=== PATIENT | male | born 1990 | race American Indian/Alaskan Native ===

== ENCOUNTER 2017-02-03 11:43 | Emergency (ER) | payer OTHER ==
[2017-02-03 11:50] VITALS: BP 128/90
--- NOTE | 2017-02-03 11:50 | Emergency Department Report ---
Chief Complaint: Laceration/Recheck/Suture Stated Complaint: STITCHES/OPEN WOUND Time Seen by Provider: 02/03/17 11:48 - HPI History of Present Illness: PT states he had stitches placed 1 week. PT states he stitches came out yesterday after he was scratching the site. PT states he did not open the wound intentionally to hurt himself - ROS Review of Systems: + wound - self harm - Exam Physical Exam: linear wound to L wrist, shallow wound dehiscence noted MSE screening note: Focused history and physical exam performed. Due to findings the following was ordered: ED Disposition for MSE Condition: Stable
--- NOTE | 2017-02-03 13:14 | Emergency Department Report ---
ED Recheck HPI - General Chief Complaint: Laceration/Recheck/Suture Stated Complaint: STITCHES/OPEN WOUND Time Seen by Provider: 02/03/17 11:48 Source: patient Mode of arrival: Ambulatory Limitations: No Limitations - History of Present Illness Initial Comments: This is a 26-year-old male that presents with removal of sutures that were placed last week and in [facility]. Patient stated a total of 9 sutures has been placed to his left anterior wrist after he tried to attempt suicide. Patient stated the stitches came out last night after he was scratching the site. Patient denies any suicidal indication or homicidal indication. Patient states has had drainage that is described as pus. Patient denies any fever, chills, joint stiffness, joint swelling, joint redness, numbness, tingling, chest pain or shortness of breath. Patient stated he is following up with a psychiatrist for depression. Patient denies any past medical history. Denies any drug allergies. Patient denies being prescribed any antibiotics after laceration repair or use of antibiotics currently. Patient stated he is UTD with tetanus shot. MD Complaint: wound re-check -: Gradual, days(s) (1) Returns Today for: other (suture came out) Symptoms Since Prior Visit: worsening discharge Associated Symptoms: none. denies: fever, chills, chest pain, shortness of breath, rash, malaise, nasue[place], abdominal pain - Related Data Previous Rx's Medication Instructions Recorded Last Taken Type Acetaminophen/Codeine [Tylenol #3] 1 tab PO Q6H PRN #20 tab 05/21/16 Unknown Rx Indomethacin 50 mg PO TID #15 capsule 05/21/16 Unknown Rx Cephalexin [Keflex] 500 mg PO Q8HR 7 Days 02/03/17 Unknown Rx Allergies Allergy/AdvReac Type Severity Reaction Status Date / Time No Known Allergies Allergy Unverified 05/21/16 13:05 ED Review of Systems ROS: Stated complaint: STITCHES/OPEN WOUND Other details as noted in HPI Constitutional: denies: chills, fever Eyes: denies: eye pain, eye discharge, vision change ENT: denies: ear pain, throat pain Respiratory: denies: cough, shortness of breath, wheezing Cardiovascular: denies: chest pain, palpitations Endocrine: no symptoms reported Gastrointestinal: denies: abdominal pain, nausea, diarrhea Genitourinary: denies: urgency, dysuria Musculoskeletal: denies: back pain, joint swelling, arthralgia Skin: denies: rash, lesions Neurological: denies: headache, weakness, paresthesias Psychiatric: denies: anxiety, depression Hematological/Lymphatic: denies: easy bleeding, easy bruising ED Past Medical Hx - Past Medical History Hx Psychiatric Treatment: Yes (depression) Additional medical history: BULGING / HERNIATED DISC - Surgical History Additional Surgical History: HEMORRHOIDECTOMY - Social History Smoking Status: Current Every Day Smoker Substance Use Type: Alcohol - Medications Home Medications: Home Medications Medication Instructions Recorded Confirmed Last Taken Type Acetaminophen/Codeine [Tylenol #3] 1 tab PO Q6H PRN #20 tab 05/21/16 Unknown Rx Indomethacin 50 mg PO TID #15 capsule 05/21/16 Unknown Rx Cephalexin [Keflex] 500 mg PO Q8HR 7 Days 02/03/17 Unknown Rx ED Physical Exam - General Limitations: No Limitations General appearance: alert, in no apparent distress - Head Head exam: Present: atraumatic, normocephalic, normal inspection - Eye Eye exam: Present: normal appearance, PERRL, EOMI. Absent: scleral icterus, conjunctival injection, nystagmus, periorbital tenderness Pupils: Present: normal accommodation - ENT ENT exam: Present: normal exam, normal orophraynx, mucous membranes moist, TM's normal bilaterally, normal external ear exam - Neck Neck exam: Present: normal inspection, full ROM. Absent: tenderness, meningismus, lymphadenopathy, thyromegaly - Respiratory Respiratory exam: Present: normal lung sounds bilaterally. Absent: respiratory distress, wheezes, rales, rhonchi, stridor, chest wall tenderness, accessory muscle use, decreased breath sounds, prolonged expiratory - Cardiovascular Cardiovascular Exam: Present: regular rate, normal rhythm, normal heart sounds. Absent: bradycardia, tachycardia, irregular rhythm, systolic murmur, diastolic murmur, rubs, gallop - GI/Abdominal GI/Abdominal exam: Present: soft, normal bowel sounds. Absent: distended, tenderness, guarding, rebound, rigid, diminished bowel sounds - Rectal Rectal exam: Present: deferred - Extremities Exam Extremities exam: Present: normal inspection, full ROM, normal capillary refill. Absent: tenderness, pedal edema, joint swelling, calf tenderness - Expanded Upper Extremity Exam Left General: Present: normal inspection Shoulder Exam: Present: normal inspection, full ROM. Absent: tenderness, swelling, abrasion, laceration, ecchymosis, deformity, crepidus, dislocation, erythema, tenderness over AC joint Upper Arm exam: Present: normal inspection, full ROM. Absent: tenderness, swelling, abrasion, laceration, ecchymosis, deformity, crepidus, dislocation, erythema Elbow exam: Present: normal inspection, full ROM. Absent: tenderness, swelling , abrasion, laceration, ecchymosis, deformity, crepidus, dislocation, erythema, effusion, pain w/ pronation/supination, tenderness over radial head Forearm Wrist exam: Present: normal inspection, full ROM, laceration (5 cm linear repaired laceration in the anterior wrist with shallow wound dehiscence with slight purulent drainage ). Absent: tenderness, swelling, abrasion, ecchymosis, deformity, crepidus, dislocation, erythema, tenderness over anatomical snuff box, pain with axial thumb loading Hand Wrist exam: Present: normal inspection, full ROM. Absent: tenderness, swelling, abrasion, laceration, ecchymosis, deformity, crepidus, dislocation, erythema, amputation, nail avulsion, subungual hematoma Neuro motor exam: Present: wrist extension intact, thumb opposition intact, thumb IP flexion intact, thumb adduction intact, fingers 2-5 abduction intact Neurosensory exam: Present: 2-point discrimination, radial nerve intact, ulnar nerve intact, median nerve intact Vascular: Present: vascular compromise, normal capillary refill, radial pulse, brachial pulse, ulnar pulse - Back Exam Back exam: Present: normal inspection, full ROM. Absent: tenderness, CVA tenderness (R), CVA tenderness (L), muscle spasm, paraspinal tenderness, vertebral tenderness, rash noted - Neurological Exam Neurological exam: Present: alert, oriented X3, CN II-XII intact, normal gait, reflexes normal - Psychiatric Psychiatric exam: Present: normal affect, normal mood - Skin Skin exam: Present: warm, dry, intact, normal color. Absent: rash ED Course Vital Signs 02/03/17 11:47 Temperature 98.6 F Pulse Rate 75 Respiratory 18 Rate Blood Pressure 128/90 O2 Sat by Pulse 100 Oximetry ED Recheck MDM - Medical Decision Making Ed course: This is a 26-year-old male that presents with wound dehiscence 1- patient was examined by myself. I used 40 cc for NS to irrigated and washed the area. I then applied sterile 4x4 with tape. No Steri-Strips or wound has not been sutured due to the timing of the wound as well as positive purulent drainage noted. 2- patient received Keflex at the time of discharge. 3- patient was instructed to keep the wound dry and clean for 24 hours followed by washing soap and water and reapply sterile dressing with tape. Patient also instructed to follow-up with the primary care doctor in 3-5 days or if symptoms such as increased pus, drainage, swelling, or opening further of the wound to return to emergency room as soon as possible. 4- at time time of discharge, the patient does not seem toxic or ill in appearance. No acute signs of distress noted. Patient agrees to discharge treatment plan of care. No further questions noted by the patient. Critical care attestation.: If time is entered above; I have spent that time in minutes in the direct care of this critically ill patient, excluding procedure time. ED Disposition Clinical Impression: Encounter for wound re-check Disposition: DC-01 TO HOME OR SELFCARE Is pt being admited?: No Does the pt Need Aspirin: No Condition: Stable Instructions: Cephalexin (By mouth), Wound Infection (ED), Acute Wound Care (ED ) Additional Instructions: keep the wound dry and clean for 24 hours followed by washing soap and water and reapply sterile dressing with tape. follow-up with the primary care doctor in 3-5 days or if symptoms such as increased pus, drainage, swelling, or opening further of the wound to return to emergency room as soon as possible. Take full course of antibiotics as prescribed. Prescriptions: Cephalexin [Keflex] 500 mg PO Q8HR 7 Days Referrals: LAMIN STERN JR, MD [Staff Physician] - 3-5 Days PRIMARY CAREMD [Primary Care Provider] - 3-5 Days [facility] [Outside] - 3-5 Days [facility] [place] [place]] - 3-5 Days Forms: Work/School Release Form(ED)
== END 2017-02-03 13:30 | disposition home or self-care (01) ==
LOC: ED 11:43
DX: T81.30XA Disruption of wound, unspecified, initial encounter (principal); F32.9 Major depressive disorder, single episode, unspecified; F17.210 Nicotine dependence, cigarettes, uncomplicated
CPT/HCPCS: 99282

== ENCOUNTER 2017-03-09 14:13 | Inpatient (IN) | payer OTHER ==
[2017-03-09] MEDS ORDERED: NACL 0.9% 1000 ML 1,000 ML IV ONE ×4 (14:39→18:15)
[2017-03-09] MEDS ORDERED: TORADOL IV ONE (14:58)
[2017-03-09] MEDS ORDERED: ZOFRAN IV ONE (14:58)
--- NOTE | 2017-03-09 15:02 | Emergency Department Report ---
ED Abdominal Pain HPI - General Chief Complaint: Abdominal Pain Stated Complaint: ABDOMINAL PAIN Time Seen by Provider: 03/09/17 14:52 Source: patient, EMS Mode of arrival: Ambulatory Limitations: No Limitations, Altered Mental Status, Other - History of Present Illness Initial Comments: 18-year-old male here with complaint of abdominal pain nausea vomiting. Patient has a history of prostatitis in the past and states that he feels that this is similar. He is having some dysuria and suprapubic abdominal pain. He has felt chills and feels dehydrated. He has had a single episode of nausea and vomiting. His psychiatric complaints are stable. MD Complaint: abdominal pain -: Gradual Location: suprapubic Radiation: none Migration to: no migration Severity: mild Severity scale (0 -10): 4 Quality: aching Consistency: constant Improves With: nothing Worsens With: nothing Associated Symptoms: nausea, vomiting, chills, dysuria - Related Data Previous Rx's Medication Instructions Recorded Last Taken Type Acetaminophen/Codeine [Tylenol #3] 1 tab PO Q6H PRN #20 tab 05/21/16 Unknown Rx Indomethacin 50 mg PO TID #15 capsule 05/21/16 Unknown Rx Cephalexin [Keflex] 500 mg PO Q8HR 7 Days 02/03/17 Unknown Rx Allergies Allergy/AdvReac Type Severity Reaction Status Date / Time No Known Allergies Allergy Unverified 05/21/16 13:05 ED Review of Systems ROS: Stated complaint: ABDOMINAL PAIN Other details as noted in HPI Comment: All other systems reviewed and negative Constitutional: chills. denies: fever Eyes: denies: eye pain, eye discharge, vision change ENT: denies: ear pain, throat pain Respiratory: denies: cough, shortness of breath, wheezing Cardiovascular: denies: chest pain, palpitations Endocrine: no symptoms reported Gastrointestinal: abdominal pain, nausea, diarrhea. denies: constipation, hematemesis Genitourinary: urgency, dysuria Musculoskeletal: denies: back pain, joint swelling, arthralgia Skin: denies: rash, lesions Neurological: denies: headache, weakness, paresthesias Psychiatric: denies: anxiety, depression Hematological/Lymphatic: denies: easy bleeding, easy bruising ED Past Medical Hx - Past Medical History Hx Hypertension: Yes Hx Psychiatric Treatment: Yes (depression) Additional medical history: BULGING / HERNIATED DISC. hemorrhoids - Surgical History Additional Surgical History: HEMORRHOIDECTOMY - Family History Family history: no significant - Social History Smoking Status: Current Every Day Smoker Substance Use Type: None - Medications Home Medications: Home Medications Medication Instructions Recorded Confirmed Last Taken Type Acetaminophen/Codeine [Tylenol #3] 1 tab PO Q6H PRN #20 tab 05/21/16 Unknown Rx Indomethacin 50 mg PO TID #15 capsule 05/21/16 Unknown Rx Cephalexin [Keflex] 500 mg PO Q8HR 7 Days 02/03/17 Unknown Rx ED Physical Exam - General Limitations: No Limitations, Altered Mental Status, Other General appearance: alert, in no apparent distress, obese - Head Head exam: Present: atraumatic, normocephalic - Eye Eye exam: Present: normal appearance. Absent: scleral icterus, conjunctival injection - ENT ENT exam: Present: mucous membranes dry - Neck Neck exam: Present: normal inspection - Respiratory Respiratory exam: Present: normal lung sounds bilaterally. Absent: respiratory distress, wheezes, rales - Cardiovascular Cardiovascular Exam: Present: regular rate, normal rhythm. Absent: systolic murmur, diastolic murmur, rubs, gallop - GI/Abdominal GI/Abdominal exam: Present: soft, tenderness (suprapubic), normal bowel sounds. Absent: distended, guarding, rebound - Rectal Rectal exam: Present: deferred - Extremities Exam Extremities exam: Present: normal inspection - Back Exam Back exam: Present: normal inspection - Neurological Exam Neurological exam: Present: alert, oriented X3 - Psychiatric Psychiatric exam: Present: normal affect, normal mood - Skin Skin exam: Present: warm, dry, intact, normal color. Absent: rash ED Course Vital Signs 03/09/17 14:48 Temperature 98.3 F Pulse Rate 84 Respiratory 16 Rate Blood Pressure 105/84 [Left] O2 Sat by Pulse 99 Oximetry ED Medical Decision Making - Lab Data Result diagrams: 03/09/17 16:03 03/09/17 16:03 Laboratory Results - last 24 hr 03/09/17 03/09/17 03/09/17 16:03 16:03 16:03 WBC 4.2 L RBC 4.83 Hgb 13.8 Hct 42.0 MCV 87 MCH 29 MCHC 33 RDW 13.0 L Plt Count 213 Lymph % (Auto) 31.6 [place] % (Auto) 8.2 H Eos % (Auto) 1.9 Baso % (Auto) 0.3 Lymph # 1.3 [place] # 0.3 Eos # 0.1 Baso # 0.0 Seg Neutrophils % 58.0 Seg Neutrophils # 2.5 PT 13.1 INR 0.95 APTT 26.9 Sodium 124 L Potassium 4.9 Chloride 80.8 L Carbon Dioxide 23 Anion Gap 25 BUN 19 Creatinine 1.6 H Estimated GFR > 60 BUN/Creatinine Ratio 11.87 Glucose 982 H* Calcium 10.2 Total Bilirubin 0.60 AST 29 ALT 46 Alkaline Phosphatase 157 H Total Protein 8.5 H Albumin 4.9 Albumin/Globulin Ratio 1.4 Lipase 50 Urine Color Urine Turbidity Urine pH Ur Specific [place] Urine Protein Urine Glucose (UA) Urine Ketones Urine Blood Urine Nitrite Urine Bilirubin Urine Urobilinogen Ur Leukocyte Esterase Urine WBC (Auto) Urine RBC (Auto) Urine Mucus Blood Type Antibody Screen 03/09/17 03/09/17 16:03 Unknown WBC RBC Hgb Hct MCV MCH MCHC RDW Plt Count Lymph % (Auto) [place] % (Auto) Eos % (Auto) Baso % (Auto) Lymph # [place] # Eos # Baso # Seg Neutrophils % Seg Neutrophils # PT INR APTT Sodium Potassium Chloride Carbon Dioxide Anion Gap BUN Creatinine Estimated GFR BUN/Creatinine Ratio Glucose Calcium Total Bilirubin AST ALT Alkaline Phosphatase Total Protein Albumin Albumin/Globulin Ratio Lipase Urine Color Colorless Urine Turbidity Clear Urine pH 6.0 Ur Specific [place] 1.022 Urine Protein <15 mg/dl Urine Glucose (UA) >=500 Urine Ketones Neg Urine Blood Neg Urine Nitrite Neg Urine Bilirubin Neg Urine Urobilinogen < 2.0 Ur Leukocyte Esterase Neg Urine WBC (Auto) < 1.0 Urine RBC (Auto) < 1.0 Urine Mucus Few Blood Type O POSITIVE Antibody Screen TNR - Medical Decision Making 18-year-old male with a history of prostatitis here with similar symptoms. Plan to check UA base gland and will treat as necessary. Plan to treat with IV fluids and antiemetics and Toradol for pain. Patient with a blood sugar of 982. He is not a known diabetic. On re- discussion with him he does admit to having blurry vision and polydipsia. Plan to admit to the hospitalist service. Given his anion gap and blood sugar he will need to start on an insulin drip and be admitted to critical care. Portions of this chart were dictated with dictation software. There may be dictation errors contained within this note. Critical Care Time: Yes Critical care attestation.: If time is entered above; I have spent that time in minutes in the direct care of this critically ill patient, excluding procedure time. Critical Care Time: 35 mins ED Disposition Clinical Impression: DKA, type 2 Disposition: DC-09 OP ADMIT IP TO THIS HOSP Is pt being admited?: Yes Condition: Critical Instructions: Diabetes Mellitus Type 2 in Adults (ED) Referrals: PRIMARY CARE, [Primary Care Provider] - 3-5 Days
[2017-03-09 16:32] LABS: INR 0.95 (0.87-1.13)
[2017-03-09 16:33] LABS: Partial Thromboplastin Time 26.9 Sec. (24.2-36.6)
[2017-03-09 16:42] LABS: Basophils % (Auto) 0.3 % (0.0-1.8); Eosinophils % (Auto) 1.9 % (0.0-4.3); Hemoglobin 13.8 gm/dl (11.8-15.2); Mean Corpuscular HGB Conc 33 % (32-34); Mean Corpuscular Hemoglobin 29 pg (28-32); Mean Corpuscular Volume 87 fl (84-94); Platelet Count 213 K/mm3 (140-440); Red Blood Count 4.83 M/mm3 (3.65-5.03); White Blood Count 4.2 K/mm3 (4.5-11.0)
[2017-03-09 16:48] LABS: Alanine Aminotransferase 46 units/L (7-56); Albumin 4.9 g/dL (3.9-5); Albumin/Globulin Ratio 1.4 %; Alkaline Phosphatase 157 units/L (35-129); Anion Gap 25 mmol/L; BUN/Creatinine Ratio 11.87; Blood Urea Nitrogen 19 mg/dL (9-20); Calcium 10.2 mg/dL (8.4-10.2); Carbon Dioxide 23 mmol/L (22-30); Chloride 80.8 mmol/L (98-107); Lipase 50 units/L (13-60); Potassium 4.9 mmol/L (3.6-5.0); Sodium 124 mmol/L (137-145); Total Protein 8.5 g/dL (6.3-8.2)
[2017-03-09 16:49] LABS: Bilirubin,Urine NEG (Negative); Blood,Urine NEG (Negative); Ketones,Urine NEG (Negative); Leukocyte Esterase,Urine NEG (Negative); Mucus,Urine FEW /HPF; Nitrite,Urine NEG (Negative); Protein,Urine <15 mg/dL mg/dL (Negative); RBC,Urine < 1.0 /HPF (0.0-6.0); Urobilinogen,Urine < 2.0 mg/dL (<2.0); WBC,Urine < 1.0 /HPF (0.0-6.0)
[2017-03-09 16:59] LABS: Glucose 982 mg/dL (75-100)
[2017-03-09] MEDS ORDERED: D50W (25GM) IV PRN ×2 (17:02→18:10)
--- NOTE | 2017-03-09 17:31 | Admit Criteria Form ---
Admission Criteria Documentation: GENERAL ADMISSION CRITERIA (Place 'X' for any and all applicable criteria): Admission is indicated for ANY ONE of the following: [ ]I. Hemodynamic instability as indicated by ANY ONE of the following(1)(2) (3)(4)(5): [ ]a) Vital sign abnormality not readily corrected by appropriate treatment within 12 to 24 hours indicated by ANY ONE of the following: [ ]i) Hypotension [ ]ii) Symptomatic Tachycardia unresponsive to treatment (eg , analgesia, fluids, sedation as indicated) [ ]iii) Orthostatic vital sign changes unresponsive to treatment (eg, fluids) [ ]b) Vital sign abnormality that is severe indicated by ANY ONE of the following: [ ]i) Inadequate perfusion indicated by ANY ONE of the following: [ ]1) Lactic acidosis (greater than 2 mmol/L) [ ]2) New abnormal capillary refill (greater than 3 seconds) [ ]3) Other metabolic acidosis (arterial pH less than 7.35) not otherwise explained [ ]4) Reduced urine output [ ]5) Altered mental status [ ]6) Myocardial Ischemia [ ]v) Mean arterial pressure[A] less than 60 mm Hg [ ]vi) Mean arterial pressure[A] less than 70 mm Hg after 30 minutes of appropriate treatment (eg, fluid resuscitation) [ ]vii) IV inotropic or vasopressor medication required to maintain adequate blood pressure or perfusion [ ]viii) Sustained heart rate greater than 120 beats per minute in adult or child 6 years or older[B]] [ ]II. Hypertension requiring inpatient treatment as indicated by ANY ONE of the following(6)(7)(8): [ ]a) SBP greater than 220 mm Hg or DBP greater than 120 mm Hg despite treatment [ ]b) SBP greater than 140 mm Hg or DBP greater than 100 mm Hg with evidence of acute end organ damage as indicated by ANY ONE of the following: [ ]i) Encephalopathy [ ]ii) Acute renal failure as indicated by new onset of ANY ONE of the following(9)(10)(11)(12)(13): [ ]1) A 3-fold rise in serum creatinine from baseline [ ]2) Serum creatinine greater than 4 mg/dL ( 354 micromoles/L) with acute rise greater than 0.5 mg/dL (44.2 micromoles/L) [ ]3) Reduction of more than 75% in estimated glomerular filtration rate from baseline [ ]4) Estimated glomerular filtration rate less than 35 mL/min/1.73m2 (0.59 mL/sec/1.73m2) in child up to 18 years of age [ ]5) Cessation of urine output indicated by ALL of the following: [ ]A. Adequate volume status [ ]B. Inadequate urine output as indicated by ANY ONE of the following: [ ]a. Urine output less than 0.3 mL/kg/hr for 24 hours [ ]b. Anuria (urine output less than 0.1 mL/kg/hr) for 12 hours [ ]iii) Aortic dissection [ ]iv) Myocardial ischemia [ ]v) Left ventricular heart failure [ ]vi) Retinal hemorrhage [ ]vii) Other significant finding [ ]c) Hypertension in child requiring inpatient treatment as indicated by ALL of the following(14)(15)(16): [ ]i) Outpatient treatment not effective, not available, or not appropriate [ ]ii) SBP or DBP greater than 95th percentile for age [ ]iii) Evidence of acute end organ damage as indicated by ANY ONE of the following: [ ]1) Altered mental status [ ]2) Acute renal failure as indicated by new onset of ANY ONE of the following(9)(10)(11)(12)(13): [ ]A. A 3-fold rise in serum creatinine from baseline [ ]B. Serum creatinine greater than 4 mg/dL (354 micromoles/L) with acute rise greater than 0.5 mg/dL (44.2 micromoles/L) [ ]C. Reduction of more than 75% in estimated glomerular filtration rate from baseline [ ]D. Estimated glomerular filtration rate less than 35 mL/min/1.73m2 (0.59 mL/sec/1.73m2)in child up to 18 years of age [ ]E. Cessation of urine output indicated by ALL of the following: [ ]a. Adequate volume status [ ]b. Inadequate urine output as indicated by ANY ONE of the following: [ ]1) Urine output less than 0.3 mL/kg/hr for 24 hours [ ]2) Anuria (urine output less than 0.1 mL/kg/hr) for 12 hours [ ]3) Severe headache [ ]4) Visual disturbance [ ]5) Retinal hemorrhage [ ]6) Other significant finding [ ]III. Acute cardiac or peripheral ischemia as indicated by ANY ONE of the following: [ ]a) Acute coronary syndrome(17)(18) [ ]b) Acute peripheral ischemia (eg, pulseless, cool, mottled, or cyanotic extremity)(19) [ ]IV. Cardiac arrhythmias or findings of immediate concern indicated by ANY ONE of the following(20)(21): [ ]a) Heart rhythms that are inherently dangerous or unstable indicated by ANY ONE of the following(22)(23)(24): [ ]i) Resuscitated ventricular fibrillation or cardiac arrest [ ]ii) Ventricular escape rhythm [ ]iii) Sustained ventricular tachycardia (30 seconds or more of ventricular rhythm at greater than 100 beats per minute) [ ]iv) Nonsustained ventricular tachycardia and ANY ONE of the following: [ ]1) Suspected cardiac ischemia as cause or consequence of ventricular tachycardia [ ]2) In setting of acute myocarditis [ ]b) Unstable cardiac conduction defects indicated by ANY ONE of the following(24)(25)(26): [ ]i) Type II second-degree atrioventricular block [ ]ii) Third-degree atrioventricular block [ ]iii) New-onset left bundle branch block with suspected myocardial ischemia [ ]c) Any heart rhythm and ANY ONE of the following(22)(23)(27)(28)( 29): [ ] i) Continuous long-term ECG monitoring needed (eg, initiation of drug requiring monitoring for more than 24 hours) [ ] ii) Patient has automatic implanted cardioverter defibrillator that is repeatedly firing, malfunctioning, or in need of immediate adjustment of settings beyond the scope of ambulatory or observation care. [ ]d) Heart rhythms of concern due to ANY ONE of the following: [ ]i) Hypotension [ ]ii) Respiratory distress [ ]iii) Association with other significant symptoms (eg, bradycardia with syncope or ongoing dizziness, supraventricular tachycardia with chest pain) (27)(28) (30) [ ] V. Severe heart failure as indicated by ANY ONE of the following ( 31)(32): [ ]a) Respiratory distress [ ]b) Hypotension [ ]c) Anasarca (refractory to outpatient therapy) [ ]d) Cardiac arrhythmias of immediate concern [ ]e) Myocardial ischemia [ ]. Respiratory abnormalities, including ANY ONE of the following(33)(34) (35)(36): [ ]a) Respiratory rate greater than 30 breaths per minute unresponsive to treatment [A] [ ]b) New saturation of arterial oxygen less than 90% [ ]c) New partial pressure of carbon dioxide greater than 44 mm Hg ( 5.9 kPa) [ ]d) Supplemental oxygen or respiratory treatments needed that are new or not performable at other levels of care [ ]e) New-onset cyanosis [ ]f) Inability to protect airway [ ]g) Chronic lung disease with severe deterioration (not responsive to emergency and observation care treatment as appropriate) as indicated by ANY ONE of the following(34)(36 ): [ ]i) SaO2 5% below baseline in patient with chronic hypoxemia [ ]ii) New requirement for supplemental oxygen to keep SaO2 at baseline or acceptable level [ ]iii) Required supplemental oxygen performable only in acute inpatient setting [ ]iv) Severe airflow or ventilation abnormalities [ ]v) Previously mobile patient unable to walk between rooms [ ]vi Inability to eat or sleep due to dyspnea [ ]vii) Rapid rate of exacerbation onset [ ]viii) Altered mental status ]VII. Severe airflow or ventilation abnormalities (not responsive to emergency and observation care treatment as appropriate) as indicated by ANY ONE of the following(33)(34)(35)(37): [ ]a) PCO2 greater than 42 mm Hg (5.6 kPa) and pH less than 7.35 (new ) [ ]b) Documented PCO2 increased more than 5 mm Hg (0.7 kPa) from disease baseline [ ]c) Airflow measurements [B] less than 60% of previous best or predicted (eg, peak expiratory flow rate less than 300 L/minute) despite intensive emergent treatment [C] [ ]d) Required respiratory treatments that are performable only in acute inpatient setting [ ]VIII. Impending or actual respiratory arrest ( Also use Respiratory Failure GRG for severe respiratory disease and long-term mechanical ventilation patients) [ ]IX. Neurologic abnormalities, including ANY ONE of the following: [ ]a) New findings that suggest ANY ONE of the following: [ ]i) [employer] infection(38) [ ]ii) Cerebral bleeding, ischemia, or vasospasm(39)(40) [ ]iii) Increased intracranial pressure, hydrocephalus, or cerebral edema(41)(42)(43) [ ]iv) Spinal cord injury(44) [ ]b) Uncontrolled seizures(45) [ ]c) New-onset coma (eg, [place] coma scale score less than 9) or unexplained abnormal mental status (eg, [place] coma scale score less than 14) [D](41)(46)(47) [ ]X. New-onset severe neurologic findings requiring inpatient care; examples include(42)(48)(49): [ ]a) Papilledema [ ]b) Cerebral edema [ ]c) Mass effect on CT scan [ ]XI. Suspected acute intra-abdominal process with peritoneal signs, abdominal mass, or similar findings (50)(51)(52) [ X]XII. Severe physiologic disorder remaining after emergency or observation level care (as appropriate) as indicated by ANY ONE of the following (53): [ ]a) Significant dehydration [X ]b) Diabetic ketoacidosis [ ]c) Hyperglycemic hyperosmolar state (eg, osmolality greater than 320 mOsm/kg (mmol/kg) [ ]d) Hypoglycemia [ ]e) Other (new) acid-base disorder with pH less than 7.35 or greater than 7.5(54) [ ]f) Thyroid storm (55) [ ]g) Myxedema coma (55) [ ]XIII. Abdominal abnormalities with ANY ONE of the following(56)(57): [ ]a) Absent bowel sounds with complete ileus [ ]b) Signs of intestinal obstruction or peritonitis [E] [ ]c) Nausea and vomiting that cannot be controlled with outpatient or observation care [ ]XIV. Acute renal failure as indicated by new onset of ANY ONE of the following(9)(10)(11)(12)(13): [ ]a) A 3-fold rise in serum creatinine from baseline [ ]b) Serum creatinine greater than 4 mg/dL (354 micromoles/L) with acute rise greater than 0.5 mg/dL (44.2 micromoles/L) [ ]c) Reduction of more than 75% in estimated glomerular filtration rate from baseline [ ]d) Estimated glomerular filtration rate less than 35 mL/min/ 1.73m2 (0.59 mL/sec/1.73m2) in child up to 18 years of age [ ]e) Cessation of urine output indicated by ALL of the following: [ ]i) Adequate volume status [ ]ii) Inadequate urine output as indicated by ANY ONE of the following: [ ]1) Urine output less than 0.3 mL/kg/hr for 24 hours [ ]2) Anuria (urine output less than 0.1 mL/kg/hr) for 12 hours [ ]XV. Significant uremic complications as indicated by ANY ONE of the following(58)(59)(60): [ ]a) Outpatient therapy is ineffective or not feasible for ANY ONE of the following: [ ]i) Severe heart failure [ ]ii) Severehypertension [ ]iii) Pleural effusion [ ]iv) Pericarditis or pericardial effusion [ ]b) Cardiac arrhythmias of immediate concern [ ]c) Intractable nausea or vomiting [ ]d) Recurrent seizures [ ]e) Encephalopathy [ ]f) Bleeding abnormalities (eg, platelet dysfunction) with active (eg, gastrointestinal) bleeding [ ]g) Dialysis indicated before long-term access or ambulatory arrangements can be made [ ]h) Significant metabolic or electrolyte abnormalities (eg, severe acidosis or hyperkalemia) [ ]XVI. High fever or other high-risk infection situation as indicated by ANY ONE of the following(61)(62)(63)(64): [ ]a) Outpatient and observation care antimicrobial treatment unavailable, not effective, or not appropriate [ ]b) Documented bacteremia [ ]c) Temperature greater than 40.5 degrees C (104.9 degrees F) ( oral) [ ]d) Temperature greater than 39.5 degrees C (103.1 degrees F) ( oral) or less than 36 degrees C (96.8 degrees F) (rectal) that does not respond to e treatment and observation care [ ] XVII. Temperature less than 95 degrees F (35 degrees C)(rectal)(65) [ ] XVIII. Severe nutritional abnormalities as indicated by ALL of the following (66)(67): [ ]a) Inability to tolerate or establish sufficient oral or other enteral nutrition in outpatient setting [ ]b) Parenteral nutrition regimen need that must be implemented on inpatient basis [ X] XIX. Severe electrolyte abnormalities indicated by ALL of the following(68 )(69)(70): [X ]a) Electrolytes and associated findings are not as expected for patient baseline or acceptable treatment effects. [ X]b) Severe abnormalities indicated by ANY ONE of the following: [X ]i) Sodium less than 130 mEq/L (mmol/L) (new) [ ]ii)Sodium less than 135 mEq/L (mmol/L) with ANY ONE of the following: [ ]1) Uncorrectable (to near normal or chronic baseline) after trial of outpatient and emergency treatment [ ]2) Altered mental status [ ]3) Seizures [ ]4) Severe medical etiology requiring inpatient management (eg, heart failure, hypovolemia) [ ]iii) Sodium greater than 155 mEq/L (mmol/L) [ ]iv) Sodium greater than 150 mEq/L (mmol/L) with ANY ONE of the following: [ ]1) Uncorrectable (to near normal or chronic baseline) with outpatient and emergency treatment [ ]2) Altered mental status [ ]3) Seizures [ ]4) Severe medical etiology (eg, hypovolemia, diabetes insipidus) [ ]v) Potassium less than 2.5 mEq/L (mmol/L) despite outpatient and emergency treatment [ ]vi) Potassium less than 3 mEq/L (mmol/L) with ANY ONE of the following: [ ]1) Weakness [ ]2) Cardiac abnormality (eg, arrhythmia, conduction disturbance) [ ]3) Cardiac ischemia [ ]4) Ileus [ ]5) Ongoing medical cause requiring inpatient management (eg, acute renal wasting or SIADH) [ ]6) Other severe symptoms [ ]vii) Potassium greater than 6.5 mEq/L (mmol/L) [ ]viii) Potassium greater than 5 mEq/L (mmol/L) with ANY ONE of the following: [ ]1) Uncorrectable (to near normal or chronic baseline) with outpatient and emergency treatment [ ]2) Severe ECG findings [F] [ ]3) Acute worsening of renal failure (creatinine greater than 2.5 mg/dL (221 micromoles/L) or significant elevation for age and size) [ ]4) Severe weakness [ ]5) Severe medical etiology (eg, hemolysis, infection, drug overdose) [ ]ix) Calcium less than 7 mg/dL (1.75 mmol/L) despite outpatient and emergency treatment (72) [ ]x) Calcium less than 8 mg/dL (2 mmol/L) with significant symptoms or findings; examples include(72): [ ]1) Altered mental status [ ]2) Muscle spasms [ ]3) Seizures [ ]4) Breathing difficulty [ ]5) Cardiac abnormality (eg, arrhythmia or conduction disturbance) [ ]xi) Calcium greater than 14 mg/dL (3.5 mmol/L)(72) [ ]xii) Calcium greater than 12 mg/dL (3 mmol/L) with ANY ONE of the following(72): [ ]1) Uncorrectable (to near normal or chronic baseline) with outpatient and emergency treatment [ ]2) Significant dehydration or hypovolemia as indicated by ALL of the following(70)(73)(74): [ ]A. Not resolved with initial treatments [ ]B. Clinically significant dehydration as indicated by ANY ONE of the following: [ ]a. Vomiting refractory to outpatient treatment (ie, precluding oral rehydration) [ ]b. Inability to drink [ ]c. Hypernatremia or other electrolyte abnormality unable to be corrected with outpatient and emergency treatment [ ]d. Failure to remain hydrated with outpatient therapy [ ]e. Reduced urine output [ ]f. Hypotension [ ]g. Serious cause for dehydration requiring acute hospitalization (eg, bowel obstruction, increased intracranial pressure, infectious cause) [ ]h. Child with ANY ONE of the following(75): [ ]1) Severe abdominal tenderness [ ]2) Adequate care not available at home [ ]3) Severe dehydration ( greater than 9% loss of body weight) [ ]4) Significant symptoms or findings; examples include: [ ]A. Altered mental status [ ]B. Cardiac abnormality (eg, arrhythmia, conduction disturbance) [ ]C. Malignant etiology requiring inpatient treatment [ ]xiii) Phosphorus less than 1 mg/dL (0.32 mmol/L) [ ]xiv) Phosphorus less than 1.5 mg/dL (0.48 mmol/L) with ANY ONE of the following: [ ]1) Patient unresponsive to outpatient and emergency treatment [ ]2) Significant symptoms or findings; examples include: [ ]A. Weakness [ ]B. Altered mental status [ ]C. Breathing difficulty [ ]D. Seizures [ ]E. Rhabdomyolysis [ ]xv) Phosphorus greater than 10 mg/dL (3.2 mmol/L) [ ]xvi) Phosphorus greater than 4.5 mg/dL (1.45 mmol/L) (new) with ANY ONE of the following: [ ]1) Severe medical etiology (eg, crush injury, acute renal failure) [ ]2) Associated hypocalcemia with significant findings; examples include: [ ]A. Neurologic symptoms [ ]B. Altered mental status [ ]C. Muscle spasms [ ]D. Seizures [ ]E. Breathing difficulty [ ]F. Cardiac abnormality (eg, arrhythmia, conduction disturbance) [ ]xvii) Magnesium less than 1 mg/dL (0.41 mmol/L) [ ]xviii) Magnesium less than 1.5 mg/dL (0.62 mmol/L) with ANY ONE of the following: [ ]1) Patient unresponsive to outpatient and emergency treatment [ ]2) Associated hypocalcemia with significant findings; examples include: [ ]A. Altered mental status [ ]B. Muscle spasms [ ]C. Seizures [ ]D. Breathing difficulty [ ]E. Cardiac abnormality (eg, arrhythmia , conduction disturbance) [ ]3) Associated hypokalemia (potassium less than 3 mEq/L (mmol/L)) with risk of arrhythmia [ ]xix) Magnesium greater than 4 mEq/L (2 mmol/L) [ ]xx) Magnesium greater than 2.5 mEq/L (1.25 mmol/L) with significant symptoms or findings; examples include: [ ]1) Weakness [ ]2) Altered mental status [ ]3) Cardiac abnormality (eg, arrhythmia, conduction disturbance) [ ]4) Breathing difficulty [ ]5) Severe medical etiology (eg, renal failure, hypovolemia) [ ]xxi) Uric acid greater than 20 mg/dL (1190 micromoles/L)(76) [ ]xxii) Uric acid greater than 8 mg/dL (476 micromoles/L) with significant symptoms or findings of tumor lysis syndrome; examples include(76): [ ]1) Creatinine greater than 1.5 times upper limit of normal [ ]2) Cardiac abnormality (eg, arrhythmia, conduction disturbance) [ ]3) Seizure [ ]XX. Acute blood loss causing significant abnormality as indicated by ANY ONE of the following(77)(78): [ ]a) Hemoglobin less than 10 g/dL (100 g/L) (not baseline) [ ]b) Hematocrit less than 30% (0.30) (not baseline) [ ]c) Repeat hematocrit decreased more than 2% (0.02) [ ]d) Uncontrolled bleeding [ ]XXI. Severe anemia indicated by ANY ONE of the following(78)(79): [ ]a) Altered mental status [ ]b) Chest pain [ ]c) Exertional dyspnea [ ]d) Syncope [ ]e) Other findings suggesting inadequate perfusion [ ]f) Treatment with transfusion or volume replacement is ineffective at resolving ANY ONE of the following [G]: [ ]i) Tachycardia for age [ ]ii) Orthostatic vital sign changes as indicated by ANY ONE of the following(80): [ ]1) Fall in SBP of 20 mm Hg or more 1 to 3 minutes after patient sits or stands from recumbent position [ ]2) Fall in DBP of 10 mm Hg or more 1 to 3 minutes after patient sits or stands from recumbent position [ ]XXII. High-risk low platelet count as indicated by ANY ONE of the following( 81)(82): [ ]a) Severe or life-threatening bleeding (eg, intracranial, major gastrointestinal, or extensive mucosal bleeding), with any reduced platelet count [ ]b) Platelet count less than 20,000/mm3 (20 x109/L) with any active bleeding [ ]c) Platelet count less than 10,000/mm3 (10 x109/L) with minor purpura or petechiae [ ]d) Platelet count less than 5000/mm3 (5 x109/L) [ ]e) Low platelet count with hemolytic anemia [ ]XXIII. Disseminated intravascular coagulation(77)(83) [ ]XXIV. Severe adverse drug or systemic toxin reaction requiring inpatient treatment; examples include(84)(85): [ ]a) Serotonin syndrome(86) [ ]b) Neuroleptic malignant syndrome(86) [ ]c) Cholinergic syndrome with severe symptoms (eg, bronchorrhea, weakness, mental status changes, seizures) [ ]d) Sympathetic syndrome with severe symptoms (eg, seizures, mental status changes, cardiac dysrhythmias) [ ]e) Anticholinergic syndrome [ ]XXV. Severe pain requiring acute inpatient management as indicated by ALL of the following (87)(88)(89): [ ]a) Continuous or frequent (eg, every 2 to 4 hours) parenteral analgesics required [H] [ ]b) Rapid improvement expected from treatment or acute intervention (eg, surgery, anesthesia procedure) [ ]XXVI.Severe behavioral health issues judged unmanageable at a lower level of care (eg, residential) in a patient who is ANY ONE of the following(91) [ ]a) Acutely suicidal [ ]b) A danger to self (eg, self-mutilating or suicidal behavior) [ ]c) A danger to others (eg, assaultive or homicidal behavior) [ ]d) Incapacitated because of grave disability (eg, inability to provide for self at lower level of care) (92) [ ]XXVII. Inpatient monitoring needed; examples include(1)(3)(87)(93)(94)(95)(96 ): [ ]a) Vital signs, neurologic signs, or vascular checks more frequently than every 4 hours [ ]b) Cardiac or respiratory monitoring beyond the scope (eg, over 24 hours) of observation care [ ]c) Pulmonary artery catheter monitoring [ ]d) Suspected compartment syndrome(97) (98) [ ]e) Cerebral bleeding, hydrocephalus, or vasospasm monitoring [ ]f) Increased intracranial pressure or cerebral edema monitoring [ ]g) monitoring [ ]XXVIII. Treatment requiring inpatient care; examples include: [ ]a) IV fluid to replace significant ongoing losses (greater than 3 L/m2 per day)(53) [ ]b) High concentration oxygen (greater than 40%)(33)(99)(100) [ ]c) Frequent respiratory therapy (more frequently than every 4 hours) to maintain airflow rates greater than 60% of baseline(33)(99)(100) [ ]d) Epidural analgesia(87) [ ]e) IV anticoagulation, vasoactive, or antiarrhythmic medication(19 )(23) [ ]f) Acute thrombolytics (generally require 24 hours of observation )(101)(102) [ ]XXIX. Emergency procedures needed; examples include: [ ]a) Emergency inpatient surgery [ ]b) Temporary pacemaker placement(103) [ ]c) Chest tube placement with active evacuation (eg, suction, drainage)(104) [ ]d) Emergent cardioversion(105) [ ]e) Emergent cardiac or vascular procedures (eg, cardiac catheterization, angioplasty) (17)(18) [ ]f) Emergent dialysis access placement and institution(10)(106) [ ]g) Emergent pericardiocentesis(107) [ ]h) Emergent plasmapheresis or leukapheresis(83) [ ]i) Emergent tracheostomy The original [employer] content created by [employer] has been revised. The portions of the content which have been revised are identified through the use of italic text or in bold, and [email or web address] has neither reviewed nor approved the modified material. All other unmodified content is copyright [employer]. Please see references footnoted in the original [employer] edition 2016 Admission Criteria Met: Yes
--- NOTE | 2017-03-09 18:09 | History and Physical Report ---
History of Present Illness Chief complaint: I feel nauseous, i threw up and i just feel sick History of present illness: 26 YO Male with Depression, Nicotine Dependence, Hemorrhoids, presents to ED for evaluation. Pt states that he has experienced multiple episodes on nausea and vomiting over the pas 2 days with worsening symptoms over the past day. Pt acknowledges polydipsia, polyuria, polyphagia. Pt denies fever, chills, CP, Palpitations, NVD, Syncope, or recent ill contacts. Pt seen and evaluated in ED and found to have serum glucose of 685, and in DKA. Pt initiated on DKA protocol with insulin drip therapy. Past History Past Medical History: other (depression, hemorrhoids, nicotine dependence) Social history: single, smoking. denies: alcohol abuse, prescription drug abuse , IV drug use Family history: diabetes, hypertension Medications and Allergies Allergies Allergy/AdvReac Type Severity Reaction Status Date / Time No Known Allergies Allergy Unverified 05/21/16 13:05 Home Medications Medication Instructions Recorded Confirmed Last Taken Type Acetaminophen/Codeine [Tylenol #3] 1 tab PO Q6H PRN #20 tab 05/21/16 Unknown Rx Indomethacin 50 mg PO TID #15 capsule 05/21/16 Unknown Rx Cephalexin [Keflex] 500 mg PO Q8HR 7 Days 02/03/17 Unknown Rx Active Meds: Active Medications Dextrose (D50w (25gm)) 0 ml IV ONCE PRN PRN Reason: Hypoglycemia Sodium Chloride (Nacl 0.9% 1000 Ml) 1,000 mls @ 250 mls/hr IV ONCE ONE Stop: 03/09/17 18:38 Last Admin: 03/09/17 16:42 Dose: 250 mls/hr Insulin Human Regular 100 (units/ Sodium Chloride) 100 mls @ 1 mls/hr IV TITR ELGIN; 1 UNITS/HR PRN Reason: Protocol Review of Systems Constitutional: no weight loss, no weight gain Ears, nose, mouth and throat: no ear pain, no nose pain Cardiovascular: no chest pain, no syncope Respiratory: no cough, no cough with sputum Gastrointestinal: nausea, vomiting Genitourinary Male: no dysuria Rectal: no pain Musculoskeletal: neck stiffness Integumentary: no rash Neurological: no head injury Psychiatric: no anxiety Endocrine: polyphagia, polydipsia, polyuria, nocturia, no cold intolerance Hematologic/Lymphatic: no easy bruising Allergic/Immunologic: urticaria Exam - Constitutional Vitals: Temp Pulse Resp BP Pulse Ox 98.3 F 84 16 105/84 99 03/09/17 14:48 03/09/17 14:48 03/09/17 14:48 03/09/17 14:48 03/09/17 14:48 General appearance: Present: mild distress, obese - EENT Eyes: Present: PERRL ENT: hearing intact, clear oral mucosa - Neck Neck: Present: supple, normal ROM - Respiratory Respiratory effort: normal Respiratory: bilateral: CTA - Cardiovascular Heart Sounds: Present: S1 & S2. Absent: rub, click - Extremities Extremities: pulses symmetrical, No edema Peripheral Pulses: within normal limits - Abdominal General gastrointestinal: Present: soft, non-tender, non-distended, normal bowel sounds Male genitourinary: Present: normal - Integumentary Integumentary: Present: clear, dry, clammy, decreased turgor - Musculoskeletal Musculoskeletal: generalized weakness - Psychiatric Psychiatric: appropriate mood/affect, intact judgment & insight - Neurologic Neurologic: CNII-XII intact, moves all extremities Results - Labs CBC & Chem 7: 03/09/17 16:03 03/10/17 03:43 Labs: Abnormal lab results 03/09/17 03/09/17 Range/Units 16:03 16:03 WBC 4.2 L (4.5-11.0) K/mm3 RDW 13.0 L (13.2-15.2) % [place] % (Auto) 8.2 H (0.0-7.3) % Sodium 124 L (137-145) mmol/L Chloride 80.8 L (98-107) mmol/L Creatinine 1.6 H (0.8-1.5) mg/dL Glucose 982 H* (75-100) mg/dL Alkaline Phosphatase 157 H (35-129) units/L Total Protein 8.5 H (6.3-8.2) g/dL Assessment and Plan - Patient Problems (1) DKA (diabetic ketoacidoses) Current Visit: Yes Status: Acute Qualifiers: Diabetes mellitus type: D Diabetes mellitus complication detail: D Plan to address problem: DKA prptocol: Insulin drip, serial bmp, monitor anion gap, monitor uop q shift, serial bmp, The high probability of a clinically significant, sudden or life threatening deterioration of the [endocrine, renal, pulmonary] system(s) required my full and direct attention, intervention and personal management. The aggregate critical care time was [65] minutes. This time is in addition to time spent performing reported procedures but includes the following: [x] Data Review and interpretation [x] Patient assessment and monitoring of vital signs [x] Documentation [x] Medication orders and management (2) Metabolic acidosis Current Visit: Yes Status: Acute Plan to address problem: Treat DKA, IVF replacement, repeat bmp (3) ARF (acute renal failure) Current Visit: Yes Status: Acute Qualifiers: Acute renal failure type: A Plan to address problem: IVF replacement, monitor uop q shift, repeat creatnine (4) Hyponatremia syndrome Current Visit: Yes Status: Acute Plan to address problem: IVF replacement, repeat sodium level (5) Depression Current Visit: Yes Status: Acute Qualifiers: Depression Type: D Major depression recurrence: M Active/Remission status : A Major depression episode severity: M Psychotic features: P Trimester: T Plan to address problem: [address] (6) DVT prophylaxis Current Visit: Yes Status: Acute
[2017-03-09] MEDS ORDERED: PROVENTIL IH PRN (18:10)
[2017-03-09] MEDS: NovoLIN R 100 UNITS in NACL 0.9% 99 ML IV SCH ×3 (18:13→23:19)
[2017-03-09 18:44] LABS: Anion Gap 22 mmol/L; Blood Urea Nitrogen 18 mg/dL (9-20); Calcium 9.7 mg/dL (8.4-10.2); Carbon Dioxide 24 mmol/L (22-30); Chloride 86.3 mmol/L (98-107); Potassium 4.3 mmol/L (3.6-5.0); Sodium 128 mmol/L (137-145)
[2017-03-09 18:56] LABS: Glucose 793 mg/dL (75-100)
[2017-03-09] MEDS ORDERED: NovoLIN R 100 UNITS in NACL 0.9% 99 ML IV SCH (19:00)
[2017-03-09 19:09] LABS: Magnesium 2.2 mg/dL (1.7-2.3); Phosphorous 3.7 mg/dL (2.5-4.5)
[2017-03-09 19:10] LABS: Anion Gap 23 mmol/L; BUN/Creatinine Ratio 11.25; Blood Urea Nitrogen 18 mg/dL (9-20); Calcium 9.6 mg/dL (8.4-10.2); Carbon Dioxide 24 mmol/L (22-30); Chloride 88.9 mmol/L (98-107); Potassium 4.5 mmol/L (3.6-5.0); Sodium 131 mmol/L (137-145)
[2017-03-09 19:12] LABS: Magnesium 2.3 mg/dL (1.7-2.3); Phosphorous 4.4 mg/dL (2.5-4.5)
[2017-03-09 19:13] LABS: Glucose 685 mg/dL (75-100)
[2017-03-09 21:14] LABS: Anion Gap 21 mmol/L; BUN/Creatinine Ratio 10.62; Blood Urea Nitrogen 17 mg/dL (9-20); Calcium 9.6 mg/dL (8.4-10.2); Carbon Dioxide 25 mmol/L (22-30); Chloride 92.1 mmol/L (98-107); Glucose 486 mg/dL (75-100); Potassium 3.5 mmol/L (3.6-5.0); Sodium 135 mmol/L (137-145)
[2017-03-10] MEDS: NovoLIN R 100 UNITS in NACL 0.9% 99 ML IV SCH ×8 (00:19→07:01)
[2017-03-10 00:58] LABS: Anion Gap 20 mmol/L; BUN/Creatinine Ratio 10.71; Blood Urea Nitrogen 15 mg/dL (9-20); Calcium 9.7 mg/dL (8.4-10.2); Carbon Dioxide 25 mmol/L (22-30); Chloride 98.4 mmol/L (98-107); Glucose 235 mg/dL (75-100); Potassium 3.2 mmol/L (3.6-5.0); Sodium 140 mmol/L (137-145)
[2017-03-10] MEDS: D5W/0.45% NACL/KCL 20 MEQ 20 MEQ/1,000 ML BAG IV SCH ×2 (02:33→10:14)
[2017-03-10 02:46] LABS: Anion Gap 18 mmol/L; BUN/Creatinine Ratio 10.71; Blood Urea Nitrogen 15 mg/dL (9-20); Calcium 9.4 mg/dL (8.4-10.2); Carbon Dioxide 26 mmol/L (22-30); Chloride 100.3 mmol/L (98-107); Glucose 186 mg/dL (75-100); Potassium 3.3 mmol/L (3.6-5.0); Sodium 141 mmol/L (137-145)
[2017-03-10] MEDS ORDERED: ZOFRAN IV PRN (03:23)
[2017-03-10] MEDS: TYLENOL PO PRN ×3 (04:18→21:48)
[2017-03-10 05:07] LABS: Anion Gap 21 mmol/L; BUN/Creatinine Ratio 10.76; Blood Urea Nitrogen 14 mg/dL (9-20); Calcium 9.4 mg/dL (8.4-10.2); Carbon Dioxide 24 mmol/L (22-30); Chloride 98.5 mmol/L (98-107); Glucose 183 mg/dL (75-100); Potassium 3.6 mmol/L (3.6-5.0); Sodium 140 mmol/L (137-145)
--- NOTE | 2017-03-10 07:35 | Progress Note ---
Assessment and Plan Assessment and plan: --Diabetic ketoacidosis, on insulin drip Sugars reasonable level, and then Closed, acidosis resolved Will start clear liquid diet, and advanced to ADA diet for lunch DC insulin drip, bridge with long-acting 7030 insulin, Accu-Cheks every before meals at bedtime and sliding scale coverage Check Hemoglobin A1c --New Onset diabetes mellitus; diabetic education, nutrition consult and education Possible home health nurse upon discharge for monitoring --History of depression; denies any suicidal thoughts or ideation or depressive mood Continue current medications --History of PTSD, patient sees psychiatrist Continue current medications, consider psych evaluation if needed --Obesity; BMI of 39 ,counseling done patient strongly advised dietary modification and exercise as tolerated and weight reduction When medically stable --DVT prophylaxis; with Lovenox Closely monitor the patient and adjust management as needed . History Interval history: Patient seen and evaluated in ICU this morning medical records reviewed Admitted with diabetic ketoacidosis on insulin drip Blood sugars are reasonable level, anion gap closed, not in acidosis Patient feels better denies any nausea vomiting or abdominal pain Wants food Hospitalist Physical - Constitutional Vitals: Temp Pulse Resp BP Pulse Ox 97.9 F 65 15 133/81 97 03/10/17 04:00 03/10/17 06:21 03/10/17 06:21 03/10/17 06:21 03/10/17 06:21 General appearance: Present: no acute distress, obese - EENT Eyes: Present: PERRL, EOM intact - Neck Neck: Present: supple, normal ROM - Respiratory Respiratory effort: normal Respiratory: negative: rales, rhonchi, wheezing - Cardiovascular Rhythm: regular Heart Sounds: Present: S1 & S2 - Extremities Extremities: no ischemia, pulses intact - Abdominal General gastrointestinal: soft, non-tender, non-distended, normal bowel sounds - Integumentary Integumentary: Present: clear, warm - Psychiatric Psychiatric: appropriate mood/affect, cooperative - Neurologic Neurologic: CNII-XII intact, moves all extremities Results - Labs CBC & Chem 7: 03/09/17 16:03 03/10/17 10:32 Labs: Laboratory Last Values WBC 4.2 K/mm3 (4.5-11.0) L 03/09/17 16:03 RBC 4.83 M/mm3 (3.65-5.03) 03/09/17 16:03 Hgb 13.8 gm/dl (11.8-15.2) 03/09/17 16:03 Hct 42.0 % (35.5-45.6) 03/09/17 16:03 MCV 87 fl (84-94) 03/09/17 16:03 MCH 29 pg (28-32) 03/09/17 16:03 MCHC 33 % (32-34) 03/09/17 16:03 RDW 13.0 % (13.2-15.2) L 03/09/17 16:03 Plt Count 213 K/mm3 (140-440) 03/09/17 16:03 Lymph % (Auto) 31.6 % (13.4-35.0) 03/09/17 16:03 [place] % (Auto) 8.2 % (0.0-7.3) H 03/09/17 16:03 Eos % (Auto) 1.9 % (0.0-4.3) 03/09/17 16:03 Baso % (Auto) 0.3 % (0.0-1.8) 03/09/17 16:03 Lymph # 1.3 K/mm3 (1.2-5.4) 03/09/17 16:03 [place] # 0.3 K/mm3 (0.0-0.8) 03/09/17 16:03 Eos # 0.1 K/mm3 (0.0-0.4) 03/09/17 16:03 Baso # 0.0 K/mm3 (0.0-0.1) 03/09/17 16:03 Seg Neutrophils % 58.0 % (40.0-70.0) 03/09/17 16:03 Seg Neutrophils # 2.5 K/mm3 (1.8-7.7) 03/09/17 16:03 PT 13.1 Sec. (12.2-14.9) 03/09/17 16:03 INR 0.95 (0.87-1.13) 03/09/17 16:03 APTT 26.9 Sec. (24.2-36.6) 03/09/17 16:03 Sodium 140 mmol/L (137-145) 03/10/17 03:43 Potassium 3.6 mmol/L (3.6-5.0) 03/10/17 03:43 Chloride 98.5 mmol/L (98-107) 03/10/17 03:43 Carbon Dioxide 24 mmol/L (22-30) 03/10/17 03:43 Anion Gap 21 mmol/L 03/10/17 03:43 BUN 14 mg/dL (9-20) 03/10/17 03:43 Creatinine 1.3 mg/dL (0.8-1.5) 03/10/17 03:43 Estimated GFR > 60 ml/min 03/10/17 03:43 BUN/Creatinine Ratio 10.76 % 03/10/17 03:43 Glucose 183 mg/dL (75-100) H 03/10/17 03:43 POC Glucose 211 (70-105) H 03/10/17 05:01 Calcium 9.4 mg/dL (8.4-10.2) 03/10/17 03:43 Phosphorus 3.70 mg/dL (2.5-4.5) 03/09/17 18:45 Magnesium 2.20 mg/dL (1.7-2.3) 03/09/17 18:45 Total Bilirubin 0.60 mg/dL (0.1-1.2) 03/09/17 16:03 AST 29 units/L (5-40) 03/09/17 16:03 ALT 46 units/L (7-56) 03/09/17 16:03 Alkaline Phosphatase 157 units/L (35-129) H 03/09/17 16:03 Total Protein 8.5 g/dL (6.3-8.2) H 03/09/17 16:03 Albumin 4.9 g/dL (3.9-5) 03/09/17 16:03 Albumin/Globulin Ratio 1.4 % 03/09/17 16:03 Lipase 50 units/L (13-60) 03/09/17 16:03 Urine Color Colorless (Yellow) 03/09/17 Unknown Urine Turbidity Clear (Clear) 03/09/17 Unknown Urine pH 6.0 (5.0-7.0) 03/09/17 Unknown Ur Specific [place] 1.022 (1.003-1.030) 03/09/17 Unknown Urine Protein <15 mg/dl mg/dL (Negative) 03/09/17 Unknown Urine Glucose (UA) >=500 mg/dL (Negative) 03/09/17 Unknown Urine Ketones Neg mg/dL (Negative) 03/09/17 Unknown Urine Blood Neg (Negative) 03/09/17 Unknown Urine Nitrite Neg (Negative) 03/09/17 Unknown Urine Bilirubin Neg (Negative) 03/09/17 Unknown Urine Urobilinogen < 2.0 mg/dL (<2.0) 03/09/17 Unknown Ur Leukocyte Esterase Neg (Negative) 03/09/17 Unknown Urine WBC (Auto) < 1.0 /HPF (0.0-6.0) 03/09/17 Unknown Urine RBC (Auto) < 1.0 /HPF (0.0-6.0) 03/09/17 Unknown Urine Mucus Few /HPF 03/09/17 Unknown Blood Type O POSITIVE 03/09/17 16:03 Antibody Screen TNR 03/09/17 16:03 JOHN Antibody Screen Negative 03/09/17 16:03
[2017-03-10 11:15] LABS: Anion Gap 18 mmol/L; BUN/Creatinine Ratio 9.28; Blood Urea Nitrogen 13 mg/dL (9-20); Calcium 8.7 mg/dL (8.4-10.2); Carbon Dioxide 25 mmol/L (22-30); Chloride 101.1 mmol/L (98-107); Glucose 235 mg/dL (75-100); Potassium 3.5 mmol/L (3.6-5.0); Sodium 141 mmol/L (137-145)
[2017-03-10] MEDS: NOVOLOG SUB-Q SCH ×3 (12:20→21:49)
[2017-03-10] MEDS: NACL 0.9% 1000 ML 1,000 ML IV SCH ×2 (14:10→21:48)
--- NOTE | 2017-03-10 15:42 | Consultation ---
History of Present Illness Consult date: 03/10/17 Requesting physician: TROY ALANIZ Reason for consult: other (DKA) History of present illness: PULMONARY/CCM CONSULT NOTE (Full dictation # [id number]) Please see dictated notes for full details Past History Past Medical History: other (depression, hemorrhoids, nicotine dependence) Social history: single, smoking. denies: alcohol abuse, prescription drug abuse , IV drug use Family history: diabetes, hypertension Medications and Allergies Allergies Allergy/AdvReac Type Severity Reaction Status Date / Time No Known Allergies Allergy Unverified 05/21/16 13:05 Home Medications Medication Instructions Recorded Confirmed Last Taken Type Acetaminophen/Codeine [Tylenol #3] 1 tab PO Q6H PRN #20 tab 05/21/16 Unknown Rx Indomethacin 50 mg PO TID #15 capsule 05/21/16 Unknown Rx Cephalexin [Keflex] 500 mg PO Q8HR 7 Days 02/03/17 Unknown Rx FLUoxetine 30 mg PO BID 03/10/17 03/10/17 Unknown History Ibuprofen 800 mg PO Q8H PRN 03/10/17 03/10/17 Unknown History Norvasc 5 mg PO DAILY 03/10/17 03/10/17 Unknown History RisperDAL 1 mg PO QHS 03/10/17 03/10/17 Unknown History Active Meds: Active Medications Acetaminophen (Tylenol) 650 mg PO Q6H PRN PRN Reason: Pain, Mild (1-3) Last Admin: 03/10/17 12:24 Dose: 650 mg Albuterol (Proventil) 2.5 mg IH Q3HRT PRN PRN Reason: Shortness Of Breath Dextrose (D50w (25gm)) 0 ml IV PRN PRN PRN Reason: Hypoglycemia Sodium Chloride (Nacl 0.9% 1000 Ml) 1,000 mls @ 125 mls/hr IV DIRECT ELGIN Last Admin: 03/10/17 14:10 Dose: 125 mls/hr Insulin Aspart (Novolog) 0 units SUB-Q ACHS ELGIN PRN Reason: Protocol Last Admin: 03/10/17 12:20 Dose: 3 units Insulin Human Isoph/Insulin Regular (Novolin 70/30) 8 unit SUB-Q BIDDIAB ELGIN Ondansetron HCl (Zofran) 4 mg IV Q4H PRN PRN Reason: Nausea And Vomiting Last Admin: 03/10/17 12:25 Dose: 4 mg Physical Examination Vital signs: Vital Signs Resp Pulse Ox 16 100 03/09/17 14:39 03/09/17 14:39 Results - Laboratory Findings CBC and BMP: 03/11/17 04:54 03/10/17 10:32 PT/INR, D-dimer PT 13.1 Sec. (12.2-14.9) 03/09/17 16:03 INR 0.95 (0.87-1.13) 03/09/17 16:03 Abnormal lab findings: Abnormal Labs 03/09/17 03/09/17 03/09/17 18:16 18:45 19:15 Sodium 131 L 135 L Potassium 3.5 L D Chloride 88.9 L 92.1 L Creatinine 1.6 H 1.6 H Glucose 685 H* 486 H POC Glucose > 500 H Hemoglobin A1c 03/09/17 03/09/17 03/09/17 20:31 22:11 23:04 Sodium Potassium Chloride Creatinine Glucose POC Glucose > 500 H 355 H 256 H Hemoglobin A1c 03/10/17 03/10/17 03/10/17 00:09 00:10 00:57 Sodium Potassium 3.2 L Chloride Creatinine Glucose 235 H POC Glucose 196 H 191 H Hemoglobin A1c 03/10/17 03/10/17 03/10/17 01:57 02:09 03:05 Sodium Potassium 3.3 L Chloride Creatinine Glucose 186 H POC Glucose 159 H 158 H Hemoglobin A1c 03/10/17 03/10/17 03/10/17 03:43 04:09 05:01 Sodium Potassium Chloride Creatinine Glucose 183 H POC Glucose 188 H 211 H Hemoglobin A1c 03/10/17 03/10/17 10:32 12:13 Sodium Potassium 3.5 L Chloride Creatinine Glucose 235 H POC Glucose Hemoglobin A1c 9.2 H
[2017-03-11] MEDS ORDERED: NORCO 5/325 PO ONE (01:11)
[2017-03-11] MEDS: NACL 0.9% 1000 ML 1,000 ML IV SCH (04:52)
[2017-03-11 05:24] LABS: Basophils % (Auto) 0.4 % (0.0-1.8); Eosinophils % (Auto) 4.3 % (0.0-4.3); Hematocrit 35.8 % (35.5-45.6); Hemoglobin 12.4 gm/dl (11.8-15.2); Mean Corpuscular HGB Conc 35 % (32-34); Mean Corpuscular Hemoglobin 29 pg (28-32); Mean Corpuscular Volume 83 fl (84-94); Platelet Count 175 K/mm3 (140-440); Red Blood Count 4.31 M/mm3 (3.65-5.03); Red Cell Distribution Width 12.9 % (13.2-15.2); White Blood Count 3.6 K/mm3 (4.5-11.0)
[2017-03-11] MEDS: NOVOLOG SUB-Q SCH ×5 (06:02→22:15)
--- NOTE | 2017-03-11 09:44 | Progress Note ---
Assessment and Plan Assessment and plan: --Diabetic ketoacidosis, Resolved blood sugars reasonable level, --New Onset diabetes mellitus; uncontrolled diabetic education, nutrition consult and education Possible home health nurse upon discharge for monitoring --History of depression; denies any suicidal thoughts or ideation or depressive mood Continue current medications --History of PTSD, depression, resident of [facility] 1013 status, psych evaluation, Continue current medications. --Obesity; BMI of 39 ,counseling done patient strongly advised dietary modification and exercise as tolerated and weight reduction When medically stable --DVT prophylaxis; with Lovenox Closely monitor the patient and adjust management as needed . History Interval history: Patient seen and evaluated him medical records reviewed That she resuscitated uncontrolled, patient has no new complaints Safety seat the bedside Alert awake oriented 3 not in acute distress Hospitalist Physical - Constitutional Vitals: Temp Pulse Resp BP Pulse Ox 97.7 F 66 18 128/82 99 03/11/17 07:44 03/11/17 07:44 03/11/17 07:44 03/11/17 07:44 03/10/17 21:19 General appearance: Present: no acute distress, obese (morbidly obese) - EENT Eyes: Present: PERRL, EOM intact - Neck Neck: Present: supple, normal ROM - Respiratory Respiratory effort: normal Respiratory: negative: rales, rhonchi, wheezing - Cardiovascular Rhythm: regular Heart Sounds: Present: S1 & S2 - Extremities Extremities: no ischemia, No edema - Abdominal General gastrointestinal: soft, non-tender, non-distended, normal bowel sounds - Integumentary Integumentary: Present: clear, warm - Psychiatric Psychiatric: appropriate mood/affect, cooperative - Neurologic Neurologic: moves all extremities Results - Labs CBC & Chem 7: 03/11/17 04:54 03/10/17 10:32 Labs: Laboratory Last Values WBC 3.6 K/mm3 (4.5-11.0) L 03/11/17 04:54 RBC 4.31 M/mm3 (3.65-5.03) 03/11/17 04:54 Hgb 12.4 gm/dl (11.8-15.2) 03/11/17 04:54 Hct 35.8 % (35.5-45.6) D 03/11/17 04:54 MCV 83 fl (84-94) L 03/11/17 04:54 MCH 29 pg (28-32) 03/11/17 04:54 MCHC 35 % (32-34) H 03/11/17 04:54 RDW 12.9 % (13.2-15.2) L 03/11/17 04:54 Plt Count 175 K/mm3 (140-440) 03/11/17 04:54 Lymph % (Auto) 43.5 % (13.4-35.0) H 03/11/17 04:54 [place] % (Auto) 9.8 % (0.0-7.3) H 03/11/17 04:54 Eos % (Auto) 4.3 % (0.0-4.3) 03/11/17 04:54 Baso % (Auto) 0.4 % (0.0-1.8) 03/11/17 04:54 Lymph # 1.6 K/mm3 (1.2-5.4) 03/11/17 04:54 [place] # 0.3 K/mm3 (0.0-0.8) 03/11/17 04:54 Eos # 0.2 K/mm3 (0.0-0.4) 03/11/17 04:54 Baso # 0.0 K/mm3 (0.0-0.1) 03/11/17 04:54 Seg Neutrophils % 42.0 % (40.0-70.0) 03/11/17 04:54 Seg Neutrophils # 1.5 K/mm3 (1.8-7.7) L 03/11/17 04:54 PT 13.1 Sec. (12.2-14.9) 03/09/17 16:03 INR 0.95 (0.87-1.13) 03/09/17 16:03 APTT 26.9 Sec. (24.2-36.6) 03/09/17 16:03 Sodium 141 mmol/L (137-145) 03/10/17 10:32 Potassium 3.5 mmol/L (3.6-5.0) L 03/10/17 10:32 Chloride 101.1 mmol/L (98-107) 03/10/17 10:32 Carbon Dioxide 25 mmol/L (22-30) 03/10/17 10:32 Anion Gap 18 mmol/L 03/10/17 10:32 BUN 13 mg/dL (9-20) 03/10/17 10:32 Creatinine 1.4 mg/dL (0.8-1.5) 03/10/17 10:32 Estimated GFR > 60 ml/min 03/10/17 10:32 BUN/Creatinine Ratio 9.28 % 03/10/17 10:32 Glucose 235 mg/dL (75-100) H 03/10/17 10:32 POC Glucose 341 (70-105) H 03/11/17 05:49 Hemoglobin A1c 9.2 % (4-6) H 03/10/17 12:13 Calcium 8.7 mg/dL (8.4-10.2) 03/10/17 10:32 Phosphorus 3.70 mg/dL (2.5-4.5) 03/09/17 18:45 Magnesium 1.90 mg/dL (1.7-2.3) 03/11/17 04:54 Total Bilirubin 0.60 mg/dL (0.1-1.2) 03/09/17 16:03 AST 29 units/L (5-40) 03/09/17 16:03 ALT 46 units/L (7-56) 03/09/17 16:03 Alkaline Phosphatase 157 units/L (35-129) H 03/09/17 16:03 Total Protein 8.5 g/dL (6.3-8.2) H 03/09/17 16:03 Albumin 4.9 g/dL (3.9-5) 03/09/17 16:03 Albumin/Globulin Ratio 1.4 % 03/09/17 16:03 Lipase 50 units/L (13-60) 03/09/17 16:03 Urine Color Colorless (Yellow) 03/09/17 Unknown Urine Turbidity Clear (Clear) 03/09/17 Unknown Urine pH 6.0 (5.0-7.0) 03/09/17 Unknown Ur Specific [place] 1.022 (1.003-1.030) 03/09/17 Unknown Urine Protein <15 mg/dl mg/dL (Negative) 03/09/17 Unknown Urine Glucose (UA) >=500 mg/dL (Negative) 03/09/17 Unknown Urine Ketones Neg mg/dL (Negative) 03/09/17 Unknown Urine Blood Neg (Negative) 03/09/17 Unknown Urine Nitrite Neg (Negative) 03/09/17 Unknown Urine Bilirubin Neg (Negative) 03/09/17 Unknown Urine Urobilinogen < 2.0 mg/dL (<2.0) 03/09/17 Unknown Ur Leukocyte Esterase Neg (Negative) 03/09/17 Unknown Urine WBC (Auto) < 1.0 /HPF (0.0-6.0) 03/09/17 Unknown Urine RBC (Auto) < 1.0 /HPF (0.0-6.0) 03/09/17 Unknown Urine Mucus Few /HPF 03/09/17 Unknown Blood Type O POSITIVE 03/09/17 16:03 Antibody Screen TNR 03/09/17 16:03 JOHN Antibody Screen Negative 03/09/17 16:03
[2017-03-11] MEDS: TYLENOL PO PRN (10:45)
--- NOTE | 2017-03-11 14:04 | Progress Note ---
Assessment and Plan Patient alert, awake and oriented.Resting on room air. No complaint of chest pain or shortness of breath. - Patient Problems (1) DKA (diabetic ketoacidoses) Current Visit: Yes Status: Acute Qualifiers: Diabetes mellitus type: D Diabetes mellitus complication detail: D Plan to address problem: Improved. Management as per primary care. (2) Tobacco use disorder Current Visit: Yes Status: Acute Plan to address problem: Counselled to stop smoking. Subjective Date of service: 03/11/17 Interval history: Patient alert, awake and oriented.Resting on room air. No complaint of chest pain or shortness of breath. Objective Vital Signs - 12hr 03/11/17 07:44 Temperature 97.7 F Pulse Rate 66 Respiratory 18 Rate Blood Pressure 128/82 Constitutional: no acute distress, alert Eyes: non-icteric ENT: oropharynx moist Neck: supple, no lymphadenopathy Ascultation: Bilateral: clear Cardiovascular: regular rate and rhythm Gastrointestinal: normoactive bowel sounds, soft, non-tender Integumentary: normal Extremities: no cyanosis, no edema Neurologic: normal mental status, non-focal exam, pupils equal and round, CN II- XII normal Psychiatric: mood appropriate CBC and BMP: 03/11/17 04:54 03/10/17 10:32 ABG, PT/INR, D-dimer: PT/INR, D-dimer PT 13.1 Sec. (12.2-14.9) 03/09/17 16:03 INR 0.95 (0.87-1.13) 03/09/17 16:03 Abnormal lab findings: Abnormal Labs 03/09/17 03/09/17 03/09/17 18:16 18:45 19:15 WBC MCV MCHC RDW Lymph % (Auto) [place] % (Auto) Seg Neutrophils # Sodium 131 L 135 L Potassium 3.5 L D Chloride 88.9 L 92.1 L Creatinine 1.6 H 1.6 H Glucose 685 H* 486 H POC Glucose > 500 H Hemoglobin A1c 03/09/17 03/09/17 03/09/17 20:31 22:11 23:04 WBC MCV MCHC RDW Lymph % (Auto) [place] % (Auto) Seg Neutrophils # Sodium Potassium Chloride Creatinine Glucose POC Glucose > 500 H 355 H 256 H Hemoglobin A1c 03/10/17 03/10/17 03/10/17 00:09 00:10 00:57 WBC MCV MCHC RDW Lymph % (Auto) [place] % (Auto) Seg Neutrophils # Sodium Potassium 3.2 L Chloride Creatinine Glucose 235 H POC Glucose 196 H 191 H Hemoglobin A1c 03/10/17 03/10/17 03/10/17 01:57 02:09 03:05 WBC MCV MCHC RDW Lymph % (Auto) [place] % (Auto) Seg Neutrophils # Sodium Potassium 3.3 L Chloride Creatinine Glucose 186 H POC Glucose 159 H 158 H Hemoglobin A1c 03/10/17 03/10/17 03/10/17 03:43 04:09 05:01 WBC MCV MCHC RDW Lymph % (Auto) [place] % (Auto) Seg Neutrophils # Sodium Potassium Chloride Creatinine Glucose 183 H POC Glucose 188 H 211 H Hemoglobin A1c 03/10/17 03/10/17 03/10/17 05:41 06:49 07:52 WBC MCV MCHC RDW Lymph % (Auto) [place] % (Auto) Seg Neutrophils # Sodium Potassium Chloride Creatinine Glucose POC Glucose 220 H 225 H 203 H Hemoglobin A1c 03/10/17 03/10/17 03/10/17 09:16 10:07 10:32 WBC MCV MCHC RDW Lymph % (Auto) [place] % (Auto) Seg Neutrophils # Sodium Potassium 3.5 L Chloride Creatinine Glucose 235 H POC Glucose 248 H 205 H Hemoglobin A1c 03/10/17 03/10/17 03/10/17 11:15 12:13 16:12 WBC MCV MCHC RDW Lymph % (Auto) [place] % (Auto) Seg Neutrophils # Sodium Potassium Chloride Creatinine Glucose POC Glucose 214 H 293 H Hemoglobin A1c 9.2 H 03/10/17 03/11/17 03/11/17 21:14 04:54 05:49 WBC 3.6 L MCV 83 L MCHC 35 H RDW 12.9 L Lymph % (Auto) 43.5 H [place] % (Auto) 9.8 H Seg Neutrophils # 1.5 L Sodium Potassium Chloride Creatinine Glucose POC Glucose 302 H 341 H Hemoglobin A1c 03/11/17 11:42 WBC MCV MCHC RDW Lymph % (Auto) [place] % (Auto) Seg Neutrophils # Sodium Potassium Chloride Creatinine Glucose POC Glucose 290 H Hemoglobin A1c
[2017-03-11] MEDS ORDERED: AMBIEN PO PRN (14:49)
--- NOTE | 2017-03-11 15:13 | XRay Report ---
Chest 2 views. History: Tobacco use disorder. Findings: The heart is at the upper limits of normal in size. The lungs are clear. The pulmonary vessels are normal. No pleural fluid is seen. Impression: Borderline heart size with no acute findings.
[2017-03-11] MEDS: PEPCID PO SCH (16:04)
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
[2017-03-11] MEDS ORDERED: LOVENOX SUB-Q SCH (22:00)
[2017-03-11] MEDS ORDERED: MINIPRESS PO SCH (22:00)
--- NOTE | 2017-03-12 01:09 | Consultation ---
CONSULTING PHYSICIAN: Dr. Yuniel Cowan. REASON FOR CONSULTATION: Diabetic ketoacidosis, need for IV insulin therapy. CHIEF COMPLAINT AND HISTORY OF PRESENT ILLNESS: The patient is a 26-year-old -Turkmen male with past medical history significant ____ diagnosis of nicotine dependence, depression, presented to the Emergency Room for evaluation due to nausea and vomiting going on for about a week. He did acknowledge polydipsia, polyuria, polyphagia. Denied fevers or chills. He did say he had a cough with yellowish phlegm and then he was evaluated in the ER, diagnosed with diabetic ketoacidosis, started on IV insulin drip and ICU admission was requested. This was granted as it was appropriate. When I stopped by to see him, he was resting in bed, began to feel a little bit better, still having some nausea but it has been well controlled by his antiemetics. He gives a history of obstructive sleep apnea diagnosed about 3 years ago, but he states he has not been treating it of late. He denied any prior history or knowledge of diabetes. He does admit to a history of diabetes in his mom. That really is as much of the history of presentation except mentioned that he has a less than 10-pack year tobacco smoking history but continued to smoke. PAST MEDICAL HISTORY: Depression, hemorrhoids, tobacco use disorder. PAST SURGICAL HISTORY: Denies. MEDICATIONS: He was on at the time I had stopped by to see him and reconciled in the medical reconciliation record include the following: He had been on Tylenol 650 mg p.o. q.6 h. p.r.n., albuterol 2.5 mg and nebulized q.3 h. p.r.n. shortness of breath or wheezing. He was on IV insulin drip, NovoLog 4 units per hour at that time. Also, Zofran 4 mg IV q. 4 hours p.r.n. nausea and vomiting. ALLERGIES: No known drug allergies. DIET: Morbidly obese. Denies acute weight loss. Again, increase in a few weeks to months. SOCIAL HISTORY: Lives in the community. Has a less than 10-pack year tobacco smoking history. Denies alcohol, illicit drug use or abuse. REVIEW OF SYSTEMS: No loss of consciousness. No new-onset seizures. No new-onset focal weakness. No gross hematochezia or melena. No gross hematuria or dysuria. No hematemesis. He had polydipsia, polyuria. He had a cough productive of yellowish phlegm. He admits to snoring and nonrestorative sleep. A complete review of systems was obtained. Pertinent positives and negatives as in the body of history above, otherwise noncontributory. PHYSICAL EXAMINATION: VITAL SIGNS: On presentation, he was afebrile. Temperature 98.3 degrees Fahrenheit with a pulse of 84, respiratory rate of 16, blood pressure 105/84, oxygen sats were 99%, inspired oxygen concentration was not recorded. HEENT: Pupils equal, round, about 4 mm, reactive to light. Extraocular muscle movements appear intact. He had some flaking and rash to the skin of the face, it looked more like a seborrheic dermatitis. NECK: There were no palpable lymph nodes in the supraclavicular or submandibular lymph node chains. Oropharynx is Mallampati 3 oropharynx. No significant posterior pharyngeal erythema. LUNGS: Auscultation of both lung rodas are unremarkable. Lungs are clear bilaterally. HEART: Sounds 1 and 2 are heard. They were regular in rate and rhythm at time of my evaluation. ABDOMEN: Soft, full. Bowel sounds are positive, nontender. EXTREMITIES: Without overt digital clubbing, cyanosis, or pedal edema. NEUROLOGIC: The exam is grossly nonfocal. LABORATORY DATA: From my review as follows: Admission white cell count 4200 with a hemoglobin of 13.8, hematocrit 42.0, platelet count of 213. INR was 0.95. Serum sodium was 131, potassium 4.5, chloride 89, bicarbonate 24, BUN 18, creatinine 1.6 and glucose was 685. Magnesium and phosphorus within normal limits. Total protein was slightly elevated at 8.5. Urinalysis was negative for nitrites and leukocyte esterase. He was spilling glucose. No microbiology studies. No radiographic studies. ASSESSMENT AND PLAN: We have a young gentleman in with new-onset diabetes, but also with a background history of obstructive sleep apnea and tobacco abuse. I have taken time to eap counselor him that especially with a new diagnosis he has to treat all his comorbidities and he has to stop smoking tobacco. He is going to give that a try. He is doing well otherwise. He will continue on the IV insulin per protocol and hopefully we should quickly get him off the IV insulin. Introduce long-acting insulin and at that point, he should be able to transition to the regular floor. I will start him on GI and DVT prophylaxis. We will prescribe the BiPAP at bedtime empirically for his sleep apnea and he will follow up on the outpatient sleep clinic. He is asking for a sleep aid. I will prescribe some Ambien to be used along with his BiPAP at night. Flu and pneumonia vaccinations will be per protocol. Thank you very much for the consult, Dr. Cowan. We will follow along and make further recommendations as the picture progresses/becomes clearer. JOB# [id number] LIO/SHANI
[2017-03-12 06:12] LABS: ISTAT Base Excess 1; ISTAT HCO3 25.4; ISTAT PCO2 41.5 (35-45); ISTAT PH 7.395 (7.35-7.45); ISTAT PO2 131 (80-105); ISTAT SO2 99; ISTAT TCO2 27
[2017-03-12] MEDS: NOVOLOG SUB-Q SCH ×2 (08:34→12:20)
[2017-03-12] MEDS: PEPCID PO SCH (09:51)
[2017-03-12] MEDS ORDERED: PROzac PO SCH ×2 (10:00)
--- NOTE | 2017-03-12 11:16 | Progress Note ---
Subjective - Reason for Consult Consult date: 03/12/17 Reason for consult: Psychiatry Follow-up - Chief Complaint Chief complaint: "Thank you" 26 year old male seen on the medical floor for psychiatric evaluation. He was hospitalized for depression and PTSD on 01/28/17 at [facility] after he attempted suicide. Today patient is calm and cooperative during the assessment. He stated that he feel so much better "mentally and physically." He stated he look forward to returning to [facility]. He denies SI/HI's, AVH's, and depression symptoms. He denies any side effects of his medications. He stated that he feels comfortable giving himself insulin injections once discharged ( newly dx diabetic). Mental Status Exam - Vital signs Last Vital Signs Temp 98 F 03/12/17 08:00 Pulse 56 L 03/12/17 08:00 Resp 18 03/12/17 08:00 BP 128/62 03/12/17 08:00 Pulse Ox 97 03/12/17 08:00 - Exam Narrative exam: MSE: Appearance: calm, cooperative Behavior: regular eye contact Speech: regular rate and tone Mood: "much better" Affect: congruent to mood Thought Process: linear Thought Content: denies HI/SI's and AVH's Motor Activity: sitting up in the bed Cognition: A/Ox 3 Insight: fair Judgment: fair Assessment and Plan Impression: Historical Dx: MDD and PTSD. Today patient is calm and cooperative during the assessment. Patient is no threat to self. Recommendation/Plan: Patient will be returning to [facility] once medically clear. Continue current medication regimen along with the Prazosin. Discussed suicidality/medication induced gabriela with patient reference Giulia. Also discussed risk/benefits (metabolic side effects) of Risperdal. He took this medication in the past. Will follow patient until discharged.
--- NOTE | 2017-03-12 12:25 | Progress Note ---
Subjective Date of service: 03/12/17 Interval history: Seen and examined at bedside; 24 hour events reviewed; nursing and respiratory care staff consulted; no adverse overnight events reported to me; Objective Vital Signs - 12hr 03/12/17 08:00 Temperature 98 F Pulse Rate 56 L Respiratory 18 Rate Blood Pressure 128/62 O2 Sat by Pulse 97 Oximetry Constitutional: no acute distress, alert Eyes: non-icteric ENT: oropharynx moist Neck: supple, no lymphadenopathy Ascultation: Bilateral: clear Cardiovascular: regular rate and rhythm Gastrointestinal: normoactive bowel sounds, soft, non-tender Integumentary: normal Extremities: no cyanosis, no edema Neurologic: normal mental status, non-focal exam, pupils equal and round, CN II- XII normal Psychiatric: mood appropriate CBC and BMP: 03/11/17 04:54 03/10/17 10:32 ABG, PT/INR, D-dimer: ABG POC ABG pH 7.395 (7.35-7.45) 03/12/17 05:52 POC ABG pCO2 41.5 (35-45) 03/12/17 05:52 POC ABG pO2 131 (80-105) H 03/12/17 05:52 POC ABG HCO3 25.4 03/12/17 05:52 POC ABG Total CO2 27 03/12/17 05:52 POC ABG O2 Sat 99 03/12/17 05:52 PT/INR, D-dimer PT 13.1 Sec. (12.2-14.9) 03/09/17 16:03 INR 0.95 (0.87-1.13) 03/09/17 16:03 Abnormal lab findings: Abnormal Labs 03/09/17 03/09/17 03/09/17 18:16 18:45 19:15 WBC MCV MCHC RDW Lymph % (Auto) [place] % (Auto) Seg Neutrophils # POC ABG pO2 Sodium 131 L 135 L Potassium 3.5 L D Chloride 88.9 L 92.1 L Creatinine 1.6 H 1.6 H Glucose 685 H* 486 H POC Glucose > 500 H Hemoglobin A1c 03/09/17 03/09/17 03/09/17 20:31 22:11 23:04 WBC MCV MCHC RDW Lymph % (Auto) [place] % (Auto) Seg Neutrophils # POC ABG pO2 Sodium Potassium Chloride Creatinine Glucose POC Glucose > 500 H 355 H 256 H Hemoglobin A1c 03/10/17 03/10/17 03/10/17 00:09 00:10 00:57 WBC MCV MCHC RDW Lymph % (Auto) [place] % (Auto) Seg Neutrophils # POC ABG pO2 Sodium Potassium 3.2 L Chloride Creatinine Glucose 235 H POC Glucose 196 H 191 H Hemoglobin A1c 03/10/17 03/10/17 03/10/17 01:57 02:09 03:05 WBC MCV MCHC RDW Lymph % (Auto) [place] % (Auto) Seg Neutrophils # POC ABG pO2 Sodium Potassium 3.3 L Chloride Creatinine Glucose 186 H POC Glucose 159 H 158 H Hemoglobin A1c 03/10/17 03/10/17 03/10/17 03:43 04:09 05:01 WBC MCV MCHC RDW Lymph % (Auto) [place] % (Auto) Seg Neutrophils # POC ABG pO2 Sodium Potassium Chloride Creatinine Glucose 183 H POC Glucose 188 H 211 H Hemoglobin A1c 03/10/17 03/10/17 03/10/17 05:41 06:49 07:52 WBC MCV MCHC RDW Lymph % (Auto) [place] % (Auto) Seg Neutrophils # POC ABG pO2 Sodium Potassium Chloride Creatinine Glucose POC Glucose 220 H 225 H 203 H Hemoglobin A1c 03/10/17 03/10/17 03/10/17 09:16 10:07 10:32 WBC MCV MCHC RDW Lymph % (Auto) [place] % (Auto) Seg Neutrophils # POC ABG pO2 Sodium Potassium 3.5 L Chloride Creatinine Glucose 235 H POC Glucose 248 H 205 H Hemoglobin A1c 03/10/17 03/10/17 03/10/17 11:15 12:13 16:12 WBC MCV MCHC RDW Lymph % (Auto) [place] % (Auto) Seg Neutrophils # POC ABG pO2 Sodium Potassium Chloride Creatinine Glucose POC Glucose 214 H 293 H Hemoglobin A1c 9.2 H 03/10/17 03/11/17 03/11/17 21:14 04:54 05:49 WBC 3.6 L MCV 83 L MCHC 35 H RDW 12.9 L Lymph % (Auto) 43.5 H [place] % (Auto) 9.8 H Seg Neutrophils # 1.5 L POC ABG pO2 Sodium Potassium Chloride Creatinine Glucose POC Glucose 302 H 341 H Hemoglobin A1c 03/11/17 03/11/17 03/11/17 11:42 16:51 21:56 WBC MCV MCHC RDW Lymph % (Auto) [place] % (Auto) Seg Neutrophils # POC ABG pO2 Sodium Potassium Chloride Creatinine Glucose POC Glucose 290 H 371 H 247 H Hemoglobin A1c 03/12/17 03/12/17 03/12/17 05:52 06:11 12:04 WBC MCV MCHC RDW Lymph % (Auto) [place] % (Auto) Seg Neutrophils # POC ABG pO2 131 H Sodium Potassium Chloride Creatinine Glucose POC Glucose 255 H 328 H Hemoglobin A1c
--- NOTE | 2017-03-12 13:27 | Discharge Summary ---
Providers - Providers Date of Admission: 03/09/17 18:10 Date of discharge: 03/12/17 Attending physician: EMA WALLIS 03/09/17 20:16 Consult to Physician [CONS] Routine Consulting Provider: SAURAV SERRANO Reason For Exam: icu admission Place consult to:: call service Notified:: yes 03/11/17 09:47 psychiatry consult [Consult to Mental Health] [CONS] Routine Reason For Exam: depression/[facility] pt Place consult to:: ergonomics technician Notified:: Yes Phone number called:: [phone] If yes, spoke with:: Mona Time called:: 10:25 Primary care physician: DYNAMITE [employer]ER Hospitalization Condition: Critical Disposition: DC/TX-70 ANOTHER TYPE [facility]THCARE Time spent for discharge: 31 min Core Measure Documentation - Palliative Care Palliative Care/ Comfort Measures: Not Applicable - Core Measures Any of the following diagnoses?: none Exam - Constitutional Vitals: Temp Pulse Resp BP Pulse Ox 98 F 56 L 18 128/62 97 03/12/17 08:00 03/12/17 08:00 03/12/17 08:00 03/12/17 08:00 03/12/17 08:00 General appearance: Present: no acute distress, well-nourished, obese (morbidly obese) - EENT Eyes: Present: PERRL, EOM intact - Neck Neck: Present: supple, normal ROM - Respiratory Respiratory effort: normal Respiratory: negative: rales, rhonchi, wheezing - Cardiovascular Rhythm: regular Heart Sounds: Present: S1 & S2 - Extremities Extremities: no ischemia, No edema - Abdominal General gastrointestinal: Present: soft, non-tender, non-distended, normal bowel sounds - Integumentary Integumentary: Present: clear, warm - Musculoskeletal Musculoskeletal: strength equal bilaterally - Psychiatric Psychiatric: appropriate mood/affect, cooperative - Neurologic Neurologic: CNII-XII intact, moves all extremities Plan Activity: no restrictions Diet: diabetic Special Instructions: smoking cessation Follow up with: PRIMARY CARE, [Primary Care Provider] - 3-5 Days Prescriptions: FLUoxetine [PROzac] 40 mg PO QDAY #14 capsule Insulin NPH Hum/Reg Insulin Hm [HumuLIN 70-30 Vial] 24 unit SQ BID 30 Days Insulin Regular, Human [HumuLIN R] 3 unit SQ ACHS 30 Days Prazosin [Minipress] 1 mg PO HS #14 capsule
[2017-03-12 15:45] VITALS: BP 124/60
== END 2017-03-12 16:05 | disposition other institution (70) | DRG 638 ==
LOC: ED 14:13 → CC1 18:10 → 3A 03-10 18:02
PROVIDERS: ADMIT Internal Medicine; ATTEND Internal Medicine
PROC: 5A09357 Assistance with Respiratory Ventilation, Less than 24 Consecutive Hours, Continuous Positive Airway Pressure (ICD-10-PCS; 2017-03-11)
PROC: 4A033R1 Measurement of Arterial Saturation, Peripheral, Percutaneous Approach (ICD-10-PCS; principal; 2017-03-12)
DX: E13.10 Other specified diabetes mellitus with ketoacidosis without coma (principal); N17.9 Acute kidney failure, unspecified; E87.1 Hypo-osmolality and hyponatremia; Z68.41 Body mass index [BMI] 40.0-44.9, adult; F43.10 Post-traumatic stress disorder, unspecified; F32.9 Major depressive disorder, single episode, unspecified; E66.9 Obesity, unspecified; F10.10 Alcohol abuse, uncomplicated; Z71.3 Dietary counseling and surveillance; Z83.3 Family history of diabetes mellitus; Z82.49 Family history of ischemic heart disease and other diseases of the circulatory system; Z79.4 Long term (current) use of insulin; Z79.899 Other long term (current) drug therapy; Z59.0 Homelessness
CPT/HCPCS: 36415; 36600; 71020; 80048; 80053; 81001; 82803; 82962; 83036; 83690; 83735; 84100; 85025; 85610; 85730; 86850; 86900; 86901; 93005; 93010; 94660; 96366; 96374; 96375; 99406; J1650; J1815; J1885; J2405; J7030

== ENCOUNTER 2017-03-14 19:31 | Emergency (ER) | payer OTHER ==
[2017-03-14] MEDS ORDERED: NACL 0.9% 1000 ML 1,000 ML IV ONE (20:24)
[2017-03-14 20:25] LABS: Basophils % (Auto) 0.3 % (0.0-1.8); Eosinophils % (Auto) 2.1 % (0.0-4.3); Hematocrit 41.6 % (35.5-45.6); Mean Corpuscular HGB Conc 34 % (32-34); Mean Corpuscular Hemoglobin 28 pg (28-32); Mean Corpuscular Volume 84 fl (84-94); Platelet Count 194 K/mm3 (140-440); Red Blood Count 4.96 M/mm3 (3.65-5.03); White Blood Count 5.1 K/mm3 (4.5-11.0)
[2017-03-14 20:40] LABS: Anion Gap 21 mmol/L; Blood Urea Nitrogen 14 mg/dL (9-20); Calcium 10.2 mg/dL (8.4-10.2); Carbon Dioxide 24 mmol/L (22-30); Chloride 95.1 mmol/L (98-107); Glucose 314 mg/dL (75-100); Potassium 3.9 mmol/L (3.6-5.0); Sodium 136 mmol/L (137-145)
[2017-03-14] MEDS ORDERED: ZOFRAN IV ONE (20:55)
--- NOTE | 2017-03-14 20:57 | Emergency Department Report ---
HPI - General Chief Complaint: Hyperglycemia Time Seen by Provider: 03/14/17 20:23 - HPI HPI: 26-year-old -Beninese male stated he was diagnosed with diabetes last month. Patient is on insulin, but said he has not been compliant with his medications. Today his fingerstick glucose was above 300s so he came to the ED for evaluation. He also complained of mild nausea vomiting 1. ED Past Medical Hx - Past Medical History Hx Hypertension: Yes Hx Congestive Heart Failure: No Hx Diabetes: No Hx Psychiatric Treatment: Yes (depression) Hx Asthma: No Hx COPD: No Hx HIV: No Additional medical history: BULGING / HERNIATED DISC. hemorrhoids - Surgical History Additional Surgical History: HEMORRHOIDECTOMY - Social History Smoking Status: Never Smoker Substance Use Type: None - Medications Home Medications: Home Medications Medication Instructions Recorded Confirmed Last Taken Type Indomethacin 50 mg PO TID #15 capsule 05/21/16 03/11/17 03/08/17 Rx Norvasc 5 mg PO DAILY 03/10/17 03/11/17 03/08/17 History RisperDAL 1 mg PO QHS 03/10/17 03/11/17 03/08/17 History FLUoxetine [PROzac] 40 mg PO QDAY #14 capsule 03/12/17 Unknown Rx Insulin NPH Hum/Reg Insulin Hm 24 unit SQ BID 30 Days 03/12/17 Unknown Rx [HumuLIN 70-30 Vial] Insulin Regular, Human [HumuLIN R] 3 unit SQ ACHS 30 Days 03/12/17 Unknown Rx Prazosin [Minipress] 1 mg PO HS #14 capsule 03/12/17 Unknown Rx Ondansetron [Zofran TAB] 4 mg PO Q8HR PRN #14 tablet 03/14/17 Unknown Rx Sulfamethoxazole/Trimethoprim 1 each PO BID #20 tablet 03/14/17 Unknown Rx [Bactrim DS TAB] ED Review of Systems ROS: Stated complaint: HYPOGLYCEMIA Other details as noted in HPI Comment: All other systems reviewed and negative Gastrointestinal: nausea, vomiting Physical Exam - Physical Exam Vital Signs: Vital Signs 03/14/17 19:49 Temperature 98.0 F Pulse Rate 90 Respiratory 18 Rate Blood Pressure 122/74 O2 Sat by Pulse 97 Oximetry Physical Exam: Gen. alert and oriented 3 in no distress Head atraumatic normocephalic Eyes PERR LA EOMI Chest regular rate and rhythm normal S1-S2 lungs clear bilaterally Abdomen soft nondistended Back no point tenderness paravertebral tenderness Neuro no focal deficit. Psych normal mood. ED Course Vital Signs 03/14/17 19:49 Temperature 98.0 F Pulse Rate 90 Respiratory 18 Rate Blood Pressure 122/74 O2 Sat by Pulse 97 Oximetry ED Medical Decision Making - Lab Data Result diagrams: 03/14/17 20:01 03/14/17 20:01 Critical care attestation.: If time is entered above; I have spent that time in minutes in the direct care of this critically ill patient, excluding procedure time. ED Disposition Clinical Impression: Hyperglycemia, Gastroenteritis, UTI (urinary tract infection) Disposition: TO HOME OR SELFCARE Is pt being admited?: No Does the pt Need Aspirin: No Condition: Stable Prescriptions: Ondansetron [Zofran TAB] 4 mg PO Q8HR PRN #14 tablet PRN Reason: Nausea Sulfamethoxazole/Trimethoprim [Bactrim DS TAB] 1 each PO BID #20 tablet Referrals: PRIMARY CARE, [Primary Care Provider] - 3-5 Days
[2017-03-14 21:39] LABS: Bacteria,Urine 1+ /HPF (Negative); Bilirubin,Urine NEG (Negative); Blood,Urine NEG (Negative); Ketones,Urine NEG (Negative); Leukocyte Esterase,Urine TR (Negative); Mucus,Urine FEW /HPF; Nitrite,Urine NEG (Negative); Protein,Urine <15 mg/dL mg/dL (Negative); Urobilinogen,Urine < 2.0 mg/dL (<2.0)
[2017-03-14 22:22] VITALS: BP 116/74
== END 2017-03-14 22:22 | disposition home or self-care (01) ==
LOC: ED 19:31
DX: R73.9 Hyperglycemia, unspecified (principal); K52.9 Noninfective gastroenteritis and colitis, unspecified; N39.0 Urinary tract infection, site not specified; I10 Essential (primary) hypertension; F32.9 Major depressive disorder, single episode, unspecified; Z79.4 Long term (current) use of insulin
CPT/HCPCS: 36415; 80048; 81001; 82805; 85025; 96361; 96374; 99284; J2405; J7030

== ENCOUNTER 2017-03-20 09:16 | Emergency (ER) | payer OTHER ==
[2017-03-20 10:15] LABS: Bilirubin,Urine NEG (Negative); Blood,Urine NEG (Negative); Ketones,Urine NEG (Negative); Leukocyte Esterase,Urine NEG (Negative); Mucus,Urine FEW /HPF; Nitrite,Urine NEG (Negative); Protein,Urine <15 mg/dL mg/dL (Negative); Urobilinogen,Urine < 2.0 mg/dL (<2.0)
[2017-03-20 10:19] LABS: Basophils % (Auto) 0.8 % (0.0-1.8); Eosinophils % (Auto) 3.4 % (0.0-4.3); Hematocrit 38.9 % (35.5-45.6); Hemoglobin 12.9 gm/dl (11.8-15.2); Mean Corpuscular HGB Conc 33 % (32-34); Mean Corpuscular Hemoglobin 28 pg (28-32); Mean Corpuscular Volume 86 fl (84-94); Platelet Count 180 K/mm3 (140-440); Red Blood Count 4.54 M/mm3 (3.65-5.03); Red Cell Distribution Width 13.2 % (13.2-15.2); White Blood Count 3.3 K/mm3 (4.5-11.0)
[2017-03-20 10:26] LABS: WBC,Urine < 1.0 /HPF (0.0-6.0)
[2017-03-20 10:40] LABS: Alanine Aminotransferase 34 units/L (7-56); Albumin/Globulin Ratio 1.3 %; Alkaline Phosphatase 91 units/L (35-129); Anion Gap 19 mmol/L; BUN/Creatinine Ratio 8.57; Blood Urea Nitrogen 12 mg/dL (9-20); Carbon Dioxide 23 mmol/L (22-30); Chloride 96.1 mmol/L (98-107); Glucose 362 mg/dL (75-100); Lipase 71 units/L (13-60); Potassium 4.2 mmol/L (3.6-5.0); Sodium 134 mmol/L (137-145)
[2017-03-20] MEDS ORDERED: NACL 0.9% 1000 ML 1,000 ML IV ONE ×2 (10:43→11:52)
[2017-03-20] MEDS ORDERED: ZOFRAN IV ONE (10:43)
--- NOTE | 2017-03-20 10:51 | Emergency Department Report ---
HPI - General Chief Complaint: Hyperglycemia Time Seen by Provider: 03/20/17 10:17 - HPI HPI: 26 yo AA M presents to the ED from [facility] with nausea, vomiting, dizziness and hyperglycemia. The patient was here one week ago and dx with new onset DM after having a BS of close to 1000. He was discharged to [facility] on Humalin which he says he has been taking compliantly. However he says his BS has been going in between 400-500 over the past few days and he has been having the above symptoms. He also has a pmhx of HTN and he is currently at [facility] for psych issues. He denies any CP, SOB, fever, dysuria. No recent travel. He does not have a PCP. He has not taken anything for his symptoms prior to presentation other than his usual meds. ED Past Medical Hx - Past Medical History Hx Hypertension: Yes Hx Congestive Heart Failure: No Hx Diabetes: Yes Hx Psychiatric Treatment: Yes (depression) Hx Asthma: No Hx COPD: No Hx HIV: No Additional medical history: BULGING / HERNIATED DISC. hemorrhoids. OBESITY - Surgical History Additional Surgical History: HEMORRHOIDECTOMY - Social History Smoking Status: Former Smoker Substance Use Type: None - Medications Home Medications: Home Medications Medication Instructions Recorded Confirmed Last Taken Type Indomethacin 50 mg PO TID #15 capsule 05/21/16 03/11/17 03/08/17 Rx Norvasc 5 mg PO DAILY 03/10/17 03/11/17 03/08/17 History RisperDAL 1 mg PO QHS 03/10/17 03/11/17 03/08/17 History FLUoxetine [PROzac] 40 mg PO QDAY #14 capsule 03/12/17 Unknown Rx Insulin NPH Hum/Reg Insulin Hm 24 unit SQ BID 30 Days 03/12/17 Unknown Rx [HumuLIN 70-30 Vial] Insulin Regular, Human [HumuLIN R] 3 unit SQ ACHS 30 Days 03/12/17 Unknown Rx Prazosin [Minipress] 1 mg PO HS #14 capsule 03/12/17 Unknown Rx Ondansetron [Zofran TAB] 4 mg PO Q8HR PRN #14 tablet 03/14/17 Unknown Rx Sulfamethoxazole/Trimethoprim 1 each PO BID #20 tablet 03/14/17 Unknown Rx [Bactrim DS TAB] Metoclopramide [Reglan] 10 mg PO TID PRN #10 tab 03/20/17 Unknown Rx Syr-Nd,Ins,0.5/Container,Empty 1 each PRN PRN #1 box 03/20/17 Unknown Rx [Ulticare Syr 0.5 ml 29GX1/2"] ED Review of Systems ROS: Stated complaint: HYPERGLYCEMIA Other details as noted in HPI Comment: All other systems reviewed and negative Constitutional: denies: chills, fever Eyes: denies: eye pain, eye discharge, vision change ENT: denies: ear pain, throat pain Respiratory: denies: cough, shortness of breath, wheezing Cardiovascular: denies: chest pain, palpitations Endocrine: increased thirst, increased urine Gastrointestinal: nausea, vomiting Genitourinary: denies: dysuria, discharge Musculoskeletal: denies: back pain, joint swelling, arthralgia Skin: denies: rash, lesions Neurological: denies: headache, weakness, paresthesias Physical Exam - Physical Exam Vital Signs: Vital Signs 03/20/17 09:30 Temperature 98.1 F Pulse Rate 71 Respiratory 19 Rate Blood Pressure 119/70 O2 Sat by Pulse 99 Oximetry Physical Exam: GENERAL: The patient is well-developed well-nourished. HENT: Normocephalic. Atraumatic. Patient has moist mucous membranes. EYES: Extraocular motions are intact. Pupils equal, round and reactive to light. NECK: Supple. Trachea is midline. CHEST/LUNGS: Clear to auscultation. There is no respiratory distress noted. HEART/CARDIOVASCULAR: Regular. There is no tachycardia. There is no gallop rub or murmur. ABDOMEN: Abdomen is soft, nontender. Patient has normal bowel sounds. There is no abdominal distention. Obese habitus. SKIN: There is no rash. There is no edema. There is no diaphoresis. NEURO: The patient is awake, alert, and oriented. The patient is cooperative. The patient has no focal neurologic deficits. The patient has normal speech. MUSCULOSKELETAL: There is no tenderness or deformity. There is no limitation range of motion. There is no evidence of acute injury. ED Course Vital Signs 03/20/17 09:30 Temperature 98.1 F Pulse Rate 71 Respiratory 19 Rate Blood Pressure 119/70 O2 Sat by Pulse 99 Oximetry ED Medical Decision Making - Lab Data Result diagrams: 03/20/17 10:06 03/20/17 10:06 - Medical Decision Making 26-year-old male presents to the emergency department with complaint of some nausea, vomiting, dizziness and hyperglycemia. Have a Blood Sugar of about 370 and His Serum Blood. There Does Not Appear to Be DKA As There Is No Elevation in Anion Gap and He Has Stable Vitals. He was given IV fluid resuscitation and IV insulin. Upon reevaluation the patient's blood sugar is about 205. He is feeling improved. There is no longer any nausea there's been no vomiting while in the emergency department. He was seen in laboratory in his room and did not appear unstable. He was written for syringes, needles and still has the insulin to use at [facility]. We discussed dietary changes. He'll be returned to the emergency Department with any worsening of his symptoms or any acute distress. - Differential Diagnosis DKA, HHNK, Hyperglycemia, orthostatic hypotension, vasovagal Critical Care Time: No Critical care attestation.: If time is entered above; I have spent that time in minutes in the direct care of this critically ill patient, excluding procedure time. ED Disposition Clinical Impression: Hyperglycemia, Dizziness Nausea & vomiting Qualifiers: Vomiting type: unspecified Vomiting Intractability: non-intractable Qualified Code(s): R11.2 - Nausea with vomiting, unspecified Disposition: DC/TX-65 PSY HOSP/PSY UNIT Is pt being admited?: No Condition: Stable Instructions: Acute Nausea and Vomiting (ED), Diabetic Hyperglycemia (ED) Additional Instructions: Please continue with your diabetic regiment. Try to stay away from foods with starches, carbohydrates and obviously sugar to help with your diabetes. Keep blood sugar log. 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 Return to the emergency Department with any worsening of your symptoms or any acute distress. Prescriptions: Metoclopramide [Reglan] 10 mg PO TID PRN #10 tab PRN Reason: Nausea Syr-Nd,Ins,0.5/Container,Empty [Ulticare Syr 0.5 ml 29GX1/2"] 1 each PRN PRN #1 box PRN Reason: Hyperglycemia Referrals: PRIMARY CARE, [Primary Care Provider] - 3-5 Days STEPHIE LAZARO MD [Staff Physician] - 3-5 Days [facility] [Outside] - 3-5 Days Time of Disposition: 13:22
[2017-03-20 13:30] VITALS: BP 122/72
== END 2017-03-20 13:30 ==
LOC: ED 09:16
DX: E11.65 Type 2 diabetes mellitus with hyperglycemia (principal); R42 Dizziness and giddiness; R11.2 Nausea with vomiting, unspecified; I10 Essential (primary) hypertension; E11.9 Type 2 diabetes mellitus without complications; E66.9 Obesity, unspecified; Z87.891 Personal history of nicotine dependence; Z79.4 Long term (current) use of insulin
CPT/HCPCS: 36415; 80053; 81001; 82962; 83690; 85025; 96361; 96374; 96375; 96376; 99283; J2405; J7030; J1815

== ENCOUNTER 2017-03-21 09:10 | Emergency (ER) | payer OTHER ==
[2017-03-21 10:06] LABS: Basophils % (Auto) 0.5 % (0.0-1.8); Eosinophils % (Auto) 3.5 % (0.0-4.3); Mean Corpuscular HGB Conc 34 % (32-34); Mean Corpuscular Hemoglobin 29 pg (28-32); Mean Corpuscular Volume 84 fl (84-94); Platelet Count 182 K/mm3 (140-440); Red Blood Count 4.52 M/mm3 (3.65-5.03); Red Cell Distribution Width 13.4 % (13.2-15.2); White Blood Count 3.1 K/mm3 (4.5-11.0)
[2017-03-21 10:44] LABS: Anion Gap 18 mmol/L; BUN/Creatinine Ratio 8.66; Blood Urea Nitrogen 13 mg/dL (9-20); Calcium 9.1 mg/dL (8.4-10.2); Carbon Dioxide 24 mmol/L (22-30); Chloride 97.4 mmol/L (98-107); Glucose 271 mg/dL (75-100); Potassium 4.4 mmol/L (3.6-5.0); Sodium 135 mmol/L (137-145)
[2017-03-21] MEDS ORDERED: NACL 0.9% 1000 ML 1,000 ML IV ONE ×2 (11:25)
--- NOTE | 2017-03-21 12:38 | Emergency Department Report ---
ED General Adult HPI - General Chief complaint: Hyperglycemia Stated complaint: ELEVATED BLOOD SUGAR Time Seen by Provider: 03/21/17 11:25 Source: patient, old records reviewed Mode of arrival: Ambulatory Limitations: No Limitations - History of Present Illness Initial comments: 26-year-old male with a past medical history of diabetes type 2 currently on insulin, hypertension, depression, and eczema presents to the hospital complaining of persistently elevated blood pressure. Previous medical record review. Patient was seen and admitted here 03/09 until 03/12/2017 for new-onset diabetes with sugar at 982 upon presentation. No signs of DKA. Patient was discharged on Humilin 70-30 24 units subcutaneous twice a day and regular insulin (Humilin R) 3 units subcutaneous ACHS. Patient is currently at [facility]. His glucose level has been poorly controlled despite compliance with recently prescribed insulin. Patient presented here on the for glucose in the 300s and yesterday the reporting glucose in the 400-500s prior to arrival. Patient feeling dizzy, increased thirst, blurred vision, and increased urination. No reports of abdominal pain or vomiting at this time. Pain level equals 0. Severity scale (0 -10): 7 - Related Data Home Medications Medication Instructions Recorded Confirmed Last Taken Norvasc 5 mg PO DAILY 03/10/17 03/11/17 03/08/17 RisperDAL 1 mg PO QHS 03/10/17 03/11/17 03/08/17 Previous Rx's Medication Instructions Recorded Last Taken Type Indomethacin 50 mg PO TID #15 capsule 05/21/16 03/08/17 Rx FLUoxetine [PROzac] 40 mg PO QDAY #14 capsule 03/12/17 Unknown Rx Insulin NPH Hum/Reg Insulin Hm 24 unit SQ BID 30 Days 03/12/17 Unknown Rx [HumuLIN 70-30 Vial] Prazosin [Minipress] 1 mg PO HS #14 capsule 03/12/17 Unknown Rx Ondansetron [Zofran TAB] 4 mg PO Q8HR PRN #14 tablet 03/14/17 Unknown Rx Sulfamethoxazole/Trimethoprim 1 each PO BID #20 tablet 03/14/17 Unknown Rx [Bactrim DS TAB] Metoclopramide [Reglan] 10 mg PO TID PRN #10 tab 03/20/17 Unknown Rx Syr-Nd,Ins,0.5/Container,Empty 1 each MC PRN PRN #1 box 03/20/17 Unknown Rx [Ulticare Syr 0.5 ml 29GX1/2"] Insulin Regular, Human [HumuLIN R] See Protocol SQ ACHS #30 day 03/21/17 Unknown Rx Allergies Allergy/AdvReac Type Severity Reaction Status Date / Time No Known Allergies Allergy Verified 03/20/17 09:30 ED Review of Systems ROS: Stated complaint: ELEVATED BLOOD SUGAR Other details as noted in HPI Comment: All other systems reviewed and negative Other: Constitutional: No fevers chills Eyes: No eye pain visual changes ENT: No ear pain or throat pain Neck: Denies pain Respiratory: Denies cough wheezing shortness of breath Cardiovascular: Denies chest pain, palpitations, syncope GI: Denies abdominal pain, nausea, vomiting, diarrhea : Denies dysuria Musculoskeletal: Denies back pain Skin: Chronic eczematous rash to face Neurologic: Denies headache, numbness Psychiatric: Denies suicidal ideation, hallucinations ED Past Medical Hx - Past Medical History Hx Hypertension: Yes Hx Congestive Heart Failure: No Hx Diabetes: Yes Hx Psychiatric Treatment: Yes (depression) Hx Asthma: No Hx COPD: No Hx HIV: No Additional medical history: BULGING / HERNIATED DISC. hemorrhoids. OBESITY. Eczema - Surgical History Additional Surgical History: HEMORRHOIDECTOMY - Social History Smoking Status: Former Smoker Substance Use Type: None - Medications Home Medications: Home Medications Medication Instructions Recorded Confirmed Last Taken Type Indomethacin 50 mg PO TID #15 capsule 05/21/16 03/11/17 03/08/17 Rx Norvasc 5 mg PO DAILY 03/10/17 03/11/17 03/08/17 History RisperDAL 1 mg PO QHS 03/10/17 03/11/17 03/08/17 History FLUoxetine [PROzac] 40 mg PO QDAY #14 capsule 03/12/17 Unknown Rx Insulin NPH Hum/Reg Insulin Hm 24 unit SQ BID 30 Days 03/12/17 Unknown Rx [HumuLIN 70-30 Vial] Prazosin [Minipress] 1 mg PO HS #14 capsule 03/12/17 Unknown Rx Ondansetron [Zofran TAB] 4 mg PO Q8HR PRN #14 tablet 03/14/17 Unknown Rx Sulfamethoxazole/Trimethoprim 1 each PO BID #20 tablet 03/14/17 Unknown Rx [Bactrim DS TAB] Metoclopramide [Reglan] 10 mg PO TID PRN #10 tab 03/20/17 Unknown Rx Syr-Nd,Ins,0.5/Container,Empty 1 each MC PRN PRN #1 box 03/20/17 Unknown Rx [Ulticare Syr 0.5 ml 29GX1/2"] Insulin Regular, Human [HumuLIN R] See Protocol SQ ACHS #30 day 03/21/17 Unknown Rx ED Physical Exam - General Limitations: No Limitations - Other Other exam information: General: No limitations, patient is alert in no acute distress Head exam: Atraumatic, normocephalic Eyes exam: Normal appearance, pupils equal reactive to light, extraocular movements intact ENT: Moist mucous membrane, normal oropharynx Neck exam: Normal inspection, full range of motion, no meningismus nontender Respiratory exam: Clear to auscultation bilateral, no wheezes, rales, crackles Cardiovascular: Normal rate and rhythm, normal heart sounds Abdomen: Soft, nondistended, and nontender, with normal bowel sounds, no rebound, or guarding Extremity: Full range of motion normal inspection no deformity Back: Normal Inspection, full range of motion, no tenderness Neurologic: Alert, oriented x3, cranial nerves intact, no motor or sensory deficit Psychiatric: normal affect, normal mood Skin: Eczematous rash to face ED Course Vital Signs 03/21/17 03/21/17 09:22 09:29 Temperature 98.6 F 98.6 F Pulse Rate 80 80 Respiratory 16 16 Rate Blood Pressure 118/71 Blood Pressure 118/71 [Right] O2 Sat by Pulse 97 97 Oximetry - Reevaluation(s) Reevaluation #1: 03/21/17 12:39 Insulin, normal saline ordered 03/21/17 Patient was not orthostatic normal was asymptomatic with standing. Despite multiple RN attempts they were unable to establish IV access. Therefore subcutaneous insulin and by mouth hydration provide in the ED since glucose was in the 200s and central line was not necessary at this time and patient will likely be discharged ED Medical Decision Making - Lab Data Result diagrams: 03/21/17 09:41 03/21/17 09:41 Lab Results 03/21/17 03/21/17 03/21/17 Range/Units 09:17 09:41 09:41 WBC 3.1 L (4.5-11.0) K/mm3 RBC 4.52 (3.65-5.03) M/mm3 Hgb 13.0 (11.8-15.2) gm/dl Hct 38.0 (35.5-45.6) % MCV 84 (84-94) fl MCH 29 (28-32) pg MCHC 34 (32-34) % RDW 13.4 (13.2-15.2) % Plt Count 182 (140-440) K/mm3 Lymph % (Auto) 44.8 H (13.4-35.0) % [place] % (Auto) 11.7 H (0.0-7.3) % Eos % (Auto) 3.5 (0.0-4.3) % Baso % (Auto) 0.5 (0.0-1.8) % Lymph # 1.4 (1.2-5.4) K/mm3 [place] # 0.4 (0.0-0.8) K/mm3 Eos # 0.1 (0.0-0.4) K/mm3 Baso # 0.0 (0.0-0.1) K/mm3 Seg Neutrophils % 39.5 L (40.0-70.0) % Seg Neutrophils # 1.2 L (1.8-7.7) K/mm3 VBG pH (7.320-7.420) Sodium 135 L (137-145) mmol/L Potassium 4.4 (3.6-5.0) mmol/L Chloride 97.4 L (98-107) mmol/L Carbon Dioxide 24 (22-30) mmol/L Anion Gap 18 mmol/L BUN 13 (9-20) mg/dL Creatinine 1.5 (0.8-1.5) mg/dL Estimated GFR > 60 ml/min BUN/Creatinine Ratio 8.66 % Glucose 271 H (75-100) mg/dL POC Glucose 265 H (70-105) Calcium 9.1 (8.4-10.2) mg/dL 03/21/17 03/21/17 03/21/17 Range/Units 09:41 12:19 14:42 WBC (4.5-11.0) K/mm3 RBC (3.65-5.03) M/mm3 Hgb (11.8-15.2) gm/dl Hct (35.5-45.6) % MCV (84-94) fl MCH (28-32) pg MCHC (32-34) % RDW (13.2-15.2) % Plt Count (140-440) K/mm3 Lymph % (Auto) (13.4-35.0) % [place] % (Auto) (0.0-7.3) % Eos % (Auto) (0.0-4.3) % Baso % (Auto) (0.0-1.8) % Lymph # (1.2-5.4) K/mm3 [place] # (0.0-0.8) K/mm3 Eos # (0.0-0.4) K/mm3 Baso # (0.0-0.1) K/mm3 Seg Neutrophils % (40.0-70.0) % Seg Neutrophils # (1.8-7.7) K/mm3 VBG pH 7.348 (7.320-7.420) Sodium (137-145) mmol/L Potassium (3.6-5.0) mmol/L Chloride (98-107) mmol/L Carbon Dioxide (22-30) mmol/L Anion Gap mmol/L BUN (9-20) mg/dL Creatinine (0.8-1.5) mg/dL Estimated GFR ml/min BUN/Creatinine Ratio % Glucose (75-100) mg/dL POC Glucose 216 H 265 H (70-105) Calcium (8.4-10.2) mg/dL 03/21/17 Range/Units 16:27 WBC (4.5-11.0) K/mm3 RBC (3.65-5.03) M/mm3 Hgb (11.8-15.2) gm/dl Hct (35.5-45.6) % MCV (84-94) fl MCH (28-32) pg MCHC (32-34) % RDW (13.2-15.2) % Plt Count (140-440) K/mm3 Lymph % (Auto) (13.4-35.0) % [place] % (Auto) (0.0-7.3) % Eos % (Auto) (0.0-4.3) % Baso % (Auto) (0.0-1.8) % Lymph # (1.2-5.4) K/mm3 [place] # (0.0-0.8) K/mm3 Eos # (0.0-0.4) K/mm3 Baso # (0.0-0.1) K/mm3 Seg Neutrophils % (40.0-70.0) % Seg Neutrophils # (1.8-7.7) K/mm3 VBG pH (7.320-7.420) Sodium (137-145) mmol/L Potassium (3.6-5.0) mmol/L Chloride (98-107) mmol/L Carbon Dioxide (22-30) mmol/L Anion Gap mmol/L BUN (9-20) mg/dL Creatinine (0.8-1.5) mg/dL Estimated GFR ml/min BUN/Creatinine Ratio % Glucose (75-100) mg/dL POC Glucose 234 H (70-105) Calcium (8.4-10.2) mg/dL - Medical Decision Making No signs of DKA. Patient is poorly controlled glucose despite current insulin dose. He is yet to follow up with PMD since he has been at [facility] since initial ED presentation. I will recommend that his Humulin 70-30 be continued as prescribed and that patient be put on sliding scale regular insulin dose - Differential Diagnosis DKA, hypoglycemia, medication noncompliance, diet noncompliance Critical Care Time: No Critical care attestation.: If time is entered above; I have spent that time in minutes in the direct care of this critically ill patient, excluding procedure time. ED Disposition Clinical Impression: Uncontrolled diabetes mellitus Disposition: OP ADMIT IP TO THIS HOSP Is pt being admited?: Yes Condition: Stable Instructions: Diabetes Mellitus Type 2 in Adults (ED) Additional Instructions: Continue your Humulin 70-30 as prescribed at 24 units subcutaneous twice a day. I have changed your Humulin regular insulin to be given as per medium-dose sliding scale. If your sugar remains uncontrolled you may need to increase to high-dose sliding scale regimen. Follow-up with a primary care doctor regarding further management of your diabetes. Return if symptoms worsen. Prescriptions: Insulin Regular, Human [HumuLIN R] See Protocol SQ ACHS #30 day Referrals: PRIMARY CARE, [Primary Care Provider] - 3-5 Days KEYUR DOMINGUEZ MD [Staff Physician] - 3-5 Days (Primary care doctor ) Time of Disposition: 16:41
[2017-03-21 17:52] VITALS: BP 111/47
== END 2017-03-21 18:00 ==
LOC: ED 09:10
DX: E11.65 Type 2 diabetes mellitus with hyperglycemia (principal); I10 Essential (primary) hypertension; F32.9 Major depressive disorder, single episode, unspecified; Z79.4 Long term (current) use of insulin; Z87.891 Personal history of nicotine dependence; Z90.89 Acquired absence of other organs
CPT/HCPCS: 36415; 80048; 82805; 82962; 85025; 96374; J1815

== ENCOUNTER 2017-04-27 16:28 | Emergency (ER) | payer OTHER ==
[2017-04-27 17:36] LABS: Bilirubin,Urine NEG (Negative); Blood,Urine NEG (Negative); Ketones,Urine NEG (Negative); Leukocyte Esterase,Urine NEG (Negative); Nitrite,Urine NEG (Negative); Protein,Urine <15 mg/dL mg/dL (Negative); Urobilinogen,Urine < 2.0 mg/dL (<2.0)
[2017-04-27] MEDS ORDERED: TORADOL IM ONE (20:37)
--- NOTE | 2017-04-27 20:47 | Emergency Department Report ---
ED Back Pain/Injury HPI - General Chief Complaint: Pain General Stated Complaint: FLANK PAIN Time Seen by Provider: 04/27/17 20:37 Source: patient Limitations: No Limitations - History of Present Illness Initial Comments: This is a 26-year-old male nontoxic, well nourished in appearance, no acute signs of distress presents to the ED complaining of right-sided back pain that is radiating to the right lower extremity x2 days. Patient stated has a history of chronic back pain and is diagnosed with sciatica. PAtient stated pain is worse the past 2 days. They stated he is here today because wasn't make sure that he does not have a kidney infection because patient was diagnosed with kidney infection as a history but denies similar symptoms. Patient denies any dysuria, polyuria, hematuria, urgency. Patient denies fever, chills, nausea , vomiting, chest pain, shortness of breath, abdominal pain, numbness or tingling. Patient describes pain as aching with level of 7 out of 10. Patient stated pain is relieved upon supine position and is aggravated during movement. Patient denies any trauma to the region. Denies any allergies. Past medical history includes diabetes and hypertension. MD Complaint: back pain -: Gradual, days(s) (2) Similar Symptoms Previously: Yes Radiation: right leg Severity: mild Severity scale (0 -10): 8 Quality: aching Consistency: intermittent Improves With: supine Worsens With: movement, walking Associated Symptoms: denies other symptoms. denies: confusion, weakness, chest pain, numbness, difficulty walking, cough, difficulty urinating, diaphoresis, incontinence, fever/chills, constipation, headaches, abdominal pain, loss of appetite, malaise, nausea/vomiting, rash, seizure, shortness of breath, syncope - Related Data Home Medications Medication Instructions Recorded Confirmed Last Taken Norvasc 5 mg PO DAILY 03/10/17 03/11/17 03/08/17 RisperDAL 1 mg PO QHS 03/10/17 03/11/17 03/08/17 Previous Rx's Medication Instructions Recorded Last Taken Type Indomethacin 50 mg PO TID #15 capsule 05/21/16 03/08/17 Rx FLUoxetine [PROzac] 40 mg PO QDAY #14 capsule 03/12/17 Unknown Rx Insulin NPH Hum/Reg Insulin Hm 24 unit SQ BID 30 Days 03/12/17 Unknown Rx [HumuLIN 70-30 Vial] Prazosin [Minipress] 1 mg PO HS #14 capsule 03/12/17 Unknown Rx Ondansetron [Zofran TAB] 4 mg PO Q8HR PRN #14 tablet 03/14/17 Unknown Rx Sulfamethoxazole/Trimethoprim 1 each PO BID #20 tablet 03/14/17 Unknown Rx [Bactrim DS TAB] Metoclopramide [Reglan] 10 mg PO TID PRN #10 tab 03/20/17 Unknown Rx Syr-Nd,Ins,0.5/Container,Empty 1 each MC PRN PRN #1 box 03/20/17 Unknown Rx [Ulticare Syr 0.5 ml 29GX1/2"] Insulin Regular, Human [HumuLIN R] See Protocol SQ ACHS #30 day 03/21/17 Unknown Rx Cyclobenzaprine [Flexeril] 10 mg PO TID PRN #15 tablet 04/27/17 Unknown Rx Ibuprofen [Motrin 600 MG tab] 600 mg PO Q8H PRN #30 tablet 04/27/17 Unknown Rx Allergies Allergy/AdvReac Type Severity Reaction Status Date / Time No Known Allergies Allergy Verified 03/20/17 09:30 ED Review of Systems ROS: Stated complaint: FLANK PAIN Other details as noted in HPI Constitutional: denies: chills, fever Eyes: denies: eye pain, eye discharge, vision change ENT: denies: ear pain, throat pain Respiratory: denies: cough, shortness of breath, wheezing Cardiovascular: denies: chest pain, palpitations Endocrine: no symptoms reported Gastrointestinal: denies: abdominal pain, nausea, diarrhea Genitourinary: denies: urgency, dysuria Musculoskeletal: denies: back pain, joint swelling, arthralgia Skin: denies: rash, lesions Neurological: denies: headache, weakness, paresthesias Psychiatric: denies: anxiety, depression Hematological/Lymphatic: denies: easy bleeding, easy bruising ED Past Medical Hx - Past Medical History Hx Hypertension: Yes Hx Congestive Heart Failure: No Hx Diabetes: Yes Hx Psychiatric Treatment: Yes (depression) Hx Asthma: No Hx COPD: No Hx HIV: No Additional medical history: BULGING / HERNIATED DISC. hemorrhoids. OBESITY. Eczema - Surgical History Additional Surgical History: HEMORRHOIDECTOMY - Social History Smoking Status: Never Smoker Substance Use Type: None - Medications Home Medications: Home Medications Medication Instructions Recorded Confirmed Last Taken Type Indomethacin 50 mg PO TID #15 capsule 05/21/16 03/11/17 03/08/17 Rx Norvasc 5 mg PO DAILY 03/10/17 03/11/17 03/08/17 History RisperDAL 1 mg PO QHS 03/10/17 03/11/17 03/08/17 History FLUoxetine [PROzac] 40 mg PO QDAY #14 capsule 03/12/17 Unknown Rx Insulin NPH Hum/Reg Insulin Hm 24 unit SQ BID 30 Days 03/12/17 Unknown Rx [HumuLIN 70-30 Vial] Prazosin [Minipress] 1 mg PO HS #14 capsule 03/12/17 Unknown Rx Ondansetron [Zofran TAB] 4 mg PO Q8HR PRN #14 tablet 03/14/17 Unknown Rx Sulfamethoxazole/Trimethoprim 1 each PO BID #20 tablet 03/14/17 Unknown Rx [Bactrim DS TAB] Metoclopramide [Reglan] 10 mg PO TID PRN #10 tab 03/20/17 Unknown Rx Syr-Nd,Ins,0.5/Container,Empty 1 each MC PRN PRN #1 box 03/20/17 Unknown Rx [Ulticare Syr 0.5 ml 29GX1/2"] Insulin Regular, Human [HumuLIN R] See Protocol SQ ACHS #30 day 03/21/17 Unknown Rx Cyclobenzaprine [Flexeril] 10 mg PO TID PRN #15 tablet 04/27/17 Unknown Rx Ibuprofen [Motrin 600 MG tab] 600 mg PO Q8H PRN #30 tablet 04/27/17 Unknown Rx ED Physical Exam - General Limitations: No Limitations General appearance: alert, in no apparent distress - Head Head exam: Present: atraumatic, normocephalic, normal inspection - Eye Eye exam: Present: normal appearance, PERRL, EOMI. Absent: scleral icterus, conjunctival injection, nystagmus, periorbital swelling, periorbital tenderness Pupils: Present: normal accommodation - ENT ENT exam: Present: normal exam, normal orophraynx, mucous membranes moist, TM's normal bilaterally, normal external ear exam - Neck Neck exam: Present: normal inspection, full ROM. Absent: tenderness, meningismus, lymphadenopathy, thyromegaly - Respiratory Respiratory exam: Present: normal lung sounds bilaterally. Absent: respiratory distress, wheezes, rales, rhonchi, stridor, chest wall tenderness, accessory muscle use, decreased breath sounds, prolonged expiratory - Cardiovascular Cardiovascular Exam: Present: regular rate, normal rhythm, normal heart sounds. Absent: bradycardia, tachycardia, irregular rhythm, systolic murmur, diastolic murmur, rubs, gallop - GI/Abdominal GI/Abdominal exam: Present: soft, normal bowel sounds. Absent: distended, tenderness, guarding, rebound, rigid, diminished bowel sounds - Rectal Rectal exam: Present: deferred - Extremities Exam Extremities exam: Present: normal inspection, full ROM, normal capillary refill. Absent: tenderness, pedal edema, joint swelling, calf tenderness - Back Exam Back exam: Present: normal inspection, full ROM. Absent: tenderness, CVA tenderness (R), CVA tenderness (L), muscle spasm, paraspinal tenderness, vertebral tenderness, rash noted - Neurological Exam Neurological exam: Present: alert, oriented X3, CN II-XII intact, normal gait, reflexes normal - Psychiatric Psychiatric exam: Present: normal affect, normal mood - Skin Skin exam: Present: warm, dry, intact, normal color. Absent: rash ED Course Vital Signs 04/27/17 16:31 Temperature 98.8 F Pulse Rate 83 Respiratory 18 Rate Blood Pressure 113/56 O2 Sat by Pulse 96 Oximetry - Reevaluation(s) Reevaluation #1: 04/27/17 20:48 Patient is speaking in full sentences with no signs of distress. ED Medical Decision Making - Medical Decision Making 26-year-old male that presents with chronic low back pain with sciatica. CBC, BMP, and UA has been obtained. There is negative findings of UTI or kidney stone in the urine. No hematuria or white blood cell count in UA. Patient denies any trauma to the region. There is negative CVA tenderness. No symptoms of UTI. Patient stated after medical treatment of Toradol back pain has subsided. Patient is stable and no signs of distress noted. Patient was instructed to follow-up with a primary care doctor in 3-5 days or if symptoms worsen and continue return to emergency room as soon as possible possible. At time time of discharge, the patient does not seem toxic or ill in appearance. No acute signs of distress noted. Patient agrees to discharge treatment plan of care. No further questions noted by the patient. Critical care attestation.: If time is entered above; I have spent that time in minutes in the direct care of this critically ill patient, excluding procedure time. ED Disposition Clinical Impression: Chronic back pain Qualifiers: Back pain location: low back pain Back pain laterality: right Sciatica presence : with sciatica Sciatica laterality: sciatica of right side Qualified Code(s): M54.41 - Lumbago with sciatica, right side; G89.29 - Other chronic pain Disposition: TO HOME OR SELFCARE Is pt being admited?: No Does the pt Need Aspirin: No Condition: Stable Instructions: Lumbar Radiculopathy (ED), Chronic Back Pain (ED), Ibuprofen (By mouth), Cyclobenzaprine (By mouth) Additional Instructions: Take ibuprofen and Flexeril as prescribed. Do not operate heavy machinery while taking Flexeril due to sedation Follow-up with a primary care doctor in 3-5 days or if symptoms worsen and continue return to emergency room as soon as possible possible. Prescriptions: Cyclobenzaprine [Flexeril] 10 mg PO TID PRN #15 tablet PRN Reason: Muscle Spasm Ibuprofen [Motrin 600 MG tab] 600 mg PO Q8H PRN #30 tablet PRN Reason: Pain Referrals: PRIMARY CAREMD [Primary Care Provider] - 3-5 Days KINGA NEGRETE MD [Staff Physician] - 3-5 Days [facility] [Outside] - 3-5 Days [facility] [Outside] - 3-5 Days Forms: Work/School Release Form(ED)
[2017-04-27 21:32] LABS: Basophils % (Auto) 0.3 % (0.0-1.8); Eosinophils % (Auto) 2.5 % (0.0-4.3); Hematocrit 37.2 % (35.5-45.6); Hemoglobin 12.5 gm/dl (11.8-15.2); Mean Corpuscular HGB Conc 34 % (32-34); Mean Corpuscular Hemoglobin 29 pg (28-32); Mean Corpuscular Volume 85 fl (84-94); Platelet Count 176 K/mm3 (140-440); Red Blood Count 4.38 M/mm3 (3.65-5.03); Red Cell Distribution Width 14.2 % (13.2-15.2); White Blood Count 3.6 K/mm3 (4.5-11.0)
[2017-04-27 21:47] LABS: Anion Gap 17 mmol/L; BUN/Creatinine Ratio 11.53; Blood Urea Nitrogen 15 mg/dL (9-20); Calcium 9.2 mg/dL (8.4-10.2); Carbon Dioxide 28 mmol/L (22-30); Chloride 100.1 mmol/L (98-107); Glucose 144 mg/dL (75-100); Potassium 4.3 mmol/L (3.6-5.0); Sodium 141 mmol/L (137-145)
[2017-04-27 23:42] VITALS: BP 128/83
== END 2017-04-27 22:35 | disposition home or self-care (01) ==
LOC: ED 16:28
DX: M54.41 Lumbago with sciatica, right side (principal); G89.29 Other chronic pain; E11.9 Type 2 diabetes mellitus without complications; F32.9 Major depressive disorder, single episode, unspecified; I10 Essential (primary) hypertension; Z79.4 Long term (current) use of insulin
CPT/HCPCS: 36415; 80048; 81001; 85025; 96372; 99283; J1885

== ENCOUNTER 2017-05-07 06:22 | Emergency (ER) | payer SELFPAY ==
[2017-05-07 08:20] LABS: Basophils % (Auto) 0.2 % (0.0-1.8); Eosinophils % (Auto) 0.1 % (0.0-4.3); Hematocrit 39.6 % (35.5-45.6); Hemoglobin 13.4 gm/dl (11.8-15.2); Mean Corpuscular HGB Conc 34 % (32-34); Mean Corpuscular Hemoglobin 29 pg (28-32); Mean Corpuscular Volume 84 fl (84-94); Platelet Count 210 K/mm3 (140-440); Red Cell Distribution Width 13.9 % (13.2-15.2)
[2017-05-07 08:25] LABS: Alanine Aminotransferase 21 units/L (7-56); Albumin 4.3 g/dL (3.9-5); Albumin/Globulin Ratio 1.3 %; Alkaline Phosphatase 67 units/L (35-129); Anion Gap 17 mmol/L; BUN/Creatinine Ratio 8; Blood Urea Nitrogen 12 mg/dL (9-20); Calcium 9.1 mg/dL (8.4-10.2); Carbon Dioxide 26 mmol/L (22-30); Chloride 97.3 mmol/L (98-107); Glucose 155 mg/dL (75-100); Lipase 21 units/L (13-60); Potassium 3.9 mmol/L (3.6-5.0); Sodium 136 mmol/L (137-145); Total Protein 7.7 g/dL (6.3-8.2)
[2017-05-07 08:30] LABS: Bacteria,Urine 1+ /HPF (Negative); Bilirubin,Urine NEG (Negative); Blood,Urine NEG (Negative); Ketones,Urine NEG (Negative); Leukocyte Esterase,Urine MOD (Negative); Mucus,Urine FEW /HPF; Nitrite,Urine NEG (Negative); Protein,Urine <15 mg/dL mg/dL (Negative)
[2017-05-07] MEDS ORDERED: ROCEPHIN/NS 1 GM/50 ML 1 GM/50 ML BAG IV ONE (10:21)
[2017-05-07] MEDS ORDERED: NACL 0.9% 1000 ML 1,000 ML IV ONE (10:21)
[2017-05-07] MEDS ORDERED: TORADOL IV ONE (10:21)
[2017-05-07] MEDS ORDERED: TYLENOL PO ONE (10:21)
[2017-05-07] MEDS ORDERED: ZOFRAN IV ONE (10:21)
--- NOTE | 2017-05-07 10:26 | Emergency Department Report ---
ED Abdominal Pain HPI - General Chief Complaint: Abdominal Pain Stated Complaint: LOWER ABD PAIN, MEDICAL CLERANCE Time Seen by Provider: 05/07/17 10:17 Source: patient Mode of arrival: Wheelchair Limitations: No Limitations - History of Present Illness Initial Comments: Patient is a 26 years old male history of diabetes on insulin presented today with left flank pain fever nausea vomiting and difficulty urinating for the last 2 days. No canal discharge. Patient denied diarrhea no other complaint at this moment. MD Complaint: abdominal pain, flank pain -: days(s) (two) Location: L flank Radiation: suprapubic Migration to: no migration Severity scale (0 -10): 6 Quality: sharp Consistency: constant Improves With: nothing Associated Symptoms: nausea, vomiting, chills. denies: diarrhea - Related Data Home Medications Medication Instructions Recorded Confirmed Last Taken Norvasc 5 mg PO DAILY 03/10/17 03/11/17 03/08/17 RisperDAL 1 mg PO QHS 03/10/17 03/11/17 03/08/17 Previous Rx's Medication Instructions Recorded Last Taken Type Indomethacin 50 mg PO TID #15 capsule 05/21/16 03/08/17 Rx FLUoxetine [PROzac] 40 mg PO QDAY #14 capsule 03/12/17 Unknown Rx Insulin NPH Hum/Reg Insulin Hm 24 unit SQ BID 30 Days 03/12/17 Unknown Rx [HumuLIN 70-30 Vial] Prazosin [Minipress] 1 mg PO HS #14 capsule 03/12/17 Unknown Rx Ondansetron [Zofran TAB] 4 mg PO Q8HR PRN #14 tablet 03/14/17 Unknown Rx Sulfamethoxazole/Trimethoprim 1 each PO BID #20 tablet 03/14/17 Unknown Rx [Bactrim DS TAB] Metoclopramide [Reglan] 10 mg PO TID PRN #10 tab 03/20/17 Unknown Rx Syr-Nd,Ins,0.5/Container,Empty 1 each MC PRN PRN #1 box 03/20/17 Unknown Rx [Ulticare Syr 0.5 ml 29GX1/2"] Insulin Regular, Human [HumuLIN R] See Protocol SQ ACHS #30 day 03/21/17 Unknown Rx Cyclobenzaprine [Flexeril] 10 mg PO TID PRN #15 tablet 04/27/17 Unknown Rx Ibuprofen [Motrin 600 MG tab] 600 mg PO Q8H PRN #30 tablet 04/27/17 Unknown Rx Allergies Allergy/AdvReac Type Severity Reaction Status Date / Time No Known Allergies Allergy Verified 03/20/17 09:30 ED Review of Systems ROS: Stated complaint: LOWER ABD PAIN, MEDICAL CLERANCE Other details as noted in HPI Comment: All other systems reviewed and negative Constitutional: chills, fever Respiratory: denies: cough, shortness of breath Cardiovascular: palpitations. denies: chest pain Gastrointestinal: abdominal pain, nausea, vomiting. denies: diarrhea, constipation Genitourinary: urgency, dysuria, frequency, hematuria. denies: discharge, testicular pain, testicular mass Neurological: denies: headache, weakness, numbness, paresthesias ED Past Medical Hx - Past Medical History Previous Medical History?: Yes Hx Hypertension: Yes Hx Congestive Heart Failure: No Hx Diabetes: Yes Hx Psychiatric Treatment: Yes (depression) Hx Asthma: No Hx COPD: No Hx HIV: No Additional medical history: BULGING / HERNIATED DISC. hemorrhoids. OBESITY. Eczema - Surgical History Past Surgical History?: Yes Additional Surgical History: HEMORRHOIDECTOMY - Social History Smoking Status: Never Smoker Substance Use Type: None - Medications Home Medications: Home Medications Medication Instructions Recorded Confirmed Last Taken Type Indomethacin 50 mg PO TID #15 capsule 05/21/16 03/11/17 03/08/17 Rx Norvasc 5 mg PO DAILY 03/10/17 03/11/17 03/08/17 History RisperDAL 1 mg PO QHS 03/10/17 03/11/17 03/08/17 History FLUoxetine [PROzac] 40 mg PO QDAY #14 capsule 03/12/17 Unknown Rx Insulin NPH Hum/Reg Insulin Hm 24 unit SQ BID 30 Days 03/12/17 Unknown Rx [HumuLIN 70-30 Vial] Prazosin [Minipress] 1 mg PO HS #14 capsule 03/12/17 Unknown Rx Ondansetron [Zofran TAB] 4 mg PO Q8HR PRN #14 tablet 03/14/17 Unknown Rx Sulfamethoxazole/Trimethoprim 1 each PO BID #20 tablet 03/14/17 Unknown Rx [Bactrim DS TAB] Metoclopramide [Reglan] 10 mg PO TID PRN #10 tab 03/20/17 Unknown Rx Syr-Nd,Ins,0.5/Container,Empty 1 each MC PRN PRN #1 box 03/20/17 Unknown Rx [Ulticare Syr 0.5 ml 29GX1/2"] Insulin Regular, Human [HumuLIN R] See Protocol SQ ACHS #30 day 03/21/17 Unknown Rx Cyclobenzaprine [Flexeril] 10 mg PO TID PRN #15 tablet 04/27/17 Unknown Rx Ibuprofen [Motrin 600 MG tab] 600 mg PO Q8H PRN #30 tablet 04/27/17 Unknown Rx ED Physical Exam - General Limitations: No Limitations General appearance: alert - Head Head exam: Present: normocephalic - Eye Eye exam: Present: normal appearance - ENT ENT exam: Present: normal exam - Neck Neck exam: Present: normal inspection, full ROM. Absent: tenderness, meningismus, lymphadenopathy - Respiratory Respiratory exam: Present: normal lung sounds bilaterally. Absent: respiratory distress, wheezes, rales, rhonchi, stridor, chest wall tenderness, accessory muscle use, decreased breath sounds, prolonged expiratory - Cardiovascular Cardiovascular Exam: Present: tachycardia - GI/Abdominal GI/Abdominal exam: Present: soft, normal bowel sounds. Absent: distended, tenderness, guarding, rebound, rigid, mass, bruit, pulsatile mass, hernia - Extremities Exam Extremities exam: Present: normal inspection, normal capillary refill. Absent: full ROM, tenderness - Back Exam Back exam: Present: normal inspection, CVA tenderness (L). Absent: tenderness, CVA tenderness (R), muscle spasm, paraspinal tenderness, vertebral tenderness - Neurological Exam Neurological exam: Present: alert, oriented X3, CN II-XII intact, normal gait - Skin Skin exam: Present: warm, dry, normal color. Absent: intact, cyanosis, diaphoretic ED Course Vital Signs 05/07/17 05/07/17 06:26 11:05 Temperature 100.1 F H Pulse Rate 110 H Respiratory 18 18 Rate Blood Pressure 126/81 O2 Sat by Pulse 100 Oximetry - Reevaluation(s) Reevaluation #1: 05/07/17 12:06 Patient stated that he is feeling much better and no nausea no vomiting. ED Medical Decision Making - Lab Data Result diagrams: 05/07/17 07:54 05/07/17 07:54 - Radiology Data Radiology results: report reviewed CT abdomen and pelvis unremarkable for acute abnormalities specifically no pyelonephritis normal appendix - Medical Decision Making Patient is feeling better and tolerating by mouth we'll discharge patient home with ciprofloxacin for 10 days and forearm as his primary care physician. Critical care attestation.: If time is entered above; I have spent that time in minutes in the direct care of this critically ill patient, excluding procedure time. ED Disposition Clinical Impression: Flank pain, UTI (urinary tract infection) Disposition: TO HOME OR SELFCARE Is pt being admited?: No Condition: Stable Instructions: Urinary Tract Infection in Men (ED) Referrals: PRIMARY CARE, [Primary Care Provider] - 3-5 Days
[2017-05-07] MEDS ORDERED: NACL ONE (11:01)
--- NOTE | 2017-05-07 11:43 | Cat Scan Report ---
CT scan of abdomen and pelvis with IV contrast: History: Abdominal pain. Findings: Normal lung bases. No pleural pericardial effusion. Decrease in attenuation in liver probably fatty liver. Normal spleen pancreas and gallbladder. Normal adrenals kidneys and bladder. No free intraperitoneal fluid or air. No evidence of adenopathy. Gaseous colon with minimal volume stool in colon. No bowel distention. No evidence of appendicitis or diverticulitis. Impression: Fatty liver. No acute abdominal findings.
[2017-05-07] MEDS ORDERED: REGLAN IV ONE (12:11)
[2017-05-07 12:58] VITALS: BP 116/51
== END 2017-05-07 13:04 | disposition home or self-care (01) ==
LOC: ED 06:22
DX: N39.0 Urinary tract infection, site not specified (principal); I10 Essential (primary) hypertension; E11.9 Type 2 diabetes mellitus without complications; Z79.82 Long term (current) use of aspirin
CPT/HCPCS: 36415; 74177; 80053; 81001; 83690; 85025; 96361; 96365; 96375; 99285; J0696; J1885; J2405; J2765; J7030; Q9967

== ENCOUNTER 2017-10-21 22:00 | Emergency (ER) | payer SELFPAY ==
[2017-10-21 22:50] VITALS: BP 140/94
[2017-10-21 23:48] LABS: Bilirubin,Urine NEG (Negative); Blood,Urine NEG (Negative); Color,Urine Yellow (Yellow); Mucus,Urine FEW /HPF; Protein,Urine <15 mg/dL mg/dL (Negative); Urobilinogen,Urine < 2.0 mg/dL (<2.0)
[2017-10-21 23:59] LABS: Basophils % (Auto) 0.4 % (0.0-1.8); Eosinophils # (Auto) 0.1 K/mm3 (0.0-0.4); Eosinophils % (Auto) 3.5 % (0.0-4.3); Hematocrit 43.4 % (35.5-45.6); Hemoglobin 14.7 gm/dl (11.8-15.2); Lymphocytes # (Auto) 1.6 K/mm3 (1.2-5.4); Lymphocytes % (Auto) 39.6 % (13.4-35.0); Mean Corpuscular HGB Conc 34 % (32-34); Mean Corpuscular Hemoglobin 28 pg (28-32); Mean Corpuscular Volume 84 fl (84-94); Monocytes # (Auto) 0.4 K/mm3 (0.0-0.8); Monocytes % (Auto) 10.1 % (0.0-7.3); Platelet Count 233 K/mm3 (140-440); Red Cell Distribution Width 14.4 % (13.2-15.2)
[2017-10-22 00:25] LABS: Alanine Aminotransferase 30 units/L (7-56); Albumin 4.5 g/dL (3.9-5); BUN/Creatinine Ratio 8; Blood Urea Nitrogen 9 mg/dL (9-20); Calcium 9.3 mg/dL (8.4-10.2); Hemolysis Index 15; Lipase 38 units/L (13-60)
== END 2017-10-22 02:00 | disposition left against medical advice (07) ==
LOC: ED 22:00
DX: R10.9 Unspecified abdominal pain (principal); R11.2 Nausea with vomiting, unspecified; Z53.21 Procedure and treatment not carried out due to patient leaving prior to being seen by health care provider
CPT/HCPCS: 36415; 80053; 81001; 83690; 85025

== ENCOUNTER 2019-04-09 02:59 | Emergency (ER) | payer SELFPAY ==
[2019-04-09 03:05] VITALS: BP 137/84
[2019-04-09] MEDS ORDERED: IBUPROFEN PO ONE (04:35)
[2019-04-09] MEDS ORDERED: TRIPLE ANTIBIOTIC TP ONE (04:35)
[2019-04-09] MEDS ORDERED: BACTRIM DS PO ONE (04:42)
[2019-04-09] MEDS ORDERED: BACTRIM DS ONE (04:46)
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
== END 2019-04-09 06:32 | disposition home or self-care (01) ==
LOC: ED 02:59
DX: S61.512D Laceration without foreign body of left wrist, subsequent encounter (principal); I10 Essential (primary) hypertension; E11.9 Type 2 diabetes mellitus without complications; F32.9 Major depressive disorder, single episode, unspecified; E66.9 Obesity, unspecified; F17.200 Nicotine dependence, unspecified, uncomplicated; Z79.899 Other long term (current) drug therapy; Z79.4 Long term (current) use of insulin; Z68.36 Body mass index [BMI] 36.0-36.9, adult; Z98.890 Other specified postprocedural states; X78.8XXD Intentional self-harm by other sharp object, subsequent encounter
CPT/HCPCS: 99283; A6250

== ENCOUNTER 2019-04-21 16:17 | Emergency (ER) | payer SELFPAY ==
[2019-04-21 17:18] LABS: Bilirubin,Urine NEG (Negative); Blood,Urine NEG (Negative); Color,Urine Yellow (Yellow); Protein,Urine <15 mg/dL mg/dL (Negative); Urobilinogen,Urine < 2.0 mg/dL (<2.0)
[2019-04-21] MEDS ORDERED: SODIUM CHLORIDE 0.9% 1000 ML 1,000 ML IV ONE (17:28)
[2019-04-21] MEDS ORDERED: INSULIN REGULAR, HUMAN 100 UNITS/1 ML IV ONE (17:28)
[2019-04-21] MEDS ORDERED: ONDANSETRON 4 MG/2 ML INJ IV ONE (17:28)
[2019-04-21 17:29] LABS: Amphetamine Screen,Urine PRESUMPTIVE NEGATIVE; Benzodiazepines Screen,Urine PRESUMPTIVE NEGATIVE; Cannabinoid Screen,Urine PRESUMPTIVE NEGATIVE; Cocaine Screen,Urine PRESUMPTIVE NEGATIVE; Methadone Screen,Urine PRESUMPTIVE NEGATIVE; Opiate Screen,Urine PRESUMPTIVE NEGATIVE
[2019-04-21 17:29] LABS: Basophils % (Auto) 0.2 % (0.0-1.8); Eosinophils # (Auto) 0.1 K/mm3 (0.0-0.4); Eosinophils % (Auto) 2.4 % (0.0-4.3); Hematocrit 38.6 % (35.5-45.6); Hemoglobin 13.3 gm/dl (11.8-15.2); Lymphocytes # (Auto) 1.4 K/mm3 (1.2-5.4); Lymphocytes % (Auto) 33.3 % (13.4-35.0); Mean Corpuscular HGB Conc 34 % (32-34); Mean Corpuscular Volume 84 fl (84-94); Monocytes # (Auto) 0.4 K/mm3 (0.0-0.8); Monocytes % (Auto) 9.6 % (0.0-7.3); Platelet Count 233 K/mm3 (140-440); Red Blood Count 4.58 M/mm3 (3.65-5.03)
[2019-04-21 17:53] LABS: BUN/Creatinine Ratio 11; Blood Urea Nitrogen 13 mg/dL (9-20); Calcium 9.5 mg/dL (8.4-10.2); Hemolysis Index 12
[2019-04-21 17:57] LABS: Alanine Aminotransferase 23 units/L (7-56); Albumin 4.3 g/dL (3.9-5)
[2019-04-21 18:03] LABS: Bilirubin,Direct < 0.2 mg/dL (0-0.2)
--- NOTE | 2019-04-21 18:45 | Emergency Department Report ---
<TEJAL WAGNER - Last Filed: 04/21/19 19:28> ED Psych HPI - General Chief Complaint: Psych Stated Complaint: MH EVAL Time Seen by Provider: 04/21/19 16:36 Source: patient, police Mode of arrival: Ambulatory Limitations: No Limitations - History of Present Illness Initial Comments: 28-year-old male with a past medical history of insulin dependent diabetes, hypertension, increased bipolar disorder diagnosis presents to Hospital with depression continues suicidal ideation. Patient was just discharged from [facility] 4 days ago for the same. He states that they gave him a diagnosis of bipolar and borderline personality started him on Atarax, trazodone, in addition to his Cymbalta. Patient states he followed up with [facility] today expressed continued suicidal ideation and therefore was sent to the ER with low enforcement escort. Patient states this is a tough time a year for him because is the anniversary of both his mother's , father's , and he is experienced the of several family members. He is originally from [facility] and doesn't have any family locally but states they typically affect him in a negative way and that is why he left the state. He recently tried to cut his wrists prior to transfer [place] admission. He does not express any suicidal plan today. He also denies hallucinations. Today he has had nausea with several episodes of vomiting today with mild abdominal pain. He has not had his insulin today. No complaints of fever, dysuria, diarhea, or hematemesis. - Related Data Home Medications Medication Instructions Recorded Confirmed Last Taken Norvasc 5 mg PO DAILY 03/10/17 04/23/19 03/08/17 RisperDAL 1 mg PO QHS 03/10/17 04/23/19 03/08/17 Previous Rx's Medication Instructions Recorded Last Taken Type Indomethacin 50 mg PO TID #15 capsule 05/21/16 03/08/17 Rx FLUoxetine [PROzac] 40 mg PO QDAY #14 capsule 03/12/17 Unknown Rx Insulin NPH Hum/Reg Insulin Hm 24 unit SQ BID 30 Days ml 03/12/17 Unknown Rx [HumuLIN 70-30 Vial] Prazosin [Minipress] 1 mg PO HS #14 capsule 03/12/17 Unknown Rx Ondansetron [Zofran TAB] 4 mg PO Q8HR PRN #14 tablet 03/14/17 Unknown Rx Sulfamethoxazole/Trimethoprim 1 each PO BID #20 tablet 03/14/17 Unknown Rx [Bactrim DS TAB] Metoclopramide [Reglan] 10 mg PO TID PRN #10 tab 03/20/17 Unknown Rx Syr-Nd,Ins,0.5/Container,Empty 1 each MC PRN PRN #1 box 03/20/17 Unknown Rx [Ulticare Syr 0.5 ml 29GX1/2"] Insulin Regular, Human [HumuLIN R] See Protocol SQ ACHS #30 day 03/21/17 Unknown Rx Cyclobenzaprine [Flexeril] 10 mg PO TID PRN #15 tablet 04/27/17 Unknown Rx Ibuprofen [Motrin 600 MG tab] 600 mg PO Q8H PRN #30 tablet 04/27/17 Unknown Rx Ciprofloxacin HCl [Ciprofloxacin 500 mg PO Q12H #20 tab 05/07/17 Unknown Rx TAB] Ondansetron [Zofran Odt] 4 mg PO Q8HR PRN #14 tab.rapdis 05/07/17 Unknown Rx traMADol [Ultram 50 MG tab] 50 mg PO Q4HR PRN #14 tablet 05/07/17 Unknown Rx Sulfamethoxazole/Trimethoprim 1 each PO Q12H #20 tablet 04/09/19 Unknown Rx [Bactrim DS TAB] Allergies Allergy/AdvReac Type Severity Reaction Status Date / Time No Known Allergies Allergy Verified 03/20/17 09:30 ED Review of Systems Comment: All other systems reviewed and negative ED Past Medical Hx - Past Medical History Hx Hypertension: Yes Hx Congestive Heart Failure: No Hx Diabetes: Yes Hx Psychiatric Treatment: Yes (depression, SI attempt) Hx Asthma: No Hx COPD: No Hx HIV: No Additional medical history: BULGING / HERNIATED DISC. hemorrhoids. OBESITY. Eczema - Surgical History Additional Surgical History: HEMORRHOIDECTOMY - Social History Smoking Status: Current Every Day Smoker Substance Use Type: Alcohol - Medications Home Medications: Home Medications Medication Instructions Recorded Confirmed Last Taken Type Indomethacin 50 mg PO TID #15 capsule 05/21/16 04/23/19 03/08/17 Rx Norvasc 5 mg PO DAILY 03/10/17 04/23/19 03/08/17 History RisperDAL 1 mg PO QHS 03/10/17 04/23/19 03/08/17 History FLUoxetine [PROzac] 40 mg PO QDAY #14 capsule 03/12/17 04/23/19 Unknown Rx Insulin NPH Hum/Reg Insulin Hm 24 unit SQ BID 30 Days ml 03/12/17 04/23/19 Unknown Rx [HumuLIN 70-30 Vial] Prazosin [Minipress] 1 mg PO HS #14 capsule 03/12/17 04/23/19 Unknown Rx Ondansetron [Zofran TAB] 4 mg PO Q8HR PRN #14 tablet 03/14/17 04/23/19 Unknown Rx Sulfamethoxazole/Trimethoprim 1 each PO BID #20 tablet 03/14/17 04/23/19 Unknown Rx [Bactrim DS TAB] Metoclopramide [Reglan] 10 mg PO TID PRN #10 tab 03/20/17 04/23/19 Unknown Rx Syr-Nd,Ins,0.5/Container,Empty 1 each MC PRN PRN #1 box 03/20/17 04/23/19 Unknown Rx [Ulticare Syr 0.5 ml 29GX1/2"] Insulin Regular, Human [HumuLIN R] See Protocol SQ ACHS #30 day 03/21/17 04/23/19 Unknown Rx Cyclobenzaprine [Flexeril] 10 mg PO TID PRN #15 tablet 04/27/17 04/23/19 Unknown Rx Ibuprofen [Motrin 600 MG tab] 600 mg PO Q8H PRN #30 tablet 04/27/17 04/23/19 Unknown Rx Ciprofloxacin HCl [Ciprofloxacin 500 mg PO Q12H #20 tab 05/07/17 04/23/19 Unknown Rx TAB] Ondansetron [Zofran Odt] 4 mg PO Q8HR PRN #14 tab.rapdis 05/07/17 04/23/19 Unknown Rx traMADol [Ultram 50 MG tab] 50 mg PO Q4HR PRN #14 tablet 05/07/17 04/23/19 Unknown Rx Sulfamethoxazole/Trimethoprim 1 each PO Q12H #20 tablet 04/09/19 04/23/19 Unknown Rx [Bactrim DS TAB] ED Physical Exam - General Limitations: No Limitations - Other Other exam information: Gen.: No acute distress Head: Atraumatic Eyes: Normal appearance ENT: Moist mucous membranes Neck: Normal appearance, no posterior midline tenderness, no meningismus Chest: Clear to auscultation bilaterally Cardiovascular: Regular rate and rhythm Abdomen: Normal appearance, soft, mild generalized abdominal tenderness, no rebound or guarding, normal bowel sounds Back: Normal appearance, nontender Extremity: Full range of motion, normal appearance Neuro: Alert, clear speech, no focal motor or sensory deficit Psychiatric: Depressed affect Skin: No rash ED Course - Reevaluation(s) Reevaluation #1: 04/21/19 19:29 received insulin, normal saline, and Zofran. Medically cleared for psychiatric admission. No signs of DKA. Awaiting mental health evaluation for placement. Sliding scale regular insulin dose ordered ED Medical Decision Making - Lab Data Result diagrams: 04/21/19 17:14 04/21/19 17:14 Lab Results 04/21/19 04/21/19 04/21/19 Range/Units 17:14 17:14 17:14 WBC 4.2 L (4.5-11.0) K/mm3 RBC 4.58 (3.65-5.03) M/mm3 Hgb 13.3 (11.8-15.2) gm/dl Hct 38.6 (35.5-45.6) % MCV 84 (84-94) fl MCH 29 (28-32) pg MCHC 34 (32-34) % RDW 13.0 L (13.2-15.2) % Plt Count 233 (140-440) K/mm3 Lymph % (Auto) 33.3 (13.4-35.0) % [place] % (Auto) 9.6 H (0.0-7.3) % Eos % (Auto) 2.4 (0.0-4.3) % Baso % (Auto) 0.2 (0.0-1.8) % Lymph # 1.4 (1.2-5.4) K/mm3 [place] # 0.4 (0.0-0.8) K/mm3 Eos # 0.1 (0.0-0.4) K/mm3 Baso # 0.0 (0.0-0.1) K/mm3 Seg Neutrophils % 54.5 (40.0-70.0) % Seg Neutrophils # 2.3 (1.8-7.7) K/mm3 VBG pH (7.320-7.420) Sodium 136 L (137-145) mmol/L Potassium 3.8 (3.6-5.0) mmol/L Chloride 98.0 (98-107) mmol/L Carbon Dioxide 22 (22-30) mmol/L Anion Gap 20 mmol/L BUN 13 (9-20) mg/dL Creatinine 1.2 (0.8-1.5) mg/dL Estimated GFR > 60 ml/min BUN/Creatinine Ratio 11 % Glucose 334 H (75-100) mg/dL POC Glucose (70-105) Calcium 9.5 (8.4-10.2) mg/dL Total Bilirubin (0.1-1.2) mg/dL Direct Bilirubin (0-0.2) mg/dL Indirect Bilirubin mg/dL AST (5-40) units/L ALT (7-56) units/L Alkaline Phosphatase (35-129) units/L Total Protein (6.3-8.2) g/dL Albumin (3.9-5) g/dL Albumin/Globulin Ratio % Lipase (13-60) units/L Urine Color (Yellow) Urine Turbidity (Clear) Urine pH (5.0-7.0) Ur Specific [place] (1.003-1.030) Urine Protein (Negative) mg/dL Urine Glucose (UA) (Negative) mg/dL Urine Ketones (Negative) mg/dL Urine Blood (Negative) Urine Nitrite (Negative) Urine Bilirubin (Negative) Urine Urobilinogen (<2.0) mg/dL Ur Leukocyte Esterase (Negative) Urine WBC (Auto) (0.0-6.0) /HPF Urine RBC (Auto) (0.0-6.0) /HPF U Epithel Cells (Auto) (0-13.0) /HPF Salicylates < 0.3 L (2.8-20.0) mg/dL Urine Opiates Screen Urine Methadone Screen Acetaminophen (10.0-30.0) ug/mL Ur Barbiturates Screen Ur Phencyclidine Scrn Ur Amphetamines Screen U Benzodiazepines Scrn Urine Cocaine Screen U Marijuana (THC) Screen Drugs of Abuse Note Plasma/Serum Alcohol (0-0.07) % 04/21/19 04/21/19 04/21/19 Range/Units 17:14 17:14 17:14 WBC (4.5-11.0) K/mm3 RBC (3.65-5.03) M/mm3 Hgb (11.8-15.2) gm/dl Hct (35.5-45.6) % MCV (84-94) fl MCH (28-32) pg MCHC (32-34) % RDW (13.2-15.2) % Plt Count (140-440) K/mm3 Lymph % (Auto) (13.4-35.0) % [place] % (Auto) (0.0-7.3) % Eos % (Auto) (0.0-4.3) % Baso % (Auto) (0.0-1.8) % Lymph # (1.2-5.4) K/mm3 [place] # (0.0-0.8) K/mm3 Eos # (0.0-0.4) K/mm3 Baso # (0.0-0.1) K/mm3 Seg Neutrophils % (40.0-70.0) % Seg Neutrophils # (1.8-7.7) K/mm3 VBG pH (7.320-7.420) Sodium (137-145) mmol/L Potassium (3.6-5.0) mmol/L Chloride (98-107) mmol/L Carbon Dioxide (22-30) mmol/L Anion Gap mmol/L BUN (9-20) mg/dL Creatinine (0.8-1.5) mg/dL Estimated GFR ml/min BUN/Creatinine Ratio % Glucose (75-100) mg/dL POC Glucose (70-105) Calcium (8.4-10.2) mg/dL Total Bilirubin 0.20 (0.1-1.2) mg/dL Direct Bilirubin < 0.2 (0-0.2) mg/dL Indirect Bilirubin 0.0 mg/dL AST 20 (5-40) units/L ALT 23 (7-56) units/L Alkaline Phosphatase 86 (35-129) units/L Total Protein 7.6 (6.3-8.2) g/dL Albumin 4.3 (3.9-5) g/dL Albumin/Globulin Ratio 1.3 % Lipase 39 (13-60) units/L Urine Color (Yellow) Urine Turbidity (Clear) Urine pH (5.0-7.0) Ur Specific [place] (1.003-1.030) Urine Protein (Negative) mg/dL Urine Glucose (UA) (Negative) mg/dL Urine Ketones (Negative) mg/dL Urine Blood (Negative) Urine Nitrite (Negative) Urine Bilirubin (Negative) Urine Urobilinogen (<2.0) mg/dL Ur Leukocyte Esterase (Negative) Urine WBC (Auto) (0.0-6.0) /HPF Urine RBC (Auto) (0.0-6.0) /HPF U Epithel Cells (Auto) (0-13.0) /HPF Salicylates (2.8-20.0) mg/dL Urine Opiates Screen Urine Methadone Screen Acetaminophen < 5.0 L (10.0-30.0) ug/mL Ur Barbiturates Screen Ur Phencyclidine Scrn Ur Amphetamines Screen U Benzodiazepines Scrn Urine Cocaine Screen U Marijuana (THC) Screen Drugs of Abuse Note Plasma/Serum Alcohol < 0.01 (0-0.07) % 04/21/19 04/21/19 04/21/19 Range/Units 17:34 17:49 Unknown WBC (4.5-11.0) K/mm3 RBC (3.65-5.03) M/mm3 Hgb (11.8-15.2) gm/dl Hct (35.5-45.6) % MCV (84-94) fl MCH (28-32) pg MCHC (32-34) % RDW (13.2-15.2) % Plt Count (140-440) K/mm3 Lymph % (Auto) (13.4-35.0) % [place] % (Auto) (0.0-7.3) % Eos % (Auto) (0.0-4.3) % Baso % (Auto) (0.0-1.8) % Lymph # (1.2-5.4) K/mm3 [place] # (0.0-0.8) K/mm3 Eos # (0.0-0.4) K/mm3 Baso # (0.0-0.1) K/mm3 Seg Neutrophils % (40.0-70.0) % Seg Neutrophils # (1.8-7.7) K/mm3 VBG pH 7.370 (7.320-7.420) Sodium (137-145) mmol/L Potassium (3.6-5.0) mmol/L Chloride (98-107) mmol/L Carbon Dioxide (22-30) mmol/L Anion Gap mmol/L BUN (9-20) mg/dL Creatinine (0.8-1.5) mg/dL Estimated GFR ml/min BUN/Creatinine Ratio % Glucose (75-100) mg/dL POC Glucose 343 H (70-105) Calcium (8.4-10.2) mg/dL Total Bilirubin (0.1-1.2) mg/dL Direct Bilirubin (0-0.2) mg/dL Indirect Bilirubin mg/dL AST (5-40) units/L ALT (7-56) units/L Alkaline Phosphatase (35-129) units/L Total Protein (6.3-8.2) g/dL Albumin (3.9-5) g/dL Albumin/Globulin Ratio % Lipase (13-60) units/L Urine Color Yellow (Yellow) Urine Turbidity Clear (Clear) Urine pH 6.0 (5.0-7.0) Ur Specific [place] 1.017 (1.003-1.030) Urine Protein <15 mg/dl (Negative) mg/dL Urine Glucose (UA) >=500 (Negative) mg/dL Urine Ketones Neg (Negative) mg/dL Urine Blood Neg (Negative) Urine Nitrite Neg (Negative) Urine Bilirubin Neg (Negative) Urine Urobilinogen < 2.0 (<2.0) mg/dL Ur Leukocyte Esterase Neg (Negative) Urine WBC (Auto) 4.0 (0.0-6.0) /HPF Urine RBC (Auto) 1.0 (0.0-6.0) /HPF U Epithel Cells (Auto) < 1.0 (0-13.0) /HPF Salicylates (2.8-20.0) mg/dL Urine Opiates Screen Urine Methadone Screen Acetaminophen (10.0-30.0) ug/mL Ur Barbiturates Screen Ur Phencyclidine Scrn Ur Amphetamines Screen U Benzodiazepines Scrn Urine Cocaine Screen U Marijuana (THC) Screen Drugs of Abuse Note Plasma/Serum Alcohol (0-0.07) % 04/21/19 Range/Units Unknown WBC (4.5-11.0) K/mm3 RBC (3.65-5.03) M/mm3 Hgb (11.8-15.2) gm/dl Hct (35.5-45.6) % MCV (84-94) fl MCH (28-32) pg MCHC (32-34) % RDW (13.2-15.2) % Plt Count (140-440) K/mm3 Lymph % (Auto) (13.4-35.0) % [place] % (Auto) (0.0-7.3) % Eos % (Auto) (0.0-4.3) % Baso % (Auto) (0.0-1.8) % Lymph # (1.2-5.4) K/mm3 [place] # (0.0-0.8) K/mm3 Eos # (0.0-0.4) K/mm3 Baso # (0.0-0.1) K/mm3 Seg Neutrophils % (40.0-70.0) % Seg Neutrophils # (1.8-7.7) K/mm3 VBG pH (7.320-7.420) Sodium (137-145) mmol/L Potassium (3.6-5.0) mmol/L Chloride (98-107) mmol/L Carbon Dioxide (22-30) mmol/L Anion Gap mmol/L BUN (9-20) mg/dL Creatinine (0.8-1.5) mg/dL Estimated GFR ml/min BUN/Creatinine Ratio % Glucose (75-100) mg/dL POC Glucose (70-105) Calcium (8.4-10.2) mg/dL Total Bilirubin (0.1-1.2) mg/dL Direct Bilirubin (0-0.2) mg/dL Indirect Bilirubin mg/dL AST (5-40) units/L ALT (7-56) units/L Alkaline Phosphatase (35-129) units/L Total Protein (6.3-8.2) g/dL Albumin (3.9-5) g/dL Albumin/Globulin Ratio % Lipase (13-60) units/L Urine Color (Yellow) Urine Turbidity (Clear) Urine pH (5.0-7.0) Ur Specific [place] (1.003-1.030) Urine Protein (Negative) mg/dL Urine Glucose (UA) (Negative) mg/dL Urine Ketones (Negative) mg/dL Urine Blood (Negative) Urine Nitrite (Negative) Urine Bilirubin (Negative) Urine Urobilinogen (<2.0) mg/dL Ur Leukocyte Esterase (Negative) Urine WBC (Auto) (0.0-6.0) /HPF Urine RBC (Auto) (0.0-6.0) /HPF U Epithel Cells (Auto) (0-13.0) /HPF Salicylates (2.8-20.0) mg/dL Urine Opiates Screen Presumptive negative Urine Methadone Screen Presumptive negative Acetaminophen (10.0-30.0) ug/mL Ur Barbiturates Screen Presumptive negative Ur Phencyclidine Scrn Presumptive negative Ur Amphetamines Screen Presumptive negative U Benzodiazepines Scrn Presumptive negative Urine Cocaine Screen Presumptive negative U Marijuana (THC) Screen Presumptive negative Drugs of Abuse Note Disclamer Plasma/Serum Alcohol (0-0.07) % - Medical Decision Making Patient expresses nausea and vomiting has mild generalized abdominal pain. Labs are unremarkable without signs of DKA, ketosis, leukocytosis, UTI, or significant dehydration. Patient treated in the ED with insulin, normal saline, and Zofran. 1013 and transfer form signed. Patient awaiting psychiatric evaluation. - Differential Diagnosis depression, suicidal ideation Critical Care Time: No ED Disposition Clinical Impression: Suicidal ideation Disposition: DC/TX-65 PSY HOSP/PSY UNIT Is pt being admited?: No Condition: Stable Time of Disposition: 19:29 <ROBERTO IBARRA - Last Filed: 04/27/19 09:42> ED Review of Systems ROS: Stated complaint: MH EVAL Other details as noted in HPI ED Course Vital Signs 04/21/19 04/21/19 04/22/19 16:27 21:00 01:30 Temperature 99.0 F 98.4 F 98 F Pulse Rate 95 H 92 H 82 Respiratory 18 18 18 Rate Blood Pressure 123/76 Blood Pressure 94/39 128/62 [Left] O2 Sat by Pulse 97 96 100 Oximetry 04/22/19 04/22/19 04/22/19 07:00 13:00 19:30 Temperature 97.9 F 98.1 F 98.1 F Pulse Rate 80 74 79 Respiratory 16 18 18 Rate Blood Pressure Blood Pressure 132/80 136/79 126/76 [Left] O2 Sat by Pulse 98 100 99 Oximetry 04/23/19 04/23/19 04/23/19 01:30 07:00 07:30 Temperature 98.2 F 97.9 F 98.1 F Pulse Rate 78 80 64 Respiratory 16 22 18 Rate Blood Pressure Blood Pressure 130/86 127/73 103/62 [Left] O2 Sat by Pulse 98 97 Oximetry 04/24/19 04/24/19 04/24/19 03:10 07:43 14:40 Temperature 98.1 F 98.3 F 98.5 F Pulse Rate 80 81 91 H Respiratory 18 20 19 Rate Blood Pressure Blood Pressure 130/77 119/73 139/89 [Left] O2 Sat by Pulse 99 97 98 Oximetry 04/24/19 04/25/19 04/25/19 19:57 06:35 07:00 Temperature 98.8 F 98.4 F 98.1 F Pulse Rate 88 84 79 Respiratory 20 18 16 Rate Blood Pressure Blood Pressure 120/74 104/65 122/79 [Left] O2 Sat by Pulse 97 99 99 Oximetry 04/25/19 04/25/19 04/25/19 13:00 21:09 22:00 Temperature 98.4 F 98.2 F 97.7 F Pulse Rate 88 77 68 Respiratory 18 18 18 Rate Blood Pressure Blood Pressure 116/67 126/79 115/77 [Left] O2 Sat by Pulse 100 99 99 Oximetry 04/26/19 04/26/19 04/27/19 10:00 20:00 02:00 Temperature 98.1 F 98.3 F 98 F Pulse Rate 88 94 H 72 Respiratory 16 16 18 Rate Blood Pressure Blood Pressure 129/84 121/75 131/83 [Left] O2 Sat by Pulse 98 96 100 Oximetry 04/27/19 07:00 Temperature 98.2 F Pulse Rate 95 H Respiratory 18 Rate Blood Pressure Blood Pressure 142/92 [Left] O2 Sat by Pulse 98 Oximetry - Reevaluation(s) Reevaluation #2: 04/27/19 09:41 Patient has been accepted to a psychiatric facility at this time. ED Medical Decision Making - Lab Data Result diagrams: 04/21/19 17:14 04/21/19 17:14 Critical care attestation.: If time is entered above; I have spent that time in minutes in the direct care of this critically ill patient, excluding procedure time. ED Disposition Is pt being admited?: No Does the pt Need Aspirin: No
[2019-04-22] MEDS: INSULIN REGULAR, HUMAN 100 UNITS/1 ML SUB-Q SCH ×3 (09:00→17:00)
[2019-04-22] MEDS ORDERED: ALUM-MAG HYDROXIDE-SIMETHICONE 200-200-20MG/5ML ORAL LIQD 30 ML PO PRN (10:08)
[2019-04-22] MEDS ORDERED: ACETAMINOPHEN 325 MG TAB PO PRN (10:08)
[2019-04-22] MEDS ORDERED: MAGNESIUM HYDROXIDE (MOM) ORAL LIQD UDC PO PRN (10:08)
--- NOTE | 2019-04-22 12:08 | Consultation ---
History of Present Illness - Reason for Consult Consult date: 04/22/19 Reason for consult: Mental Health Evaluation Requesting physician: TEJAL WAGNER - Chief Complaint Chief complaint: "I have no reason to live" - History of Present Psychiatric Illness 28 y.o. AA male who presented ER for [facility] for SI's. Today the patient was calm during the assessment. He stated that this time of year is hard for him. He stated that several of his family members during the this part of the year. He stated that he struggle with not having them around. He stated that he recently cut his wrist and overdosed on pills in the past. He rate his depression 9/10, with 10 being the worse, He stated that he reside with friends at this time, because he's new to the area (from [place]). He endorsed Si's, but would not confirm or deny a suicide plan. He denies HI's and AVH's. He denies a poor appetite, but acknowledged erratic sleep. He denies recreational drug use and alcohol consumption (etoh). Medications and Allergies Allergies Allergy/AdvReac Type Severity Reaction Status Date / Time No Known Allergies Allergy Verified 03/20/17 09:30 Home Medications Medication Instructions Recorded Confirmed Last Taken Type Indomethacin 50 mg PO TID #15 capsule 05/21/16 03/11/17 03/08/17 Rx Norvasc 5 mg PO DAILY 03/10/17 03/11/17 03/08/17 History RisperDAL 1 mg PO QHS 03/10/17 03/11/17 03/08/17 History FLUoxetine [PROzac] 40 mg PO QDAY #14 capsule 03/12/17 Unknown Rx Insulin NPH Hum/Reg Insulin Hm 24 unit SQ BID 30 Days ml 03/12/17 Unknown Rx [HumuLIN 70-30 Vial] Prazosin [Minipress] 1 mg PO HS #14 capsule 03/12/17 Unknown Rx Ondansetron [Zofran TAB] 4 mg PO Q8HR PRN #14 tablet 03/14/17 Unknown Rx Sulfamethoxazole/Trimethoprim 1 each PO BID #20 tablet 03/14/17 Unknown Rx [Bactrim DS TAB] Metoclopramide [Reglan] 10 mg PO TID PRN #10 tab 03/20/17 Unknown Rx Syr-Nd,Ins,0.5/Container,Empty 1 each MC PRN PRN #1 box 03/20/17 Unknown Rx [Ulticare Syr 0.5 ml 29GX1/2"] Insulin Regular, Human [HumuLIN R] See Protocol SQ ACHS #30 day 03/21/17 Unknown Rx Cyclobenzaprine [Flexeril] 10 mg PO TID PRN #15 tablet 04/27/17 Unknown Rx Ibuprofen [Motrin 600 MG tab] 600 mg PO Q8H PRN #30 tablet 04/27/17 Unknown Rx Ciprofloxacin HCl [Ciprofloxacin 500 mg PO Q12H #20 tab 05/07/17 Unknown Rx TAB] Ondansetron [Zofran Odt] 4 mg PO Q8HR PRN #14 tab.rapdis 05/07/17 Unknown Rx traMADol [Ultram 50 MG tab] 50 mg PO Q4HR PRN #14 tablet 05/07/17 Unknown Rx Sulfamethoxazole/Trimethoprim 1 each PO Q12H #20 tablet 04/09/19 Unknown Rx [Bactrim DS TAB] Active Meds: Active Medications Acetaminophen (Tylenol) 650 mg PO Q4HR PRN PRN Reason: Pain MILD(1-3)/Fever >100.5/HADDAD Last Admin: 04/22/19 10:43 Dose: 650 mg Documented by: Al Hydrox/Mg Hydrox/Simethicone (Alum-Mag Hydrox-Simeth [phone]/5ml) 30 ml PO Q4HR PRN PRN Reason: Indigestion Insulin Human Regular (Humulin R) 0 units SUB-Q QAC [facility]; Protocol Last Admin: 04/22/19 09:00 Dose: 4 units Documented by: Magnesium Hydroxide (Milk Of Magnesia) 30 ml PO Q12HR PRN PRN Reason: Constipation Past psychiatric history - Past Medical History Past Medical History: diabetes Past Surgical History: No surgical history - past Psychiatric treatment and history psychiatric treatment history: Hx of mood dx per the patient. Denies a fam psy hx. - Social History Social history: other (Reside with friends) Mental Status Exam - Vital signs Last Vital Signs Temp 97.9 F 04/22/19 07:00 Pulse 80 04/22/19 07:00 Resp 16 04/22/19 07:00 BP 132/80 04/22/19 07:00 Pulse Ox 98 04/22/19 07:00 - Exam Narrative exam: MSE: Appearance: calm Behavior: regular eye contact Speech: regular rate and low tone Mood: "down" Affect: flat Thought Process: circumstantial Thought Content: denies HI's and AVH's Motor Activity: lying in bed Cognition: A/O x 3 Insight: fair Judgment: poor Results Result Diagrams: 04/21/19 17:14 04/21/19 17:14 Abnormal lab results 04/21/19 04/21/19 04/21/19 Range/Units 17:14 17:14 17:14 WBC 4.2 L (4.5-11.0) K/mm3 RDW 13.0 L (13.2-15.2) % [place] % (Auto) 9.6 H (0.0-7.3) % Sodium 136 L (137-145) mmol/L Glucose 334 H (75-100) mg/dL POC Glucose (70-105) Salicylates < 0.3 L (2.8-20.0) mg/dL Acetaminophen (10.0-30.0) ug/mL 04/21/19 04/21/19 04/21/19 Range/Units 17:14 17:34 21:31 WBC (4.5-11.0) K/mm3 RDW (13.2-15.2) % [place] % (Auto) (0.0-7.3) % Sodium (137-145) mmol/L Glucose (75-100) mg/dL POC Glucose 343 H 239 H (70-105) Salicylates (2.8-20.0) mg/dL Acetaminophen < 5.0 L (10.0-30.0) ug/mL 04/22/19 04/22/19 Range/Units 08:35 12:07 WBC (4.5-11.0) K/mm3 RDW (13.2-15.2) % [place] % (Auto) (0.0-7.3) % Sodium (137-145) mmol/L Glucose (75-100) mg/dL POC Glucose 250 H 243 H (70-105) Salicylates (2.8-20.0) mg/dL Acetaminophen (10.0-30.0) ug/mL All other labs normal. Assessment and Plan Assessment and plan: Impression: MDD, Severe Type. Today the patient was calm during the assessment. UDS is negative. DDx: Bipolar DO, Seasonal Affective DO, (SAD) Recommendations/Plan: Continue 1013 and start Cymbalta 60 mg PO daily for depression and Melatonin 5 mg PO HS PRN for sleep. Discussed possible suicidality/medication induced gabriela with the patient reference Cymbalta, he verbalized understanding. Dipso: The patient was refrred to inpatient psy services. Staffed with Dr Prabhu Hanson.
[2019-04-22] MEDS: DULoxetine 30 MG CAP PO SCH (14:00)
[2019-04-23] MEDS: MELATONIN 5 MG TAB PO PRN (01:53)
[2019-04-23] MEDS: INSULIN REGULAR, HUMAN 100 UNITS/1 ML SUB-Q SCH ×3 (08:13→17:30)
[2019-04-23] MEDS: DULoxetine 30 MG CAP PO SCH ×3 (11:00→12:10)
[2019-04-23] MEDS ORDERED: WATER FOR INJ Sterile (PF) 10 ML ONE (14:02)
[2019-04-23] MEDS ORDERED: ZIPRASIDONE MESYLATE 20 MG VIAL IM ONE ×2 (14:02→14:13)
--- NOTE | 2019-04-23 15:18 | Progress Note ---
Subjective - Reason for Consult Consult date: 04/23/19 Reason for consult: Psychiatric Follow-up Evaluation - Chief Complaint Chief complaint: "Not good. I'm depressed" Patient is a 28 y.o. AA male who presented ER for [facility] for SI's. Today the patient is calm and cooperative during the assessment. Currently, patient continues to have suicidal ideations without a plan. Patient rates depression 10/10, with 10 being the worse. Per RN patient expressed that he is actively suicidal. He stated that this time of the year is hard for him. He stated that several of his family members during the this part of the year. He stated that he struggle with not having them around. He reports fluctuations with appetite and sleep. Also, patient endorses AH's telling him to hurt himself. Today, patient received geodon PRN IM for psychosis. He denies VH's and delusions. Mental Status Exam - Vital signs Last Vital Signs Temp 97.9 F 04/23/19 07:00 Pulse 80 04/23/19 07:00 Resp 22 04/23/19 07:00 BP 127/73 04/23/19 07:00 Pulse Ox 97 04/23/19 07:00 - Exam Narrative exam: Mental Status Exam Appearance: calm Behavior: regular eye contact Speech: regular rate and low tone Mood: "not good"; depressed Affect: flat Thought Process: circumstantial Thought Content: denies HI's, VH's, and delusions ; + SI's and AH's Motor Activity: lying in bed Cognition: A/O x 3 Insight: fair Judgment: poor Assessment and Plan Impression: MDD, Severe Type. Today the patient is calm and cooperative during the assessment. He endorses SI's and AH's. He denies HI's, VH's, and delusions. UDS is negative. DDx: Bipolar DO, Seasonal Affective DO, (SAD) Recommendations/Plan: 1. Continue 1013. 2. Continue Cymbalta 60 mg PO daily for depression and Melatonin 5 mg PO HS PRN for sleep. Discussed possible suicidality/medication induced gabriela with the patient reference Cymbalta, he verbalized understanding. 3. Add Abilify 5mg po QHS mood/psychosis . Discussed metabolic side effects. Patient verbalizes understanding. Disposition: The patient was referred to inpatient psychiatric services. Will staff with Dr. Prabhu Hanson.
[2019-04-23] MEDS ORDERED: ARIPiprazole 10 MG TAB PO SCH (22:00)
[2019-04-24] MEDS: INSULIN REGULAR, HUMAN 100 UNITS/1 ML SUB-Q SCH ×3 (07:45→18:10)
--- NOTE | 2019-04-24 11:39 | Progress Note ---
Subjective - Reason for Consult Consult date: 04/24/19 Reason for consult: Psychiatric Follow-up Evaluation - Chief Complaint Chief complaint: "Still depressed." Patient is a 28 y.o. AA male who presented ER for [facility] for SI's. Today the patient is calm but irritable during the assessment. Currently, patient states " I'm not as suicidal as I was yesterday but I'm still severely depressed." Patient rates depression 10/10, with 10 being the worse. Per patient the doctor at the [facility] stated she was going to change my Cymbalta, therefore I refused the Cymbalta this morning." Per assigned RN patient refused both Cymbalta and Insulin this morning. Patient presents depressed and irritable. Per patient his triggers are related to multiple losses. Patient continues to endorse intermittent SI's without a plan. Reports fluctuations with appetite and sleep. Currently, patient denies HI's, A/VH's, and delusions. Mental Status Exam - Vital signs Last Vital Signs Temp 98.3 F 04/24/19 07:43 Pulse 81 04/24/19 07:43 Resp 20 04/24/19 07:43 BP 119/73 04/24/19 07:43 Pulse Ox 97 04/24/19 07:43 - Exam Narrative exam: Mental Status Exam Appearance: calm Behavior: regular eye contact Speech: regular rate and low tone Mood: "still depressed"; irritable Affect: flat Thought Process: circumstantial Thought Content: denies HI's, A/VH's, and delusions ; + SI's Motor Activity: ambulatory Cognition: A/O x 3 Insight: poor Judgment: poor Assessment and Plan Impression: MDD, Severe Type. Today the patient is calm but irritable during the assessment. He endorses SI's. He denies HI's, A/VH's, and delusions. UDS is negative. DDx: Bipolar DO, Seasonal Affective DO, (SAD) Recommendations/Plan: 1. Continue 1013. 2. Discontinue Cymbalta 60 mg PO daily for depression and Melatonin 5 mg PO HS PRN for sleep. Discussed possible suicidality/medication induced gabriela with the patient reference Cymbalta, he verbalized understanding. 3. Increase Abilify 10mg po QHS mood/psychosis . Discussed metabolic side effects. Patient verbalizes understanding. 4. Start Effexor XR 37.5mg po QAM depression/anxiety. Discussed possible suicidality/medication induced gabriela with the patient reference Effexor, he verbalized understanding. Disposition: The patient was accepted to [facility] by Dr. Arguello. Pending transport. Will staff with Dr. Prabhu Hanson.
[2019-04-24] MEDS: DULoxetine 30 MG CAP PO SCH ×2 (12:05→12:09)
[2019-04-24] MEDS: metFORMIN 850 MG TAB PO SCH ×2 (18:13→18:43)
[2019-04-24] MEDS ORDERED: ONDANSETRON 4 MG ODT TAB ONE (20:00)
[2019-04-24] MEDS ORDERED: ONDANSETRON 4 MG ODT TAB PO ONE (20:30)
[2019-04-24] MEDS: INSULIN GLARGINE 100 UNITS/ML SUB-Q SCH (22:19)
[2019-04-24] MEDS: ARIPiprazole 10 MG TAB PO SCH (22:27)
[2019-04-24] MEDS: VENLAFAXINE 37.5 MG TAB PO SCH (22:27)
[2019-04-25] MEDS: INSULIN REGULAR, HUMAN 100 UNITS/1 ML SUB-Q SCH ×3 (08:00→18:08)
[2019-04-25] MEDS: metFORMIN 850 MG TAB PO SCH ×2 (09:27→18:15)
[2019-04-25] MEDS: VENLAFAXINE 37.5 MG TAB PO SCH ×2 (11:00→21:50)
--- NOTE | 2019-04-25 15:00 | Progress Note ---
Subjective - Reason for Consult Consult date: 04/25/19 Reason for consult: Psychiatry Follow-up - Chief Complaint Chief complaint: "I have no feelings" 28 y.o. AA male who presented ER for [facility] for SI's. Today the patient is calm during the assessment. Per the staff the patient attempted to cause more harm to himself be aggravating his wound to his wrist yesterday. He stated that he felt like he had no reason to live. He stated that he cannot explain his actions. He is adamant that don't feel safe being alone. He denies HI's and VH's. He would not confirm or deny SI's. He stated that the voices are "calm" now. He denies any side effects from his medication. Mental Status Exam - Vital signs Last Vital Signs Temp 98.1 F 04/25/19 07:00 Pulse 79 04/25/19 07:00 Resp 16 04/25/19 07:00 BP 122/79 04/25/19 07:00 Pulse Ox 99 04/25/19 07:00 - Exam Narrative exam: MSE: Appearance: calm Behavior: regular eye contact Speech: regular rate and low tone Mood: "oaky" Affect: flat Thought Process: circumstantial Thought Content: denies HI's and AVH's Motor Activity: lying in bed Cognition: A/O x 3 Insight: fair Judgment: poor Assessment and Plan Impression: MDD, Severe Type. Today the patient was calm during the assessment. UDS is negative. DDx: Bipolar DO, Seasonal Affective DO, (SAD) Recommendations/Plan: Continue 1013 and Effexor 37.5 mg PO BID for depression, Abilify 10 mg PO daily for mood, Melatonin 5 mg Po HS PRN for sleep. Discussed possible metabolic side effects of Abilify with the patient, he verbalized understanding. Line of sight for safety. Dipso: The patient was referred to inpatient psy services. Will staff with Dr Prabhu Hanson.
[2019-04-25] MEDS ORDERED: hydrOXYzine PAMOATE 25 MG CAP PO ONE (18:34)
[2019-04-25] MEDS: ARIPiprazole 10 MG TAB PO SCH (21:50)
[2019-04-25] MEDS: INSULIN GLARGINE 100 UNITS/ML SUB-Q SCH (22:03)
[2019-04-26] MEDS: metFORMIN 850 MG TAB PO SCH ×2 (08:49→17:32)
[2019-04-26] MEDS: INSULIN REGULAR, HUMAN 100 UNITS/1 ML SUB-Q SCH ×3 (08:49→17:32)
[2019-04-26] MEDS: VENLAFAXINE 37.5 MG TAB PO SCH ×2 (09:41→22:40)
--- NOTE | 2019-04-26 09:52 | Progress Note ---
Subjective - Reason for Consult Consult date: 04/26/19 Reason for consult: Psychiatry Follow-up - Chief Complaint Chief complaint: "I am not doing well" 28 y.o. AA male who presented ER for [facility] for SI's. Today the patient was calm, but somewhat guarded during the assessment. He stated that he does not know why he feel unsafe. He rate his depression 10/10, with 10 being the worse. He denies HI's and VH's. He would not confirm or deny AH's. Mental Status Exam - Vital signs Last Vital Signs Temp 97.7 F 04/25/19 22:00 Pulse 68 04/25/19 22:00 Resp 18 04/25/19 22:00 BP 115/77 04/25/19 22:00 Pulse Ox 99 04/25/19 22:00 - Exam Narrative exam: MSE: Appearance: calm Behavior: poor eye contact Speech: regular rate and low tone Mood: "depressed" guarded Affect: flat Thought Process: circumstantial Thought Content: denies HI's and AVH's Motor Activity: lying in bed Cognition: A/O x 3 Insight: fair Judgment: poor Assessment and Plan Impression: MDD, Severe Type with psychosis. Today the patient was calm, somewhat guarded during the assessment. UDS is negative. DDx: Bipolar DO, Seasonal Affective DO, (SAD), SCAD Recommendations/Plan: Continue 1013 and Effexor 37.5 mg PO BID for depression, Abilify 10 mg PO daily for mood, Melatonin 5 mg Po HS PRN for sleep. Discussed possible metabolic side effects of Abilify with the patient, he verbalized understanding. Line of sight for safety. Dipso: The patient was accepted at [facility] pending transport time Will staff with Dr Prabhu Hanson.
[2019-04-26] MEDS: ARIPiprazole 10 MG TAB PO SCH (22:40)
[2019-04-26] MEDS: MELATONIN 5 MG TAB PO PRN (22:40)
[2019-04-26] MEDS: INSULIN GLARGINE 100 UNITS/ML SUB-Q SCH (23:31)
[2019-04-27 07:53] VITALS: BP 142/92
[2019-04-27] MEDS: INSULIN REGULAR, HUMAN 100 UNITS/1 ML SUB-Q SCH (08:06)
[2019-04-27] MEDS: metFORMIN 850 MG TAB PO SCH (08:07)
== END 2019-04-27 10:13 ==
LOC: ED 16:17 → EEVIPCON 16:17 → ED 04-27 10:13
DX: F32.9 Major depressive disorder, single episode, unspecified (principal); I10 Essential (primary) hypertension; E11.9 Type 2 diabetes mellitus without complications; F17.200 Nicotine dependence, unspecified, uncomplicated; Z98.890 Other specified postprocedural states; Z79.4 Long term (current) use of insulin; Z79.899 Other long term (current) drug therapy
CPT/HCPCS: 36415; 80048; 80076; 80307; 81001; 82805; 82962; 83690; 85025; 96361; 96372; 96374; 99285; J2405; J3486; J7030; 80320; G0480; J1815; Q0162; Q0177

== ENCOUNTER 2019-05-06 15:56 | Emergency (ER) | payer SELFPAY ==
--- NOTE | 2019-05-06 16:04 | Event Note ---
ED Screening Note ED Screening Note: states he is suicidal plan is to cut his wrist no HI auditory hallucinations: telling him that he is "not loved and harm himself" no visual hallucinations states that the health department told him "he has syphilis and needs treatment" does not have results with him will send to MAIN for evaluation This initial assessment/diagnostic orders/clinical plan/treatment(s) is/are subject to change based on patients health status, clinical progression and re- assessment by fellow clinical providers in the ED. Further treatment and workup at subsequent clinical providers discretion. Patient/guardian urged not to elope from the ED as their condition may be serious if not clinically assessed and managed. Initial orders include: psych protocol
[2019-05-06 16:33] LABS: Bilirubin,Urine NEG (Negative); Blood,Urine NEG (Negative); Color,Urine Yellow (Yellow); Protein,Urine <15 mg/dL mg/dL (Negative); Urobilinogen,Urine < 2.0 mg/dL (<2.0)
[2019-05-06 16:53] LABS: Eosinophils # (Auto) 0.1 K/mm3 (0.0-0.4); Eosinophils % (Auto) 2.8 % (0.0-4.3); Hematocrit 40.3 % (35.5-45.6); Hemoglobin 13.8 gm/dl (11.8-15.2); Lymphocytes # (Auto) 1.8 K/mm3 (1.2-5.4); Lymphocytes % (Auto) 37.8 % (13.4-35.0); Mean Corpuscular HGB Conc 34 % (32-34); Mean Corpuscular Volume 83 fl (84-94); Monocytes # (Auto) 0.5 K/mm3 (0.0-0.8); Monocytes % (Auto) 10.2 % (0.0-7.3); Platelet Count 282 K/mm3 (140-440); Red Blood Count 4.83 M/mm3 (3.65-5.03); Red Cell Distribution Width 12.7 % (13.2-15.2)
[2019-05-06 17:00] LABS: Amphetamine Screen,Urine PRESUMPTIVE NEGATIVE; Benzodiazepines Screen,Urine PRESUMPTIVE NEGATIVE; Cannabinoid Screen,Urine PRESUMPTIVE NEGATIVE; Cocaine Screen,Urine PRESUMPTIVE NEGATIVE; Methadone Screen,Urine PRESUMPTIVE NEGATIVE; Opiate Screen,Urine PRESUMPTIVE NEGATIVE
[2019-05-06] MEDS ORDERED: PENICILLIN G BENZATHINE 1.2 MILLION UNIT/2 ML INJ IM ONE (17:11)
[2019-05-06 17:16] LABS: Alanine Aminotransferase 17 units/L (7-56); Albumin 4.6 g/dL (3.9-5); BUN/Creatinine Ratio 11; Blood Urea Nitrogen 13 mg/dL (9-20); Calcium 9.3 mg/dL (8.4-10.2); Hemolysis Index 6
--- NOTE | 2019-05-06 17:19 | Emergency Department Report ---
<ALEXEI ESPINO - Last Filed: 05/06/19 17:14> ED Psych HPI - General Chief Complaint: Psych Stated Complaint: SUICIDAL IDEATION Time Seen by Provider: 05/06/19 16:03 Source: patient Mode of arrival: Ambulatory - History of Present Illness Initial Comments: A 28-year-old obese -[place] male with a past medical bipolar disorder, psychosis, PTSD and depression presents to the emergency department complaining of major depression with suicidal ideation. He is coming up on the anniversary of his parents and also recently had 2 family members past in the last few months. He also was just informed that he has syphilis by the health department has received one shot of the possible 2.4 and was advised by them that he needs to receive 2 more injections of the of the Bicillin and has had a one-week gina today. A portable fever, chills, sweats no chest pain, palpitations no nausea or vomiting no abdominal pain no hemoptysis hematemesis or hematochezia no rash no numbness no tingling headache. -: Gradual Associated Psychiatric Symptoms: none History of same: No Quality: constant Improves With: none Worsens With: none Associated Symptoms: denies other symptoms Treatments Prior to Arrival: none - Related Data Home Medications Medication Instructions Recorded Confirmed Last Taken Norvasc 5 mg PO DAILY 03/10/17 05/06/19 05/03/19 RisperDAL 1 mg PO QHS 03/10/17 05/06/19 05/03/19 Duloxetine HCl 60 mg PO QDAY 05/06/19 05/06/19 05/03/19 Esomeprazole Magnesium [NexIUM] 40 mg PO QDAY 05/06/19 05/06/19 05/03/19 Gabapentin [Neurontin] 100 mg PO Q8HR 05/06/19 05/06/19 05/03/19 Lisinopril [Zestril TAB] 40 mg PO QDAY 05/06/19 05/06/19 05/03/19 amLODIPine [Norvasc] 5 mg PO DAILY 05/06/19 05/06/19 05/03/19 hydrOXYzine HCL [Atarax] 25 mg PO BID 05/06/19 05/06/19 05/03/19 metFORMIN [Glucophage] 500 mg PO BID 05/06/19 05/06/19 05/03/19 Previous Rx's Medication Instructions Recorded Last Taken Type Indomethacin 50 mg PO TID #15 capsule 05/21/16 04/12/19 Rx FLUoxetine [PROzac] 40 mg PO QDAY #14 capsule 03/12/17 05/03/19 Rx Insulin NPH Hum/Reg Insulin Hm 24 unit SQ BID 30 Days ml 03/12/17 05/03/19 Rx [HumuLIN 70-30 Vial] Prazosin [Minipress] 1 mg PO HS #14 capsule 03/12/17 05/03/19 Rx Metoclopramide [Reglan] 10 mg PO TID PRN #10 tab 03/20/17 05/03/19 Rx Syr-Nd,Ins,0.5/Container,Empty 1 each MC PRN PRN #1 box 03/20/17 05/03/19 Rx [Ulticare Syr 0.5 ml 29GX1/2"] Insulin Regular, Human [HumuLIN R] See Protocol SQ ACHS #30 day 03/21/17 05/03/19 Rx Cyclobenzaprine [Flexeril] 10 mg PO TID PRN #15 tablet 04/27/17 05/03/19 Rx Ibuprofen [Motrin 600 MG tab] 600 mg PO Q8H PRN #30 tablet 04/27/17 05/03/19 Rx Ondansetron [Zofran Odt] 4 mg PO Q8HR PRN #14 tab.rapdis 05/07/17 05/03/19 Rx traMADol [Ultram 50 MG tab] 50 mg PO Q4HR PRN #14 tablet 05/07/17 05/03/19 Rx Sulfamethoxazole/Trimethoprim 1 each PO Q12H #20 tablet 04/09/19 05/03/19 Rx [Bactrim DS TAB] Sulfamethoxazole/Trimethoprim 1 each PO Q12H #20 tablet 05/07/19 Unknown Rx [Bactrim DS TAB] Allergies Allergy/AdvReac Type Severity Reaction Status Date / Time No Known Allergies Allergy Verified 03/20/17 09:30 ED Review of Systems Comment: All other systems reviewed and negative ED Past Medical Hx - Past Medical History Previous Medical History?: Yes Hx Hypertension: Yes Hx Congestive Heart Failure: No Hx Diabetes: Yes Hx Psychiatric Treatment: Yes (depression, SI attempt) Hx Asthma: No Hx COPD: No Hx HIV: No Additional medical history: BULGING / HERNIATED DISC. hemorrhoids. OBESITY. Eczema - Surgical History Past Surgical History?: Yes Additional Surgical History: HEMORRHOIDECTOMY - Social History Smoking Status: Current Every Day Smoker Substance Use Type: None - Medications Home Medications: Home Medications Medication Instructions Recorded Confirmed Last Taken Type Indomethacin 50 mg PO TID #15 capsule 05/21/16 05/06/19 04/12/19 Rx Norvasc 5 mg PO DAILY 03/10/17 05/06/19 05/03/19 History RisperDAL 1 mg PO QHS 03/10/17 05/06/19 05/03/19 History FLUoxetine [PROzac] 40 mg PO QDAY #14 capsule 03/12/17 05/06/19 05/03/19 Rx Insulin NPH Hum/Reg Insulin Hm 24 unit SQ BID 30 Days ml 03/12/17 05/06/19 05/03/19 Rx [HumuLIN 70-30 Vial] Prazosin [Minipress] 1 mg PO HS #14 capsule 03/12/17 05/06/19 05/03/19 Rx Metoclopramide [Reglan] 10 mg PO TID PRN #10 tab 03/20/17 05/06/19 05/03/19 Rx Syr-Nd,Ins,0.5/Container,Empty 1 each MC PRN PRN #1 box 03/20/17 05/06/19 05/03/19 Rx [Ulticare Syr 0.5 ml 29GX1/2"] Insulin Regular, Human [HumuLIN R] See Protocol SQ ACHS #30 day 03/21/17 05/06/19 05/03/19 Rx Cyclobenzaprine [Flexeril] 10 mg PO TID PRN #15 tablet 04/27/17 05/06/19 05/03/19 Rx Ibuprofen [Motrin 600 MG tab] 600 mg PO Q8H PRN #30 tablet 04/27/17 05/06/19 05/03/19 Rx Ondansetron [Zofran Odt] 4 mg PO Q8HR PRN #14 tab.rapdis 05/07/17 05/06/19 05/03/19 Rx traMADol [Ultram 50 MG tab] 50 mg PO Q4HR PRN #14 tablet 05/07/17 05/06/19 05/03/19 Rx Sulfamethoxazole/Trimethoprim 1 each PO Q12H #20 tablet 04/09/19 05/06/19 05/03/19 Rx [Bactrim DS TAB] Duloxetine HCl 60 mg PO QDAY 05/06/19 05/06/19 05/03/19 History Esomeprazole Magnesium [NexIUM] 40 mg PO QDAY 05/06/19 05/06/19 05/03/19 History Gabapentin [Neurontin] 100 mg PO Q8HR 05/06/19 05/06/19 05/03/19 History Lisinopril [Zestril TAB] 40 mg PO QDAY 05/06/19 05/06/19 05/03/19 History amLODIPine [Norvasc] 5 mg PO DAILY 05/06/19 05/06/19 05/03/19 History hydrOXYzine HCL [Atarax] 25 mg PO BID 05/06/19 05/06/19 05/03/19 History metFORMIN [Glucophage] 500 mg PO BID 05/06/19 05/06/19 05/03/19 History Sulfamethoxazole/Trimethoprim 1 each PO Q12H #20 tablet 05/07/19 Unknown Rx [Bactrim DS TAB] ED Physical Exam - General Limitations: No Limitations General appearance: alert, in no apparent distress - Head Head exam: Present: atraumatic, normocephalic - Eye Eye exam: Present: normal appearance, PERRL, EOMI Pupils: Present: normal accommodation - ENT ENT exam: Present: normal exam, normal orophraynx, mucous membranes moist - Neck Neck exam: Present: normal inspection, full ROM - Respiratory Respiratory exam: Present: normal lung sounds bilaterally. Absent: respiratory distress, wheezes, rhonchi - Cardiovascular Cardiovascular Exam: Present: regular rate, normal rhythm. Absent: systolic murmur, diastolic murmur, rubs, gallop - GI/Abdominal GI/Abdominal exam: Present: soft, normal bowel sounds. Absent: distended, tenderness, guarding, diminished bowel sounds, hyperactive bowel sounds - Rectal Rectal exam: Present: deferred - Extremities Exam Extremities exam: Present: normal inspection, normal capillary refill - Back Exam Back exam: Present: normal inspection, CVA tenderness (R), CVA tenderness (L) - Neurological Exam Neurological exam: Present: alert, oriented X3 - Psychiatric Psychiatric exam: Present: depressed, suicidal ideation - Skin Skin exam: Present: warm, dry, intact, normal color. Absent: rash ED Medical Decision Making - Lab Data Result diagrams: 05/06/19 16:38 - Medical Decision Making 28-year-old male with suicidal ideation and major depression with a plan for suicide with utilization of a knife plan is to have patient evaluated by psych and admitted for intervention. In regards to his syphilis been advised syphilis C1 of 3 objects department given injection to the next injection on May 13. 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 Disposition: DC-01 TO HOME OR SELFCARE Condition: Stable Instructions: Urinary Tract Infection in Men (ED), Depression (ED), Suicide Prevention for Adults (ED) Prescriptions: Sulfamethoxazole/Trimethoprim [Bactrim DS TAB] 1 each PO Q12H #20 tablet Print Language: BELGIAN <ADRIANA ZAMORA - Last Filed: 05/07/19 00:12> ED Review of Systems ROS: Stated complaint: SUICIDAL IDEATION Other details as noted in HPI ED Course Vital Signs 05/06/19 05/06/19 16:03 20:48 Temperature 98.2 F 98.4 F Pulse Rate 107 H 84 Respiratory 18 18 Rate Blood Pressure 134/89 Blood Pressure 119/61 [Left] O2 Sat by Pulse 97 94 Oximetry ED Medical Decision Making - Lab Data Result diagrams: 05/06/19 16:38 05/06/19 16:38 - Medical Decision Making I assumed of patient from my colleague Mr. Espino Zara FARMER at shift change at 1830 hours. Patient had presented to the ED with suicidal ideation with a plan to use a knife to kill himself. Patient has a history of chronic major depression, PTSD, bipolar disorder and has had previous suicidal attempts S being one month ago. Patient also just found out that he had latent syphilis after vigorous test at the health Department, and has received 2 treatments with penicillin G. Patient received another dose of penicillin 2.4 million units intramuscular injection during this visit already in the ED. On reevaluation, patient resting comfortably in the room talking to his rn access and requesting to be discharged since he is not suicidal or homicidal anymore. Lab test results were reviewed and are stable and nonactionable except acute urinary tract infection in urinalysis. Patient also given Bactrim DS by mouth 1 in the ED. I shall await and mental health evaluation of the patient prior to final dispos ition. Mental health evaluation completed by Ms Beal. Patient's rn access was at the bedside and offered to take the patient in and help with transition. Patient states that with the rn access's help and relocation counselor he is not suicidal nor homicidal anymore. His rn access to help with obtaining his mental health medications. Patient recently discharged from [facility] 5 days ago. 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 Patient's 1013 rescinded at [phone] following mental health evaluation recommendation. Patient advised to follow up outpatient with his psychiatrist and [facility] for further evaluation - Differential Diagnosis Chronic depression, SI and Chronic Syphilis; PTSD Critical care attestation.: If time is entered above; I have spent that time in minutes in the direct care of this critically ill patient, excluding procedure time. ED Disposition Is pt being admited?: No Does the pt Need Aspirin: No Time of Disposition: 00:10
[2019-05-06] MEDS ORDERED: SULFAMETHOXAZOLE/TRIMETHOPRIM 800/160MG DS TAB PO ONE (20:37)
[2019-05-06 21:17] VITALS: BP 119/61
[2019-05-06] MEDS ORDERED: INSULIN REGULAR, HUMAN 100 UNITS/1 ML SUB-Q SCH (22:00)
== END 2019-05-07 00:38 | disposition home or self-care (01) ==
LOC: ED 15:56
DX: F32.9 Major depressive disorder, single episode, unspecified (principal); I10 Essential (primary) hypertension; F17.200 Nicotine dependence, unspecified, uncomplicated; E11.9 Type 2 diabetes mellitus without complications; Z98.890 Other specified postprocedural states
CPT/HCPCS: 36415; 80053; 80307; 81001; 82962; 85025; 87086; 96372; 99284; J0561; 80320; G0480; J1815

== ENCOUNTER 2019-05-11 10:39 | Emergency (ER) | payer OTHER ==
[2019-05-11] MEDS ORDERED: HALDOL IM PRN (11:36)
[2019-05-11] MEDS ORDERED: ATIVAN IM PRN (11:36)
--- NOTE | 2019-05-11 11:37 | Emergency Department Report ---
<LUCIANO URBAN - Last Filed: 05/11/19 14:40> ED General Adult HPI - General Chief complaint: Overdose Stated complaint: OVERDOSE Time Seen by Provider: 05/11/19 11:09 Source: patient, EMS (ems notes not available at time of chart dictation), RN notes reviewed, old records reviewed Mode of arrival: Stretcher Limitations: No Limitations - History of Present Illness Initial comments: This is a 28-year-old gentleman. This patient is not known to this provider previously. The patient has a history of psychiatric disease morbid obesity and diabetes. The patient presents to the ER with a complaint of suicidal gesture. Apparently, he took a handful of trazodone, 150 mg, and Risperdal, 2 mg, at approximately 12:00 PM. He denies additional coingestants. This is a self- injurious attempt. He reports that he is having audio hallucinations, depression and wants to kill himself. He does not have access to guns or firea dao. He does not have physical pain at this time. -: This morning Severity scale (0 -10): 0 Consistency: constant Improves with: none Worsens with: none - Related Data Home Medications Medication Instructions Recorded Confirmed Last Taken RisperDAL 1 mg PO QHS 03/10/17 05/12/19 05/03/19 Duloxetine HCl 60 mg PO QDAY 05/06/19 05/12/19 05/03/19 Esomeprazole Magnesium [NexIUM] 40 mg PO QDAY 05/06/19 05/12/19 05/03/19 Gabapentin [Neurontin] 100 mg PO Q8HR 05/06/19 05/12/19 05/03/19 Lisinopril [Zestril TAB] 40 mg PO QDAY 05/06/19 05/12/19 05/03/19 hydrOXYzine HCL [Atarax] 25 mg PO BID 05/06/19 05/12/19 05/03/19 Insulin NPH Hum/Reg Insulin Hm 26 unit SQ BID 05/12/19 05/12/19 Unknown [HumuLIN 70-30 Vial] traZODone [Desyrel] 150 mg PO QHS 05/12/19 05/12/19 Unknown Previous Rx's Medication Instructions Recorded Last Taken Type Indomethacin 50 mg PO TID #15 capsule 05/21/16 04/12/19 Rx FLUoxetine [PROzac] 40 mg PO QDAY #14 capsule 03/12/17 05/03/19 Rx Metoclopramide [Reglan] 10 mg PO TID PRN #10 tab 03/20/17 05/03/19 Rx Syr-Nd,Ins,0.5/Container,Empty 1 each MC PRN PRN #1 box 03/20/17 05/03/19 Rx [Ulticare Syr 0.5 ml 29GX1/2"] Insulin Regular, Human [HumuLIN R] See Protocol SQ ACHS #30 day 03/21/17 05/03/19 Rx Allergies Allergy/AdvReac Type Severity Reaction Status Date / Time No Known Allergies Allergy Verified 03/20/17 09:30 ED Review of Systems Constitutional: denies: fever Eyes: denies: eye discharge ENT: denies: epistaxis Respiratory: denies: cough Cardiovascular: denies: chest pain Gastrointestinal: denies: abdominal pain Genitourinary: denies: dysuria Musculoskeletal: denies: back pain Skin: denies: lesions Neurological: weakness Psychiatric: depression, auditory hallucinations, suicidal thoughts ED Past Medical Hx - Past Medical History Previous Medical History?: Yes Hx Hypertension: Yes Hx Congestive Heart Failure: No Hx Diabetes: Yes Hx Psychiatric Treatment: Yes (depression, SI attempt) Hx Asthma: No Hx COPD: No Hx HIV: No Additional medical history: BULGING / HERNIATED DISC. hemorrhoids. OBESITY. Eczema - Surgical History Past Surgical History?: Yes Additional Surgical History: HEMORRHOIDECTOMY - Social History Smoking Status: Current Every Day Smoker Substance Use Type: None - Medications Home Medications: Home Medications Medication Instructions Recorded Confirmed Last Taken Type Indomethacin 50 mg PO TID #15 capsule 05/21/16 05/12/19 04/12/19 Rx RisperDAL 1 mg PO QHS 03/10/17 05/12/19 05/03/19 History FLUoxetine [PROzac] 40 mg PO QDAY #14 capsule 03/12/17 05/12/19 05/03/19 Rx Metoclopramide [Reglan] 10 mg PO TID PRN #10 tab 03/20/17 05/12/19 05/03/19 Rx Syr-Nd,Ins,0.5/Container,Empty 1 each MC PRN PRN #1 box 08/05/12/1908/21 Rx [Ulticare Syr 0.5 ml 29GX1/2"] Insulin Regular, Human [HumuLIN R] See Protocol SQ ACHS #30 day 03/21/17 05/12/19 05/03/19 Rx Duloxetine HCl 60 mg PO QDAY 05/06/19 05/12/19 05/03/19 History Esomeprazole Magnesium [NexIUM] 40 mg PO QDAY 05/06/19 05/12/19 05/03/19 History Gabapentin [Neurontin] 100 mg PO Q8HR 05/06/19 05/12/19 05/03/19 History Lisinopril [Zestril TAB] 40 mg PO QDAY 05/06/19 05/12/19 05/03/19 History hydrOXYzine HCL [Atarax] 25 mg PO BID 05/06/19 05/12/19 05/03/19 History Insulin NPH Hum/Reg Insulin Hm 26 unit SQ BID 05/12/19 05/12/19 Unknown History [HumuLIN 70-30 Vial] traZODone [Desyrel] 150 mg PO QHS 05/12/19 05/12/19 Unknown History ED Physical Exam - General Limitations: No Limitations General appearance: alert, in no apparent distress - Head Head exam: Present: atraumatic, normocephalic - Eye Eye exam: Present: normal appearance, PERRL, EOMI. Absent: nystagmus - ENT ENT exam: Present: normal exam, normal orophraynx, mucous membranes moist, normal external ear exam - Neck Neck exam: Present: normal inspection, full ROM. Absent: tenderness, meningismus - Respiratory Respiratory exam: Present: normal lung sounds bilaterally. Absent: respiratory distress - Cardiovascular Cardiovascular Exam: Present: regular rate, normal rhythm, normal heart sounds. Absent: bradycardia, tachycardia, irregular rhythm, systolic murmur, diastolic murmur, rubs, gallop - GI/Abdominal GI/Abdominal exam: Present: soft. Absent: distended, tenderness, guarding, rebound, rigid, pulsatile mass - Rectal Rectal exam: Present: deferred - Extremities Exam Extremities exam: Present: normal inspection, full ROM, other (2+ pulses noted in the bilateral upper, lower extremities. Compartments soft. No long bony tenderness. The pelvis is stable.). Absent: pedal edema, joint swelling, calf tenderness - Back Exam Back exam: Present: normal inspection, full ROM. Absent: tenderness, CVA tenderness (R), CVA tenderness (L), paraspinal tenderness, vertebral tenderness - Neurological Exam Neurological exam: Present: alert, other (Extraocular movements intact. Tongue midline. No facial droop. Facial sensation intact to light touch in the V1, V2, V3 distribution bilaterally. 5 and 5 strength in 4 extremities.. Sensation is intact to light touch in 4 extremities.) - Psychiatric Psychiatric exam: Present: depressed, suicidal ideation - Skin Skin exam: Present: warm, dry, intact, normal color. Absent: rash ED Course - Reevaluation(s) Reevaluation #1: 05/11/19 12:09 Differential diagnosis, including not limited to: Polysubstance overdose, medical clearance Assessment and plan: 28-year-old gentleman who presents within 1 hour of intentional overdose, protecting his airway, therefore is a charcoal candidate. He denies physical pain at this time. He is placed on a quality assurance monitor final, charcoal ordered, screening laboratory studies ordered, patient placed on a 1013, we will discuss with poison control center once initial diagnostics have resulted. Anticipate recommendation for observation and supportive care. Reevaluation #2: 05/11/19 13:47 Laboratory studies show hyperglycemia and pseudohyponatremia. Tylenol aspirin levels unremarkable. Case discussed with [facility], they recommend up to 6 hours of observation. Supportive care is also recommended. Fluids are ordered, insulin as ordered. Reevaluation #3: 05/11/19 14:08 as per yarn weight and strength tester call to [facility] at 1340, spoke with ashwini. reports pt's condition as well as current vital sign requested and current labs. advised to monitor pt for 4-6 hours with repeat ekg. Reevaluation #4: 05/11/19 14:[address] Mickey Singh to follow up on repeat ekg, repeat accu check and complete period of observation, 510 pm today 05/11/19 14:40 ED Medical Decision Making - Lab Data Result diagrams: 05/11/19 11:52 05/11/19 11:52 Vital Signs 05/11/19 05/11/19 11:10 11:30 Temperature 98.7 F Pulse Rate 85 74 Respiratory 20 16 Rate Blood Pressure 118/66 125/64 Blood Pressure 118/66 [Right] O2 Sat by Pulse 96 96 Oximetry Vital Signs 05/11/19 05/11/19 11:10 11:30 Temperature 98.7 F Pulse Rate 85 74 Respiratory 20 16 Rate Blood Pressure 118/66 125/64 Blood Pressure 118/66 [Right] O2 Sat by Pulse 96 96 Oximetry Lab Results 05/11/19 05/11/19 05/11/19 Range/Units 11:52 11:52 11:52 WBC (4.5-11.0) K/mm3 RBC (3.65-5.03) M/mm3 Hgb (11.8-15.2) gm/dl Hct (35.5-45.6) % MCV (84-94) fl MCH (28-32) pg MCHC (32-34) % RDW (13.2-15.2) % Plt Count (140-440) K/mm3 Lymph % (Auto) (13.4-35.0) % Storey % (Auto) (0.0-7.3) % Eos % (Auto) (0.0-4.3) % Baso % (Auto) (0.0-1.8) % Lymph # (1.2-5.4) K/mm3 Storey # (0.0-0.8) K/mm3 Eos # (0.0-0.4) K/mm3 Baso # (0.0-0.1) K/mm3 Seg Neutrophils % (40.0-70.0) % Seg Neutrophils # (1.8-7.7) K/mm3 VBG pH (7.320-7.420) Sodium 129 L D (137-145) mmol/L Potassium 5.0 D (3.6-5.0) mmol/L Chloride 92.8 L (98-107) mmol/L Carbon Dioxide 21 L (22-30) mmol/L Anion Gap 20 mmol/L BUN 17 (9-20) mg/dL Creatinine 1.3 (0.8-1.5) mg/dL Estimated GFR > 60 ml/min BUN/Creatinine Ratio 13 % Glucose 718 H* (75-100) mg/dL Calcium 9.0 (8.4-10.2) mg/dL Magnesium (1.7-2.3) mg/dL Total Creatine Kinase (55-170) units/L Salicylates < 0.3 L (2.8-20.0) mg/dL Acetaminophen < 5.0 L (10.0-30.0) ug/mL Plasma/Serum Alcohol (0-0.07) % 05/11/19 05/11/19 05/11/19 Range/Units 11:52 11:52 11:52 WBC 3.5 L (4.5-11.0) K/mm3 RBC 4.91 (3.65-5.03) M/mm3 Hgb 13.8 (11.8-15.2) gm/dl Hct 41.8 (35.5-45.6) % MCV 85 (84-94) fl MCH 28 (28-32) pg MCHC 33 (32-34) % RDW 13.4 (13.2-15.2) % Plt Count 240 (140-440) K/mm3 Lymph % (Auto) 21.8 (13.4-35.0) % Storey % (Auto) 6.1 (0.0-7.3) % Eos % (Auto) 2.9 (0.0-4.3) % Baso % (Auto) 1.3 (0.0-1.8) % Lymph # 0.8 L (1.2-5.4) K/mm3 Storey # 0.2 (0.0-0.8) K/mm3 Eos # 0.1 (0.0-0.4) K/mm3 Baso # 0.0 (0.0-0.1) K/mm3 Seg Neutrophils % 67.9 (40.0-70.0) % Seg Neutrophils # 2.4 (1.8-7.7) K/mm3 VBG pH (7.320-7.420) Sodium (137-145) mmol/L Potassium (3.6-5.0) mmol/L Chloride (98-107) mmol/L Carbon Dioxide (22-30) mmol/L Anion Gap mmol/L BUN (9-20) mg/dL Creatinine (0.8-1.5) mg/dL Estimated GFR ml/min BUN/Creatinine Ratio % Glucose (75-100) mg/dL Calcium (8.4-10.2) mg/dL Magnesium 2.10 (1.7-2.3) mg/dL Total Creatine Kinase 154 (55-170) units/L Salicylates (2.8-20.0) mg/dL Acetaminophen (10.0-30.0) ug/mL Plasma/Serum Alcohol < 0.01 (0-0.07) % 05/11/19 Range/Units 11:52 WBC (4.5-11.0) K/mm3 RBC (3.65-5.03) M/mm3 Hgb (11.8-15.2) gm/dl Hct (35.5-45.6) % MCV (84-94) fl MCH (28-32) pg MCHC (32-34) % RDW (13.2-15.2) % Plt Count (140-440) K/mm3 Lymph % (Auto) (13.4-35.0) % Storey % (Auto) (0.0-7.3) % Eos % (Auto) (0.0-4.3) % Baso % (Auto) (0.0-1.8) % Lymph # (1.2-5.4) K/mm3 Storey # (0.0-0.8) K/mm3 Eos # (0.0-0.4) K/mm3 Baso # (0.0-0.1) K/mm3 Seg Neutrophils % (40.0-70.0) % Seg Neutrophils # (1.8-7.7) K/mm3 VBG pH 7.322 (7.320-7.420) Sodium (137-145) mmol/L Potassium (3.6-5.0) mmol/L Chloride (98-107) mmol/L Carbon Dioxide (22-30) mmol/L Anion Gap mmol/L BUN (9-20) mg/dL Creatinine (0.8-1.5) mg/dL Estimated GFR ml/min BUN/Creatinine Ratio % Glucose (75-100) mg/dL Calcium (8.4-10.2) mg/dL Magnesium (1.7-2.3) mg/dL Total Creatine Kinase (55-170) units/L Salicylates (2.8-20.0) mg/dL Acetaminophen (10.0-30.0) ug/mL Plasma/Serum Alcohol (0-0.07) % - EKG Data -: EKG Interpreted by Ri EKG shows normal: sinus rhythm Rate: normal - EKG Data 05/11/19 12:10 The EKG today shows a sinus rhythm, 71 bpm, left axis deviation, anterior fasc icular block, QTC 452 ms, the EKG is abnormal, there is no endorsement of chest pain, the EKG is not consistent with ST elevation myocardial infarction. The EKG today appears to be grossly unchanged from prior EKG from March 2017. ED Disposition Clinical Impression: Bipolar 1 disorder, Seasonal affective disorder Disposition: DC-01 TO HOME OR SELFCARE Condition: Stable Additional Instructions: FOLLOW UP WITH [facility] HOME MEDS PER PSYCHIATRY AND HOME MEDS FOR DIABETES PER YOUR ROUTINE DIABETIC DIET FOLLOW UP WITH PCP FOR MEDICAL NEEDS ACTIVITY TOLERATED PLEASE NOTE MR HOGAN HAS COMPLETED THE SERIES OF TREATMENT FOR SYPHILIS. Referrals: [facility] [Outside] - 3-5 Days <SHANELLE SINGH - Last Filed: 05/11/19 19:46> ED Medical Decision Making - Lab Data Result diagrams: 05/11/19 11:52 05/11/19 11:52 Medically cleared <SOCRATES IBARRA - Last Filed: 05/21/19 21:04> ED Review of Systems ROS: Stated complaint: OVERDOSE Other details as noted in HPI ED Course Vital Signs 05/11/19 05/11/19 05/11/19 11:10 11:30 12:00 Temperature 98.7 F Pulse Rate 85 74 69 Respiratory 20 16 17 Rate Blood Pressure 118/66 125/64 124/56 Blood Pressure [Left] Blood Pressure 118/66 [Right] O2 Sat by Pulse 96 96 98 Oximetry 05/11/19 05/11/19 05/11/19 12:30 13:00 13:30 Temperature Pulse Rate 75 65 68 Respiratory 18 18 18 Rate Blood Pressure 116/58 115/59 115/68 Blood Pressure [Left] Blood Pressure [Right] O2 Sat by Pulse 97 97 98 Oximetry 05/11/19 05/11/19 05/11/19 14:00 14:30 15:00 Temperature Pulse Rate 62 72 75 Respiratory 18 16 16 Rate Blood Pressure 115/68 95/48 92/48 Blood Pressure [Left] Blood Pressure [Right] O2 Sat by Pulse 96 95 95 Oximetry 05/11/19 05/11/19 05/11/19 15:30 16:00 16:30 Temperature Pulse Rate 77 72 69 Respiratory 16 18 17 Rate Blood Pressure 91/53 95/43 111/58 Blood Pressure [Left] Blood Pressure [Right] O2 Sat by Pulse 95 98 97 Oximetry 05/11/19 05/11/19 05/11/19 17:00 17:30 18:00 Temperature Pulse Rate 68 71 67 Respiratory 17 15 14 Rate Blood Pressure 113/59 111/56 116/59 Blood Pressure [Left] Blood Pressure [Right] O2 Sat by Pulse 97 98 95 Oximetry 05/11/19 05/11/19 05/11/19 18:30 19:00 19:30 Temperature Pulse Rate Respiratory 16 19 18 Rate Blood Pressure 119/60 134/72 134/72 Blood Pressure [Left] Blood Pressure [Right] O2 Sat by Pulse 98 99 99 Oximetry 05/11/19 05/11/19 05/11/19 20:00 20:30 23:30 Temperature Pulse Rate 63 Respiratory 15 17 16 Rate Blood Pressure 116/60 116/60 Blood Pressure [Left] Blood Pressure [Right] O2 Sat by Pulse 98 98 97 Oximetry 05/12/19 05/12/19 05/12/19 02:00 09:15 12:40 Temperature 98.5 F 97.9 F 97.8 F Pulse Rate 71 66 90 Respiratory 18 16 20 Rate Blood Pressure Blood Pressure [Left] Blood Pressure 121/76 128/80 113/66 [Right] O2 Sat by Pulse 96 96 97 Oximetry 05/12/19 05/12/19 05/12/19 14:55 18:00 21:27 Temperature 98.2 F Pulse Rate 73 Respiratory 17 18 16 Rate Blood Pressure Blood Pressure [Left] Blood Pressure 120/65 [Right] O2 Sat by Pulse 96 Oximetry 05/13/19 05/13/19 05/13/19 00:00 07:30 19:45 Temperature 97.9 F 97.8 F 98.0 F Pulse Rate 64 81 83 Respiratory 18 18 20 Rate Blood Pressure Blood Pressure [Left] Blood Pressure 98/59 125/80 110/58 [Right] O2 Sat by Pulse 97 99 99 Oximetry 05/14/19 05/14/19 05/14/19 01:00 07:00 17:55 Temperature 97.9 F 98.4 F 98.1 F Pulse Rate 66 71 79 Respiratory 18 18 18 Rate Blood Pressure Blood Pressure [Left] Blood Pressure 116/83 122/76 131/88 [Right] O2 Sat by Pulse 99 98 Oximetry 05/14/19 05/14/19 05/15/19 19:40 20:35 01:00 Temperature 98.0 F 98.0 F 97.9 F Pulse Rate 82 82 65 Respiratory 18 18 18 Rate Blood Pressure Blood Pressure [Left] Blood Pressure 107/54 99/60 110/71 [Right] O2 Sat by Pulse 98 98 94 Oximetry 05/15/19 05/15/19 05/16/19 09:09 20:00 04:07 Temperature 97.9 F 98.4 F 97.8 F Pulse Rate 81 84 71 Respiratory 19 18 18 Rate Blood Pressure Blood Pressure 125/73 108/60 [Left] Blood Pressure 131/87 125/73 [Right] O2 Sat by Pulse 99 95 97 Oximetry 05/16/19 05/16/19 05/16/19 08:35 16:20 19:40 Temperature 98 F 98 F 98.2 F Pulse Rate 82 97 H 83 Respiratory 16 18 Rate Blood Pressure Blood Pressure 135/92 141/92 143/89 [Left] Blood Pressure [Right] O2 Sat by Pulse 100 100 100 Oximetry 05/16/19 05/16/19 05/17/19 20:00 23:29 00:29 Temperature Pulse Rate Respiratory 20 20 18 Rate Blood Pressure Blood Pressure [Left] Blood Pressure [Right] O2 Sat by Pulse 100 Oximetry 05/17/19 05/17/19 03:06 09:32 Temperature 97.5 F L 98.7 F Pulse Rate 87 85 Respiratory 18 Rate Blood Pressure Blood Pressure 138/72 138/84 [Left] Blood Pressure [Right] O2 Sat by Pulse 100 97 Oximetry ED Medical Decision Making - Lab Data Result diagrams: 05/16/19 11:13 05/16/19 11:13 - Medical Decision Making I was informed by charge Nurse that Mr. Hogan had hyperglycemia with alert blood glucose value. On presentation initial blood glucose 718. Then changed to 466. Repeat this morning is 598. I have ordered fluids and IV insulin. Mr. Hogan appears well, nontoxic. I have also ordered his home medication. According to my colleague's documentation, this gentleman is being treated in our emergency department for intentional overdose. He has been placed on involuntary hold under 1013 protocol. I also ordered high-dose insulin sliding scale. Critical care attestation.: If time is entered above; I have spent that time in minutes in the direct care of this critically ill patient, excluding procedure time. ED Disposition Is pt being admited?: No Does the pt Need Aspirin: No
[2019-05-11] MEDS ORDERED: ACTIDOSE-AQUA PO ONE (11:41)
[2019-05-11] MEDS ORDERED: NACL 0.9% 500 ML 500 ML IV ONE (12:11)
[2019-05-11 12:19] LABS: Basophils % (Auto) 1.3 % (0.0-1.8); Eosinophils # (Auto) 0.1 K/mm3 (0.0-0.4); Eosinophils % (Auto) 2.9 % (0.0-4.3); Hematocrit 41.8 % (35.5-45.6); Hemoglobin 13.8 gm/dl (11.8-15.2); Lymphocytes # (Auto) 0.8 K/mm3 (1.2-5.4); Lymphocytes % (Auto) 21.8 % (13.4-35.0); Mean Corpuscular HGB Conc 33 % (32-34); Mean Corpuscular Volume 85 fl (84-94); Monocytes # (Auto) 0.2 K/mm3 (0.0-0.8); Monocytes % (Auto) 6.1 % (0.0-7.3); Platelet Count 240 K/mm3 (140-440); Red Blood Count 4.91 M/mm3 (3.65-5.03); Red Cell Distribution Width 13.4 % (13.2-15.2)
[2019-05-11 12:35] LABS: BUN/Creatinine Ratio 13; Blood Urea Nitrogen 17 mg/dL (9-20); Hemolysis Index 20
[2019-05-11] MEDS ORDERED: HumuLIN R IV ONE (13:14)
[2019-05-11] MEDS ORDERED: NACL 0.9% 1000 ML 1,000 ML IV ONE ×2 (13:14→14:53)
[2019-05-12 02:00] LABS: Bilirubin,Urine NEG (Negative); Blood,Urine NEG (Negative); Color,Urine Colorless (Yellow); Protein,Urine <15 mg/dL mg/dL (Negative); Urobilinogen,Urine < 2.0 mg/dL (<2.0); WBC,Urine < 1.0 /HPF (0.0-6.0)
[2019-05-12 02:09] LABS: Amphetamine Screen,Urine PRESUMPTIVE NEGATIVE; Benzodiazepines Screen,Urine PRESUMPTIVE NEGATIVE; Cannabinoid Screen,Urine PRESUMPTIVE NEGATIVE; Cocaine Screen,Urine PRESUMPTIVE NEGATIVE; Methadone Screen,Urine PRESUMPTIVE NEGATIVE; Opiate Screen,Urine PRESUMPTIVE NEGATIVE
[2019-05-12 09:50] LABS: BUN/Creatinine Ratio 10; Blood Urea Nitrogen 13 mg/dL (9-20); Hemolysis Index 10
[2019-05-12] MEDS ORDERED: NACL 0.9% 1000 ML 1,000 ML IV ONE ×2 (10:03)
[2019-05-12] MEDS ORDERED: HumuLIN R IV ONE (10:03)
[2019-05-12] MEDS ORDERED: D50W (25GM) Syringe IV PRN (10:07)
--- NOTE | 2019-05-12 13:42 | Consultation ---
History of Present Illness - Reason for Consult Consult date: 05/12/19 Reason for consult: Mental Health Evaluation Requesting physician: LUCIANO URBAN - Chief Complaint Chief complaint: "I feel horrible" - History of Present Psychiatric Illness 28 y.o. AA male who presented to the ER SI's. This patient is known to me. Today the patient was calm, but guarded during the assessment. He stated that he took several Risperdal and Trazodone pills yesterday to kill himself. He stated that he is still dealing with the of his family members. He stated that most of his family members during this time of year. He was asked several more questions about his mental health since being discharged from his recent inpatient psy setting, he was vague with his answers. He denies HI's and AVH's. He would not confirm or deny SI's when asked. He is known for self injury behavior. Medications and Allergies Allergies Allergy/AdvReac Type Severity Reaction Status Date / Time No Known Allergies Allergy Verified 03/20/17 09:30 Home Medications Medication Instructions Recorded Confirmed Last Taken Type Indomethacin 50 mg PO TID #15 capsule 05/21/16 05/12/19 04/12/19 Rx RisperDAL 1 mg PO QHS 03/10/17 05/12/19 05/03/19 History FLUoxetine [PROzac] 40 mg PO QDAY #14 capsule 03/12/17 05/12/19 05/03/19 Rx Metoclopramide [Reglan] 10 mg PO TID PRN #10 tab 03/20/17 05/12/19 05/03/19 Rx Syr-Nd,Ins,0.5/Container,Empty 1 each MC PRN PRN #1 box 03/20/17 05/12/19 05/03/19 Rx [Ulticare Syr 0.5 ml 29GX1/2"] Insulin Regular, Human [HumuLIN R] See Protocol SQ ACHS #30 day 03/21/17 05/12/19 05/03/19 Rx Duloxetine HCl 60 mg PO QDAY 05/06/19 05/12/19 05/03/19 History Esomeprazole Magnesium [NexIUM] 40 mg PO QDAY 05/06/19 05/12/19 05/03/19 History Gabapentin [Neurontin] 100 mg PO Q8HR 05/06/19 05/12/19 05/03/19 History Lisinopril [Zestril TAB] 40 mg PO QDAY 05/06/19 05/12/19 05/03/19 History hydrOXYzine HCL [Atarax] 25 mg PO BID 05/06/19 05/12/19 05/03/19 History Insulin NPH Hum/Reg Insulin Hm 26 unit SQ BID 05/12/19 05/12/19 Unknown History [HumuLIN 70-30 Vial] traZODone [Desyrel] 150 mg PO QHS 05/12/19 05/12/19 Unknown History Active Meds: Active Medications Dextrose (D50w (25gm) Syringe) 50 ml IV PRN PRN PRN Reason: Hypoglycemia Haloperidol Lactate (Haldol) 5 mg IM Q6HR PRN PRN Reason: Agitation Insulin Human Isoph/Insulin Regular (Humulin 70/30) 26 unit SUB-Q BIDDIAB ELGIN Insulin Human Lispro (Humalog) 0 unit SUB-Q ACHS ELGIN; Protocol Stop: 05/16/19 23:59 Insulin Human Lispro (Humalog) 0 unit SUB-Q AC ELGIN; Protocol Stop: 05/16/19 23:59 Insulin Human Lispro (Humalog) 0 unit SUB-Q QHS ELGIN; Protocol Stop: 05/16/19 23:59 Lorazepam (Ativan) 2 mg IM Q4HR PRN PRN Reason: Agitation Lorazepam (Ativan) 2 mg IM Q4HR PRN PRN Reason: Agitation Past psychiatric history - Past Medical History Past Medical History: No medical history Past Surgical History: No surgical history - past Psychiatric treatment and history psychiatric treatment history: Several inpatient psy services. Denies a fam psy hx. - Social History Social history: lives with family Mental Status Exam - Vital signs Last Vital Signs Temp 97.8 F 05/12/19 12:40 Pulse 90 05/12/19 12:40 Resp 20 05/12/19 12:40 BP 113/66 05/12/19 12:40 Pulse Ox 97 05/12/19 12:40 - Exam Narrative exam: MSE: Appearance: calm Behavior: poor eye contact Speech: regular rate and low tone Mood: guarded Affect: flat Thought Process: circumstantial Thought Content: denies HI's and AVH's Motor Activity: lying in bed Cognition: A/O x 3 Insight: fair Judgment: poor Results Result Diagrams: 05/11/19 11:52 05/12/19 09:21 Abnormal lab results 05/11/19 05/12/19 05/12/19 Range/Units 16:03 09:14 09:21 Sodium 132 L (137-145) mmol/L Chloride 91.9 L (98-107) mmol/L Glucose 598 H* (75-100) mg/dL POC Glucose 466 H > 500 H (70-105) 05/12/19 Range/Units 12:54 Sodium (137-145) mmol/L Chloride (98-107) mmol/L Glucose (75-100) mg/dL POC Glucose 407 H (70-105) All other labs normal. Assessment and Plan Assessment and plan: Impression: MDD, Severe Type. Hx of self injury behavior. Today the patient was calm, somewhat guarded during the assessment. UDS is negative. The patient's BG is elevated. NA 132. QTc 447. DDx: Bipolar DO, Seasonal Affective DO, (SAD), SCAD Recommendations/Plan: Continue 1013 and start Zoloft 50 mg PO daily for depression once NA is resulted. Discussed possible suicidality/medication insduced gabriela with the patient reference Zoloft, he verbalized understanding. Line of sight for safety ordered. dispo: The patient will be referred to inpatient psy services once medically clear. Will staff with Dr Prabhu Hanson.
[2019-05-12] MEDS: HumaLOG SUB-Q SCH ×5 (14:35→22:46)
[2019-05-12 14:51] LABS: Calcium 8.8 mg/dL (8.4-10.2)
[2019-05-12] MEDS ORDERED: HumaLOG SUB-Q SCH (22:00)
[2019-05-13] MEDS ORDERED: NACL 0.9% 1000 ML 1,000 ML IV ONE ×2 (08:22)
[2019-05-13] MEDS: HumaLOG SUB-Q SCH ×5 (08:43→22:16)
--- NOTE | 2019-05-13 08:57 | Progress Note ---
Subjective - Reason for Consult Consult date: 05/13/19 Reason for consult: Psychiatry Follow-up - Chief Complaint Chief complaint: "I;m not well" 28 y.o. AA male who presented to the ER SI's. This patient is known to me. Today the patient was calm, but still guarded during the assessment. He is adamant that his life isn't "worth it." He would not elaborate more about his life when asked. Overall, the patient's presentation have not changed since yesterday. He denies HI's and AVH's. He would not confirm or deny SI's. Mental Status Exam - Vital signs Last Vital Signs Temp 97.8 F 05/13/19 07:30 Pulse 81 05/13/19 07:30 Resp 18 05/13/19 07:30 BP 125/80 05/13/19 07:30 Pulse Ox 99 05/13/19 07:30 - Exam Narrative exam: MSE: Appearance: calm Behavior: poor eye contact Speech: regular rate and low tone Mood: still guarded Affect: flat Thought Process: circumstantial Thought Content: denies HI's and AVH's Motor Activity: lying in bed Cognition: A/O x 3 Insight: fair Judgment: poor Assessment and Plan Impression: MDD, Severe Type. Hx of self injury behavior. Intentional Overdose. Today the patient was calm, but still guarded during the assessment. UDS is negative. QTc 447. DDx: Bipolar DO, Seasonal Affective DO, (SAD), SCAD Recommendations/Plan: Continue 1013 and Zoloft 50 mg PO daily for depression. Discussed possible suicidality/medication induced gabriela with the patient reference Zoloft, he verbalized understanding. Line of sight for safety ordered. dispo: The patient will be referred to inpatient psy services once medically clear. Will staff with Dr Prabhu Hanson.
[2019-05-13] MEDS: ZOLOFT PO SCH (10:24)
[2019-05-13] MEDS ORDERED: CORDARONE IV ONE (11:03)
[2019-05-13 22:33] LABS: Alanine Aminotransferase 11 units/L (7-56); Albumin 3.7 g/dL (3.9-5)
[2019-05-13 22:41] LABS: Bilirubin,Direct < 0.2 mg/dL (0-0.2)
[2019-05-14] MEDS: HumaLOG SUB-Q SCH ×4 (08:40→22:00)
[2019-05-14] MEDS: ZOLOFT PO SCH (11:07)
--- NOTE | 2019-05-14 13:31 | Consultation ---
History of Present Illness - Reason for Consult Consult date: 05/14/19 Reason for consult: Mental Health Evaluation Requesting physician: LUCIANO URBAN - Chief Complaint Chief complaint: "I;m not well" Medications and Allergies Allergies Allergy/AdvReac Type Severity Reaction Status Date / Time No Known Allergies Allergy Verified 03/20/17 09:30 Home Medications Medication Instructions Recorded Confirmed Last Taken Type Indomethacin 50 mg PO TID #15 capsule 05/21/16 05/12/19 04/12/19 Rx RisperDAL 1 mg PO QHS 03/10/17 05/12/19 05/03/19 History FLUoxetine [PROzac] 40 mg PO QDAY #14 capsule 03/12/17 05/12/19 05/03/19 Rx Metoclopramide [Reglan] 10 mg PO TID PRN #10 tab 03/20/17 05/12/19 05/03/19 Rx Syr-Nd,Ins,0.5/Container,Empty 1 each MC PRN PRN #1 box 03/20/17 05/12/19 05/03/19 Rx [Ulticare Syr 0.5 ml 29GX1/2"] Insulin Regular, Human [HumuLIN R] See Protocol SQ ACHS #30 day 03/21/17 05/12/19 05/03/19 Rx Duloxetine HCl 60 mg PO QDAY 05/06/19 05/12/19 05/03/19 History Esomeprazole Magnesium [NexIUM] 40 mg PO QDAY 05/06/19 05/12/19 05/03/19 History Gabapentin [Neurontin] 100 mg PO Q8HR 05/06/19 05/12/19 05/03/19 History Lisinopril [Zestril TAB] 40 mg PO QDAY 05/06/19 05/12/19 05/03/19 History hydrOXYzine HCL [Atarax] 25 mg PO BID 05/06/19 05/12/19 05/03/19 History Insulin NPH Hum/Reg Insulin Hm 26 unit SQ BID 05/12/19 05/12/19 Unknown History [HumuLIN 70-30 Vial] traZODone [Desyrel] 150 mg PO QHS 05/12/19 05/12/19 Unknown History Active Meds: Active Medications Dextrose (D50w (25gm) Syringe) 50 ml IV PRN PRN PRN Reason: Hypoglycemia Haloperidol Lactate (Haldol) 5 mg IM Q6HR PRN PRN Reason: Agitation Insulin Human Isoph/Insulin Regular (Humulin 70/30) 35 unit SUB-Q BIDDIAB ELGIN Insulin Human Lispro (Humalog) 0 unit SUB-Q ACHS [facility]; Protocol Stop: 05/16/19 23:59 Last Admin: 05/14/19 12:49 Dose: 6 unit Documented by: Lorazepam (Ativan) 2 mg IM Q4HR PRN PRN Reason: Agitation Sertraline HCl (Zoloft) 50 mg PO DAILY [facility] Last Admin: 05/14/19 11:07 Dose: 50 mg Documented by: Mental Status Exam - Vital signs Last Vital Signs Temp 98.4 F 05/14/19 07:00 Pulse 71 05/14/19 07:00 Resp 18 05/14/19 07:00 BP 122/76 05/14/19 07:00 Pulse Ox 98 05/14/19 07:00 Results Result Diagrams: 05/11/19 11:52 05/15/19 01:05 Abnormal lab results 05/13/19 05/13/19 05/13/19 Range/Units 17:00 21:38 22:04 POC Glucose 244 H 337 H (70-105) Albumin 3.7 L (3.9-5) g/dL 05/14/19 05/14/19 Range/Units 03:34 07:38 POC Glucose 195 H 265 H (70-105) Albumin (3.9-5) g/dL All other labs normal. Assessment and Plan Assessment and plan: Impression: MDD, Severe Type. Hx of self injury behavior. Intentional Overdose. Today the patient was calm, but still guarded during the assessment. DDx: Bipolar DO, Seasonal Affective DO, (SAD), SCAD Recommendations/Plan: Continue 1013 and Zoloft 50 mg PO daily for depression. Reviewed side effects with patient. Continue Line of sight for safety ordered. dispo: The patient will be referred to inpatient psy services once medically clear. Will staff with Dr Prabhu Hanson.
[2019-05-14] MEDS: ATIVAN IM PRN (14:30)
[2019-05-14] MEDS ORDERED: BENADRYL PO ONE ×2 (22:06→22:07)
[2019-05-15] MEDS: HumaLOG SUB-Q SCH ×4 (08:29→22:34)
[2019-05-15] MEDS ORDERED: BICILLIN L-A IM ONE (10:03)
--- NOTE | 2019-05-15 10:06 | Event Note ---
Date: 05/15/19 Patient states he had been diagnosed with syphilis of unknown duration several weeks ago. Patient was received to Bicillin shots prior to coming to our emergency department. Patient was requesting his third weekly shot. Patient given Bicillin 2.4 million units IM. 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
[2019-05-15] MEDS: ZOLOFT PO SCH (10:46)
--- NOTE | 2019-05-15 11:58 | Consultation ---
History of Present Illness - Reason for Consult Consult date: 05/15/19 Reason for consult: Mental Health Evaluation Requesting physician: LUCIANO URBAN - Chief Complaint Chief complaint: "I;m not well" - History of Present Psychiatric Illness I;m not well" 28 y.o. AA male who presented to the ER SI's. Today the patient was calm, but still guarded during the assessment. He is adamant that his life isn't "worth it." Patient is crying today and reports that he is having difficulty today and feeling overwhelmed. Patient reports that he he is having problems coping with diagnosis of bipolar and he has only been diagnosed for 1 month. Previous history entailed only PTSD and depression. He reports he had difficulty managing that as well but was at least hopeful. He had not ever tried suicide until now. He reports loss of insurance made him feel as if choices were really out of reach. He also was recently diagnosed with syphillis and has had 2 out of the 3 necessary injections and reports that puts him at a disadvantage and places shame on him. He reports several recent deaths in his family they have been difficult as well. He denies HI's and AVH's. He would not confirm or deny SI's. Medications and Allergies Allergies Allergy/AdvReac Type Severity Reaction Status Date / Time No Known Allergies Allergy Verified 03/20/17 09:30 Home Medications Medication Instructions Recorded Confirmed Last Taken Type Indomethacin 50 mg PO TID #15 capsule 05/21/16 05/12/19 04/12/19 Rx RisperDAL 1 mg PO QHS 03/10/17 05/12/19 05/03/19 History FLUoxetine [PROzac] 40 mg PO QDAY #14 capsule 03/12/17 05/12/19 05/03/19 Rx Metoclopramide [Reglan] 10 mg PO TID PRN #10 tab 03/20/17 05/12/19 05/03/19 Rx Syr-Nd,Ins,0.5/Container,Empty 1 each MC PRN PRN #1 box 03/20/17 05/12/19 05/03/19 Rx [Ulticare Syr 0.5 ml 29GX1/2"] Insulin Regular, Human [HumuLIN R] See Protocol SQ ACHS #30 day 03/21/17 05/12/19 05/03/19 Rx Duloxetine HCl 60 mg PO QDAY 05/06/19 05/12/19 05/03/19 History Esomeprazole Magnesium [NexIUM] 40 mg PO QDAY 05/06/19 05/12/19 05/03/19 History Gabapentin [Neurontin] 100 mg PO Q8HR 05/06/19 05/12/19 05/03/19 History Lisinopril [Zestril TAB] 40 mg PO QDAY 05/06/19 05/12/19 05/03/19 History hydrOXYzine HCL [Atarax] 25 mg PO BID 05/06/19 05/12/19 05/03/19 History Insulin NPH Hum/Reg Insulin Hm 26 unit SQ BID 05/12/19 05/12/19 Unknown History [HumuLIN 70-30 Vial] traZODone [Desyrel] 150 mg PO QHS 05/12/19 05/12/19 Unknown History Active Meds: Active Medications Dextrose (D50w (25gm) Syringe) 50 ml IV PRN PRN PRN Reason: Hypoglycemia Haloperidol Lactate (Haldol) 5 mg IM Q6HR PRN PRN Reason: Agitation Insulin Human Isoph/Insulin Regular (Humulin 70/30) 35 unit SUB-Q BIDDIAB ELGIN Insulin Human Lispro (Humalog) 0 unit SUB-Q ACHS [facility]; Protocol Stop: 05/16/19 23:59 Last Admin: 05/14/19 12:49 Dose: 6 unit Documented by: Lorazepam (Ativan) 2 mg IM Q4HR PRN PRN Reason: Agitation Sertraline HCl (Zoloft) 50 mg PO DAILY [facility] Last Admin: 05/14/19 11:07 Dose: 50 mg Documented by: Mental Status Exam - Vital signs Last Vital Signs Temp 98.4 F 05/14/19 07:00 Pulse 71 05/14/19 07:00 Resp 18 05/14/19 07:00 BP 122/76 05/14/19 07:00 Pulse Ox 98 05/14/19 07:00 Results Result Diagrams: 05/11/19 11:52 05/12/19 14:00 Abnormal lab results 05/13/19 05/13/19 05/13/19 Range/Units 17:00 21:38 22:04 POC Glucose 244 H 337 H (70-105) Albumin 3.7 L (3.9-5) g/dL 05/14/19 05/14/19 Range/Units 03:34 07:38 POC Glucose 195 H 265 H (70-105) Albumin (3.9-5) g/dL All other labs normal. Initialized on 05/14/19 13:10 - END OF NOTE Medications and Allergies Allergies Allergy/AdvReac Type Severity Reaction Status Date / Time No Known Allergies Allergy Verified 03/20/17 09:30 Home Medications Medication Instructions Recorded Confirmed Last Taken Type RX: Indomethacin 50 mg PO TID #15 capsule 05/21/16 05/12/19 04/12/19 Rx RisperDAL 1 mg PO QHS 03/10/17 05/12/19 05/03/19 History RX: FLUoxetine [PROzac] 40 mg PO QDAY #14 capsule 03/12/17 05/12/19 05/03/19 Rx Metoclopramide [Reglan] 10 mg PO TID PRN #10 tab 03/20/17 05/12/19 05/03/19 Rx RX: Syr-Nd,Ins,0.5/Container,Empty 1 each MC PRN PRN #1 box 03/20/17 05/12/19 05/03/19 Rx [Ulticare Syr 0.5 ml 29GX1/2"] Insulin Regular, Human [HumuLIN R] See Protocol SQ ACHS #30 day 03/21/17 05/12/19 05/03/19 Rx Esomeprazole Magnesium [NexIUM] 40 mg PO QDAY 05/06/19 05/12/19 05/03/19 History Gabapentin [Neurontin] 100 mg PO Q8HR 05/06/19 05/12/19 05/03/19 History Lisinopril [Zestril TAB] 40 mg PO QDAY 05/06/19 05/12/19 05/03/19 History RX: Duloxetine HCl 60 mg PO QDAY 05/06/19 05/12/19 05/03/19 History hydrOXYzine HCL [Atarax] 25 mg PO BID 05/06/19 05/12/19 05/03/19 History Insulin NPH Hum/Reg Insulin Hm 26 unit SQ BID 05/12/19 05/12/19 Unknown History [HumuLIN 70-30 Vial] traZODone [Desyrel] 150 mg PO QHS 05/12/19 05/12/19 Unknown History Active Meds: Active Medications Dextrose (D50w (25gm) Syringe) 50 ml IV PRN PRN PRN Reason: Hypoglycemia Haloperidol Lactate (Haldol) 5 mg IM Q6HR PRN PRN Reason: Agitation Insulin Human Isoph/Insulin Regular (Humulin 70/30) 35 unit SUB-Q BIDDIAB [facility] Last Admin: 05/15/19 08:46 Dose: 35 unit Documented by: Insulin Human Lispro (Humalog) 0 unit SUB-Q ACHS [facility]; Protocol Stop: 05/16/19 23:59 Last Admin: 05/15/19 08:29 Dose: 4 unit Documented by: Lorazepam (Ativan) 2 mg IM Q4HR PRN PRN Reason: Agitation Last Admin: 05/14/19 14:30 Dose: 2 mg Documented by: Sertraline HCl (Zoloft) 50 mg PO DAILY [facility] Last Admin: 05/15/19 10:46 Dose: 50 mg Documented by: Mental Status Exam - Vital signs Last Vital Signs Temp 97.9 F 05/15/19 09:09 Pulse 81 05/15/19 09:09 Resp 19 05/15/19 09:09 BP 131/87 05/15/19 09:09 Pulse Ox 99 05/15/19 09:09 Results Result Diagrams: 05/11/19 11:52 05/15/19 01:05 Abnormal lab results 05/14/19 05/14/19 05/14/19 Range/Units 11:46 16:27 22:04 Sodium (137-145) mmol/L POC Glucose 274 H 230 H 171 H (70-105) 05/15/19 05/15/19 05/15/19 Range/Units 01:05 01:29 06:11 Sodium 135 L (137-145) mmol/L POC Glucose 109 H 203 H (70-105) 05/15/19 Range/Units 07:12 Sodium (137-145) mmol/L POC Glucose 237 H (70-105) All other labs normal. Assessment and Plan Assessment and plan: Impression: MDD, Severe Type. Hx of self injury behavior. Intentional Overdose. Today the patient was calm, more open today. We communicated more today and he seemed to be more vested in his treatment today. DDx: Bipolar DO, Seasonal Affective DO, (SAD), SCAD Recommendations/Plan: Continue 1013 and Zoloft 50 mg PO daily for depression. Discussed with medical getting patient last injection for syphillis treatment. Reviewed side effects with patient. Continue Line of sight for safety ordered. Encouraged patient to stay vested in safety and treatment goals. dispo: The patient will be referred to inpatient psy services once medically clear. Will staff with Dr Prabhu Hanson.
[2019-05-15] MEDS: ATIVAN IM PRN ×2 (17:04→21:02)
[2019-05-16] MEDS: HumaLOG SUB-Q SCH ×4 (08:36→23:09)
--- NOTE | 2019-05-16 09:08 | Progress Note ---
Subjective - Reason for Consult Consult date: 05/16/19 Reason for consult: Psychiatry Follow-up - Chief Complaint Chief complaint: "I'm feeling a little better" 28 y.o. AA male who presented to the ER SI's. This patient is known to me. Today the patient was calm and cooperative during the assessment. The patient was more engaging. He stated that he want to work on his coping skills when discharged. He stated that he need a "good therapist" to see in the outpatient psy setting. He denies SI/HI's and AVH's. He denies any side effects from his medication. Mental Status Exam - Vital signs Last Vital Signs Temp 97.8 F 05/16/19 04:07 Pulse 71 05/16/19 04:07 Resp 18 05/16/19 04:07 BP 108/60 05/16/19 04:07 Pulse Ox 97 05/16/19 04:07 - Exam Narrative exam: MSE: Appearance: calm, cooperative Behavior: regular eye contact Speech: regular rate and low tone Mood: "okay" Affect: congruent to mood Thought Process: circumstantial Thought Content: denies SI/HI's and AVH's Motor Activity: lying in bed Cognition: A/O x 3 Insight: variable to fair Judgment: variable Assessment and Plan Impression: MDD, Severe Type. Hx of self injury behavior. Intentional Overdose. Today the patient was calm and cooperative during the assessment. UDS is negative. QTc 447. DDx: Bipolar DO, Seasonal Affective DO, (SAD), SCAD Recommendations/Plan: Reevaluate the patinent's 1013 in 24 hours. Continue Zoloft 50 mg PO daily for depression. Discussed possible suicidality/medication induced gabriela with the patient reference Zoloft, he verbalized understanding. dispo: If the patient's 1013 is rescinded in 24 hours, he can follow up with [facility] for outpatient psy services. Will staff with Dr Prabhu Hanson.
[2019-05-16] MEDS: ATIVAN IM PRN (09:14)
[2019-05-16] MEDS: ZOLOFT PO SCH (09:31)
[2019-05-16] MEDS ORDERED: GEODON IM ONE ×2 (11:00→11:04)
[2019-05-16] MEDS ORDERED: ATIVAN IM ONE (11:01)
[2019-05-16] MEDS ORDERED: WATER FOR INJ Sterile (PF) 10 ML ONE (11:05)
[2019-05-16] MEDS ORDERED: NACL 0.9% 1000 ML 1,000 ML IV ONE (11:06)
[2019-05-16 11:27] LABS: Basophils % (Auto) 0.2 % (0.0-1.8); Eosinophils # (Auto) 0.1 K/mm3 (0.0-0.4); Eosinophils % (Auto) 1.1 % (0.0-4.3); Hematocrit 45.9 % (35.5-45.6); Hemoglobin 15.4 gm/dl (11.8-15.2); Lymphocytes # (Auto) 2.8 K/mm3 (1.2-5.4); Lymphocytes % (Auto) 38.4 % (13.4-35.0); Mean Corpuscular HGB Conc 34 % (32-34); Mean Corpuscular Volume 85 fl (84-94); Monocytes # (Auto) 0.6 K/mm3 (0.0-0.8); Monocytes % (Auto) 8.5 % (0.0-7.3); Platelet Count 305 K/mm3 (140-440); Red Blood Count 5.43 M/mm3 (3.65-5.03); Red Cell Distribution Width 13.5 % (13.2-15.2)
[2019-05-16 11:52] LABS: Creatine Kinase MB 1.1 ng/mL (0.0-4.0)
[2019-05-16 11:53] LABS: Alanine Aminotransferase 13 units/L (7-56); Albumin 4.5 g/dL (3.9-5); BUN/Creatinine Ratio 9; Blood Urea Nitrogen 11 mg/dL (9-20); Calcium 9.4 mg/dL (8.4-10.2); Hemolysis Index 13
[2019-05-16 11:59] LABS: Bilirubin,Direct < 0.2 mg/dL (0-0.2)
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
[2019-05-16] MEDS ORDERED: IBUPROFEN PO ONE ×2 (23:24→23:28)
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
--- NOTE | 2019-05-17 09:18 | Event Note ---
Date: 05/17/19 Pt has been seen by psychiatry and they have recinded [id number]- pt to be dc home with his home meds and will follow up outpatient. Safety plan established. 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 He has all meds including psych and medical meds. He has follow up established and verbalizes understanding of plan of care. Pt is alert and oriented. No HI/SI/hallucinations. He is cooperative and in no distress on exam. Ambulatory, taking PO and verbalizing understanding of his plan of care. Lab Results 05/11/19 05/11/19 05/11/19 Range/Units 01:35 01:35 11:52 WBC (4.5-11.0) K/mm3 RBC (3.65-5.03) M/mm3 Hgb (11.8-15.2) gm/dl Hct (35.5-45.6) % MCV (84-94) fl MCH (28-32) pg MCHC (32-34) % RDW (13.2-15.2) % Plt Count (140-440) K/mm3 Lymph % (Auto) (13.4-35.0) % [place] % (Auto) (0.0-7.3) % Eos % (Auto) (0.0-4.3) % Baso % (Auto) (0.0-1.8) % Lymph # (1.2-5.4) K/mm3 [place]eman # (0.0-0.8) K/mm3 Eos # (0.0-0.4) K/mm3 Baso # (0.0-0.1) K/mm3 Seg Neutrophils % (40.0-70.0) % Seg Neutrophils # (1.8-7.7) K/mm3 VBG pH (7.320-7.420) Sodium (137-145) mmol/L Potassium (3.6-5.0) mmol/L Chloride (98-107) mmol/L Carbon Dioxide (22-30) mmol/L Anion Gap mmol/L BUN (9-20) mg/dL Creatinine (0.8-1.5) mg/dL Estimated GFR ml/min BUN/Creatinine Ratio % Glucose (75-100) mg/dL POC Glucose (70-105) Ketones Quantitative (Negative) Calcium (8.4-10.2) mg/dL Phosphorus (2.5-4.5) mg/dL Magnesium (1.7-2.3) mg/dL Total Bilirubin (0.1-1.2) mg/dL Direct Bilirubin (0-0.2) mg/dL Indirect Bilirubin mg/dL AST (5-40) units/L ALT (7-56) units/L Alkaline Phosphatase (35-129) units/L Total Creatine Kinase (55-170) units/L CK-MB (CK-2) (0.0-4.0) ng/mL CK-MB (CK-2) Rel Index (0-4) Troponin T (0.00-0.029) ng/mL Total Protein (6.3-8.2) g/dL Albumin (3.9-5) g/dL Albumin/Globulin Ratio % Urine Color Colorless (Yellow) Urine Turbidity Clear (Clear) Urine pH 6.0 (5.0-7.0) Ur Specific [place] 1.020 (1.003-1.030) Urine Protein <15 mg/dl (Negative) mg/dL Urine Glucose (UA) >=500 (Negative) mg/dL Urine Ketones Neg (Negative) mg/dL Urine Blood Neg (Negative) Urine Nitrite Neg (Negative) Urine Bilirubin Neg (Negative) Urine Urobilinogen < 2.0 (<2.0) mg/dL Ur Leukocyte Esterase Neg (Negative) Urine WBC (Auto) < 1.0 (0.0-6.0) /HPF Urine RBC (Auto) 1.0 (0.0-6.0) /HPF Salicylates < 0.3 L (2.8-20.0) mg/dL Urine Opiates Screen Presumptive negative Urine Methadone Screen Presumptive negative Acetaminophen (10.0-30.0) ug/mL Ur Barbiturates Screen Presumptive negative Ur Phencyclidine Scrn Presumptive negative Ur Amphetamines Screen Presumptive negative U Benzodiazepines Scrn Presumptive negative [place] 0.1 (0.0-1.2) mmol/L Urine Cocaine Screen Presumptive negative U Marijuana (THC) Screen Presumptive negative Drugs of Abuse Note Disclamer Plasma/Serum Alcohol (0-0.07) % 05/11/19 05/11/19 05/11/19 Range/Units 11:52 11:52 11:52 WBC (4.5-11.0) K/mm3 RBC (3.65-5.03) M/mm3 Hgb (11.8-15.2) gm/dl Hct (35.5-45.6) % MCV (84-94) fl MCH (28-32) pg MCHC (32-34) % RDW (13.2-15.2) % Plt Count (140-440) K/mm3 Lymph % (Auto) (13.4-35.0) % [place] % (Auto) (0.0-7.3) % Eos % (Auto) (0.0-4.3) % Baso % (Auto) (0.0-1.8) % Lymph # (1.2-5.4) K/mm3 [place] # (0.0-0.8) K/mm3 Eos # (0.0-0.4) K/mm3 Baso # (0.0-0.1) K/mm3 Seg Neutrophils % (40.0-70.0) % Seg Neutrophils # (1.8-7.7) K/mm3 VBG pH (7.320-7.420) Sodium 129 L D (137-145) mmol/L Potassium 5.0 D (3.6-5.0) mmol/L Chloride 92.8 L (98-107) mmol/L Carbon Dioxide 21 L (22-30) mmol/L Anion Gap 20 mmol/L BUN 17 (9-20) mg/dL Creatinine 1.3 (0.8-1.5) mg/dL Estimated GFR > 60 ml/min BUN/Creatinine Ratio 13 % Glucose 718 H* (75-100) mg/dL POC Glucose (70-105) Ketones Quantitative (Negative) Calcium 9.0 (8.4-10.2) mg/dL Phosphorus (2.5-4.5) mg/dL Magnesium (1.7-2.3) mg/dL Total Bilirubin (0.1-1.2) mg/dL Direct Bilirubin (0-0.2) mg/dL Indirect Bilirubin mg/dL AST (5-40) units/L ALT (7-56) units/L Alkaline Phosphatase (35-129) units/L Total Creatine Kinase (55-170) units/L CK-MB (CK-2) (0.0-4.0) ng/mL CK-MB (CK-2) Rel Index (0-4) Troponin T (0.00-0.029) ng/mL Total Protein (6.3-8.2) g/dL Albumin (3.9-5) g/dL Albumin/Globulin Ratio % Urine Color (Yellow) Urine Turbidity (Clear) Urine pH (5.0-7.0) Ur Specific [place] (1.003-1.030) Urine Protein (Negative) mg/dL Urine Glucose (UA) (Negative) mg/dL Urine Ketones (Negative) mg/dL Urine Blood (Negative) Urine Nitrite (Negative) Urine Bilirubin (Negative) Urine Urobilinogen (<2.0) mg/dL Ur Leukocyte Esterase (Negative) Urine WBC (Auto) (0.0-6.0) /HPF Urine RBC (Auto) (0.0-6.0) /HPF Salicylates (2.8-20.0) mg/dL Urine Opiates Screen Urine Methadone Screen Acetaminophen < 5.0 L (10.0-30.0) ug/mL Ur Barbiturates Screen Ur Phencyclidine Scrn Ur Amphetamines Screen U Benzodiazepines Scrn [place] (0.0-1.2) mmol/L Urine Cocaine Screen U Marijuana (THC) Screen Drugs of Abuse Note Plasma/Serum Alcohol < 0.01 (0-0.07) % 05/11/19 05/11/19 05/11/19 Range/Units 11:52 11:52 11:52 WBC 3.5 L (4.5-11.0) K/mm3 RBC 4.91 (3.65-5.03) M/mm3 Hgb 13.8 (11.8-15.2) gm/dl Hct 41.8 (35.5-45.6) % MCV 85 (84-94) fl MCH 28 (28-32) pg MCHC 33 (32-34) % RDW 13.4 (13.2-15.2) % Plt Count 240 (140-440) K/mm3 Lymph % (Auto) 21.8 (13.4-35.0) % [place] % (Auto) 6.1 (0.0-7.3) % Eos % (Auto) 2.9 (0.0-4.3) % Baso % (Auto) 1.3 (0.0-1.8) % Lymph # 0.8 L (1.2-5.4) K/mm3 [place]eman # 0.2 (0.0-0.8) K/mm3 Eos # 0.1 (0.0-0.4) K/mm3 Baso # 0.0 (0.0-0.1) K/mm3 Seg Neutrophils % 67.9 (40.0-70.0) % Seg Neutrophils # 2.4 (1.8-7.7) K/mm3 VBG pH 7.322 (7.320-7.420) Sodium (137-145) mmol/L Potassium (3.6-5.0) mmol/L Chloride (98-107) mmol/L Carbon Dioxide (22-30) mmol/L Anion Gap mmol/L BUN (9-20) mg/dL Creatinine (0.8-1.5) mg/dL Estimated GFR ml/min BUN/Creatinine Ratio % Glucose (75-100) mg/dL POC Glucose (70-105) Ketones Quantitative (Negative) Calcium (8.4-10.2) mg/dL Phosphorus (2.5-4.5) mg/dL Magnesium 2.10 (1.7-2.3) mg/dL Total Bilirubin (0.1-1.2) mg/dL Direct Bilirubin (0-0.2) mg/dL Indirect Bilirubin mg/dL AST (5-40) units/L ALT (7-56) units/L Alkaline Phosphatase (35-129) units/L Total Creatine Kinase 154 (55-170) units/L CK-MB (CK-2) (0.0-4.0) ng/mL CK-MB (CK-2) Rel Index (0-4) Troponin T (0.00-0.029) ng/mL Total Protein (6.3-8.2) g/dL Albumin (3.9-5) g/dL Albumin/Globulin Ratio % Urine Color (Yellow) Urine Turbidity (Clear) Urine pH (5.0-7.0) Ur Specific [place] (1.003-1.030) Urine Protein (Negative) mg/dL Urine Glucose (UA) (Negative) mg/dL Urine Ketones (Negative) mg/dL Urine Blood (Negative) Urine Nitrite (Negative) Urine Bilirubin (Negative) Urine Urobilinogen (<2.0) mg/dL Ur Leukocyte Esterase (Negative) Urine WBC (Auto) (0.0-6.0) /HPF Urine RBC (Auto) (0.0-6.0) /HPF Salicylates (2.8-20.0) mg/dL Urine Opiates Screen Urine Methadone Screen Acetaminophen (10.0-30.0) ug/mL Ur Barbiturates Screen Ur Phencyclidine Scrn Ur Amphetamines Screen U Benzodiazepines Scrn [place] (0.0-1.2) mmol/L Urine Cocaine Screen U Marijuana (THC) Screen Drugs of Abuse Note Plasma/Serum Alcohol (0-0.07) % 05/11/19 05/12/19 05/12/19 Range/Units 16:03 09:14 09:21 WBC (4.5-11.0) K/mm3 RBC (3.65-5.03) M/mm3 Hgb (11.8-15.2) gm/dl Hct (35.5-45.6) % MCV (84-94) fl MCH (28-32) pg MCHC (32-34) % RDW (13.2-15.2) % Plt Count (140-440) K/mm3 Lymph % (Auto) (13.4-35.0) % [place] % (Auto) (0.0-7.3) % Eos % (Auto) (0.0-4.3) % Baso % (Auto) (0.0-1.8) % Lymph # (1.2-5.4) K/mm3 [place] # (0.0-0.8) K/mm3 Eos # (0.0-0.4) K/mm3 Baso # (0.0-0.1) K/mm3 Seg Neutrophils % (40.0-70.0) % Seg Neutrophils # (1.8-7.7) K/mm3 VBG pH (7.320-7.420) Sodium 132 L (137-145) mmol/L Potassium 4.3 (3.6-5.0) mmol/L Chloride 91.9 L (98-107) mmol/L Carbon Dioxide 24 (22-30) mmol/L Anion Gap 20 mmol/L BUN 13 (9-20) mg/dL Creatinine 1.3 (0.8-1.5) mg/dL Estimated GFR > 60 ml/min BUN/Creatinine Ratio 10 % Glucose 598 H* (75-100) mg/dL POC Glucose 466 H > 500 H (70-105) Ketones Quantitative (Negative) Calcium 9.0 (8.4-10.2) mg/dL Phosphorus (2.5-4.5) mg/dL Magnesium (1.7-2.3) mg/dL Total Bilirubin (0.1-1.2) mg/dL Direct Bilirubin (0-0.2) mg/dL Indirect Bilirubin mg/dL AST (5-40) units/L ALT (7-56) units/L Alkaline Phosphatase (35-129) units/L Total Creatine Kinase (55-170) units/L CK-MB (CK-2) (0.0-4.0) ng/mL CK-MB (CK-2) Rel Index (0-4) Troponin T (0.00-0.029) ng/mL Total Protein (6.3-8.2) g/dL Albumin (3.9-5) g/dL Albumin/Globulin Ratio % Urine Color (Yellow) Urine Turbidity (Clear) Urine pH (5.0-7.0) Ur Specific [place] (1.003-1.030) Urine Protein (Negative) mg/dL Urine Glucose (UA) (Negative) mg/dL Urine Ketones (Negative) mg/dL Urine Blood (Negative) Urine Nitrite (Negative) Urine Bilirubin (Negative) Urine Urobilinogen (<2.0) mg/dL Ur Leukocyte Esterase (Negative) Urine WBC (Auto) (0.0-6.0) /HPF Urine RBC (Auto) (0.0-6.0) /HPF Salicylates (2.8-20.0) mg/dL Urine Opiates Screen Urine Methadone Screen Acetaminophen (10.0-30.0) ug/mL Ur Barbiturates Screen Ur Phencyclidine Scrn Ur Amphetamines Screen U Benzodiazepines Scrn [place] (0.0-1.2) mmol/L Urine Cocaine Screen U Marijuana (THC) Screen Drugs of Abuse Note Plasma/Serum Alcohol (0-0.07) % 05/12/19 05/12/19 05/12/19 Range/Units 12:54 14:00 17:53 WBC (4.5-11.0) K/mm3 RBC (3.65-5.03) M/mm3 Hgb (11.8-15.2) gm/dl Hct (35.5-45.6) % MCV (84-94) fl MCH (28-32) pg MCHC (32-34) % RDW (13.2-15.2) % Plt Count (140-440) K/mm3 Lymph % (Auto) (13.4-35.0) % [place] % (Auto) (0.0-7.3) % Eos % (Auto) (0.0-4.3) % Baso % (Auto) (0.0-1.8) % Lymph # (1.2-5.4) K/mm3 [place] # (0.0-0.8) K/mm3 Eos # (0.0-0.4) K/mm3 Baso # (0.0-0.1) K/mm3 Seg Neutrophils % (40.0-70.0) % Seg Neutrophils # (1.8-7.7) K/mm3 VBG pH (7.320-7.420) Sodium 133 L (137-145) mmol/L Potassium 4.4 (3.6-5.0) mmol/L Chloride 94.3 L (98-107) mmol/L Carbon Dioxide 22 (22-30) mmol/L Anion Gap 21 mmol/L BUN 14 (9-20) mg/dL Creatinine 1.7 H (0.8-1.5) mg/dL Estimated GFR 58 ml/min BUN/Creatinine Ratio 8 % Glucose 491 H (75-100) mg/dL POC Glucose 407 H 367 H (70-105) Ketones Quantitative (Negative) Calcium 8.8 (8.4-10.2) mg/dL Phosphorus (2.5-4.5) mg/dL Magnesium (1.7-2.3) mg/dL Total Bilirubin (0.1-1.2) mg/dL Direct Bilirubin (0-0.2) mg/dL Indirect Bilirubin mg/dL AST (5-40) units/L ALT (7-56) units/L Alkaline Phosphatase (35-129) units/L Total Creatine Kinase (55-170) units/L CK-MB (CK-2) (0.0-4.0) ng/mL CK-MB (CK-2) Rel Index (0-4) Troponin T (0.00-0.029) ng/mL Total Protein (6.3-8.2) g/dL Albumin (3.9-5) g/dL Albumin/Globulin Ratio % Urine Color (Yellow) Urine Turbidity (Clear) Urine pH (5.0-7.0) Ur Specific [place] (1.003-1.030) Urine Protein (Negative) mg/dL Urine Glucose (UA) (Negative) mg/dL Urine Ketones (Negative) mg/dL Urine Blood (Negative) Urine Nitrite (Negative) Urine Bilirubin (Negative) Urine Urobilinogen (<2.0) mg/dL Ur Leukocyte Esterase (Negative) Urine WBC (Auto) (0.0-6.0) /HPF Urine RBC (Auto) (0.0-6.0) /HPF Salicylates (2.8-20.0) mg/dL Urine Opiates Screen Urine Methadone Screen Acetaminophen (10.0-30.0) ug/mL Ur Barbiturates Screen Ur Phencyclidine Scrn Ur Amphetamines Screen U Benzodiazepines Scrn [place] (0.0-1.2) mmol/L Urine Cocaine Screen U Marijuana (THC) Screen Drugs of Abuse Note Plasma/Serum Alcohol (0-0.07) % 05/12/19 05/13/19 05/13/19 Range/Units 22:41 07:59 12:02 WBC (4.5-11.0) K/mm3 RBC (3.65-5.03) M/mm3 Hgb (11.8-15.2) gm/dl Hct (35.5-45.6) % MCV (84-94) fl MCH (28-32) pg MCHC (32-34) % RDW (13.2-15.2) % Plt Count (140-440) K/mm3 Lymph % (Auto) (13.4-35.0) % [place] % (Auto) (0.0-7.3) % Eos % (Auto) (0.0-4.3) % Baso % (Auto) (0.0-1.8) % Lymph # (1.2-5.4) K/mm3 [place] # (0.0-0.8) K/mm3 Eos # (0.0-0.4) K/mm3 Baso # (0.0-0.1) K/mm3 Seg Neutrophils % (40.0-70.0) % Seg Neutrophils # (1.8-7.7) K/mm3 VBG pH (7.320-7.420) Sodium (137-145) mmol/L Potassium (3.6-5.0) mmol/L Chloride (98-107) mmol/L Carbon Dioxide (22-30) mmol/L Anion Gap mmol/L BUN (9-20) mg/dL Creatinine (0.8-1.5) mg/dL Estimated GFR ml/min BUN/Creatinine Ratio % Glucose (75-100) mg/dL POC Glucose 347 H 279 H 291 H (70-105) Ketones Quantitative (Negative) Calcium (8.4-10.2) mg/dL Phosphorus (2.5-4.5) mg/dL Magnesium (1.7-2.3) mg/dL Total Bilirubin (0.1-1.2) mg/dL Direct Bilirubin (0-0.2) mg/dL Indirect Bilirubin mg/dL AST (5-40) units/L ALT (7-56) units/L Alkaline Phosphatase (35-129) units/L Total Creatine Kinase (55-170) units/L CK-MB (CK-2) (0.0-4.0) ng/mL CK-MB (CK-2) Rel Index (0-4) Troponin T (0.00-0.029) ng/mL Total Protein (6.3-8.2) g/dL Albumin (3.9-5) g/dL Albumin/Globulin Ratio % Urine Color (Yellow) Urine Turbidity (Clear) Urine pH (5.0-7.0) Ur Specific [place] (1.003-1.030) Urine Protein (Negative) mg/dL Urine Glucose (UA) (Negative) mg/dL Urine Ketones (Negative) mg/dL Urine Blood (Negative) Urine Nitrite (Negative) Urine Bilirubin (Negative) Urine Urobilinogen (<2.0) mg/dL Ur Leukocyte Esterase (Negative) Urine WBC (Auto) (0.0-6.0) /HPF Urine RBC (Auto) (0.0-6.0) /HPF Salicylates (2.8-20.0) mg/dL Urine Opiates Screen Urine Methadone Screen Acetaminophen (10.0-30.0) ug/mL Ur Barbiturates Screen Ur Phencyclidine Scrn Ur Amphetamines Screen U Benzodiazepines Scrn [place] (0.0-1.2) mmol/L Urine Cocaine Screen U Marijuana (THC) Screen Drugs of Abuse Note Plasma/Serum Alcohol (0-0.07) % 05/13/19 05/13/19 05/13/19 Range/Units 17:00 21:38 22:04 WBC (4.5-11.0) K/mm3 RBC (3.65-5.03) M/mm3 Hgb (11.8-15.2) gm/dl Hct (35.5-45.6) % MCV (84-94) fl MCH (28-32) pg MCHC (32-34) % RDW (13.2-15.2) % Plt Count (140-440) K/mm3 Lymph % (Auto) (13.4-35.0) % [place] % (Auto) (0.0-7.3) % Eos % (Auto) (0.0-4.3) % Baso % (Auto) (0.0-1.8) % Lymph # (1.2-5.4) K/mm3 [place] # (0.0-0.8) K/mm3 Eos # (0.0-0.4) K/mm3 Baso # (0.0-0.1) K/mm3 Seg Neutrophils % (40.0-70.0) % Seg Neutrophils # (1.8-7.7) K/mm3 VBG pH (7.320-7.420) Sodium (137-145) mmol/L Potassium (3.6-5.0) mmol/L Chloride (98-107) mmol/L Carbon Dioxide (22-30) mmol/L Anion Gap mmol/L BUN (9-20) mg/dL Creatinine (0.8-1.5) mg/dL Estimated GFR ml/min BUN/Creatinine Ratio % Glucose (75-100) mg/dL POC Glucose 244 H 337 H (70-105) Ketones Quantitative (Negative) Calcium (8.4-10.2) mg/dL Phosphorus (2.5-4.5) mg/dL Magnesium (1.7-2.3) mg/dL Total Bilirubin < 0.20 (0.1-1.2) mg/dL Direct Bilirubin < 0.2 (0-0.2) mg/dL Indirect Bilirubin 0.0 mg/dL AST 11 (5-40) units/L ALT 11 (7-56) units/L Alkaline Phosphatase 87 (35-129) units/L Total Creatine Kinase (55-170) units/L CK-MB (CK-2) (0.0-4.0) ng/mL CK-MB (CK-2) Rel Index (0-4) Troponin T (0.00-0.029) ng/mL Total Protein 7.3 (6.3-8.2) g/dL Albumin 3.7 L (3.9-5) g/dL Albumin/Globulin Ratio 1.0 % Urine Color (Yellow) Urine Turbidity (Clear) Urine pH (5.0-7.0) Ur Specific [place] (1.003-1.030) Urine Protein (Negative) mg/dL Urine Glucose (UA) (Negative) mg/dL Urine Ketones (Negative) mg/dL Urine Blood (Negative) Urine Nitrite (Negative) Urine Bilirubin (Negative) Urine Urobilinogen (<2.0) mg/dL Ur Leukocyte Esterase (Negative) Urine WBC (Auto) (0.0-6.0) /HPF Urine RBC (Auto) (0.0-6.0) /HPF Salicylates (2.8-20.0) mg/dL Urine Opiates Screen Urine Methadone Screen Acetaminophen (10.0-30.0) ug/mL Ur Barbiturates Screen Ur Phencyclidine Scrn Ur Amphetamines Screen U Benzodiazepines Scrn [place] (0.0-1.2) mmol/L Urine Cocaine Screen U Marijuana (THC) Screen Drugs of Abuse Note Plasma/Serum Alcohol (0-0.07) % 05/14/19 05/14/19 05/14/19 Range/Units 03:34 07:38 11:46 WBC (4.5-11.0) K/mm3 RBC (3.65-5.03) M/mm3 Hgb (11.8-15.2) gm/dl Hct (35.5-45.6) % MCV (84-94) fl MCH (28-32) pg MCHC (32-34) % RDW (13.2-15.2) % Plt Count (140-440) K/mm3 Lymph % (Auto) (13.4-35.0) % [place] % (Auto) (0.0-7.3) % Eos % (Auto) (0.0-4.3) % Baso % (Auto) (0.0-1.8) % Lymph # (1.2-5.4) K/mm3 [place] # (0.0-0.8) K/mm3 Eos # (0.0-0.4) K/mm3 Baso # (0.0-0.1) K/mm3 Seg Neutrophils % (40.0-70.0) % Seg Neutrophils # (1.8-7.7) K/mm3 VBG pH (7.320-7.420) Sodium (137-145) mmol/L Potassium (3.6-5.0) mmol/L Chloride (98-107) mmol/L Carbon Dioxide (22-30) mmol/L Anion Gap mmol/L BUN (9-20) mg/dL Creatinine (0.8-1.5) mg/dL Estimated GFR ml/min BUN/Creatinine Ratio % Glucose (75-100) mg/dL POC Glucose 195 H 265 H 274 H (70-105) Ketones Quantitative (Negative) Calcium (8.4-10.2) mg/dL Phosphorus (2.5-4.5) mg/dL Magnesium (1.7-2.3) mg/dL Total Bilirubin (0.1-1.2) mg/dL Direct Bilirubin (0-0.2) mg/dL Indirect Bilirubin mg/dL AST (5-40) units/L ALT (7-56) units/L Alkaline Phosphatase (35-129) units/L Total Creatine Kinase (55-170) units/L CK-MB (CK-2) (0.0-4.0) ng/mL CK-MB (CK-2) Rel Index (0-4) Troponin T (0.00-0.029) ng/mL Total Protein (6.3-8.2) g/dL Albumin (3.9-5) g/dL Albumin/Globulin Ratio % Urine Color (Yellow) Urine Turbidity (Clear) Urine pH (5.0-7.0) Ur Specific [place] (1.003-1.030) Urine Protein (Negative) mg/dL Urine Glucose (UA) (Negative) mg/dL Urine Ketones (Negative) mg/dL Urine Blood (Negative) Urine Nitrite (Negative) Urine Bilirubin (Negative) Urine Urobilinogen (<2.0) mg/dL Ur Leukocyte Esterase (Negative) Urine WBC (Auto) (0.0-6.0) /HPF Urine RBC (Auto) (0.0-6.0) /HPF Salicylates (2.8-20.0) mg/dL Urine Opiates Screen Urine Methadone Screen Acetaminophen (10.0-30.0) ug/mL Ur Barbiturates Screen Ur Phencyclidine Scrn Ur Amphetamines Screen U Benzodiazepines Scrn [place] (0.0-1.2) mmol/L Urine Cocaine Screen U Marijuana (THC) Screen Drugs of Abuse Note Plasma/Serum Alcohol (0-0.07) % 05/14/19 05/14/19 05/15/19 Range/Units 16:27 22:04 01:05 WBC (4.5-11.0) K/mm3 RBC (3.65-5.03) M/mm3 Hgb (11.8-15.2) gm/dl Hct (35.5-45.6) % MCV (84-94) fl MCH (28-32) pg MCHC (32-34) % RDW (13.2-15.2) % Plt Count (140-440) K/mm3 Lymph % (Auto) (13.4-35.0) % [place] % (Auto) (0.0-7.3) % Eos % (Auto) (0.0-4.3) % Baso % (Auto) (0.0-1.8) % Lymph # (1.2-5.4) K/mm3 [place] # (0.0-0.8) K/mm3 Eos # (0.0-0.4) K/mm3 Baso # (0.0-0.1) K/mm3 Seg Neutrophils % (40.0-70.0) % Seg Neutrophils # (1.8-7.7) K/mm3 VBG pH (7.320-7.420) Sodium 135 L (137-145) mmol/L Potassium (3.6-5.0) mmol/L Chloride (98-107) mmol/L Carbon Dioxide (22-30) mmol/L Anion Gap mmol/L BUN (9-20) mg/dL Creatinine (0.8-1.5) mg/dL Estimated GFR ml/min BUN/Creatinine Ratio % Glucose (75-100) mg/dL POC Glucose 230 H 171 H (70-105) Ketones Quantitative (Negative) Calcium (8.4-10.2) mg/dL Phosphorus (2.5-4.5) mg/dL Magnesium (1.7-2.3) mg/dL Total Bilirubin (0.1-1.2) mg/dL Direct Bilirubin (0-0.2) mg/dL Indirect Bilirubin mg/dL AST (5-40) units/L ALT (7-56) units/L Alkaline Phosphatase (35-129) units/L Total Creatine Kinase (55-170) units/L CK-MB (CK-2) (0.0-4.0) ng/mL CK-MB (CK-2) Rel Index (0-4) Troponin T (0.00-0.029) ng/mL Total Protein (6.3-8.2) g/dL Albumin (3.9-5) g/dL Albumin/Globulin Ratio % Urine Color (Yellow) Urine Turbidity (Clear) Urine pH (5.0-7.0) Ur Specific [place] (1.003-1.030) Urine Protein (Negative) mg/dL Urine Glucose (UA) (Negative) mg/dL Urine Ketones (Negative) mg/dL Urine Blood (Negative) Urine Nitrite (Negative) Urine Bilirubin (Negative) Urine Urobilinogen (<2.0) mg/dL Ur Leukocyte Esterase (Negative) Urine WBC (Auto) (0.0-6.0) /HPF Urine RBC (Auto) (0.0-6.0) /HPF Salicylates (2.8-20.0) mg/dL Urine Opiates Screen Urine Methadone Screen Acetaminophen (10.0-30.0) ug/mL Ur Barbiturates Screen Ur Phencyclidine Scrn Ur Amphetamines Screen U Benzodiazepines Scrn [place] (0.0-1.2) mmol/L Urine Cocaine Screen U Marijuana (THC) Screen Drugs of Abuse Note Plasma/Serum Alcohol (0-0.07) % 05/15/19 05/15/19 05/15/19 Range/Units 01:29 06:11 07:12 WBC (4.5-11.0) K/mm3 RBC (3.65-5.03) M/mm3 Hgb (11.8-15.2) gm/dl Hct (35.5-45.6) % MCV (84-94) fl MCH (28-32) pg MCHC (32-34) % RDW (13.2-15.2) % Plt Count (140-440) K/mm3 Lymph % (Auto) (13.4-35.0) % [place] % (Auto) (0.0-7.3) % Eos % (Auto) (0.0-4.3) % Baso % (Auto) (0.0-1.8) % Lymph # (1.2-5.4) K/mm3 [place] # (0.0-0.8) K/mm3 Eos # (0.0-0.4) K/mm3 Baso # (0.0-0.1) K/mm3 Seg Neutrophils % (40.0-70.0) % Seg Neutrophils # (1.8-7.7) K/mm3 VBG pH (7.320-7.420) Sodium (137-145) mmol/L Potassium (3.6-5.0) mmol/L Chloride (98-107) mmol/L Carbon Dioxide (22-30) mmol/L Anion Gap mmol/L BUN (9-20) mg/dL Creatinine (0.8-1.5) mg/dL Estimated GFR ml/min BUN/Creatinine Ratio % Glucose (75-100) mg/dL POC Glucose 109 H 203 H 237 H (70-105) Ketones Quantitative (Negative) Calcium (8.4-10.2) mg/dL Phosphorus (2.5-4.5) mg/dL Magnesium (1.7-2.3) mg/dL Total Bilirubin (0.1-1.2) mg/dL Direct Bilirubin (0-0.2) mg/dL Indirect Bilirubin mg/dL AST (5-40) units/L ALT (7-56) units/L Alkaline Phosphatase (35-129) units/L Total Creatine Kinase (55-170) units/L CK-MB (CK-2) (0.0-4.0) ng/mL CK-MB (CK-2) Rel Index (0-4) Troponin T (0.00-0.029) ng/mL Total Protein (6.3-8.2) g/dL Albumin (3.9-5) g/dL Albumin/Globulin Ratio % Urine Color (Yellow) Urine Turbidity (Clear) Urine pH (5.0-7.0) Ur Specific [place] (1.003-1.030) Urine Protein (Negative) mg/dL Urine Glucose (UA) (Negative) mg/dL Urine Ketones (Negative) mg/dL Urine Blood (Negative) Urine Nitrite (Negative) Urine Bilirubin (Negative) Urine Urobilinogen (<2.0) mg/dL Ur Leukocyte Esterase (Negative) Urine WBC (Auto) (0.0-6.0) /HPF Urine RBC (Auto) (0.0-6.0) /HPF Salicylates (2.8-20.0) mg/dL Urine Opiates Screen Urine Methadone Screen Acetaminophen (10.0-30.0) ug/mL Ur Barbiturates Screen Ur Phencyclidine Scrn Ur Amphetamines Screen U Benzodiazepines Scrn [place] (0.0-1.2) mmol/L Urine Cocaine Screen U Marijuana (THC) Screen Drugs of Abuse Note Plasma/Serum Alcohol (0-0.07) % 05/15/19 05/15/19 05/15/19 Range/Units 12:04 16:59 22:40 WBC (4.5-11.0) K/mm3 RBC (3.65-5.03) M/mm3 Hgb (11.8-15.2) gm/dl Hct (35.5-45.6) % MCV (84-94) fl MCH (28-32) pg MCHC (32-34) % RDW (13.2-15.2) % Plt Count (140-440) K/mm3 Lymph % (Auto) (13.4-35.0) % [place] % (Auto) (0.0-7.3) % Eos % (Auto) (0.0-4.3) % Baso % (Auto) (0.0-1.8) % Lymph # (1.2-5.4) K/mm3 [place] # (0.0-0.8) K/mm3 Eos # (0.0-0.4) K/mm3 Baso # (0.0-0.1) K/mm3 Seg Neutrophils % (40.0-70.0) % Seg Neutrophils # (1.8-7.7) K/mm3 VBG pH (7.320-7.420) Sodium (137-145) mmol/L Potassium (3.6-5.0) mmol/L Chloride (98-107) mmol/L Carbon Dioxide (22-30) mmol/L Anion Gap mmol/L BUN (9-20) mg/dL Creatinine (0.8-1.5) mg/dL Estimated GFR ml/min BUN/Creatinine Ratio % Glucose (75-100) mg/dL POC Glucose 179 H 221 H 278 H (70-105) Ketones Quantitative (Negative) Calcium (8.4-10.2) mg/dL Phosphorus (2.5-4.5) mg/dL Magnesium (1.7-2.3) mg/dL Total Bilirubin (0.1-1.2) mg/dL Direct Bilirubin (0-0.2) mg/dL Indirect Bilirubin mg/dL AST (5-40) units/L ALT (7-56) units/L Alkaline Phosphatase (35-129) units/L Total Creatine Kinase (55-170) units/L CK-MB (CK-2) (0.0-4.0) ng/mL CK-MB (CK-2) Rel Index (0-4) Troponin T (0.00-0.029) ng/mL Total Protein (6.3-8.2) g/dL Albumin (3.9-5) g/dL Albumin/Globulin Ratio % Urine Color (Yellow) Urine Turbidity (Clear) Urine pH (5.0-7.0) Ur Specific [place] (1.003-1.030) Urine Protein (Negative) mg/dL Urine Glucose (UA) (Negative) mg/dL Urine Ketones (Negative) mg/dL Urine Blood (Negative) Urine Nitrite (Negative) Urine Bilirubin (Negative) Urine Urobilinogen (<2.0) mg/dL Ur Leukocyte Esterase (Negative) Urine WBC (Auto) (0.0-6.0) /HPF Urine RBC (Auto) (0.0-6.0) /HPF Salicylates (2.8-20.0) mg/dL Urine Opiates Screen Urine Methadone Screen Acetaminophen (10.0-30.0) ug/mL Ur Barbiturates Screen Ur Phencyclidine Scrn Ur Amphetamines Screen U Benzodiazepines Scrn [place] (0.0-1.2) mmol/L Urine Cocaine Screen U Marijuana (THC) Screen Drugs of Abuse Note Plasma/Serum Alcohol (0-0.07) % 05/16/19 05/16/19 05/16/19 Range/Units 03:48 07:39 11:13 WBC (4.5-11.0) K/mm3 RBC (3.65-5.03) M/mm3 Hgb (11.8-15.2) gm/dl Hct (35.5-45.6) % MCV (84-94) fl MCH (28-32) pg MCHC (32-34) % RDW (13.2-15.2) % Plt Count (140-440) K/mm3 Lymph % (Auto) (13.4-35.0) % [place] % (Auto) (0.0-7.3) % Eos % (Auto) (0.0-4.3) % Baso % (Auto) (0.0-1.8) % Lymph # (1.2-5.4) K/mm3 [place] # (0.0-0.8) K/mm3 Eos # (0.0-0.4) K/mm3 Baso # (0.0-0.1) K/mm3 Seg Neutrophils % (40.0-70.0) % Seg Neutrophils # (1.8-7.7) K/mm3 VBG pH (7.320-7.420) Sodium 137 (137-145) mmol/L Potassium 3.4 L D (3.6-5.0) mmol/L Chloride 93.7 L (98-107) mmol/L Carbon Dioxide 13 L D (22-30) mmol/L Anion Gap 34 mmol/L BUN 11 (9-20) mg/dL Creatinine 1.2 (0.8-1.5) mg/dL Estimated GFR > 60 ml/min BUN/Creatinine Ratio 9 % Glucose 272 H (75-100) mg/dL POC Glucose 131 H 209 H (70-105) Ketones Quantitative (Negative) Calcium 9.4 (8.4-10.2) mg/dL Phosphorus 3.70 (2.5-4.5) mg/dL Magnesium 2.20 (1.7-2.3) mg/dL Total Bilirubin 0.30 (0.1-1.2) mg/dL Direct Bilirubin < 0.2 (0-0.2) mg/dL Indirect Bilirubin 0.1 mg/dL AST 18 (5-40) units/L ALT 13 (7-56) units/L Alkaline Phosphatase 97 (35-129) units/L Total Creatine Kinase 365 H (55-170) units/L CK-MB (CK-2) 1.1 (0.0-4.0) ng/mL CK-MB (CK-2) Rel Index 0.3 (0-4) Troponin T < 0.010 (0.00-0.029) ng/mL Total Protein 8.8 H D (6.3-8.2) g/dL Albumin 4.5 (3.9-5) g/dL Albumin/Globulin Ratio 1.0 % Urine Color (Yellow) Urine Turbidity (Clear) Urine pH (5.0-7.0) Ur Specific [place] (1.003-1.030) Urine Protein (Negative) mg/dL Urine Glucose (UA) (Negative) mg/dL Urine Ketones (Negative) mg/dL Urine Blood (Negative) Urine Nitrite (Negative) Urine Bilirubin (Negative) Urine Urobilinogen (<2.0) mg/dL Ur Leukocyte Esterase (Negative) Urine WBC (Auto) (0.0-6.0) /HPF Urine RBC (Auto) (0.0-6.0) /HPF Salicylates (2.8-20.0) mg/dL Urine Opiates Screen Urine Methadone Screen Acetaminophen (10.0-30.0) ug/mL Ur Barbiturates Screen Ur Phencyclidine Scrn Ur Amphetamines Screen U Benzodiazepines Scrn [place] (0.0-1.2) mmol/L Urine Cocaine Screen U Marijuana (THC) Screen Drugs of Abuse Note Plasma/Serum Alcohol (0-0.07) % 05/16/19 05/16/19 05/16/19 Range/Units 11:13 11:13 11:13 WBC 7.4 (4.5-11.0) K/mm3 RBC 5.43 H (3.65-5.03) M/mm3 Hgb 15.4 H (11.8-15.2) gm/dl Hct 45.9 H (35.5-45.6) % MCV 85 (84-94) fl MCH 28 (28-32) pg MCHC 34 (32-34) % RDW 13.5 (13.2-15.2) % Plt Count 305 (140-440) K/mm3 Lymph % (Auto) 38.4 H (13.4-35.0) % [place] % (Auto) 8.5 H (0.0-7.3) % Eos % (Auto) 1.1 (0.0-4.3) % Baso % (Auto) 0.2 (0.0-1.8) % Lymph # 2.8 (1.2-5.4) K/mm3 [place] # 0.6 (0.0-0.8) K/mm3 Eos # 0.1 (0.0-0.4) K/mm3 Baso # 0.0 (0.0-0.1) K/mm3 Seg Neutrophils % 51.8 (40.0-70.0) % Seg Neutrophils # 3.8 (1.8-7.7) K/mm3 VBG pH 7.204 L (7.320-7.420) Sodium (137-145) mmol/L Potassium (3.6-5.0) mmol/L Chloride (98-107) mmol/L Carbon Dioxide (22-30) mmol/L Anion Gap mmol/L BUN (9-20) mg/dL Creatinine (0.8-1.5) mg/dL Estimated GFR ml/min BUN/Creatinine Ratio % Glucose (75-100) mg/dL POC Glucose (70-105) Ketones Quantitative Negative (Negative) Calcium (8.4-10.2) mg/dL Phosphorus (2.5-4.5) mg/dL Magnesium (1.7-2.3) mg/dL Total Bilirubin (0.1-1.2) mg/dL Direct Bilirubin (0-0.2) mg/dL Indirect Bilirubin mg/dL AST (5-40) units/L ALT (7-56) units/L Alkaline Phosphatase (35-129) units/L Total Creatine Kinase (55-170) units/L CK-MB (CK-2) (0.0-4.0) ng/mL CK-MB (CK-2) Rel Index (0-4) Troponin T (0.00-0.029) ng/mL Total Protein (6.3-8.2) g/dL Albumin (3.9-5) g/dL Albumin/Globulin Ratio % Urine Color (Yellow) Urine Turbidity (Clear) Urine pH (5.0-7.0) Ur Specific [place] (1.003-1.030) Urine Protein (Negative) mg/dL Urine Glucose (UA) (Negative) mg/dL Urine Ketones (Negative) mg/dL Urine Blood (Negative) Urine Nitrite (Negative) Urine Bilirubin (Negative) Urine Urobilinogen (<2.0) mg/dL Ur Leukocyte Esterase (Negative) Urine WBC (Auto) (0.0-6.0) /HPF Urine RBC (Auto) (0.0-6.0) /HPF Salicylates (2.8-20.0) mg/dL Urine Opiates Screen Urine Methadone Screen Acetaminophen (10.0-30.0) ug/mL Ur Barbiturates Screen Ur Phencyclidine Scrn Ur Amphetamines Screen U Benzodiazepines Scrn [place] (0.0-1.2) mmol/L Urine Cocaine Screen U Marijuana (THC) Screen Drugs of Abuse Note Plasma/Serum Alcohol (0-0.07) % 05/16/19 05/16/19 05/16/19 Range/Units 11:29 16:44 22:08 WBC (4.5-11.0) K/mm3 RBC (3.65-5.03) M/mm3 Hgb (11.8-15.2) gm/dl Hct (35.5-45.6) % MCV (84-94) fl MCH (28-32) pg MCHC (32-34) % RDW (13.2-15.2) % Plt Count (140-440) K/mm3 Lymph % (Auto) (13.4-35.0) % [place] % (Auto) (0.0-7.3) % Eos % (Auto) (0.0-4.3) % Baso % (Auto) (0.0-1.8) % Lymph # (1.2-5.4) K/mm3 [place] # (0.0-0.8) K/mm3 Eos # (0.0-0.4) K/mm3 Baso # (0.0-0.1) K/mm3 Seg Neutrophils % (40.0-70.0) % Seg Neutrophils # (1.8-7.7) K/mm3 VBG pH (7.320-7.420) Sodium (137-145) mmol/L Potassium (3.6-5.0) mmol/L Chloride (98-107) mmol/L Carbon Dioxide (22-30) mmol/L Anion Gap mmol/L BUN (9-20) mg/dL Creatinine (0.8-1.5) mg/dL Estimated GFR ml/min BUN/Creatinine Ratio % Glucose (75-100) mg/dL POC Glucose 244 H 233 H 206 H (70-105) Ketones Quantitative (Negative) Calcium (8.4-10.2) mg/dL Phosphorus (2.5-4.5) mg/dL Magnesium (1.7-2.3) mg/dL Total Bilirubin (0.1-1.2) mg/dL Direct Bilirubin (0-0.2) mg/dL Indirect Bilirubin mg/dL AST (5-40) units/L ALT (7-56) units/L Alkaline Phosphatase (35-129) units/L Total Creatine Kinase (55-170) units/L CK-MB (CK-2) (0.0-4.0) ng/mL CK-MB (CK-2) Rel Index (0-4) Troponin T (0.00-0.029) ng/mL Total Protein (6.3-8.2) g/dL Albumin (3.9-5) g/dL Albumin/Globulin Ratio % Urine Color (Yellow) Urine Turbidity (Clear) Urine pH (5.0-7.0) Ur Specific [place] (1.003-1.030) Urine Protein (Negative) mg/dL Urine Glucose (UA) (Negative) mg/dL Urine Ketones (Negative) mg/dL Urine Blood (Negative) Urine Nitrite (Negative) Urine Bilirubin (Negative) Urine Urobilinogen (<2.0) mg/dL Ur Leukocyte Esterase (Negative) Urine WBC (Auto) (0.0-6.0) /HPF Urine RBC (Auto) (0.0-6.0) /HPF Salicylates (2.8-20.0) mg/dL Urine Opiates Screen Urine Methadone Screen Acetaminophen (10.0-30.0) ug/mL Ur Barbiturates Screen Ur Phencyclidine Scrn Ur Amphetamines Screen U Benzodiazepines Scrn [place] (0.0-1.2) mmol/L Urine Cocaine Screen U Marijuana (THC) Screen Drugs of Abuse Note Plasma/Serum Alcohol (0-0.07) % 05/17/19 Range/Units 08:56 WBC (4.5-11.0) K/mm3 RBC (3.65-5.03) M/mm3 Hgb (11.8-15.2) gm/dl Hct (35.5-45.6) % MCV (84-94) fl MCH (28-32) pg MCHC (32-34) % RDW (13.2-15.2) % Plt Count (140-440) K/mm3 Lymph % (Auto) (13.4-35.0) % [place] % (Auto) (0.0-7.3) % Eos % (Auto) (0.0-4.3) % Baso % (Auto) (0.0-1.8) % Lymph # (1.2-5.4) K/mm3 [place] # (0.0-0.8) K/mm3 Eos # (0.0-0.4) K/mm3 Baso # (0.0-0.1) K/mm3 Seg Neutrophils % (40.0-70.0) % Seg Neutrophils # (1.8-7.7) K/mm3 VBG pH (7.320-7.420) Sodium (137-145) mmol/L Potassium (3.6-5.0) mmol/L Chloride (98-107) mmol/L Carbon Dioxide (22-30) mmol/L Anion Gap mmol/L BUN (9-20) mg/dL Creatinine (0.8-1.5) mg/dL Estimated GFR ml/min BUN/Creatinine Ratio % Glucose (75-100) mg/dL POC Glucose 221 H (70-105) Ketones Quantitative (Negative) Calcium (8.4-10.2) mg/dL Phosphorus (2.5-4.5) mg/dL Magnesium (1.7-2.3) mg/dL Total Bilirubin (0.1-1.2) mg/dL Direct Bilirubin (0-0.2) mg/dL Indirect Bilirubin mg/dL AST (5-40) units/L ALT (7-56) units/L Alkaline Phosphatase (35-129) units/L Total Creatine Kinase (55-170) units/L CK-MB (CK-2) (0.0-4.0) ng/mL CK-MB (CK-2) Rel Index (0-4) Troponin T (0.00-0.029) ng/mL Total Protein (6.3-8.2) g/dL Albumin (3.9-5) g/dL Albumin/Globulin Ratio % Urine Color (Yellow) Urine Turbidity (Clear) Urine pH (5.0-7.0) Ur Specific [place] (1.003-1.030) Urine Protein (Negative) mg/dL Urine Glucose (UA) (Negative) mg/dL Urine Ketones (Negative) mg/dL Urine Blood (Negative) Urine Nitrite (Negative) Urine Bilirubin (Negative) Urine Urobilinogen (<2.0) mg/dL Ur Leukocyte Esterase (Negative) Urine WBC (Auto) (0.0-6.0) /HPF Urine RBC (Auto) (0.0-6.0) /HPF Salicylates (2.8-20.0) mg/dL Urine Opiates Screen Urine Methadone Screen Acetaminophen (10.0-30.0) ug/mL Ur Barbiturates Screen Ur Phencyclidine Scrn Ur Amphetamines Screen U Benzodiazepines Scrn [place] (0.0-1.2) mmol/L Urine Cocaine Screen U Marijuana (THC) Screen Drugs of Abuse Note Plasma/Serum Alcohol (0-0.07) % Vital Signs 05/11/19 05/11/19 05/11/19 11:10 11:30 12:00 Temperature 98.7 F Pulse Rate 85 74 69 Respiratory 20 16 17 Rate Blood Pressure 118/66 125/64 124/56 Blood Pressure [Left] Blood Pressure 118/66 [Right] O2 Sat by Pulse 96 96 98 Oximetry 05/11/19 05/11/19 05/11/19 12:30 13:00 13:30 Temperature Pulse Rate 75 65 68 Respiratory 18 18 18 Rate Blood Pressure 116/58 115/59 115/68 Blood Pressure [Left] Blood Pressure [Right] O2 Sat by Pulse 97 97 98 Oximetry 05/11/19 05/11/19 05/11/19 14:00 14:30 15:00 Temperature Pulse Rate 62 72 75 Respiratory 18 16 16 Rate Blood Pressure 115/68 95/48 92/48 Blood Pressure [Left] Blood Pressure [Right] O2 Sat by Pulse 96 95 95 Oximetry 05/11/19 05/11/19 05/11/19 15:30 16:00 16:30 Temperature Pulse Rate 77 72 69 Respiratory 16 18 17 Rate Blood Pressure 91/53 95/43 111/58 Blood Pressure [Left] Blood Pressure [Right] O2 Sat by Pulse 95 98 97 Oximetry 05/11/19 05/11/19 05/11/19 17:00 17:30 18:00 Temperature Pulse Rate 68 71 67 Respiratory 17 15 14 Rate Blood Pressure 113/59 111/56 116/59 Blood Pressure [Left] Blood Pressure [Right] O2 Sat by Pulse 97 98 95 Oximetry 05/11/19 05/11/19 05/11/19 18:30 19:00 19:30 Temperature Pulse Rate Respiratory 16 19 18 Rate Blood Pressure 119/60 134/72 134/72 Blood Pressure [Left] Blood Pressure [Right] O2 Sat by Pulse 98 99 99 Oximetry 05/11/19 05/11/19 05/11/19 20:00 20:30 23:30 Temperature Pulse Rate 63 Respiratory 15 17 16 Rate Blood Pressure 116/60 116/60 Blood Pressure [Left] Blood Pressure [Right] O2 Sat by Pulse 98 98 97 Oximetry 05/12/19 05/12/19 05/12/19 02:00 09:15 12:40 Temperature 98.5 F 97.9 F 97.8 F Pulse Rate 71 66 90 Respiratory 18 16 20 Rate Blood Pressure Blood Pressure [Left] Blood Pressure 121/76 128/80 113/66 [Right] O2 Sat by Pulse 96 96 97 Oximetry 05/12/19 05/12/19 05/12/19 14:55 18:00 21:27 Temperature 98.2 F Pulse Rate 73 Respiratory 17 18 16 Rate Blood Pressure Blood Pressure [Left] Blood Pressure 120/65 [Right] O2 Sat by Pulse 96 Oximetry 05/13/19 05/13/19 05/13/19 00:00 07:30 19:45 Temperature 97.9 F 97.8 F 98.0 F Pulse Rate 64 81 83 Respiratory 18 18 20 Rate Blood Pressure Blood Pressure [Left] Blood Pressure 98/59 125/80 110/58 [Right] O2 Sat by Pulse 97 99 99 Oximetry 05/14/19 05/14/19 05/14/19 01:00 07:00 17:55 Temperature 97.9 F 98.4 F 98.1 F Pulse Rate 66 71 79 Respiratory 18 18 18 Rate Blood Pressure Blood Pressure [Left] Blood Pressure 116/83 122/76 131/88 [Right] O2 Sat by Pulse 99 98 Oximetry 05/14/19 05/14/19 05/15/19 19:40 20:35 01:00 Temperature 98.0 F 98.0 F 97.9 F Pulse Rate 82 82 65 Respiratory 18 18 18 Rate Blood Pressure Blood Pressure [Left] Blood Pressure 107/54 99/60 110/71 [Right] O2 Sat by Pulse 98 98 94 Oximetry 05/15/19 05/15/19 05/16/19 09:09 20:00 04:07 Temperature 97.9 F 98.4 F 97.8 F Pulse Rate 81 84 71 Respiratory 19 18 18 Rate Blood Pressure Blood Pressure 125/73 108/60 [Left] Blood Pressure 131/87 125/73 [Right] O2 Sat by Pulse 99 95 97 Oximetry 05/16/19 05/16/19 05/16/19 08:35 16:20 19:40 Temperature 98 F 98 F 98.2 F Pulse Rate 82 97 H 83 Respiratory 16 18 Rate Blood Pressure Blood Pressure 135/92 141/92 143/89 [Left] Blood Pressure [Right] O2 Sat by Pulse 100 100 100 Oximetry 05/16/19 05/16/19 05/17/19 20:00 23:29 00:29 Temperature Pulse Rate Respiratory 20 20 18 Rate Blood Pressure Blood Pressure [Left] Blood Pressure [Right] O2 Sat by Pulse 100 Oximetry 05/17/19 03:06 Temperature 97.5 F L Pulse Rate 87 Respiratory 18 Rate Blood Pressure Blood Pressure 138/72 [Left] Blood Pressure [Right] O2 Sat by Pulse 100 Oximetry
[2019-05-17 09:33] VITALS: BP 138/84
== END 2019-05-17 10:20 | disposition home or self-care (01) ==
LOC: EEVIPCON 10:39 → ED 10:39
DX: T43.212A Poisoning by selective serotonin and norepinephrine reuptake inhibitors, intentional self-harm, initial encounter (principal); T43.592A Poisoning by other antipsychotics and neuroleptics, intentional self-harm, initial encounter; F31.9 Bipolar disorder, unspecified; I10 Essential (primary) hypertension; E11.9 Type 2 diabetes mellitus without complications; F17.200 Nicotine dependence, unspecified, uncomplicated; Z98.890 Other specified postprocedural states; Z79.4 Long term (current) use of insulin; Z79.899 Other long term (current) drug therapy; Y92.89 Other specified places as the place of occurrence of the external cause
CPT/HCPCS: 36415; 73120; 80048; 80076; 80178; 80307; 81001; 82010; 82550; 82553; 82805; 82962; 83735; 84100; 84295; 84484; 85025; 93005; 93010; 96361; 96372; 96374; 96375; 96376; 99285; J0282; J0561; J2060; J3486; J7030; J7040; 80320; G0480; J1815

== ENCOUNTER 2019-05-23 15:53 | Emergency (ER) | payer SELFPAY ==
[2019-05-23] MEDS ORDERED: NACL 0.9% 1000 ML 1,000 ML IV ONE ×2 (18:33→18:34)
[2019-05-23] MEDS ORDERED: PEPCID IV ONE (18:33)
[2019-05-23] MEDS ORDERED: ZOFRAN IV ONE (18:33)
[2019-05-23] MEDS ORDERED: BENTYL IM ONE (18:33)
[2019-05-23 19:12] LABS: Basophils % (Auto) 0.5 % (0.0-1.8); Eosinophils # (Auto) 0.2 K/mm3 (0.0-0.4); Hematocrit 39.8 % (35.5-45.6); Hemoglobin 13.2 gm/dl (11.8-15.2); Lymphocytes # (Auto) 1.7 K/mm3 (1.2-5.4); Lymphocytes % (Auto) 48.4 % (13.4-35.0); Mean Corpuscular HGB Conc 33 % (32-34); Mean Corpuscular Volume 85 fl (84-94); Monocytes # (Auto) 0.3 K/mm3 (0.0-0.8); Monocytes % (Auto) 9.5 % (0.0-7.3); Platelet Count 229 K/mm3 (140-440); Red Blood Count 4.71 M/mm3 (3.65-5.03); Red Cell Distribution Width 13.6 % (13.2-15.2)
[2019-05-23] MEDS ORDERED: HumuLIN R IV ONE (19:30)
[2019-05-23 19:36] LABS: Alanine Aminotransferase 16 units/L (7-56); Albumin 4.1 g/dL (3.9-5); BUN/Creatinine Ratio 8; Blood Urea Nitrogen 11 mg/dL (9-20); Hemolysis Index 14
[2019-05-23 19:51] LABS: Bilirubin,Urine NEG (Negative); Blood,Urine NEG (Negative); Color,Urine Colorless (Yellow); Mucus,Urine FEW /HPF; Protein,Urine <15 mg/dL mg/dL (Negative); Urobilinogen,Urine < 2.0 mg/dL (<2.0); WBC,Urine < 1.0 /HPF (0.0-6.0)
[2019-05-23 20:48] LABS: RBC,Urine < 1.0 /HPF (0.0-6.0)
[2019-05-23] MEDS ORDERED: TORADOL IV ONE (20:48)
[2019-05-23] MEDS ORDERED: TORADOL ONE (20:51)
--- NOTE | 2019-05-23 21:12 | Emergency Department Report ---
ED General Adult HPI - General Chief complaint: Hyperglycemia Stated complaint: HIGH BLOOD SUGAR Time Seen by Provider: 05/23/19 18:30 Source: patient, EMS Mode of arrival: Ambulatory Limitations: No Limitations - History of Present Illness Initial comments: Patient is a 28-year-old male with past medical history of insulin-dependent diabetes who presented with nausea vomiting. Patient states this episode and present for approximately 2 days where he can't keep anything down is having crampy epigastric and right lower quadrant pain. Patient states he has a same episode a week ago and was seen at [facility]. CT was performed which was within normal limits. Patient also states he saw to GI doctors 1 stated that he had gastroparesis and the other stated that he did not. Patient denies fevers chills cough cold congestion or diarrhea at this time. Patient states the pain is a 6 out of 10 in severity and crampy in nature. Severity scale (0 -10): 7 - Related Data Home Medications Medication Instructions Recorded Confirmed Last Taken RisperDAL 1 mg PO QHS 03/10/17 05/12/19 05/03/19 Duloxetine HCl 60 mg PO QDAY 05/06/19 05/12/19 05/03/19 Esomeprazole Magnesium [NexIUM] 40 mg PO QDAY 05/06/19 05/12/19 05/03/19 Gabapentin [Neurontin] 100 mg PO Q8HR 05/06/19 05/12/19 05/03/19 Lisinopril [Zestril TAB] 40 mg PO QDAY 05/06/19 05/12/19 05/03/19 hydrOXYzine HCL [Atarax] 25 mg PO BID 05/06/19 05/12/19 05/03/19 Insulin NPH Hum/Reg Insulin Hm 26 unit SQ BID 05/12/19 05/12/19 Unknown [HumuLIN 70-30 Vial] traZODone [Desyrel] 150 mg PO QHS 05/12/19 05/12/19 Unknown Previous Rx's Medication Instructions Recorded Last Taken Type Indomethacin 50 mg PO TID #15 capsule 05/21/16 04/12/19 Rx FLUoxetine [PROzac] 40 mg PO QDAY #14 capsule 03/12/17 05/03/19 Rx Metoclopramide [Reglan] 10 mg PO TID PRN #10 tab 03/20/17 05/03/19 Rx Syr-Nd,Ins,0.5/Container,Empty 1 each MC PRN PRN #1 box 03/20/17 05/03/19 Rx [Ulticare Syr 0.5 ml 29GX1/2"] Insulin Regular, Human [HumuLIN R] See Protocol SQ ACHS #30 day 03/21/17 05/03/19 Rx Dicyclomine [Bentyl] 20 mg PO QID #10 tablet 05/23/19 Unknown Rx Ondansetron [Zofran Odt] 4 mg PO Q8HR #10 tab.rapdis 05/23/19 Unknown Rx traMADol [Ultram] 50 mg PO Q6HR PRN #12 tablet 05/23/19 Unknown Rx Allergies Allergy/AdvReac Type Severity Reaction Status Date / Time No Known Allergies Allergy Verified 03/20/17 09:30 ED Review of Systems ROS: Stated complaint: HIGH BLOOD SUGAR Other details as noted in HPI Comment: All other systems reviewed and negative ED Past Medical Hx - Past Medical History Previous Medical History?: Yes Hx Hypertension: Yes Hx Congestive Heart Failure: No Hx Diabetes: Yes Hx Psychiatric Treatment: Yes (depression, SI attempt) Hx Asthma: No Hx COPD: No Hx HIV: No Additional medical history: BULGING / HERNIATED DISC. hemorrhoids. OBESITY. Eczema - Surgical History Past Surgical History?: Yes Additional Surgical History: HEMORRHOIDECTOMY - Social History Smoking Status: Unknown if ever smoked Substance Use Type: None - Medications Home Medications: Home Medications Medication Instructions Recorded Confirmed Last Taken Type Indomethacin 50 mg PO TID #15 capsule 05/21/16 05/12/19 04/12/19 Rx RisperDAL 1 mg PO QHS 03/10/17 05/12/19 05/03/19 History FLUoxetine [PROzac] 40 mg PO QDAY #14 capsule 03/12/17 05/12/19 05/03/19 Rx Metoclopramide [Reglan] 10 mg PO TID PRN #10 tab 03/20/17 05/12/19 05/03/19 Rx Syr-Nd,Ins,0.5/Container,Empty 1 each MC PRN PRN #1 box 03/20/17 05/12/19 05/03/19 Rx [Ulticare Syr 0.5 ml 29GX1/2"] Insulin Regular, Human [HumuLIN R] See Protocol SQ ACHS #30 day 03/21/17 05/12/19 05/03/19 Rx Duloxetine HCl 60 mg PO QDAY 05/06/19 05/12/19 05/03/19 History Esomeprazole Magnesium [NexIUM] 40 mg PO QDAY 05/06/19 05/12/19 05/03/19 History Gabapentin [Neurontin] 100 mg PO Q8HR 05/06/19 05/12/19 05/03/19 History Lisinopril [Zestril TAB] 40 mg PO QDAY 05/06/19 05/12/19 05/03/19 History hydrOXYzine HCL [Atarax] 25 mg PO BID 05/06/19 05/12/19 05/03/19 History Insulin NPH Hum/Reg Insulin Hm 26 unit SQ BID 05/12/19 05/12/19 Unknown History [HumuLIN 70-30 Vial] traZODone [Desyrel] 150 mg PO QHS 05/12/19 05/12/19 Unknown History Dicyclomine [Bentyl] 20 mg PO QID #10 tablet 05/23/19 Unknown Rx Ondansetron [Zofran Odt] 4 mg PO Q8HR #10 tab.rapdis 05/23/19 Unknown Rx traMADol [Ultram] 50 mg PO Q6HR PRN #12 tablet 05/23/19 Unknown Rx ED Physical Exam - General Limitations: No Limitations General appearance: alert, in no apparent distress - Head Head exam: Present: atraumatic, normocephalic - Eye Eye exam: Present: normal appearance - ENT ENT exam: Present: mucous membranes moist - Neck Neck exam: Present: normal inspection - Respiratory Respiratory exam: Present: normal lung sounds bilaterally. Absent: respiratory distress, wheezes, rales, rhonchi - Cardiovascular Cardiovascular Exam: Present: regular rate, normal rhythm, normal heart sounds. Absent: systolic murmur, diastolic murmur, rubs, gallop - GI/Abdominal GI/Abdominal exam: Present: soft, tenderness (right lower quadrant pain with palpation), normal bowel sounds. Absent: distended, guarding, rebound, rigid - Rectal Rectal exam: Present: deferred - Extremities Exam Extremities exam: Present: normal inspection - Back Exam Back exam: Present: normal inspection - Neurological Exam Neurological exam: Present: alert, oriented X3 - Psychiatric Psychiatric exam: Present: normal affect, normal mood - Skin Skin exam: Present: warm, dry, intact, normal color. Absent: rash ED Course Vital Signs 05/23/19 05/23/19 05/23/19 17:00 17:03 17:07 Temperature 98.0 F 98.5 F Pulse Rate 80 78 73 Respiratory 16 14 16 Rate Blood Pressure 138/82 Blood Pressure 123/75 [Left] O2 Sat by Pulse 100 100 Oximetry 05/23/19 05/23/19 05/23/19 18:00 19:00 20:04 Temperature Pulse Rate 71 64 62 Respiratory 24 17 16 Rate Blood Pressure 123/74 128/63 Blood Pressure 139/65 [Left] O2 Sat by Pulse 100 Oximetry 05/23/19 20:52 Temperature Pulse Rate Respiratory 16 Rate Blood Pressure Blood Pressure [Left] O2 Sat by Pulse Oximetry ED Medical Decision Making - Lab Data Result diagrams: 05/23/19 18:58 05/23/19 18:58 Lab Results 05/23/19 05/23/19 05/23/19 Range/Units 17:19 18:58 18:58 WBC 3.5 L (4.5-11.0) K/mm3 RBC 4.71 (3.65-5.03) M/mm3 Hgb 13.2 (11.8-15.2) gm/dl Hct 39.8 (35.5-45.6) % MCV 85 (84-94) fl MCH 28 (28-32) pg MCHC 33 (32-34) % RDW 13.6 (13.2-15.2) % Plt Count 229 (140-440) K/mm3 Lymph % (Auto) 48.4 H (13.4-35.0) % [place] % (Auto) 9.5 H (0.0-7.3) % Eos % (Auto) 5.0 H (0.0-4.3) % Baso % (Auto) 0.5 (0.0-1.8) % Lymph # 1.7 (1.2-5.4) K/mm3 [place] # 0.3 (0.0-0.8) K/mm3 Eos # 0.2 (0.0-0.4) K/mm3 Baso # 0.0 (0.0-0.1) K/mm3 Seg Neutrophils % 36.6 L (40.0-70.0) % Seg Neutrophils # 1.3 L (1.8-7.7) K/mm3 Sodium 136 L (137-145) mmol/L Potassium 4.1 (3.6-5.0) mmol/L Chloride 96.5 L (98-107) mmol/L Carbon Dioxide 21 L (22-30) mmol/L Anion Gap 23 mmol/L BUN 11 (9-20) mg/dL Creatinine 1.3 (0.8-1.5) mg/dL Estimated GFR > 60 ml/min BUN/Creatinine Ratio 8 % Glucose 487 H (75-100) mg/dL POC Glucose 378 H (70-105) Calcium 9.0 (8.4-10.2) mg/dL Total Bilirubin < 0.20 (0.1-1.2) mg/dL AST 14 (5-40) units/L ALT 16 (7-56) units/L Alkaline Phosphatase 110 (35-129) units/L Total Protein 7.5 (6.3-8.2) g/dL Albumin 4.1 (3.9-5) g/dL Albumin/Globulin Ratio 1.2 % Lipase (13-60) units/L Urine Color (Yellow) Urine Turbidity (Clear) Urine pH (5.0-7.0) Ur Specific [place] (1.003-1.030) Urine Protein (Negative) mg/dL Urine Glucose (UA) (Negative) mg/dL Urine Ketones (Negative) mg/dL Urine Blood (Negative) Urine Nitrite (Negative) Urine Bilirubin (Negative) Urine Urobilinogen (<2.0) mg/dL Ur Leukocyte Esterase (Negative) Urine WBC (Auto) (0.0-6.0) /HPF Urine RBC (Auto) (0.0-6.0) /HPF Urine Mucus /HPF 05/23/19 05/23/19 05/23/19 Range/Units 18:58 19:59 20:51 WBC (4.5-11.0) K/mm3 RBC (3.65-5.03) M/mm3 Hgb (11.8-15.2) gm/dl Hct (35.5-45.6) % MCV (84-94) fl MCH (28-32) pg MCHC (32-34) % RDW (13.2-15.2) % Plt Count (140-440) K/mm3 Lymph % (Auto) (13.4-35.0) % [place] % (Auto) (0.0-7.3) % Eos % (Auto) (0.0-4.3) % Baso % (Auto) (0.0-1.8) % Lymph # (1.2-5.4) K/mm3 [place] # (0.0-0.8) K/mm3 Eos # (0.0-0.4) K/mm3 Baso # (0.0-0.1) K/mm3 Seg Neutrophils % (40.0-70.0) % Seg Neutrophils # (1.8-7.7) K/mm3 Sodium (137-145) mmol/L Potassium (3.6-5.0) mmol/L Chloride (98-107) mmol/L Carbon Dioxide (22-30) mmol/L Anion Gap mmol/L BUN (9-20) mg/dL Creatinine (0.8-1.5) mg/dL Estimated GFR ml/min BUN/Creatinine Ratio % Glucose (75-100) mg/dL POC Glucose 444 H 330 H (70-105) Calcium (8.4-10.2) mg/dL Total Bilirubin (0.1-1.2) mg/dL AST (5-40) units/L ALT (7-56) units/L Alkaline Phosphatase (35-129) units/L Total Protein (6.3-8.2) g/dL Albumin (3.9-5) g/dL Albumin/Globulin Ratio % Lipase 34 (13-60) units/L Urine Color (Yellow) Urine Turbidity (Clear) Urine pH (5.0-7.0) Ur Specific [place] (1.003-1.030) Urine Protein (Negative) mg/dL Urine Glucose (UA) (Negative) mg/dL Urine Ketones (Negative) mg/dL Urine Blood (Negative) Urine Nitrite (Negative) Urine Bilirubin (Negative) Urine Urobilinogen (<2.0) mg/dL Ur Leukocyte Esterase (Negative) Urine WBC (Auto) (0.0-6.0) /HPF Urine RBC (Auto) (0.0-6.0) /HPF Urine Mucus /HPF 05/23/19 Range/Units Unknown WBC (4.5-11.0) K/mm3 RBC (3.65-5.03) M/mm3 Hgb (11.8-15.2) gm/dl Hct (35.5-45.6) % MCV (84-94) fl MCH (28-32) pg MCHC (32-34) % RDW (13.2-15.2) % Plt Count (140-440) K/mm3 Lymph % (Auto) (13.4-35.0) % Coles % (Auto) (0.0-7.3) % Eos % (Auto) (0.0-4.3) % Baso % (Auto) (0.0-1.8) % Lymph # (1.2-5.4) K/mm3 [place]es # (0.0-0.8) K/mm3 Eos # (0.0-0.4) K/mm3 Baso # (0.0-0.1) K/mm3 Seg Neutrophils % (40.0-70.0) % Seg Neutrophils # (1.8-7.7) K/mm3 Sodium (137-145) mmol/L Potassium (3.6-5.0) mmol/L Chloride (98-107) mmol/L Carbon Dioxide (22-30) mmol/L Anion Gap mmol/L BUN (9-20) mg/dL Creatinine (0.8-1.5) mg/dL Estimated GFR ml/min BUN/Creatinine Ratio % Glucose (75-100) mg/dL POC Glucose (70-105) Calcium (8.4-10.2) mg/dL Total Bilirubin (0.1-1.2) mg/dL AST (5-40) units/L ALT (7-56) units/L Alkaline Phosphatase (35-129) units/L Total Protein (6.3-8.2) g/dL Albumin (3.9-5) g/dL Albumin/Globulin Ratio % Lipase (13-60) units/L Urine Color Colorless (Yellow) Urine Turbidity Clear (Clear) Urine pH 6.0 (5.0-7.0) Ur Specific [place] 1.018 (1.003-1.030) Urine Protein <15 mg/dl (Negative) mg/dL Urine Glucose (UA) >=500 (Negative) mg/dL Urine Ketones Neg (Negative) mg/dL Urine Blood Neg (Negative) Urine Nitrite Neg (Negative) Urine Bilirubin Neg (Negative) Urine Urobilinogen < 2.0 (<2.0) mg/dL Ur Leukocyte Esterase Neg (Negative) Urine WBC (Auto) < 1.0 (0.0-6.0) /HPF Urine RBC (Auto) < 1.0 (0.0-6.0) /HPF Urine Mucus Few /HPF - Medical Decision Making Is hydrated here in emergency department given some insulin for blood sugar. The patient is not in DKA and has no ketones in his urine. Patient's white count was normal limits I don't feel as though repeat CT will be helpful this is the same discomfort he had one week ago and his CT was negative at that time. Patient has improvement of his nausea and pain and will be discharged home. Patient to follow-up with our GI team. Also to follow with primary care physician to have his medications potentially readjusted. Critical care attestation.: If time is entered above; I have spent that time in minutes in the direct care of this critically ill patient, excluding procedure time. ED Disposition Clinical Impression: Hyperglycemia, Nausea & vomiting Disposition: DC-01 TO HOME OR SELFCARE Is pt being admited?: No Does the pt Need Aspirin: No Condition: Stable Instructions: Acute Nausea and Vomiting (ED) Referrals: [facility] [Provider Group] - 3-5 Days Time of Disposition: 21:12
[2019-05-23 21:16] VITALS: BP 132/74
== END 2019-05-23 21:31 | disposition home or self-care (01) ==
LOC: ED 15:53
DX: E11.65 Type 2 diabetes mellitus with hyperglycemia (principal); R10.31 Right lower quadrant pain; I10 Essential (primary) hypertension; F32.9 Major depressive disorder, single episode, unspecified; Z98.890 Other specified postprocedural states; Z79.4 Long term (current) use of insulin; Z79.899 Other long term (current) drug therapy
CPT/HCPCS: 36415; 80053; 81001; 82962; 83690; 85025; 96361; 96372; 96374; 96375; 99284; J0500; J1885; J2405; J7030; J1815

== ENCOUNTER 2019-05-25 12:28 | Emergency (ER) | payer SELFPAY ==
[2019-05-25] MEDS ORDERED: NACL 0.9% 1000 ML 1,000 ML IV ONE (12:59)
--- NOTE | 2019-05-25 13:01 | Emergency Department Report ---
ED General Adult HPI - General Chief complaint: Hyperglycemia Stated complaint: HYPERGLYCEMIA Time Seen by Provider: 05/25/19 12:58 Source: patient Mode of arrival: Ambulatory Limitations: No Limitations - History of Present Illness Initial comments: is a 28-year-old male that presents emergency room with complaints of dizziness and nausea. Patient states that his blood sugars elevated. [facility]. Patient states his blood sugar was 491 with EMS. Patient states he has had a lot of problems with his blood sugar fluctuating. Patient states she was recently at [facility]. Patient states c4 planner x-ray. Patient states she is taking all his medications as instructed by his c4 planner. Patient denies chest pain shortness of breath or patient denies abdominal pain. Patient denies vomiting. -: Gradual - Related Data Home Medications Medication Instructions Recorded Confirmed Last Taken RisperDAL 1 mg PO QHS 03/10/17 05/12/19 05/03/19 Duloxetine HCl 60 mg PO QDAY 05/06/19 05/12/19 05/03/19 Esomeprazole Magnesium [NexIUM] 40 mg PO QDAY 05/06/19 05/12/19 05/03/19 Gabapentin [Neurontin] 100 mg PO Q8HR 05/06/19 05/12/19 05/03/19 Lisinopril [Zestril TAB] 40 mg PO QDAY 05/06/19 05/12/19 05/03/19 hydrOXYzine HCL [Atarax] 25 mg PO BID 05/06/19 05/12/19 05/03/19 Insulin NPH Hum/Reg Insulin Hm 26 unit SQ BID 05/12/19 05/12/19 Unknown [HumuLIN 70-30 Vial] traZODone [Desyrel] 150 mg PO QHS 05/12/19 05/12/19 Unknown Previous Rx's Medication Instructions Recorded Last Taken Type Indomethacin 50 mg PO TID #15 capsule 05/21/16 04/12/19 Rx FLUoxetine [PROzac] 40 mg PO QDAY #14 capsule 03/12/17 05/03/19 Rx Metoclopramide [Reglan] 10 mg PO TID PRN #10 tab 03/20/17 05/03/19 Rx Syr-Nd,Ins,0.5/Container,Empty 1 each MC PRN PRN #1 box 03/20/17 05/03/19 Rx [Ulticare Syr 0.5 ml 29GX1/2"] Insulin Regular, Human [HumuLIN R] See Protocol SQ ACHS #30 day 03/21/1705/03 Rx Dicyclomine [Bentyl] 20 mg PO QID #10 tablet 05/23/19 Unknown Rx traMADol [Ultram] 50 mg PO Q6HR PRN #12 tablet 05/23/19 Unknown Rx Ondansetron [Zofran ODT TAB] 4 mg PO Q6HR PRN #10 tab.rapdis 05/25/19 Unknown Rx Allergies Allergy/AdvReac Type Severity Reaction Status Date / Time No Known Allergies Allergy Verified 03/20/17 09:30 ED Review of Systems ROS: Stated complaint: HYPERGLYCEMIA Other details as noted in HPI Constitutional: denies: chills, fever Eyes: denies: eye pain, eye discharge, vision change ENT: denies: ear pain, throat pain Respiratory: denies: cough, shortness of breath, wheezing Cardiovascular: denies: chest pain, palpitations Endocrine: no symptoms reported Gastrointestinal: nausea. denies: abdominal pain, vomiting, diarrhea Genitourinary: denies: urgency, dysuria Musculoskeletal: denies: back pain, joint swelling, arthralgia Skin: denies: rash, lesions Neurological: as per HPI. denies: headache, weakness, paresthesias Psychiatric: denies: anxiety, depression Hematological/Lymphatic: denies: easy bleeding, easy bruising ED Past Medical Hx - Past Medical History Previous Medical History?: Yes Hx Hypertension: Yes Hx Congestive Heart Failure: No Hx Diabetes: Yes Hx Psychiatric Treatment: Yes (depression, SI attempt) Hx Asthma: No Hx COPD: No Hx HIV: No Additional medical history: BULGING / HERNIATED DISC. hemorrhoids. OBESITY. Eczema - Surgical History Past Surgical History?: Yes Additional Surgical History: HEMORRHOIDECTOMY - Social History Smoking Status: Current Every Day Smoker Substance Use Type: None - Medications Home Medications: Home Medications Medication Instructions Recorded Confirmed Last Taken Type Indomethacin 50 mg PO TID #15 capsule 05/21/16 05/12/19 04/12/19 Rx RisperDAL 1 mg PO QHS 03/10/17 05/12/19 05/03/19 History FLUoxetine [PROzac] 40 mg PO QDAY #14 capsule 03/12/17 05/12/19 05/03/19 Rx Metoclopramide [Reglan] 10 mg PO TID PRN #10 tab 03/20/17 05/12/19 05/03/19 Rx Syr-Nd,Ins,0.5/Container,Empty 1 each MC PRN PRN #1 box 03/20/17 05/12/19 05/03/19 Rx [Ulticare Syr 0.5 ml 29GX1/2"] Insulin Regular, Human [HumuLIN R] See Protocol SQ ACHS #30 day 03/21/17 05/12/19 05/03/19 Rx Duloxetine HCl 60 mg PO QDAY 05/06/19 05/12/19 05/03/19 History Esomeprazole Magnesium [NexIUM] 40 mg PO QDAY 05/06/19 05/12/19 05/03/19 History Gabapentin [Neurontin] 100 mg PO Q8HR 05/06/19 05/12/19 05/03/19 History Lisinopril [Zestril TAB] 40 mg PO QDAY 05/06/19 05/12/19 05/03/19 History hydrOXYzine HCL [Atarax] 25 mg PO BID 05/06/19 05/12/19 05/03/19 History Insulin NPH Hum/Reg Insulin Hm 26 unit SQ BID 05/12/19 05/12/19 Unknown History [HumuLIN 70-30 Vial] traZODone [Desyrel] 150 mg PO QHS 05/12/19 05/12/19 Unknown History Dicyclomine [Bentyl] 20 mg PO QID #10 tablet 05/23/19 Unknown Rx traMADol [Ultram] 50 mg PO Q6HR PRN #12 tablet 05/23/19 Unknown Rx Ondansetron [Zofran ODT TAB] 4 mg PO Q6HR PRN #10 tab.rapdis 05/25/19 Unknown Rx ED Physical Exam - General Limitations: No Limitations General appearance: alert, in no apparent distress - Head Head exam: Present: atraumatic, normocephalic - Eye Eye exam: Present: normal appearance - ENT ENT exam: Present: mucous membranes moist - Neck Neck exam: Present: normal inspection - Respiratory Respiratory exam: Present: normal lung sounds bilaterally. Absent: respiratory distress, wheezes, rales - Cardiovascular Cardiovascular Exam: Present: regular rate, normal rhythm. Absent: systolic murmur, diastolic murmur, rubs, gallop - GI/Abdominal GI/Abdominal exam: Present: soft, normal bowel sounds. Absent: distended, tenderness, guarding - Rectal Rectal exam: Present: deferred - Extremities Exam Extremities exam: Present: normal inspection - Back Exam Back exam: Present: normal inspection - Neurological Exam Neurological exam: Present: alert, oriented X3 - Psychiatric Psychiatric exam: Present: normal affect, normal mood - Skin Skin exam: Present: warm, dry, intact, normal color. Absent: rash ED Course Vital Signs 05/25/19 05/25/19 13:11 13:12 Temperature 98.3 F Pulse Rate 84 Respiratory 20 Rate Blood Pressure 121/82 Blood Pressure 125/72 [Left] O2 Sat by Pulse 100 Oximetry - Reevaluation(s) Reevaluation #1: States his symptoms have resolved. Patient denies dizziness and nausea. We'll recheck the patient's blood sugar and treat accordingly with insulin. 05/25/19 14:53 Reevaluation #2: Since blood sugar 305. Patient given 6 units of insulin. Patient states she's feeling much better and ready to go. Patient ambulatory to the bathroom. Patient tolerated by mouth intake. Patient states all the symptoms have resolved. Patient states she feels good. I discussed all results with patient. I discussed plan of care with patient. Patient agrees plan of care. Patient stable for discharge. Patient discharged home. Patient given discharge instructions. Patient voiced understanding of discharge instructions. 05/25/19 15:54 ED Medical Decision Making - Lab Data Result diagrams: 05/25/19 13:34 05/25/19 13:34 - Medical Decision Making Patient is a 28-year-old male that presents emergency room with complaints of dizziness and nausea. Patient's symptoms resolved prior to discharge. Patient given fluids and insulin in the ER. Patient's sugar high upon discharge but patient was asymptomatic. Patient has labile sugars. Patient heart he has an c4 planner. Patient's labs essentially unremarkable except for hyperglycemia. Patient stable for discharge. Patient discharged home. Patient's findings clinically consistent with gastroenteritis and hyperglycemia. - Differential Diagnosis dizziness. Dehydration. Hyperglycemia. Gastroenteritis. Nausea. Critical care attestation.: If time is entered above; I have spent that time in minutes in the direct care of this critically ill patient, excluding procedure time. ED Disposition Clinical Impression: Hyperglycemia, Dizziness, Nausea, Gastroenteritis Diabetes Qualifiers: Diabetes mellitus type: type 2 Diabetes mellitus [facility] insulin use: with termite treater use Diabetes mellitus complication status: with hyperglycemia Quali fied Code(s): E11.65 - Type 2 diabetes mellitus with hyperglycemia Disposition: TO HOME OR SELFCARE Is pt being admited?: No Does the pt Need Aspirin: No Condition: Stable Instructions: Diabetes Mellitus Type 2 in Adults (ED), Gastroenteritis (ED), Acute Nausea and Vomiting (ED) Additional Instructions: Patient to follow-up with primary care in 2-3 days. Patient to follow up with c4 planner in 2-3 days. Patient increase water. Patient to continue all medications. Patient to take meds as directed. Patient increase water. Patient to rest. Patient to eat a brat diet. Patient to monitor blood sugars. Patient to eat a diabetic diet. Prescriptions: Ondansetron [Zofran ODT TAB] 4 mg PO Q6HR PRN #10 tab.rapdis PRN Reason: Nausea And Vomiting Time of Disposition: 15:54
[2019-05-25 13:58] LABS: Basophils % (Auto) 0.4 % (0.0-1.8); Eosinophils # (Auto) 0.2 K/mm3 (0.0-0.4); Eosinophils % (Auto) 3.8 % (0.0-4.3); Hematocrit 43.6 % (35.5-45.6); Hemoglobin 14.6 gm/dl (11.8-15.2); Lymphocytes # (Auto) 1.5 K/mm3 (1.2-5.4); Lymphocytes % (Auto) 34.1 % (13.4-35.0); Mean Corpuscular HGB Conc 34 % (32-34); Mean Corpuscular Volume 84 fl (84-94); Monocytes # (Auto) 0.3 K/mm3 (0.0-0.8); Monocytes % (Auto) 6.5 % (0.0-7.3); Platelet Count 221 K/mm3 (140-440); Red Blood Count 5.18 M/mm3 (3.65-5.03); Red Cell Distribution Width 13.4 % (13.2-15.2)
[2019-05-25 14:11] LABS: Alanine Aminotransferase 16 units/L (7-56); BUN/Creatinine Ratio 12; Blood Urea Nitrogen 15 mg/dL (9-20); Calcium 9.4 mg/dL (8.4-10.2); Hemolysis Index 2
[2019-05-25] MEDS ORDERED: HumuLIN R IV ONE ×2 (14:39→15:11)
[2019-05-25 16:00] VITALS: BP 160/88
== END 2019-05-25 16:50 | disposition home or self-care (01) ==
LOC: ED 12:28
DX: E11.65 Type 2 diabetes mellitus with hyperglycemia (principal); K52.9 Noninfective gastroenteritis and colitis, unspecified; I10 Essential (primary) hypertension; F32.9 Major depressive disorder, single episode, unspecified; F17.200 Nicotine dependence, unspecified, uncomplicated; Z79.899 Other long term (current) drug therapy
CPT/HCPCS: 36415; 80053; 82805; 82962; 85025; 96361; 96374; 99283; J7030; J1815

== ENCOUNTER 2019-06-21 21:10 | Emergency (ER) | payer SELFPAY ==
[2019-06-21] MEDS ORDERED: DEXTROSE 50% IN WATER (25GM) 50 ML VIAL IV ONE (21:50)
[2019-06-21] MEDS ORDERED: DEXTROSE 50% IN WATER (25GM) 50 ML SYRINGE IV ONE (21:52)
--- NOTE | 2019-06-21 22:06 | Emergency Department Report ---
ED General Adult HPI - General Chief complaint: Hypoglycemia Stated complaint: SUGAR Time Seen by Provider: 06/21/19 21:57 Source: patient Mode of arrival: Ambulatory Limitations: No Limitations - History of Present Illness Initial comments: CC: "My sugar has been out of control." HPI: Mr. Oquendo is a very pleasant 28 yo male with hx of bipolar disorder, drug abuse and adult onset diabetes mellitus. He was diagnosed with diabetes 3 years ago age 25. He has had difficult with labile blood sugar reading. He feels achy. He has nausea. He is followed by [facility]. He Takes Levemir 55 units BID. Humolog or novolog 25 units each meal. He is currently in a treatment program [facility] for mental and drug treatment. Currently no SI/HI/hallucinations. Has had several recent ED visits at [facility]. -: Gradual, week(s) (several) Consistency: constant Improves with: none Worsens with: none Associated Symptoms: malaise, nausea/vomiting - Related Data Home Medications Medication Instructions Recorded Confirmed Last Taken RisperDAL 1 mg PO QHS 03/10/17 05/12/19 05/03/19 Duloxetine HCl 60 mg PO QDAY 05/06/19 05/12/19 05/03/19 Esomeprazole Magnesium [NexIUM] 40 mg PO QDAY 05/06/19 05/12/19 05/03/19 Gabapentin [Neurontin] 100 mg PO Q8HR 05/06/19 05/12/19 05/03/19 Lisinopril [Zestril TAB] 40 mg PO QDAY 05/06/19 05/12/19 05/03/19 hydrOXYzine HCL [Atarax] 25 mg PO BID 05/06/19 05/12/19 05/03/19 Insulin NPH Hum/Reg Insulin Hm 26 unit SQ BID 05/12/19 05/12/19 Unknown [HumuLIN 70-30 Vial] traZODone [Desyrel] 150 mg PO QHS 05/12/19 05/12/19 Unknown Previous Rx's Medication Instructions Recorded Last Taken Type Indomethacin 50 mg PO TID #15 capsule 05/21/16 04/12/19 Rx FLUoxetine [PROzac] 40 mg PO QDAY #14 capsule 03/12/17 05/03/19 Rx Metoclopramide [Reglan] 10 mg PO TID PRN #10 tab 03/20/17 05/03/19 Rx Syr-Nd,Ins,0.5/Container,Empty 1 each MC PRN PRN #1 box 03/20/17 05/03/19 Rx [Ulticare Syr 0.5 ml 29GX1/2"] Insulin Regular, Human [HumuLIN R] See Protocol SQ ACHS #30 day 03/21/17 05/03/19 Rx Dicyclomine [Bentyl] 20 mg PO QID #10 tablet 05/23/19 Unknown Rx traMADoL [Ultram] 50 mg PO Q6HR PRN #12 tablet 05/23/19 Unknown Rx Ondansetron [Zofran ODT TAB] 4 mg PO Q6HR PRN #10 tab.rapdis 05/25/19 Unknown Rx Allergies Allergy/AdvReac Type Severity Reaction Status Date / Time No Known Allergies Allergy Verified 03/20/17 09:30 ED Review of Systems ROS: Stated complaint: SUGAR Other details as noted in HPI Comment: All other systems reviewed and negative Constitutional: malaise. denies: fever Respiratory: denies: shortness of breath Cardiovascular: denies: chest pain Gastrointestinal: nausea, vomiting. denies: abdominal pain ED Past Medical Hx - Past Medical History Previous Medical History?: Yes Hx Hypertension: Yes Hx Congestive Heart Failure: No Hx Diabetes: Yes Hx Psychiatric Treatment: Yes (depression, SI attempt) Hx Asthma: No Hx COPD: No Hx HIV: No Additional medical history: BULGING / HERNIATED DISC. hemorrhoids. OBESITY. Eczema - Surgical History Past Surgical History?: Yes Additional Surgical History: HEMORRHOIDECTOMY - Social History Smoking Status: Current Every Day Smoker Substance Use Type: None - Medications Home Medications: Home Medications Medication Instructions Recorded Confirmed Last Taken Type Indomethacin 50 mg PO TID #15 capsule 05/21/16 05/12/19 04/12/19 Rx RisperDAL 1 mg PO QHS 03/10/17 05/12/19 05/03/19 History FLUoxetine [PROzac] 40 mg PO QDAY #14 capsule 03/12/17 05/12/19 05/03/19 Rx Metoclopramide [Reglan] 10 mg PO TID PRN #10 tab 03/20/17 05/12/19 05/03/19 Rx Syr-Nd,Ins,0.5/Container,Empty 1 each MC PRN PRN #1 box 03/20/17 05/12/19 05/03/19 Rx [Ulticare Syr 0.5 ml 29GX1/2"] Insulin Regular, Human [HumuLIN R] See Protocol SQ ACHS #30 day 03/21/17 05/12/19 05/03/19 Rx Duloxetine HCl 60 mg PO QDAY 05/06/19 05/12/19 05/03/19 History Esomeprazole Magnesium [NexIUM] 40 mg PO QDAY 05/06/19 05/12/19 05/03/19 History Gabapentin [Neurontin] 100 mg PO Q8HR 05/06/19 05/12/19 05/03/19 History Lisinopril [Zestril TAB] 40 mg PO QDAY 05/06/19 05/12/19 05/03/19 History hydrOXYzine HCL [Atarax] 25 mg PO BID 05/06/19 05/12/19 05/03/19 History Insulin NPH Hum/Reg Insulin Hm 26 unit SQ BID 05/12/19 05/12/19 Unknown History [HumuLIN 70-30 Vial] traZODone [Desyrel] 150 mg PO QHS 05/12/19 05/12/19 Unknown History Dicyclomine [Bentyl] 20 mg PO QID #10 tablet 05/23/19 Unknown Rx traMADoL [Ultram] 50 mg PO Q6HR PRN #12 tablet 05/23/19 Unknown Rx Ondansetron [Zofran ODT TAB] 4 mg PO Q6HR PRN #10 tab.rapdis 05/25/19 Unknown R x ED Physical Exam - General Limitations: No Limitations General appearance: alert, in no apparent distress - Head Head exam: Present: atraumatic, normocephalic - Eye Eye exam: Present: normal appearance - ENT ENT exam: Present: mucous membranes moist - Neck Neck exam: Present: normal inspection, full ROM. Absent: tenderness, meningismus - Respiratory Respiratory exam: Present: normal lung sounds bilaterally. Absent: respiratory distress, wheezes, rales, rhonchi - Cardiovascular Cardiovascular Exam: Present: regular rate, normal rhythm, normal heart sounds. Absent: systolic murmur, diastolic murmur, rubs, gallop - GI/Abdominal GI/Abdominal exam: Present: soft, normal bowel sounds. Absent: distended, tenderness, guarding, rebound - Rectal Rectal exam: Present: deferred - Extremities Exam Extremities exam: Present: normal inspection - Neurological Exam Neurological exam: Present: alert, oriented X3 - Psychiatric Psychiatric exam: Present: normal affect, normal mood - Skin Skin exam: Present: warm, dry, intact, normal color. Absent: rash ED Course Vital Signs 06/21/19 06/21/19 21:17 22:10 Temperature 98.3 F 97.9 F Pulse Rate 94 H 86 Respiratory 20 24 Rate Blood Pressure 159/67 Blood Pressure 107/49 [Right] O2 Sat by Pulse 96 96 Oximetry ED Medical Decision Making - Lab Data Result diagrams: 06/21/19 22:21 Laboratory Results - last 24 hr 06/21/19 06/21/19 06/21/19 21:26 22:21 22:21 VBG pH 7.372 Sodium 139 Potassium 3.1 L Chloride 101.3 Carbon Dioxide 22 Anion Gap 19 BUN 11 Creatinine 1.3 Estimated GFR > 60 BUN/Creatinine Ratio 8 Glucose 102 H POC Glucose 55 L Calcium 9.3 - Medical Decision Making Labile Blood sugar readings at home with malaise, body aches, nausea. Normal kidney function. Hypokalemia. No evidence of severe diabetic complication such as DKA or hypovolemia. Prescribed potassium tabs. Critical care attestation.: If time is entered above; I have spent that time in minutes in the direct care of this critically ill patient, excluding procedure time. ED Disposition Clinical Impression: Diabetes mellitus, Hypokalemia Disposition: - TO HOME OR SELFCARE Is pt being admited?: No Does the pt Need Aspirin: No Condition: Stable Instructions: Diabetes Mellitus Type 2 in Adults (ED), Hypokalemia (ED) Referrals: PRIMARY CARE, [Primary Care Provider] - 3-5 Days [facility] [Outside] - 3-5 Days
[2019-06-21 22:53] LABS: BUN/Creatinine Ratio 8; Blood Urea Nitrogen 11 mg/dL (9-20); Calcium 9.3 mg/dL (8.4-10.2); Hemolysis Index 6
[2019-06-21] MEDS ORDERED: POTASSIUM CHLORIDE ER 20 MEQ TAB PO ONE (23:09)
[2019-06-21 23:38] VITALS: BP 119/74
== END 2019-06-21 23:35 | disposition home or self-care (01) ==
LOC: ED 21:10
DX: E87.6 Hypokalemia (principal); E11.9 Type 2 diabetes mellitus without complications; I10 Essential (primary) hypertension; F32.9 Major depressive disorder, single episode, unspecified; E66.9 Obesity, unspecified; F17.200 Nicotine dependence, unspecified, uncomplicated; Z79.899 Other long term (current) drug therapy
CPT/HCPCS: 36415; 80048; 82805; 82962

== ENCOUNTER 2019-07-04 19:58 | Emergency (ER) | payer SELFPAY ==
[2019-07-04 20:09] VITALS: BP 136/84
== END 2019-07-04 21:00 | disposition left against medical advice (07) ==
LOC: ED 19:58
DX: R42 Dizziness and giddiness (principal); Z53.21 Procedure and treatment not carried out due to patient leaving prior to being seen by health care provider
CPT/HCPCS: 82962

== ENCOUNTER 2019-08-28 09:52 | Emergency (ER) | payer SELFPAY ==
--- NOTE | 2019-08-28 10:30 | XRay Report ---
CHEST 2 VIEWS INDICATION / CLINICAL INFORMATION: cough/SOB x 2 weeks.. COMPARISON: Chest x-ray 06/27/2019 FINDINGS: SUPPORT DEVICES: None. HEART / MEDIASTINUM: No significant abnormality. LUNGS / PLEURA: No significant pulmonary or pleural abnormality. No pneumothorax. ADDITIONAL FINDINGS: Bilateral nipple piercings, unchanged. IMPRESSION: 1. No acute findings. Signer Name: Noah Angulo MD Signed: 08/28/2019 10:26 AM Workstation Name: [id number]
[2019-08-28] MEDS ORDERED: IPRATROPIUM/ALBUTEROL SULFATE 3 ML AMPUL.NEB IH ONE ×2 (11:57→12:10)
--- NOTE | 2019-08-28 11:58 | Emergency Department Report ---
Blank Doc - Documentation Documentation: 28-year-old male that presents with URI symptoms and wheezing. This initial assessment/diagnostic orders/clinical plan/treatment(s) is/are subject to change based on patient's health status, clinical progression and re- assessment by fellow clinical providers in the ED. Further treatment and workup at subsequent clinical providers discretion. Patient/guardians urged not to elope from the ED as their condition may be serious if not clinically assessed and managed. Initial orders include: 1- Patient sent to [facility] for further evaluation and treatment 2- breathing treatment
[2019-08-28] MEDS ORDERED: predniSONE 20 MG TAB PO ONE (12:11)
[2019-08-28 13:11] VITALS: BP 120/55
--- NOTE | 2019-08-28 13:25 | Emergency Department Report ---
- General Chief Complaint: Upper Respiratory Infection Stated Complaint: CHEST PAIN/CONGESTION/SHIRLEY Time Seen by Provider: 08/28/19 11:54 Source: patient Mode of arrival: Ambulatory Limitations: No Limitations - History of Present Illness Initial Comments: Patient is a 28-year-old [place] male with past medical history of diabetes who is presenting with cough and congestion. Patient states that approximately 5 weeks ago the patient was here does with bronchitis. He did improve however for the past 2-3 days he's had a return of symptoms which are worse. Patient's cough facial pain and congestion and wheezing. He denies fever nausea vomiting diarrhea at this time. - Related Data Home Medications Medication Instructions Recorded Confirmed Last Taken RisperDAL 1 mg PO QHS 03/10/17 05/12/19 05/03/19 Duloxetine HCl 60 mg PO QDAY 05/06/19 05/12/19 05/03/19 Esomeprazole Magnesium [NexIUM] 40 mg PO QDAY 05/06/19 05/12/19 05/03/19 Gabapentin [Neurontin] 100 mg PO Q8HR 05/06/19 05/12/19 05/03/19 hydrOXYzine HCL [Atarax] 25 mg PO BID 05/06/19 05/12/19 05/03/19 lisinopriL [Zestril TAB] 40 mg PO QDAY 05/06/19 05/12/19 05/03/19 Insulin NPH Hum/Reg Insulin Hm 26 unit SQ BID 05/12/19 05/12/19 Unknown [HumuLIN 70-30 Vial] traZODone [Desyrel] 150 mg PO QHS 05/12/19 05/12/19 Unknown Previous Rx's Medication Instructions Recorded Last Taken Type Indomethacin 50 mg PO TID #15 capsule 05/21/16 04/12/19 Rx FLUoxetine [PROzac] 40 mg PO QDAY #14 capsule 03/12/17 05/03/19 Rx Metoclopramide [Reglan] 10 mg PO TID PRN #10 tab 03/20/17 05/03/19 Rx Syr-Nd,Ins,0.5/Container,Empty 1 each MC PRN PRN #1 box 03/20/17 05/03/19 Rx [Ulticare Syr 0.5 ml 29GX1/2"] Insulin Regular, Human [HumuLIN R] See Protocol SQ ACHS #30 day 03/21/17 05/03/19 Rx Dicyclomine [Bentyl] 20 mg PO QID #10 tablet 05/23/19 Unknown Rx traMADoL [Ultram] 50 mg PO Q6HR PRN #12 tablet 05/23/19 Unknown Rx Ondansetron [Zofran ODT TAB] 4 mg PO Q6HR PRN #10 tab.rapdis 05/25/19 Unknown Rx Potassium Chloride 10 meq PO DAILY 14 Days #14 06/21/19 Unknown Rx tablet.er Albuterol INH(or & Nicu Only) 2 puff IH QID PRN #1 inhalation 08/28/19 Unknown Rx [ProAir HFA Inhaler] Amoxicillin/Potassium Clav 1 each PO BID #14 tablet 08/28/19 Unknown Rx [Augmentin 875-125 Tablet] Benzonatate [Tessalon Perles] 100 mg PO Q8HR #10 capsule 08/28/19 Unknown Rx Fluticasone [Flonase] 1 spray NS QDAY #1 bottle 08/28/19 Unknown Rx traMADoL [Ultram] 50 mg PO Q6HR PRN #12 tablet 08/28/19 Unknown Rx Allergies Allergy/AdvReac Type Severity Reaction Status Date / Time No Known Allergies Allergy Verified 03/20/17 09:30 ED Review of Systems ROS: Stated complaint: CHEST PAIN/CONGESTION/SHIRLEY Other details as noted in HPI Comment: All other systems reviewed and negative ED Past Medical Hx - Past Medical History Previous Medical History?: Yes Hx Hypertension: Yes Hx Congestive Heart Failure: No Hx Diabetes: Yes Hx Psychiatric Treatment: Yes (depression, SI attempt) Hx Asthma: No Hx COPD: No Hx HIV: No Additional medical history: BULGING / HERNIATED DISC. hemorrhoids. OBESITY. Eczema - Surgical History Past Surgical History?: Yes Additional Surgical History: HEMORRHOIDECTOMY - Social History Smoking Status: Current Every Day Smoker Substance Use Type: None - Medications Home Medications: Home Medications Medication Instructions Recorded Confirmed Last Taken Type Indomethacin 50 mg PO TID #15 capsule 05/21/16 05/12/19 04/12/19 Rx RisperDAL 1 mg PO QHS 03/10/17 05/12/19 05/03/19 History FLUoxetine [PROzac] 40 mg PO QDAY #14 capsule 03/12/17 05/12/19 05/03/19 Rx Metoclopramide [Reglan] 10 mg PO TID PRN #10 tab 03/20/17 05/12/19 05/03/19 Rx Syr-Nd,Ins,0.5/Container,Empty 1 each MC PRN PRN #1 box 03/20/17 05/12/19 05/03/19 Rx [Ulticare Syr 0.5 ml 29GX1/2"] Insulin Regular, Human [HumuLIN R] See Protocol SQ ACHS #30 day 03/21/17 05/12/19 05/03/19 Rx Duloxetine HCl 60 mg PO QDAY 05/06/19 05/12/19 05/03/19 History Esomeprazole Magnesium [NexIUM] 40 mg PO QDAY 05/06/19 05/12/19 05/03/19 History Gabapentin [Neurontin] 100 mg PO Q8HR 05/06/19 05/12/19 05/03/19 History hydrOXYzine HCL [Atarax] 25 mg PO BID 05/06/19 05/12/19 05/03/19 History lisinopriL [Zestril TAB] 40 mg PO QDAY 05/06/19 05/12/19 05/03/19 History Insulin NPH Hum/Reg Insulin Hm 26 unit SQ BID 05/12/19 05/12/19 Unknown History [HumuLIN 70-30 Vial] traZODone [Desyrel] 150 mg PO QHS 05/12/19 05/12/19 Unknown History Dicyclomine [Bentyl] 20 mg PO QID #10 tablet 05/23/19 Unknown Rx traMADoL [Ultram] 50 mg PO Q6HR PRN #12 tablet 05/23/19 Unknown Rx Ondansetron [Zofran ODT TAB] 4 mg PO Q6HR PRN #10 tab.rapdis 05/25/19 Unknown Rx Potassium Chloride 10 meq PO DAILY 14 Days #14 06/21/19 Unknown Rx tablet.er Albuterol INH(or & Nicu Only) 2 puff IH QID PRN #1 inhalation 08/28/19 Unknown Rx [ProAir HFA Inhaler] Amoxicillin/Potassium Clav 1 each PO BID #14 tablet 08/28/19 Unknown Rx [Augmentin 875-125 Tablet] Benzonatate [Tessalon Perles] 100 mg PO Q8HR #10 capsule 08/28/19 Unknown Rx Fluticasone [Flonase] 1 spray NS QDAY #1 bottle 08/28/19 Unknown Rx traMADoL [Ultram] 50 mg PO Q6HR PRN #12 tablet 08/28/19 Unknown Rx ED Physical Exam - General Limitations: No Limitations General appearance: alert, in no apparent distress - Head Head exam: Present: atraumatic, normocephalic, other (patient has pain palpation to the frontal and maxillary sinuses) - Eye Eye exam: Present: normal appearance, PERRL, EOMI - ENT ENT exam: Present: mucous membranes moist - Neck Neck exam: Present: normal inspection - Respiratory Respiratory exam: Present: respiratory distress, wheezes. Absent: normal lung sounds bilaterally, rales, rhonchi, chest wall tenderness, accessory muscle use, decreased breath sounds - Cardiovascular Cardiovascular Exam: Present: regular rate, normal rhythm, normal heart sounds. Absent: systolic murmur, diastolic murmur, rubs, gallop - GI/Abdominal GI/Abdominal exam: Present: soft, normal bowel sounds. Absent: distended, tenderness, guarding, rebound - Rectal Rectal exam: Present: deferred - Extremities Exam Extremities exam: Present: normal inspection - Back Exam Back exam: Present: normal inspection - Neurological Exam Neurological exam: Present: alert, oriented X3 - Psychiatric Psychiatric exam: Present: normal affect, normal mood - Skin Skin exam: Present: warm, dry, intact, normal color. Absent: rash ED Course Vital Signs 08/28/19 08/28/19 09:57 13:10 Temperature 97.6 F 98.0 F Pulse Rate 81 82 Respiratory 22 16 Rate Blood Pressure 118/74 Blood Pressure 120/55 [Right] O2 Sat by Pulse 97 96 Oximetry ED Medical Decision Making - Radiology Data Chest x-ray is within normal limits - Medical Decision Making Patient is a 28-year-old [place] male who is presenting with cough congestion facial pain and wheezing. The patient received 2 DuoNeb for his wheezing which did improve his symptoms. Prednisone was held secondary to the patient having spikes in his blood sugar when he's taken steroids in the past. Patient's chest x-ray shows no evidence of pneumonia. Patient does have evidence of acute sinusitis on physical exam. Patient started on Augmentin as well as albuterol inhaler and Flonase and be discharged home. Critical care attestation.: If time is entered above; I have spent that time in minutes in the direct care of this critically ill patient, excluding procedure time. ED Disposition Clinical Impression: Acute bronchitis Disposition: DC- TO HOME OR SELFCARE Is pt being admited?: No Does the pt Need Aspirin: No Condition: Stable Instructions: Acute Bronchitis (ED), Bronchospasm (ED), Acute Bacterial Rhinosinusitis (ED) Referrals: PRIMARY CARE, [Primary Care Provider] - 3-5 Days Time of Disposition: 13:24
== END 2019-08-28 13:40 | disposition home or self-care (01) ==
LOC: ED 09:52
DX: J20.8 Acute bronchitis due to other specified organisms (principal); I10 Essential (primary) hypertension; E11.9 Type 2 diabetes mellitus without complications; F32.9 Major depressive disorder, single episode, unspecified; F17.200 Nicotine dependence, unspecified, uncomplicated; Z79.899 Other long term (current) drug therapy
CPT/HCPCS: 71046; 94640; 94644; J7512

== ENCOUNTER 2019-10-03 07:45 | Emergency (ER) | payer SELFPAY ==
[2019-10-03] MEDS ORDERED: ONDANSETRON 4 MG/2 ML INJ IV ONE (08:26)
[2019-10-03] MEDS ORDERED: SODIUM CHLORIDE 0.9% 1000 ML 1,000 ML IV ONE ×2 (08:26→10:33)
--- NOTE | 2019-10-03 08:29 | Emergency Department Report ---
ED General Adult HPI - General Chief complaint: Hyperglycemia Stated complaint: VOMITTING Time Seen by Provider: 10/03/19 08:10 Source: patient Mode of arrival: Ambulatory Limitations: No Limitations - History of Present Illness Initial comments: The patient presents to the emergency department the chief complaint of nausea and vomiting since Thursday. Patient states he has a history of insulin-dependent diabetes and is concerned that he may be in DKA. Patient denies fever, recent cold, cough. Patient denies diarrhea and is not sure of any sick contacts. Patient denies chest pain, shortness breath, or abdominal pain. -: Sudden Severity scale (0 -10): 0 Consistency: constant Improves with: none Worsens with: none Associated Symptoms: denies other symptoms Treatments Prior to Arrival: none - Related Data Home Medications Medication Instructions Recorded Confirmed Last Taken RisperDAL 1 mg PO QHS 03/10/17 05/12/19 05/03/19 Duloxetine HCl 60 mg PO QDAY 05/06/19 05/12/19 05/03/19 Esomeprazole Magnesium [NexIUM] 40 mg PO QDAY 05/06/19 05/12/19 05/03/19 Gabapentin [Neurontin] 100 mg PO Q8HR 05/06/19 05/12/19 05/03/19 hydrOXYzine HCL [Atarax] 25 mg PO BID 05/06/19 05/12/19 05/03/19 lisinopriL [Zestril TAB] 40 mg PO QDAY 05/06/19 05/12/19 05/03/19 Insulin NPH Hum/Reg Insulin Hm 26 unit SQ BID 05/12/19 05/12/19 Unknown [HumuLIN 70-30 Vial] traZODone [Desyrel] 150 mg PO QHS 05/12/19 05/12/19 Unknown Previous Rx's Medication Instructions Recorded Last Taken Type Indomethacin 50 mg PO TID #15 capsule 05/21/16 04/12/19 Rx FLUoxetine [PROzac] 40 mg PO QDAY #14 capsule 03/12/17 05/03/19 Rx Metoclopramide [Reglan] 10 mg PO TID PRN #10 tab 03/20/17 05/03/19 Rx Syr-Nd,Ins,0.5/Container,Empty 1 each MC PRN PRN #1 box 03/20/17 05/03/19 Rx [Ulticare Syr 0.5 ml 29GX1/2"] Insulin Regular, Human [HumuLIN R] See Protocol SQ ACHS #30 day 03/21/17 05/03/19 Rx Dicyclomine [Bentyl] 20 mg PO QID #10 tablet 05/23/19 Unknown Rx traMADoL [Ultram] 50 mg PO Q6HR PRN #12 tablet 05/23/19 Unknown Rx Ondansetron [Zofran ODT TAB] 4 mg PO Q6HR PRN #10 tab.rapdis 05/25/19 Unknown Rx Potassium Chloride 10 meq PO DAILY 14 Days #14 06/21/19 Unknown Rx tablet.er Albuterol INH(or & Nicu Only) 2 puff IH QID PRN #1 inhalation 08/28/19 Unknown Rx [ProAir HFA Inhaler] Amoxicillin/Potassium Clav 1 each PO BID #14 tablet 08/28/19 Unknown Rx [Augmentin 875-125 Tablet] Benzonatate [Tessalon Perles] 100 mg PO Q8HR #10 capsule 08/28/19 Unknown Rx Fluticasone [Flonase] 1 spray NS QDAY #1 bottle 08/28/19 Unknown Rx traMADoL [Ultram] 50 mg PO Q6HR PRN #12 tablet 08/28/19 Unknown Rx Allergies Allergy/AdvReac Type Severity Reaction Status Date / Time No Known Allergies Allergy Verified 03/20/17 09:30 ED Review of Systems ROS: Stated complaint: VOMITTING Other details as noted in HPI Comment: All other systems reviewed and negative Constitutional: denies: chills, fever Eyes: denies: eye pain, eye discharge, vision change ENT: denies: ear pain, throat pain Respiratory: denies: cough, shortness of breath, wheezing Cardiovascular: denies: chest pain, palpitations Endocrine: no symptoms reported Gastrointestinal: denies: abdominal pain, nausea, diarrhea Genitourinary: denies: urgency, dysuria Musculoskeletal: denies: back pain, joint swelling, arthralgia Skin: denies: rash, lesions Neurological: denies: headache, weakness, paresthesias Psychiatric: denies: anxiety, depression Hematological/Lymphatic: denies: easy bleeding, easy bruising ED Past Medical Hx - Past Medical History Hx Hypertension: Yes Hx Congestive Heart Failure: No Hx Diabetes: Yes Hx Psychiatric Treatment: Yes (depression, SI attempt) Hx Asthma: No Hx COPD: No Hx HIV: No Additional medical history: BULGING / HERNIATED DISC. hemorrhoids. OBESITY. Eczema - Surgical History Past Surgical History?: Yes Additional Surgical History: HEMORRHOIDECTOMY - Social History Smoking Status: Never Smoker Substance Use Type: None - Medications Home Medications: Home Medications Medication Instructions Recorded Confirmed Last Taken Type Indomethacin 50 mg PO TID #15 capsule 05/21/16 05/12/19 04/12/19 Rx RisperDAL 1 mg PO QHS 03/10/17 05/12/19 05/03/19 History FLUoxetine [PROzac] 40 mg PO QDAY #14 capsule 03/12/17 05/12/19 05/03/19 Rx Metoclopramide [Reglan] 10 mg PO TID PRN #10 tab 03/20/17 05/12/19 05/03/19 Rx Syr-Nd,Ins,0.5/Container,Empty 1 each MC PRN PRN #1 box 03/20/17 05/12/19 05/03/19 Rx [Ulticare Syr 0.5 ml 29GX1/2"] Insulin Regular, Human [HumuLIN R] See Protocol SQ ACHS #30 day 03/21/17 9 05/03/19 Rx Duloxetine HCl 60 mg PO QDAY 05/06/19 05/12/19 05/03/19 History Esomeprazole Magnesium [NexIUM] 40 mg PO QDAY 05/06/19 05/12/19 05/03/19 History Gabapentin [Neurontin] 100 mg PO Q8HR 05/06/19 05/12/19 05/03/19 History hydrOXYzine HCL [Atarax] 25 mg PO BID 05/06/19 05/12/19 05/03/19 History lisinopriL [Zestril TAB] 40 mg PO QDAY 05/06/19 05/12/19 05/03/19 History Insulin NPH Hum/Reg Insulin Hm 26 unit SQ BID 05/12/19 05/12/19 Unknown History [HumuLIN 70-30 Vial] traZODone [Desyrel] 150 mg PO QHS 05/12/19 05/12/19 Unknown History Dicyclomine [Bentyl] 20 mg PO QID #10 tablet 05/23/19 Unknown Rx traMADoL [Ultram] 50 mg PO Q6HR PRN #12 tablet 05/23/19 Unknown Rx Ondansetron [Zofran ODT TAB] 4 mg PO Q6HR PRN #10 tab.rapdis 05/25/19 Unknown Rx Potassium Chloride 10 meq PO DAILY 14 Days #14 06/21/19 Unknown Rx tablet.er Albuterol INH(or & Nicu Only) 2 puff IH QID PRN #1 inhalation 08/28/19 Unknown Rx [ProAir HFA Inhaler] Amoxicillin/Potassium Clav 1 each PO BID #14 tablet 08/28/19 Unknown Rx [Augmentin 875-125 Tablet] Benzonatate [Tessalon Perles] 100 mg PO Q8HR #10 capsule 08/28/19 Unknown Rx Fluticasone [Flonase] 1 spray NS QDAY #1 bottle 08/28/19 Unknown Rx traMADoL [Ultram] 50 mg PO Q6HR PRN #12 tablet 08/28/19 Unknown Rx ED Physical Exam - General Limitations: No Limitations General appearance: alert, in no apparent distress - Head Head exam: Present: atraumatic, normocephalic - Eye Eye exam: Present: normal appearance, PERRL, EOMI - ENT ENT exam: Present: mucous membranes moist - Neck Neck exam: Present: normal inspection - Respiratory Respiratory exam: Present: normal lung sounds bilaterally. Absent: respiratory distress - Cardiovascular Cardiovascular Exam: Present: regular rate, normal rhythm. Absent: systolic murmur, diastolic murmur, rubs, gallop - GI/Abdominal GI/Abdominal exam: Present: soft, normal bowel sounds. Absent: distended, tenderness - Rectal Rectal exam: Present: deferred - Extremities Exam Extremities exam: Present: normal inspection - Back Exam Back exam: Present: normal inspection - Neurological Exam Neurological exam: Present: alert, oriented X3, CN II-XII intact. Absent: motor sensory deficit - Psychiatric Psychiatric exam: Present: normal affect, normal mood - Skin Skin exam: Present: warm, dry, intact, normal color. Absent: rash ED Course Vital Signs 10/03/19 10/03/19 10/03/19 07:52 08:30 09:22 Temperature 97.7 F Pulse Rate 80 67 66 Respiratory 20 17 17 Rate Blood Pressure 113/70 Blood Pressure 110/64 101/57 [Left] O2 Sat by Pulse 98 98 97 Oximetry 10/03/19 12:39 Temperature Pulse Rate 85 Respiratory 18 Rate Blood Pressure Blood Pressure 110/66 [Left] O2 Sat by Pulse 99 Oximetry ED Medical Decision Making - Lab Data Result diagrams: 10/03/19 09:40 10/03/19 09:44 Lab Results 10/03/19 10/03/19 10/03/19 Range/Units 08:02 09:40 09:44 WBC 4.0 L (4.5-11.0) K/mm3 RBC 5.06 H (3.65-5.03) M/mm3 Hgb 14.0 (11.8-15.2) gm/dl Hct 41.2 (35.5-45.6) % MCV 82 L (84-94) fl MCH 28 (28-32) pg MCHC 34 (32-34) % RDW 13.3 (13.2-15.2) % Plt Count 209 (140-440) K/mm3 Lymph % (Auto) 34.3 (13.4-35.0) % Miller % (Auto) 8.4 H (0.0-7.3) % Eos % (Auto) 2.2 (0.0-4.3) % Baso % (Auto) 0.5 (0.0-1.8) % Lymph # 1.4 (1.2-5.4) K/mm3 Miller # 0.3 (0.0-0.8) K/mm3 Eos # 0.1 (0.0-0.4) K/mm3 Baso # 0.0 (0.0-0.1) K/mm3 Seg Neutrophils % 54.6 (40.0-70.0) % Seg Neutrophils # 2.2 (1.8-7.7) K/mm3 Sodium 127 L (137-145) mmol/L Potassium 4.2 (3.6-5.0) mmol/L Chloride 85.4 L (98-107) mmol/L Carbon Dioxide 17 L (22-30) mmol/L Anion Gap 29 mmol/L BUN 15 (9-20) mg/dL Creatinine 1.3 (0.8-1.5) mg/dL Estimated GFR > 60 ml/min BUN/Creatinine Ratio 12 % Glucose 661 H* (75-100) mg/dL POC Glucose 447 H (70-105) Calcium 9.3 (8.4-10.2) mg/dL Total Bilirubin 0.70 (0.1-1.2) mg/dL AST 14 (5-40) units/L ALT 15 (7-56) units/L Alkaline Phosphatase 86 (35-129) units/L Total Protein 7.6 (6.3-8.2) g/dL Albumin 4.0 (3.9-5) g/dL Albumin/Globulin Ratio 1.1 % Urine Color (Yellow) Urine Turbidity (Clear) Urine pH (5.0-7.0) Ur Specific [place] (1.003-1.030) Urine Protein (Negative) mg/dL Urine Glucose (UA) (Negative) mg/dL Urine Ketones (Negative) mg/dL Urine Blood (Negative) Urine Nitrite (Negative) Ur Reducing Substances Urine Bilirubin (Negative) Urine Ictotest Urine Urobilinogen (<2.0) mg/dL Ur Leukocyte Esterase (Negative) Urine WBC (Auto) (0.0-6.0) /HPF Urine RBC (Auto) (0.0-6.0) /HPF Urine Mucus /HPF 10/03/19 10/03/19 10/03/19 Range/Units 10:07 11:50 12:40 WBC (4.5-11.0) K/mm3 RBC (3.65-5.03) M/mm3 Hgb (11.8-15.2) gm/dl Hct (35.5-45.6) % MCV (84-94) fl MCH (28-32) pg MCHC (32-34) % RDW (13.2-15.2) % Plt Count (140-440) K/mm3 Lymph % (Auto) (13.4-35.0) % Miller % (Auto) (0.0-7.3) % Eos % (Auto) (0.0-4.3) % Baso % (Auto) (0.0-1.8) % Lymph # (1.2-5.4) K/mm3 Miller # (0.0-0.8) K/mm3 Eos # (0.0-0.4) K/mm3 Baso # (0.0-0.1) K/mm3 Seg Neutrophils % (40.0-70.0) % Seg Neutrophils # (1.8-7.7) K/mm3 Sodium (137-145) mmol/L Potassium (3.6-5.0) mmol/L Chloride (98-107) mmol/L Carbon Dioxide (22-30) mmol/L Anion Gap mmol/L BUN (9-20) mg/dL Creatinine (0.8-1.5) mg/dL Estimated GFR ml/min BUN/Creatinine Ratio % Glucose (75-100) mg/dL POC Glucose > 500 H 479 H 441 H (70-105) Calcium (8.4-10.2) mg/dL Total Bilirubin (0.1-1.2) mg/dL AST (5-40) units/L ALT (7-56) units/L Alkaline Phosphatase (35-129) units/L Total Protein (6.3-8.2) g/dL Albumin (3.9-5) g/dL Albumin/Globulin Ratio % Urine Color (Yellow) Urine Turbidity (Clear) Urine pH (5.0-7.0) Ur Specific [place] (1.003-1.030) Urine Protein (Negative) mg/dL Urine Glucose (UA) (Negative) mg/dL Urine Ketones (Negative) mg/dL Urine Blood (Negative) Urine Nitrite (Negative) Ur Reducing Substances Urine Bilirubin (Negative) Urine Ictotest Urine Urobilinogen (<2.0) mg/dL Ur Leukocyte Esterase (Negative) Urine WBC (Auto) (0.0-6.0) /HPF Urine RBC (Auto) (0.0-6.0) /HPF Urine Mucus /HPF 10/03/19 10/03/19 Range/Units 13:41 Unknown WBC (4.5-11.0) K/mm3 RBC (3.65-5.03) M/mm3 Hgb (11.8-15.2) gm/dl Hct (35.5-45.6) % MCV (84-94) fl MCH (28-32) pg MCHC (32-34) % RDW (13.2-15.2) % Plt Count (140-440) K/mm3 Lymph % (Auto) (13.4-35.0) % Miller % (Auto) (0.0-7.3) % Eos % (Auto) (0.0-4.3) % Baso % (Auto) (0.0-1.8) % Lymph # (1.2-5.4) K/mm3 Miller # (0.0-0.8) K/mm3 Eos # (0.0-0.4) K/mm3 Baso # (0.0-0.1) K/mm3 Seg Neutrophils % (40.0-70.0) % Seg Neutrophils # (1.8-7.7) K/mm3 Sodium (137-145) mmol/L Potassium (3.6-5.0) mmol/L Chloride (98-107) mmol/L Carbon Dioxide (22-30) mmol/L Anion Gap mmol/L BUN (9-20) mg/dL Creatinine (0.8-1.5) mg/dL Estimated GFR ml/min BUN/Creatinine Ratio % Glucose (75-100) mg/dL POC Glucose 392 H (70-105) Calcium (8.4-10.2) mg/dL Total Bilirubin (0.1-1.2) mg/dL AST (5-40) units/L ALT (7-56) units/L Alkaline Phosphatase (35-129) units/L Total Protein (6.3-8.2) g/dL Albumin (3.9-5) g/dL Albumin/Globulin Ratio % Urine Color Straw (Yellow) Urine Turbidity Clear (Clear) Urine pH 5.0 (5.0-7.0) Ur Specific [place] 1.025 (1.003-1.030) Urine Protein <15 mg/dl (Negative) mg/dL Urine Glucose (UA) >=500 (Negative) mg/dL Urine Ketones 80 (Negative) mg/dL Urine Blood Neg (Negative) Urine Nitrite Neg (Negative) Ur Reducing Substances Not Reportable Urine Bilirubin Neg (Negative) Urine Ictotest Not Reportable Urine Urobilinogen < 2.0 (<2.0) mg/dL Ur Leukocyte Esterase Neg (Negative) Urine WBC (Auto) 3.0 (0.0-6.0) /HPF Urine RBC (Auto) < 1.0 (0.0-6.0) /HPF Urine Mucus Few /HPF - Medical Decision Making After 2 L of fluid and a total of 18 units of regular insulin the patient's blood glucose decreased to 396 Patient states that he is going to leave here and go to the [place] diabetic clinic. Critical Care Time: Yes Critical care time in (mins) excluding proc time.: 35 Critical care attestation.: If time is entered above; I have spent that time in minutes in the direct care of this critically ill patient, excluding procedure time. ED Disposition Clinical Impression: Hyperglycemia Disposition: DC-01 TO HOME OR SELFCARE Is pt being admited?: No Does the pt Need Aspirin: No Condition: Stable Instructions: Diabetic Hyperglycemia (ED) Additional Instructions: return if worse Referrals: PRIMARY CARE, [Referring] - 3-5 Days [facility] [Provider Group] - 3-5 Days [facility] [Provider Group] - 3-5 Days [facility] [Provider Group] - 3-5 Days [facility] [place] [Outside] - 3-5 Days Time of Disposition: 13:33
[2019-10-03 09:19] LABS: Mucus,Urine FEW /HPF; RBC,Urine < 1.0 /HPF (0.0-6.0)
[2019-10-03 09:26] LABS: Bilirubin,Urine NEG (Negative); Blood,Urine NEG (Negative); Color,Urine Straw (Yellow); Protein,Urine <15 mg/dL mg/dL (Negative); Urobilinogen,Urine < 2.0 mg/dL (<2.0)
[2019-10-03 10:04] LABS: Basophils % (Auto) 0.5 % (0.0-1.8); Eosinophils # (Auto) 0.1 K/mm3 (0.0-0.4); Eosinophils % (Auto) 2.2 % (0.0-4.3); Hematocrit 41.2 % (35.5-45.6); Lymphocytes # (Auto) 1.4 K/mm3 (1.2-5.4); Lymphocytes % (Auto) 34.3 % (13.4-35.0); Mean Corpuscular HGB Conc 34 % (32-34); Mean Corpuscular Volume 82 fl (84-94); Monocytes # (Auto) 0.3 K/mm3 (0.0-0.8); Monocytes % (Auto) 8.4 % (0.0-7.3); Platelet Count 209 K/mm3 (140-440); Red Blood Count 5.06 M/mm3 (3.65-5.03); Red Cell Distribution Width 13.3 % (13.2-15.2)
[2019-10-03 10:29] LABS: Alanine Aminotransferase 15 units/L (7-56); BUN/Creatinine Ratio 12; Blood Urea Nitrogen 15 mg/dL (9-20); Calcium 9.3 mg/dL (8.4-10.2); Hemolysis Index 10
[2019-10-03] MEDS ORDERED: INSULIN REGULAR, HUMAN 100 UNITS/1 ML IV ONE ×2 (10:32→12:11)
[2019-10-03] MEDS ORDERED: INSULIN REGULAR, HUMAN 100 UNITS/1 ML ONE (12:35)
[2019-10-03 12:42] VITALS: BP 110/66
== END 2019-10-03 13:45 | disposition home or self-care (01) ==
LOC: ED 07:45
DX: E11.65 Type 2 diabetes mellitus with hyperglycemia (principal); R11.2 Nausea with vomiting, unspecified; I10 Essential (primary) hypertension; F32.9 Major depressive disorder, single episode, unspecified
CPT/HCPCS: 36415; 80053; 81001; 82962; 85025; 96361; 96374; 96375; 96376; 99284; J2405; J7030; J1815

== ENCOUNTER 2020-03-24 23:39 | Emergency (ER) | payer SELFPAY ==
[2020-03-25 01:16] VITALS: BP 126/73
--- NOTE | 2020-03-25 02:49 | Emergency Department Report ---
ED Laceration [facility] Chief Complaint: Wound/Laceration Stated Complaint: LEFT WRIST LAC Time Seen by Provider: 03/25/20 02:45 Occurred When: Today Location: Upper Extremity (Left forearm) Tetanus Status: Up to Date Laceration Symptoms: Yes Pain, No Foreign Body Sensation, No Numbness, No Weakness Other History: 29-year-old -Marshallese male presents to the emergency room for cut on his left inner wrist with a knife while cutting a sleeve offers a shirt. Patient reports that he did clean the wound. Patient states that he is up-to-date on his tetanus as he had a 3 years ago. Patient reports he has no known drug allergies. He does admit that he is a diabetic on insulin and has asthma. As well as hypertension. ED Review of Systems ROS: Stated complaint: LEFT WRIST LAC Other details as noted in HPI ED Past Medical Hx - Past Medical History Previous Medical History?: Yes Hx Hypertension: Yes Hx Congestive Heart Failure: No Hx Diabetes: Yes Hx Psychiatric Treatment: Yes (depression, SI attempt) Hx Asthma: No Hx COPD: No Hx HIV: No Additional medical history: BULGING / HERNIATED DISC. hemorrhoids. OBESITY. Eczema - Surgical History Past Surgical History?: Yes Additional Surgical History: HEMORRHOIDECTOMY - Social History Smoking Status: Current Every Day Smoker Substance Use Type: None - Medications Home Medications: Home Medications Medication Instructions Recorded Confirmed Last Taken Type Indomethacin 50 mg PO TID #15 capsule 05/21/16 05/12/19 04/12/19 Rx RisperDAL 1 mg PO QHS 03/10/17 05/12/19 05/03/19 History FLUoxetine [PROzac] 40 mg PO QDAY #14 capsule 03/12/17 05/12/19 05/03/19 Rx Metoclopramide [Reglan] 10 mg PO TID PRN #10 tab 03/20/17 05/12/19 05/03/19 Rx Syr-Nd,Ins,0.5/Container,Empty 1 each MC PRN PRN #1 box 03/20/17 05/12/19 05/03/19 Rx [Ulticare Syr 0.5 ml 29GX1/2"] Insulin Regular, Human [HumuLIN R] See Protocol SQ ACHS #30 day 03/21/17 05/12/19 05/03/19 Rx Duloxetine HCl 60 mg PO QDAY 05/06/19 05/12/19 05/03/19 History Esomeprazole Magnesium [NexIUM] 40 mg PO QDAY 05/06/19 05/12/19 05/03/19 History Gabapentin [Neurontin] 100 mg PO Q8HR 05/06/19 05/12/19 05/03/19 History hydrOXYzine HCL [Atarax] 25 mg PO BID 05/06/19 05/12/19 05/03/19 History lisinopriL [Zestril TAB] 40 mg PO QDAY 05/06/19 05/12/19 05/03/19 History Insulin NPH Hum/Reg Insulin Hm 26 unit SQ BID 05/12/19 05/12/19 Unknown History [HumuLIN 70-30 Vial] traZODone [Desyrel] 150 mg PO QHS 05/12/19 05/12/19 Unknown History Dicyclomine [Bentyl] 20 mg PO QID #10 tablet 05/23/19 Unknown Rx traMADoL [Ultram] 50 mg PO Q6HR PRN #12 tablet 05/23/19 Unknown Rx Ondansetron [Zofran ODT TAB] 4 mg PO Q6HR PRN #10 tab.rapdis 05/25/19 Unknown Rx Potassium Chloride 10 meq PO DAILY 14 Days #14 06/21/19 Unknown Rx tablet.er Albuterol Mdi (or & Nicu Only) 2 puff IH QID PRN #1 inhalation 08/28/19 Unknown Rx [ProAir HFA Inhaler] Amoxicillin/Potassium Clav 1 each PO BID #14 tablet 08/28/19 Unknown Rx [Augmentin 875-125 Tablet] Benzonatate [Tessalon Perles] 100 mg PO Q8HR #10 capsule 08/28/19 Unknown Rx Fluticasone [Flonase] 1 spray NS QDAY #1 bottle 08/28/19 Unknown Rx traMADoL [Ultram] 50 mg PO Q6HR PRN #12 tablet 08/28/19 Unknown Rx HYDROcodone/APAP 5-325 [[place] 1 each PO Q6HR PRN #5 tablet 03/10/20 Unknown Rx 5/325] cephALEXin [Keflex] 500 mg PO Q12HR 7 Days #14 cap 03/25/20 Unknown Rx Laceration Physical Exam - Exam General: Vital signs noted. No distress. Alert and acting appropriately. ED Course Vital Signs 03/25/20 01:11 Temperature 98.5 F Pulse Rate 96 H Respiratory 18 Rate Blood Pressure 126/73 O2 Sat by Pulse 95 Oximetry - Laceration /Wound Repair Left Wrist Wound Location: upper extremity Wound Length (cm): 4 Wound's Depth, Shape: into muscle Wound Explored: no foreign body removed Irrigated w/ Saline (ccs): 45 Betadine Prep?: Yes Anesthesia: 1% Lidocaine Volume Anesthetic (ccs): 2 Wound Debrided: minimal Wound Repaired With: sutures Suture Size/Type: 4:0 Number of Sutures: 5 Sterile Dressing Applied?: Yes Progress: Patient tolerated well ED Medical Decision Making - Medical Decision Making 29-year-old -M[place]ese male presents to the emergency room for cut on his left inner wrist with a knife while cutting a sleeve offers a shirt. Patient reports that he did clean the wound. Patient states that he is up-to-date on his tetanus as he had a 3 years ago. Patient reports he has no known drug allergies. He does admit that he is a diabetic on insulin and has asthma. As well as hypertension. Laceration to left inner wrist with suture repair. I will place patient on Keflex as he is a diabetic and would like to prevent any infection. Patient instructed to take Tylenol or ibuprofen as needed for pain management. He is instructed to return back to the emergency room or his primary care office in 7 to 10 days to have sutures removed. Critical care attestation.: If time is entered above; I have spent that time in minutes in the direct care of this critically ill patient, excluding procedure time. ED Disposition Clinical Impression: Laceration of left wrist Disposition: DC-01 TO HOME OR SELFCARE Is pt being admited?: No Does the pt Need Aspirin: No Condition: Stable Instructions: Laceration (ED), Suture Care (ED) Additional Instructions: Complete antibiotics as prescribed. Take [id number] Tylenol Motrin as needed for pain management. Return back to the emergency room or your primary care provider in 7 to 10 days to have sutures removed. Please keep the sutures clean and dry. Prescriptions: cephALEXin [Keflex] 500 mg PO Q12HR 7 Days #14 cap Referrals: PRIMARY CARE,MD [Primary Care Provider] - 3-5 Days Your, primary care provider [Other] - 3-5 Days Forms: Work/School Release Form(ED)
== END 2020-03-25 02:53 | disposition home or self-care (01) ==
LOC: ED 23:39
DX: S61.512A Laceration without foreign body of left wrist, initial encounter (principal); I10 Essential (primary) hypertension; E11.9 Type 2 diabetes mellitus without complications; F32.9 Major depressive disorder, single episode, unspecified; Z79.4 Long term (current) use of insulin; Z79.899 Other long term (current) drug therapy; Z98.890 Other specified postprocedural states; W26.0XXA Contact with knife, initial encounter; Y93.89 Activity, other specified; Y92.89 Other specified places as the place of occurrence of the external cause; Y99.8 Other external cause status
CPT/HCPCS: 99282

== ENCOUNTER 2020-09-03 18:42 | Observation (INO) | payer OTHER ==
[2020-09-03 21:59] LABS: Basophils % (Auto) 0.6 % (0.0-1.8); Eosinophils # (Auto) 0.1 K/mm3 (0.0-0.4); Eosinophils % (Auto) 2.5 % (0.0-4.3); Hemoglobin 15.2 gm/dl (11.8-15.2); Lymphocytes # (Auto) 1.7 K/mm3 (1.2-5.4); Lymphocytes % (Auto) 46.4 % (13.4-35.0); Mean Corpuscular HGB Conc 35 % (32-34); Mean Corpuscular Volume 84 fl (84-94); Monocytes # (Auto) 0.3 K/mm3 (0.0-0.8); Monocytes % (Auto) 8.8 % (0.0-7.3); Platelet Count 210 K/mm3 (140-440); Red Blood Count 5.21 M/mm3 (3.65-5.03); Red Cell Distribution Width 12.1 % (13.2-15.2)
--- NOTE | 2020-09-03 22:11 | Cat Scan Report ---
. CT head/brain wo con INDICATION / CLINICAL INFORMATION: 29 years Male; syncope. TECHNIQUE: Routine CT head without contrast. All CT scans at this location are performed using CT dos e reduction for ALARA by means of automated exposure control. COMPARISON: 05/16/2019 FINDINGS: BRAIN / INTRACRANIAL CONTENTS: No acute hemorrhage, mass effect, midline shift, hydrocephalus, or acu te, large territorial infarct. No signs of significant atrophy or chronic infarct. No significant whi te matter abnormality seen. CRANIOCERVICAL JUNCTION: No significant abnormality. ORBITS: No significant abnormality of visualized orbits. SINUSES / MASTOIDS: Visualized paranasal sinuses and mastoid air cells are essentially clear. ADDITIONAL FINDINGS: None. IMPRESSION: 1. No focal mass, hemorrhage, hydrocephalus, or acute, large territorial infarct. Signer Name: Brad Appiah MD, III Signed: 09/03/2020 10:06 PM Workstation Name: [id number]
--- NOTE | 2020-09-03 22:13 | Cat Scan Report ---
. CT cervical spine wo con INDICATION / CLINICAL INFORMATION: 29 years Male; head injury after syncope. TECHNIQUE: Axial CT images of the cervical spine were obtained. Sagittal and coronal reformatted images were pr oduced. All CT scans at this location are performed using CT dose reduction for ALARA by means of aut omated exposure control. COMPARISON: None available. FINDINGS: POST-SURGICAL CHANGES: None. ALIGNMENT: Straightening of the cervical spine noted, which may be related to patient positioning. VERTEBRAE: No signs of fracture. Vertebral bodies are grossly normal in height throughout. No signif icant facet joint disease or osseous foraminal narrowing appreciated. INTRAVERTEBRAL DISCS: Disc spaces are fairly well-maintained throughout without significant canal lashawn nosis. PARASPINAL SOFT TISSUES: No significant abnormality. ADDITIONAL FINDINGS: None. IMPRESSION: 1. No signs of acute bony trauma to the cervical spine. Signer Name: Brad Appiah MD, III Signed: 09/03/2020 10:08 PM Workstation Name: [facility] [id number]
[2020-09-03 22:20] LABS: Alanine Aminotransferase 14 units/L (7-56); Albumin 4.4 g/dL (3.9-5); BUN/Creatinine Ratio 10; Blood Urea Nitrogen 10 mg/dL (9-20); Calcium 9.7 mg/dL (8.4-10.2); Hemolysis Index 22
--- NOTE | 2020-09-03 22:31 | XRay Report ---
CHEST 1 VIEW 09/03/2020 10:26 PM INDICATION / CLINICAL INFORMATION: syncope. COMPARISON: None available. FINDINGS: SUPPORT DEVICES: None. HEART / MEDIASTINUM: No significant abnormality. LUNGS / PLEURA: No significant pulmonary or pleural abnormality. No pneumothorax. ADDITIONAL FINDINGS: No significant additional findings. IMPRESSION: 1. No acute findings. Signer Name: Ferdinand Rodriguez MD Signed: 09/03/2020 10:26 PM Workstation Name: [id number]
[2020-09-04] MEDS ORDERED: fentaNYL 100 MCG/2 ML INJ IV ONE (03:35)
[2020-09-04] MEDS ORDERED: ONDANSETRON 4 MG/2 ML INJ IV ONE (03:35)
--- NOTE | 2020-09-04 03:44 | Emergency Department Report ---
HPI - General Chief Complaint: Fall PUI?: No Time Seen by Provider: 09/03/20 21:35 - HPI HPI: Room 40 The patient is a 29-year-old male present with a chief complaint of syncope. The patient states today he awakened from a nap and stood up to go to the bathroom. The patient states he became dizzy and then lost consciousness and fell to the ground. The patient states he got up and went to get some water while standing he had a second syncopal episode. The patient states he awakened on the floor and eventually called 911. The patient states after his syncopal episode he noticed pain in his right shoulder and is not sure what he struck it on. Patient denies any other preceding symptoms including chest pain, palpitat ions or shortness of breath. Patient denies nausea vomiting or diarrhea. Patient denies any recent flights or long car trips. Patient denies history of cough or known contact with Covid positive patient. ED Past Medical Hx - Past Medical History Previous Medical History?: Yes Hx Hypertension: Yes Hx Diabetes: Yes Hx Psychiatric Treatment: Yes (depression, SI attempt) Additional medical history: BULGING / HERNIATED DISC. hemorrhoids. OBESITY. Eczema - Surgical History Past Surgical History?: Yes Additional Surgical History: HEMORRHOIDECTOMY - Family History Family history: no significant - Social History Smoking Status: Current Every Day Smoker (1/3 pack/day) Substance Use Type: None (Denies illicit drug use), Alcohol (Occasional) - Medications Home Medications: Home Medications Medication Instructions Recorded Confirmed Last Taken Type Indomethacin 50 mg PO TID #15 capsule 05/21/16 05/12/19 04/12/19 Rx RisperDAL 1 mg PO QHS 03/10/17 05/12/19 05/03/19 History FLUoxetine [PROzac] 40 mg PO QDAY #14 capsule 03/12/17 05/12/19 05/03/19 Rx Metoclopramide [Reglan] 10 mg PO TID PRN #10 tab 03/20/17 05/12/19 05/03/19 Rx Syr-Nd,Ins,0.5/Container,Empty 1 each MC PRN PRN #1 box 03/20/17 05/12/19 05/03/19 Rx [Ulticare Syr 0.5 ml 29GX1/2"] Insulin Regular, Human [HumuLIN R] See Protocol SQ ACHS #30 day 03/21/17 05/12/19 05/03/19 Rx Duloxetine HCl 60 mg PO QDAY 05/06/19 05/12/19 05/03/19 History Esomeprazole Magnesium [NexIUM] 40 mg PO QDAY 05/06/19 05/12/19 05/03/19 History Gabapentin [Neurontin] 100 mg PO Q8HR 05/06/19 05/12/19 05/03/19 History hydrOXYzine HCL [Atarax] 25 mg PO BID 05/06/19 05/12/19 05/03/19 History lisinopriL [Zestril TAB] 40 mg PO QDAY 05/06/19 05/12/19 05/03/19 History Insulin NPH Hum/Reg Insulin Hm 26 unit SQ BID 05/12/19 05/12/19 Unknown History [HumuLIN 70-30 Vial] traZODone [Desyrel] 150 mg PO QHS 05/12/19 05/12/19 Unknown History Dicyclomine [Bentyl] 20 mg PO QID #10 tablet 05/23/19 Unknown Rx traMADoL [Ultram] 50 mg PO Q6HR PRN #12 tablet 05/23/19 Unknown Rx Ondansetron [Zofran ODT TAB] 4 mg PO Q6HR PRN #10 tab.rapdis 05/25/19 Unknown Rx Potassium Chloride 10 meq PO DAILY 14 Days #14 06/21/19 Unknown Rx tablet.er Albuterol Mdi (or & Nicu Only) 2 puff IH QID PRN #1 inhalation 08/28/19 Unknown Rx [ProAir HFA Inhaler] Amoxicillin/Potassium Clav 1 each PO BID #14 tablet 08/28/19 Unknown Rx [Augmentin 875-125 Tablet] Benzonatate [Tessalon Perles] 100 mg PO Q8HR #10 capsule 08/28/19 Unknown Rx Fluticasone [Flonase] 1 spray NS QDAY #1 bottle 08/28/19 Unknown Rx traMADoL [Ultram] 50 mg PO Q6HR PRN #12 tablet 08/28/19 Unknown Rx HYDROcodone/APAP 5-325 [[place] 1 each PO Q6HR PRN #5 tablet 03/10/20 Unknown Rx 5/325] cephALEXin [Keflex] 500 mg PO Q12HR 7 Days #14 cap 03/25/20 Unknown Rx ED Review of Systems ROS: Stated complaint: SYNCOPAL EPISODE Other details as noted in HPI Constitutional: denies: fever Eyes: denies: eye pain ENT: denies: throat pain Respiratory: denies: cough, shortness of breath Cardiovascular: denies: chest pain, palpitations Endocrine: no symptoms reported Gastrointestinal: denies: nausea, vomiting, diarrhea Genitourinary: denies: dysuria Musculoskeletal: arthralgia Neurological: denies: headache Physical Exam - Physical Exam Vital Signs: Vital Signs 09/03/20 09/04/20 09/04/20 21:42 03:34 03:35 Temperature 98.1 F Pulse Rate 73 67 Respiratory 18 16 16 Rate Blood Pressure 112/70 O2 Sat by Pulse 98 100 Oximetry Physical Exam: GENERAL: The patient is well-developed well-nourished male lying on stretcher not appearing to be in acute distress. [] HEENT: Normocephalic. Atraumatic. Extraocular motions are intact. Patient has moist mucous membranes. NECK: Supple. Trachea midline CHEST/LUNGS: Clear to auscultation. There is no respiratory distress noted. HEART/CARDIOVASCULAR: Regular. There is no tachycardia. There is no gallop rub or murmur. ABDOMEN: Abdomen is soft, nontender. Patient has normal bowel sounds. There is no abdominal distention. SKIN: There is no rash. There is no edema. There is no diaphoresis. NEURO: The patient is awake, alert, and oriented. The patient is cooperative. The patient has no focal neurologic deficits. The patient has normal speech. Cranial nerves II through XII grossly intact MUSCULOSKELETAL: There is tenderness to palpation of the right shoulder. No deformities appreciated. There is no evidence of acute injury. ED Course Vital Signs 09/03/20 09/04/20 09/04/20 21:42 03:34 03:35 Temperature 98.1 F Pulse Rate 73 67 Respiratory 18 16 16 Rate Blood Pressure 112/70 O2 Sat by Pulse 98 100 Oximetry ED Medical Decision Making - Lab Data Result diagrams: 09/03/20 21:43 09/03/20 21:43 Laboratory Tests 09/03/20 09/03/20 02 21:43 21:43 04:14 WBC 3.6 L RBC 5.21 H Hgb 15.2 Hct 44.0 MCV 84 MCH 29 MCHC 35 H RDW 12.1 L Plt Count 210 Lymph % (Auto) 46.4 H [place] % (Auto) 8.8 H Eos % (Auto) 2.5 Baso % (Auto) 0.6 Lymph # (Auto) 1.7 [place] # (Auto) 0.3 Eos # (Auto) 0.1 Baso # (Auto) 0.0 Seg Neutrophils % 41.7 Seg Neutrophils # 1.5 L PT 11.1 L INR 0.82 L VBG pH Sodium 130 L Potassium 4.1 Chloride 94.9 L Carbon Dioxide 21 L Anion Gap 18 BUN 10 Creatinine 1.0 Estimated GFR > 60 BUN/Creatinine Ratio 10 Glucose 395 H Calcium 9.7 Total Bilirubin 0.30 AST 15 ALT 14 Alkaline Phosphatase 107 Troponin T < 0.010 Total Protein 7.4 Albumin 4.4 Albumin/Globulin Ratio 1.5 09/04/20 04:14 WBC RBC Hgb Hct MCV MCH MCHC RDW Plt Count Lymph % (Auto) [place] % (Auto) Eos % (Auto) Baso % (Auto) Lymph # (Auto) [place] # (Auto) Eos # (Auto) Baso # (Auto) Seg Neutrophils % Seg Neutrophils # PT INR VBG pH 7.339 Sodium Potassium Chloride Carbon Dioxide Anion Gap BUN Creatinine Estimated GFR BUN/Creatinine Ratio Glucose Calcium Total Bilirubin AST ALT Alkaline Phosphatase Troponin T Total Protein Albumin Albumin/Globulin Ratio - EKG Data -: EKG Interpreted by Me EKG shows normal: sinus rhythm Rate: normal - EKG Data When compared to previous EKG there are: previous EKG unavailable Interpretation: nonspecific ST-T wave nani - Radiology Data Radiology results: report reviewed (CT head, CT cervical spine, chest x-ray, right shoulder x-ray), image reviewed (CT head, CT cervical spine, chest x-ray, right shoulder x-ray) interpreted by me: Chest x-ray-no focal infiltrates, no pneumothorax. No foreign body seen Right shoulder x-ray-no fracture, no dislocation. No foreign body seen Findings [facility] [address] [place] [address] XRay Report Signed Patient: ODELL HOGAN MR#: [id number] : 1990 Acct:[id number] Age/Sex: 29 / M ADM Date: 09/03/20 Loc: ED Attending Dr: Ordering Physician: GREGG CURTIS MD Date of Service: 09/04/20 Proc edure(s): XR shoulder 2+V RT Accession Number(s): [id number] cc: GREGG CURTIS MD Fluoro Time In Minutes: RIGHT SHOULDER 3 VIEWS INDICATION / CLINICAL INFORMATION: Syncope with multiple falls today. Right shoulder pain. COMPARISON: None available. FINDINGS: BONES / JOINT(S): No acute fracture or subluxation. No significant arthritis. SOFT TISSUES: No significant abnormality. ADDITIONAL FINDINGS: The visualized right lung is clear. Signer Name: Sally Busby MD Signed: 09/04/2020 4:00 AM Workstation Name: [id number] Transcribed By: RT Dictated By: Sally Busby MD Electronically Authenticated By: Sally Busby MD Signed Date/Time: 09/04/20399 DD/ 8 TD/TT: Findings [facility] [address] [place] [address] Cat Scan Report Signed Patient: ODELL HOGAN MR#: [id number] : Acct:[id number] Age/Sex: 29 / M ADM Date: 09/03/20 Loc: ED Attending Dr: Ordering Physician: BRADEN VEGA Date of Service: 09/03/20 Procedure(s): CT cervical spine wo con Accession Number(s): [id number] cc: BRADEN VEGA . CT cervical spine wo con INDICATION / CLINICAL INFORMATION: 29 years Male; head injury after syncope. TECHNIQUE: Axial CT images of the cervical spine were obtained. Sagittal and coronal reformatted images were produced. All CT scans at this location are performed using CT dose reduction for ALARA by means of automated exposure control. COMPARISON: None available. FINDINGS: POST-SURGICAL CHANGES: None. ALIGNMENT: Straightening of the cervical spine noted, which may be related to patient positioning. VERTEBRAE: No signs of fracture. Vertebral bodies are grossly normal in height throughout. No significant facet joint disease or osseous foraminal narrowing appreciated. INTRAVERTEBRAL DISCS: Disc spaces are fairly well-maintained throughout without significant canal stenosis. PARASPINAL SOFT TISSUES: No significant abnormality. ADDITIONAL FINDINGS: None. IMPRESSION: 1. No signs of acute bony trauma to the cervical spine. Signer Name: Brad Appiah MD, III Signed: 09/03/2020 10:08 PM Workstation Name: [id number] Transcribed By: HR Dictated By: Brad Appiah MD Electronically Authenticated By: Brad Appiah MD Signed Date/Time: 09/03/202207 DD/ 06 TD/TT: Findings [address] [address] Cat Scan Report Signed Patient: ODELL HOGAN MR#: [id number] : 1990 Acct:[id number] Age/Sex: 29 / M ADM Date: 09/03/20 Loc: ED Attending Dr: Ordering Physician: BRADEN VEGA Date of Service: 09/03/20 Procedure(s): CT head/brain wo con Accession Number(s): [id number] cc: BRADEN VEGA . CT head/brain wo con INDICATION / CLINICAL INFORMATION: 29 years Male; syncope. TECHNIQUE: Routine CT head without contrast. All CT scans at this location are performed using CT dose reduction for ALARA by means of automated exposure control. COMPARISON: 05/16/2019 FINDINGS: BRAIN / INTRACRANIAL CONTENTS: No acute hemorrhage, mass effect, midline shift, hydrocephalus, or acute, large territorial infarct. No signs of significant atrophy or chronic infarct. No significant white matter abnormality seen. CRANIOCERVICAL JUNCTION: No significant abnormality. ORBITS: No significant abnormality of visualized orbits. SINUSES / MASTOIDS: Visualized paranasal sinuses and mastoid air cells are essentially clear. ADDITIONAL FINDINGS: None. IMPRESSION: 1. No focal mass, hemorrhage, hydrocephalus, or acute, large territorial infarct. Signer Name: Brad Appiah MD, III Signed: 09/03/2020 10:06 PM Workstation Name: [id number] Transcribed By: HR Dictated By: Brad Appiah MD Electronically Authenticated By: Brad Appiah MD Signed Date/Time: 09/03/202205 DD/ 04 TD/TT: Findings [address] [address] XRay Report Signed Patient: ODELL HOGAN MR#: [id number] : 1990 Acct:[id number] Age/Sex: 29 / M ADM Date: 09/03/20 Loc: ED Attending Dr: Ordering Physician: BRADEN VEGA Date of Service: 09/03/20 Procedure(s): XR chest 1V ap Accession Number(s): [id number] cc: BRADEN VEGA Fluoro Time In Minutes: CHEST 1 VIEW 09/03/2020 10:26 PM INDICATION / CLINICAL INFORMATION: syncope. COMPARISON: None available. FINDINGS: SUPPORT DEVICES: None. HEART / MEDIASTINUM: No significant abnormality. LUNGS / PLEURA: No significant pulmonary or pleural abnormality. No pneumothorax. ADDITIONAL FINDINGS: No significant additional findings. IMPRESSION: 1. No acute findings. Signer Name: Sally Rodriguez MD Signed: 09/03/2020 10:26 PM Workstation Name: [id number] Transcribed By: RH Dictated By: SALLY RODRIGUEZ III Electronically Authenticated By: SALLY RODRIGUEZ III Signed Date/Time: 09/03/202225 DD/ 25 TD/TT: - Differential Diagnosis Syncope Critical care attestation.: If time is entered above; I have spent that time in minutes in the direct care of this critically ill patient, excluding procedure time. ED Disposition Clinical Impression: Syncope, Contusion of right shoulder Disposition: -09 OP ADMIT IP TO THIS HOSP Is pt being admited?: Yes Does the pt Need Aspirin: Yes Condition: Fair Instructions: Syncope (ED) Referrals: PRIMARY CARE, [Primary Care Provider] - 3-5 Days Time of Disposition: 05:01 (Hospitalist notified (Dr Farnsworth))
--- NOTE | 2020-09-04 04:04 | XRay Report ---
RIGHT SHOULDER 3 VIEWS INDICATION / CLINICAL INFORMATION: Syncope with multiple falls today. Right shoulder pain. COMPARISON: None available. FINDINGS: BONES / JOINT(S): No acute fracture or subluxation. No significant arthritis. SOFT TISSUES: No significant abnormality. ADDITIONAL FINDINGS: The visualized right lung is clear. Signer Name: Ferdinand Busby MD Signed: 09/04/2020 4:00 AM Workstation Name: [id number]
[2020-09-04] MEDS ORDERED: SODIUM CHLORIDE 0.9% 1000 ML 1,000 ML IV ONE (04:25)
[2020-09-04 04:51] LABS: INR 0.82 (0.87-1.13)
--- NOTE | 2020-09-04 05:33 | History and Physical Report ---
History of Present Illness Date of examination: 09/04/20 Date of admission: 09/04/20 Chief complaint: syncope History of present illness: The patient is a 29-year-old male present with a chief complaint of syncope. The patient states today he awakened from a nap and stood up to go to the bathroom. The patient states he became dizzy and then lost consciousness and fell to the ground. The patient states he got up and went to get some water while standing he had a second syncopal episode. The patient states he awakened on the floor and eventually called 911. The patient states after his syncopal episode he noticed pain in his right shoulder and is not sure what he struck it on. Patient denies any other preceding symptoms including chest pain, palpitations or shortness of breath. Patient denies nausea vomiting or diarrhea. Patient denies any recent flights or long car trips. Patient denies history of cough or known contact with Covid positive patient. ED work-up shows WBC 12.6 hemoglobin 15.2, sodium 130, potassium 4.1 creatinine 1.0, serum blood sugar 395 X-ray of the right shoulder-no acute finding/fracture Chest x-ray-no acute finding CT of the head -no acute finding Patient seen at the bedside in the ED. Patient alert oriented x3. He reports history of a fall at home x2. He reports history of prior diabetes for 4 years. Blood sugar was elevated in ED. Patient denies history of tobacco use, alcohol use or illicit drugs. Discussed plan of care with patient-patient voiced understanding. Patient is full code. Past History Past Medical History: diabetes Past Surgical History: Other (hx hemorrhoidectomy surgery) Social history: no significant social history Family history: diabetes (mother has diabetes) Medications and Allergies Allergies Allergy/AdvReac Type Severity Reaction Status Date / Time No Known Allergies Allergy Verified 03/20/17 09:30 Home Medications Medication Instructions Recorded Confirmed Last Taken Type Indomethacin 50 mg PO TID #15 capsule 05/21/16 05/12/19 04/12/19 Rx RisperDAL 1 mg PO QHS 03/10/17 05/12/19 05/03/19 History FLUoxetine [PROzac] 40 mg PO QDAY #14 capsule 03/12/17 05/12/19 05/03/19 Rx Metoclopramide [Reglan] 10 mg PO TID PRN #10 tab 03/20/17 05/12/19 05/03/19 Rx Syr-Nd,Ins,0.5/Container,Empty 1 each PRN PRN #1 box 03/20/17 05/12/19 05/03/19 Rx [Ulticare Syr 0.5 ml 29GX1/2"] Insulin Regular, Human [HumuLIN R] See Protocol SQ ACHS #30 day 03/21/17 05/12/19 05/03/19 Rx Duloxetine HCl 60 mg PO QDAY 05/06/19 05/12/19 05/03/19 History Esomeprazole Magnesium [NexIUM] 40 mg PO QDAY 05/06/19 05/12/19 05/03/19 History Gabapentin [Neurontin] 100 mg PO Q8HR 05/06/19 05/12/19 05/03/19 History hydrOXYzine HCL [Atarax] 25 mg PO BID 05/06/19 05/12/19 05/03/19 History lisinopriL [Zestril TAB] 40 mg PO QDAY 05/06/19 05/12/19 05/03/19 History Insulin NPH Hum/Reg Insulin Hm 26 unit SQ BID 05/12/19 05/12/19 Unknown History [HumuLIN 70-30 Vial] traZODone [Desyrel] 150 mg PO QHS 05/12/19 05/12/19 Unknown History Dicyclomine [Bentyl] 20 mg PO QID #10 tablet 05/23/19 Unknown Rx traMADoL [Ultram] 50 mg PO Q6HR PRN #12 tablet 05/23/19 Unknown Rx Ondansetron [Zofran ODT TAB] 4 mg PO Q6HR PRN #10 tab.rapdis 05/25/19 Unknown Rx Potassium Chloride 10 meq PO DAILY 14 Days #14 06/21/19 Unknown Rx tablet.er Albuterol Mdi (or & Nicu Only) 2 puff IH QID PRN #1 inhalation 08/28/19 Unknown Rx [ProAir HFA Inhaler] Amoxicillin/Potassium Clav 1 each PO BID #14 tablet 08/28/19 Unknown Rx [Augmentin 875-125 Tablet] Benzonatate [Tessalon Perles] 100 mg PO Q8HR #10 capsule 08/28/19 Unknown Rx Fluticasone [Flonase] 1 spray NS QDAY #1 bottle 08/28/19 Unknown Rx traMADoL [Ultram] 50 mg PO Q6HR PRN #12 tablet 08/28/19 Unknown Rx HYDROcodone/APAP 5-325 [[place] 1 each PO Q6HR PRN #5 tablet 03/10/20 Unknown Rx 5/325] cephALEXin [Keflex] 500 mg PO Q12HR 7 Days #14 cap 03/25/20 Unknown Rx Review of Systems Constitutional: fatigue, weakness Ears, nose, mouth and throat: no epistaxis Cardiovascular: no chest pain Respiratory: no congestion Gastrointestinal: no hematochezia Genitourinary Male: no hematuria Rectal: hemorrhoids (hx of hemorrhoidectomy) Musculoskeletal: frequent falls, other (right soulder pain from a fall. pain level 9/10), no hot joints Integumentary: no rash, no pruritis Neurological: weakness Psychiatric: anxiety, paranoia, depression, no disorientation, no hallucinations Endocrine: high blood sugars Hematologic/Lymphatic: no easy bruising, no easy bleeding Exam - Constitutional Vitals: Temp Pulse Resp BP Pulse Ox 98.1 F 64 16 115/78 100 09/03/20 21:42 09/04/20 04:27 09/04/20 03:35 09/04/20 04:27 09/04/20 03:35 General appearance: Present: mild distress, obese - EENT Eyes: Present: PERRL ENT: hearing intact, clear oral mucosa - Neck Neck: Present: supple, normal ROM - Respiratory Respiratory effort: normal Respiratory: bilateral: CTA - Cardiovascular Heart rate: 64 Heart Sounds: Present: S1 & S2. Absent: rub, click - Extremities Extremities: pulses symmetrical, abnormal (right shoulder pain) Peripheral Pulses: within normal limits - Abdominal General gastrointestinal: Present: soft, non-tender, non-distended, normal bowel sounds Male genitourinary: Present: normal - Integumentary Integumentary: Present: clear, warm, dry - Musculoskeletal Musculoskeletal: strength equal bilaterally, other (right should pain/weak) - Psychiatric Psychiatric: appropriate mood/affect, intact judgment & insight, cooperative - Neurologic Neurologic: CNII-XII intact, moves all extremities - Allied Health Allied health notes reviewed: nursing HEART Score - HEART Score Troponin: Troponin T < 0.010 ng/mL (0.00-0.029) 09/03/20 21:43 Results - Labs CBC & Chem 7: 09/03/20 21:43 09/03/20 21:43 Labs: Abnormal lab results 09/03/20 09/03/20 09/04/20 Range/Units 21:43 21:43 04:14 WBC 3.6 L (4.5-11.0) K/mm3 RBC 5.21 H (3.65-5.03) M/mm3 MCHC 35 H (32-34) % RDW 12.1 L (13.2-15.2) % Lymph % (Auto) 46.4 H (13.4-35.0) % [place] % (Auto) 8.8 H (0.0-7.3) % Seg Neutrophils # 1.5 L (1.8-7.7) K/mm3 PT 11.1 L (12.2-14.9) Sec. INR 0.82 L (0.87-1.13) Sodium 130 L (137-145) mmol/L Chloride 94.9 L (98-107) mmol/L Carbon Dioxide 21 L (22-30) mmol/L Glucose 395 H (75-100) mg/dL Assessment and Plan - Patient Problems (1) Syncope Current Visit: Yes Status: Acute Plan to address problem: Likely secondary to hypoglycemia CT of the head -no acute finding Monitor patient closely. No neurological symptoms noted Chest x-ray- no acute findings (2) Contusion of right shoulder Current Visit: Yes Status: Acute Plan to address problem: Patient is status post fall X-ray of the right shoulder done no fracture or acute finding Continue with pain management Right radial pulse present no swelling noted on assessment. Consulted PT OT (3) Diabetes mellitus Current Visit: Yes Status: Acute Plan to address problem: Monitor blood sugar with sliding scale Patient blood sugar 395 on admission. Start Lantus daily adjust if needed Continue IV hydration. (4) Hyponatremia Current Visit: Yes Status: Acute Plan to address problem: Hyponatremia most likely secondary to dehydration from hyperglycemia Start IV hydration with normal saline Monitor sodium level. (5) DVT prophylaxis Current Visit: No Status: Acute Plan to address problem: Subcutaneous Lovenox
[2020-09-04] MEDS ORDERED: traZODone 50 MG TAB PO PRN (05:51)
[2020-09-04] MEDS ORDERED: SODIUM CHLORIDE 0.9% 1000 ML 1,000 ML IV SCH (06:00)
[2020-09-04] MEDS ORDERED: ONDANSETRON 4 MG/2 ML INJ IV PRN (06:40)
[2020-09-04] MEDS ORDERED: ACETAMINOPHEN 325 MG TAB PO PRN (06:40)
[2020-09-04 07:25] LABS: Bilirubin,Urine NEG (Negative); Blood,Urine NEG (Negative); Color,Urine Straw (Yellow); Mucus,Urine FEW /HPF; Protein,Urine <15 mg/dL mg/dL (Negative); RBC,Urine < 1.0 /HPF (0.0-6.0); Urobilinogen,Urine < 2.0 mg/dL (<2.0); WBC,Urine < 1.0 /HPF (0.0-6.0)
[2020-09-04] MEDS: traMADol 50 MG TAB PO PRN ×2 (07:59→14:02)
[2020-09-04] MEDS ORDERED: FLUoxetine 20 MG CAP PO SCH ×2 (10:00→22:00)
[2020-09-04] MEDS: risperiDONE 1 MG TAB PO SCH (11:06)
[2020-09-04] MEDS: INSULIN LISPRO 100 UNIT/ML SUB-Q SCH ×4 (11:08→21:21)
[2020-09-04] MEDS ORDERED: ONDANSETRON 4 MG ODT TAB PO PRN (18:07)
[2020-09-04] MEDS ORDERED: METOCLOPRAMIDE 10 MG TAB PO PRN (18:07)
[2020-09-04] MEDS ORDERED: ALBUTEROL 8.5 GM MDI INHALATION IH PRN (18:07)
[2020-09-04] MEDS ORDERED: NON-FORMULARY EACH (Duloxetine Hcl [Duloxetine Hcl] 60 MG Capsule.Dr) PO SCH (18:15)
[2020-09-04] MEDS ORDERED: NON-FORMULARY EACH (Potassium Chloride [Potassium Chloride] 10 MEQ Tablet.Er) PO SCH (18:15)
[2020-09-04] MEDS ORDERED: NON-FORMULARY EACH (Esomeprazole Magnesium [Nexium] 40 MG Capsule.Dr) PO SCH (18:15)
[2020-09-04] MEDS ORDERED: ALBUTEROL 2.5 MG/3 ML NEBU IH PRN (18:31)
[2020-09-04] MEDS ORDERED: traMADol 50 MG TAB PO PRN (18:37)
[2020-09-04] MEDS: MORPHINE 2 MG/1 ML INJ IV PRN (19:59)
[2020-09-04] MEDS ORDERED: INDOMETHACIN 50 MG PO SCH (20:00)
[2020-09-04] MEDS: LISINOPRIL 40 MG TAB PO SCH (21:17)
[2020-09-04] MEDS: GABAPENTIN 100 MG CAP PO SCH (21:18)
[2020-09-04] MEDS: BENZONATATE 100 MG CAP PO SCH (21:18)
[2020-09-04] MEDS: hydrOXYzine HCL 25 MG TAB PO SCH (21:18)
[2020-09-04] MEDS ORDERED: RISPERDAL 1 MG PO SCH (22:00)
[2020-09-04] MEDS ORDERED: PRAVASTATIN 20 MG TAB PO SCH (22:00)
[2020-09-04] MEDS ORDERED: INSULIN GLARGINE 100 UNITS/ML SUB-Q SCH ×2 (22:00)
[2020-09-04] MEDS ORDERED: INSULIN NPH/REGULAR 70/30 INJ SUB-Q SCH (22:00)
[2020-09-04] MEDS: INDOMETHACIN 25 MG CAP PO SCH (22:25)
[2020-09-04] MEDS: INSULIN NPH/REGULAR 70/30 INJ SUB-Q SCH (22:25)
[2020-09-05] MEDS: MORPHINE 2 MG/1 ML INJ IV PRN ×3 (01:58→17:38)
[2020-09-05] MEDS: GABAPENTIN 100 MG CAP PO SCH ×2 (05:03→13:57)
[2020-09-05] MEDS: INDOMETHACIN 25 MG CAP PO SCH ×2 (05:03→13:54)
[2020-09-05] MEDS: BENZONATATE 100 MG CAP PO SCH ×2 (05:07→13:57)
[2020-09-05 06:01] LABS: Chol/HDL Ratio 5.13 %
[2020-09-05] MEDS: INSULIN NPH/REGULAR 70/30 INJ SUB-Q SCH ×2 (08:35→17:35)
[2020-09-05] MEDS: INSULIN LISPRO 100 UNIT/ML SUB-Q SCH ×3 (08:35→17:28)
[2020-09-05] MEDS ORDERED: PANTOPRAZOLE 40 MG TAB PO SCH (10:00)
[2020-09-05] MEDS ORDERED: POTASSIUM CHLORIDE ER 10 MEQ TAB PO SCH (10:00)
[2020-09-05] MEDS ORDERED: DULoxetine 30 MG CAP PO SCH (10:00)
[2020-09-05] MEDS ORDERED: FLUTICASONE PROPIONATE NASAL SPRAY 16 GM NS SCH (10:00)
[2020-09-05] MEDS: risperiDONE 1 MG TAB PO SCH (10:51)
[2020-09-05] MEDS: hydrOXYzine HCL 25 MG TAB PO SCH (10:51)
[2020-09-05] MEDS: LISINOPRIL 40 MG TAB PO SCH (10:55)
[2020-09-05 12:52] VITALS: BP 102/60
--- NOTE | 2020-09-05 13:39 | Vascular Lab Report ---
. BILATERAL CAROTID DOPPLER ULTRASOUND INDICATION : syncope TECHNIQUE: Grayscale and color Doppler imaging performed through the neck. COMPARISON: None FINDINGS: Right: There is no significant atherosclerotic disease. Peak systolic velocity in the CCA is 96 cm/ s with end-diastolic velocity of 17 cm/s. Peak systolic velocity in the proximal ICA is 72 cm/s with end-diastolic velocity of 30 cm/s. ICA to CCA ratio is less than 2. There is antegrade flow in the E CA and the vertebral artery. Left: There is no significant atherosclerotic disease. Peak systolic velocity in the CCA is 117 cm/s with end-diastolic velocity of 15 cm/s. Peak systolic velocity in the proximal ICA is 69 cm/s with en d-diastolic velocity of 9 cm/s. ICA to CCA ratio is less than 2. There is antegrade flow in the ECA and the vertebral artery. IMPRESSION: No hemodynamically significant stenosis by NASCET criteria. Doppler velocities indicate l ess than 50% luminal narrowing bilaterally. Signer Name: Marcus Raymond Jr, MD Signed: 09/05/2020 1:35 PM Workstation Name: [id number]
== END 2020-09-05 18:40 | disposition home or self-care (01) ==
LOC: ED 18:42 → 4A 09-04 06:40
PROVIDERS: ADMIT Internal Medicine Geriatric Medicine; ATTEND Internal Medicine
DX: S40.011A Contusion of right shoulder, initial encounter (principal); R55 Syncope and collapse; E11.10 Type 2 diabetes mellitus with ketoacidosis without coma; E87.1 Hypo-osmolality and hyponatremia; I10 Essential (primary) hypertension; E66.9 Obesity, unspecified; F17.210 Nicotine dependence, cigarettes, uncomplicated; Z98.890 Other specified postprocedural states; Z79.4 Long term (current) use of insulin; Z68.33 Body mass index [BMI] 33.0-33.9, adult; W18.30XA Fall on same level, unspecified, initial encounter; Y93.89 Activity, other specified; Y92.89 Other specified places as the place of occurrence of the external cause; Y99.8 Other external cause status
CPT/HCPCS: 36415; 70450; 71045; 72125; 73030; 80053; 80061; 81001; 82805; 82962; 83036; 84484; 85025; 85610; 93005; 93306; 93880; 96361; 96372; 96374; 96375; 96376; 97161; 99285; A9270; G0378; J2270; J2405; J3010; J7030; J1815

== ENCOUNTER 2020-12-14 14:36 | Emergency (ER) | payer MEDICAID | END 2020-12-14 14:40 | disposition left against medical advice (07) | LOC: ED 14:36 | DX: E11.65 Type 2 diabetes mellitus with hyperglycemia (principal); Z53.21 Procedure and treatment not carried out due to patient leaving prior to being seen by health care provider ==

== ENCOUNTER 2021-05-15 19:32 | Emergency (ER) | payer MEDICARE ==
[2021-05-15 19:49] VITALS: BP 124/84
[2021-05-15] MEDS ORDERED: SODIUM CHLORIDE 0.9% 1000 ML 1,000 ML IV ONE (21:02)
[2021-05-15] MEDS ORDERED: INSULIN REGULAR, HUMAN 100 UNITS/1 ML IV ONE (21:03)
--- NOTE | 2021-05-15 21:06 | Emergency Department Report ---
ED General Adult HPI - General Chief complaint: Hyperglycemia Stated complaint: BLOOD GLUCOSE MACHINE RED "HIGH" AND LEG PAIN Time Seen by Provider: 05/15/21 20:52 Source: patient Mode of arrival: Ambulatory Limitations: No Limitations - History of Present Illness Initial comments: 30-year-old F [place] male with past medical history of insulin-dependent diabetes reports been out of his medication for the last 3 days unable to fill his prescription until the 15th of this month subsequently read his blood sugar today and the machine read high so he decided it was department to get treatment. He reports no fever, chills, sweats. No chest pain, no palpitations no headache no nausea no vomiting but does have increased neuropathy to his extremities which is causing increased amount of pain and seeks help to get the pain under control. -: Gradual Radiation: non-radiation Quality: burning, aching Consistency: constant Worsens with: none Associated Symptoms: denies other symptoms. denies: chest pain, diaphoresis, fever/chills, loss of appetite, malaise, nausea/vomiting, rash, shortness of tremayne ath, syncope, weakness - Related Data Home Medications Medication Instructions Recorded Confirmed Last Taken RisperDAL 1 mg PO QHS 03/10/17 05/12/19 05/03/19 Duloxetine HCl 60 mg PO QDAY 05/06/19 05/12/19 05/03/19 Esomeprazole Magnesium [NexIUM] 40 mg PO QDAY 05/06/19 05/12/19 05/03/19 Gabapentin 100 mg PO Q8HR 05/06/19 05/12/19 05/03/19 hydrOXYzine HCL [Atarax] 25 mg PO BID 05/06/19 05/12/19 05/03/19 Insulin NPH Hum/Reg Insulin Hm 26 unit SQ BID 05/12/19 05/12/19 Unknown [HumuLIN 70-30 Vial] traZODone [Desyrel] 150 mg PO QHS 05/12/19 05/12/19 Unknown Previous Rx's Medication Instructions Recorded Last Taken Type Indomethacin 50 mg PO TID #15 capsule 05/21/16 04/12/19 Rx FLUoxetine [PROzac] 40 mg PO QDAY #14 capsule 03/12/17 05/03/19 Rx Metoclopramide [Reglan] 10 mg PO TID PRN #10 tab 03/20/17 05/03/19 Rx Syr-Nd,Ins,0.5/Container,Empty 1 each MC PRN PRN #1 box 03/20/17 05/03/19 Rx [Ulticare Syr 0.5 ml 29GX1/2"] Dicyclomine [Bentyl] 20 mg PO QID #10 tablet 05/23/19 Unknown Rx traMADoL [Ultram] 50 mg PO Q6HR PRN #12 tablet 05/23/19 Unknown Rx Ondansetron [Zofran ODT TAB] 4 mg PO Q6HR PRN #10 tab.rapdis 05/25/19 Unknown Rx Albuterol Mdi (or & Nicu Only) 2 puff IH QID PRN #1 inhalation 08/28/19 Unknown Rx [ProAir HFA Inhaler] Benzonatate [Tessalon Perles] 100 mg PO Q8HR #10 capsule 08/28/19 Unknown Rx Fluticasone [Flonase] 1 spray NS QDAY #1 bottle 08/28/19 Unknown Rx traMADoL [Ultram 50 MG tab] 50 mg PO Q6HR PRN #12 tablet 08/28/19 Unknown Rx HYDROcodone/APAP 5-325 [[place] 1 each PO Q6HR PRN #5 tablet 03/10/20 Unknown Rx 5-325 mg TAB] Gabapentin 100 mg PO Q8HR capsule 09/05/20 Unknown Rx Insulin Detemir (Nf) [Levemir 60 unit SQ QPM #10 insuln.pen 09/05/20 Unknown Rx Flextouch (Nf)] Insulin Regular, Human [HumuLIN R] See Protocol SQ ACHS #30 day 09/05/20 Unknown Rx Pantoprazole [Protonix TAB] 40 mg PO DAILY tablet 09/05/20 Unknown Rx Potassium Chloride [K-Dur] 10 meq PO QDAY tablet 09/05/20 Unknown Rx Pravastatin [Pravachol] 20 mg PO QHS tablet 09/05/20 Unknown Rx lisinopriL [Zestril TAB] 40 mg PO QDAY tablet 09/05/20 Unknown Rx Allergies Allergy/AdvReac Type Severity Reaction Status Date / Time No Known Allergies Allergy Verified 05/15/21 19:53 ED Review of Systems ROS: Stated complaint: BLOOD GLUCOSE MACHINE RED "HIGH" AND LEG PAIN Other details as noted in HPI Comment: All other systems reviewed and negative ED Past Medical Hx - Past Medical History Hx Hypertension: Yes Hx Congestive Heart Failure: No Hx Diabetes: Yes Hx Psychiatric Treatment: Yes (depression, SI attempt) Hx Asthma: No Hx COPD: No Hx HIV: No Additional medical history: BULGING / HERNIATED DISC. hemorrhoids. OBESITY. Eczema - Surgical History Past Surgical History?: No Additional Surgical History: HEMORRHOIDECTOMY - Social History Smoking Status: Current Every Day Smoker - Medications Home Medications: Home Medications Medication Instructions Recorded Confirmed Last Taken Type Indomethacin 50 mg PO TID #15 capsule 05/21/16 05/12/19 04/12/19 Rx RisperDAL 1 mg PO QHS 03/10/17 05/12/19 05/03/19 History FLUoxetine [PROzac] 40 mg PO QDAY #14 capsule 03/12/17 05/12/19 05/03/19 Rx Metoclopramide [Reglan] 10 mg PO TID PRN #10 tab 03/20/17 05/12/19 05/03/19 Rx Syr-Nd,Ins,0.5/Container,Empty 1 each MC PRN PRN #1 box 03/20/17 05/12/19 05/03/19 Rx [Ulticare Syr 0.5 ml 29GX1/2"] Duloxetine HCl 60 mg PO QDAY 05/06/19 05/12/19 05/03/19 History Esomeprazole Magnesium [NexIUM] 40 mg PO QDAY 05/06/19 05/12/19 05/03/19 History Gabapentin 100 mg PO Q8HR 05/06/19 05/12/19 05/03/19 History hydrOXYzine HCL [Atarax] 25 mg PO BID 05/06/19 05/12/19 05/03/19 History Insulin NPH Hum/Reg Insulin Hm 26 unit SQ BID 05/12/19 05/12/19 Unknown History [HumuLIN 70-30 Vial] traZODone [Desyrel] 150 mg PO QHS 05/12/19 05/12/19 Unknown History Dicyclomine [Bentyl] 20 mg PO QID #10 tablet 05/23/19 Unknown Rx traMADoL [Ultram] 50 mg PO Q6HR PRN #12 tablet 05/23/19 Unknown Rx Ondansetron [Zofran ODT TAB] 4 mg PO Q6HR PRN #10 tab.rapdis 05/25/19 Unknown Rx Albuterol Mdi (or & Nicu Only) 2 puff IH QID PRN #1 inhalation 08/28/19 Unknown Rx [ProAir HFA Inhaler] Benzonatate [Tessalon Perles] 100 mg PO Q8HR #10 capsule 08/28/19 Unknown Rx Fluticasone [Flonase] 1 spray NS QDAY #1 bottle 08/28/19 Unknown Rx traMADoL [Ultram 50 MG tab] 50 mg PO Q6HR PRN #12 tablet 08/28/19 Unknown Rx HYDROcodone/APAP 5-325 [[place] 1 each PO Q6HR PRN #5 tablet 03/10/20 Unknown Rx 5-325 mg TAB] Gabapentin 100 mg PO Q8HR capsule 09/05/20 Unknown Rx Insulin Detemir (Nf) [Levemir 60 unit SQ QPM #10 insuln.pen 09/05/20 Unknown Rx Flextouch (Nf)] Insulin Regular, Human [HumuLIN R] See Protocol SQ ACHS #30 day 09/05/20 Unknown Rx Pantoprazole [Protonix TAB] 40 mg PO DAILY tablet 09/05/20 Unknown Rx Potassium Chloride [K-Dur] 10 meq PO QDAY tablet 09/05/20 Unknown Rx Pravastatin [Pravachol] 20 mg PO QHS tablet 09/05/20 Unknown Rx lisinopriL [Zestril TAB] 40 mg PO QDAY tablet 09/05/20 Unknown Rx ED Physical Exam - General Limitations: No Limitations General appearance: alert, in no apparent distress - Head Head exam: Present: atraumatic, normocephalic - Eye Eye exam: Present: normal appearance, PERRL, EOMI Pupils: Present: normal accommodation - ENT ENT exam: Present: mucous membranes moist - Neck Neck exam: Present: normal inspection - Respiratory Respiratory exam: Present: normal lung sounds bilaterally. Absent: respiratory distress - Cardiovascular Cardiovascular Exam: Present: regular rate, normal rhythm. Absent: systolic murmur, diastolic murmur, rubs, gallop - GI/Abdominal GI/Abdominal exam: Present: soft, normal bowel sounds - Rectal Rectal exam: Present: deferred - Extremities Exam Extremities exam: Present: normal inspection - Back Exam Back exam: Present: normal inspection - Neurological Exam Neurological exam: Present: alert, oriented X3 - Psychiatric Psychiatric exam: Present: normal affect, normal mood - Skin Skin exam: Present: warm, dry, intact, normal color. Absent: rash ED Course Vital Signs 05/15/21 05/15/21 19:45 19:49 Temperature 98.7 F Pulse Rate 89 Respiratory 14 Rate Blood Pressure 124/84 O2 Sat by Pulse 99 Oximetry ED Medical Decision Making - Lab Data Result diagrams: 05/15/21 21:05 05/15/21 21:05 - Medical Decision Making This patient is 30-year-old -[place] male presenting with apparent acute hyperglycemia. Differential diagnosis includes new onset diabetes, steroid or other medication use, secondary ingestion, reactive hyper glycemia. Consideration considered DKA versus hyperosmolar nonketotic state, sepsis is possible etiology of patient's current presentation. However given the current history and physical including current glucose level the current presentation is consistent with acute asymptomatic hyperglycemia. Plan to treat supportively no indication for further work-up at this time. Plan supportive care, serial pulmonary care glucose monitoring, labs, serial reassessment. No prescription for insulin was provided to Ms. Loyd as he states he would be unable to feel the medication due to him not having any money until the I offered him coupons vouchers states he been unable to get the medication and states his primary care will take care of the prescriptions on the Critical care attestation.: If time is entered above; I have spent that time in minutes in the direct care of this critically ill patient, excluding procedure time. ED Disposition Clinical Impression: Hyperglycemia Disposition: 01 HOME / SELF CARE / HOMELESS Is pt being admited?: No Does the pt Need Aspirin: No Condition: Stable Instructions: Hyperglycemia, [id number] Additional Instructions: Please follow-up with your primary care provider and fill the insulin for your diabetes to avoid further episodes of hypoglycemia Referrals: SUE SALGADO MD [Primary Care Provider] - 3-5 Days
[2021-05-15 21:23] LABS: Hematocrit 43.5 % (35.5-45.6); Hemoglobin 14.7 gm/dl (11.8-15.2); Mean Corpuscular HGB Conc 34 % (32-34); Mean Corpuscular Volume 86 fl (84-94); Platelet Count 243 K/mm3 (140-440); Red Blood Count 5.05 M/mm3 (3.65-5.03); Red Cell Distribution Width 12.7 % (13.2-15.2)
[2021-05-15 21:41] LABS: Alanine Aminotransferase 13 units/L (7-56); Albumin 4.1 g/dL (3.9-5); BUN/Creatinine Ratio 9; Blood Urea Nitrogen 10 mg/dL (9-20); Calcium 9.7 mg/dL (8.4-10.2); Hemolysis Index 20
[2021-05-15 22:20] LABS: Total Cells Counted 100
[2021-05-15 22:21] LABS: RBC Morphology Normal
[2021-05-15 22:22] LABS: Platelet Estimate Consistent w Auto
[2021-05-15 22:32] LABS: Bilirubin,Urine NEG (Negative); Blood,Urine NEG (Negative); Color,Urine Colorless (Yellow); Protein,Urine <15 mg/dL mg/dL (Negative); Urobilinogen,Urine < 2.0 mg/dL (<2.0)
[2021-05-15] MEDS ORDERED: KETOROLAC 30 MG/1 ML INJ IV STA (22:43)
== END 2021-05-16 01:30 | disposition home or self-care (01) ==
LOC: ED 19:32
DX: E11.65 Type 2 diabetes mellitus with hyperglycemia (principal); I10 Essential (primary) hypertension; E66.9 Obesity, unspecified; K64.9 Unspecified hemorrhoids; L30.9 Dermatitis, unspecified; Z98.890 Other specified postprocedural states; F17.200 Nicotine dependence, unspecified, uncomplicated
CPT/HCPCS: 36415; 80053; 81003; 82962; 85007; 85025; 96361; 96374; 96375; 99283; J1885; J7030; J1815

== ENCOUNTER 2021-05-16 13:54 | Emergency (ER) | payer MEDICARE ==
[2021-05-16] MEDS ORDERED: INSULIN REGULAR, HUMAN 100 UNITS/1 ML IV ONE ×2 (14:14→17:00)
[2021-05-16] MEDS ORDERED: SODIUM CHLORIDE 0.9% 1000 ML 2,000 ML IV ONE (14:14)
--- NOTE | 2021-05-16 14:18 | Event Note ---
ED Screening Note Date of service: 05/16/21 Time: 14:17 ED Screening Note: 30-year-old -[place] male presents to the emergency room for hyperglycemia and neuropathy pain. Blood sugar was checked in triage was greater than 600. This initial assessment/diagnostic orders/clinical plan/treatment(s) is/are subject to change based on patients health status, clinical progression and re- assessment by fellow clinical providers in the ED. Further treatment and workup at subsequent clinical providers discretion. Patient/guardian urged not to elope from the ED as their condition may be serious if not clinically assessed and managed. Initial orders include: Diabetic protocol ordered INT normal saline 2 L insulin IV 10 units charts taken to the back for MD to evaluate.
[2021-05-16 14:57] LABS: Alanine Aminotransferase 13 units/L (7-56); Albumin 4.2 g/dL (3.9-5); BUN/Creatinine Ratio 10; Blood Urea Nitrogen 12 mg/dL (9-20); Calcium 9.5 mg/dL (8.4-10.2); Hemolysis Index 3
--- NOTE | 2021-05-16 14:58 | Emergency Department Report ---
ED General Adult HPI - General Chief complaint: Hyperglycemia Stated complaint: HIGH GLUCOSE/SEVERE LEG PAIN Time Seen by Provider: 05/16/21 14:24 Source: patient Mode of arrival: Ambulatory Limitations: No Limitations - History of Present Illness Initial comments: Patient presented and was seen by one of the nurse practitioners as a medical screening evaluation. He briefly came in for ongoing leg and foot pain, hyperglycemia, and generalized malaise. He had apparently been seen here last night. He was out of his insulin. His sugars have been out of control. He does not think he is in DKA. Regardless, he is here because his sugars were too high for his meter to read. There has been no vomiting or diarrhea. He was treated for urinary tract infection last week. He states that that feels better. There is no unusual rash. The pain in his feet and legs is chronic related to his neuropathy and diabetes. He states that he just could not control his sugar and decided to come here to address the sugar and the pain in his legs. Patient has had no current fevers. He has had no hematemesis or coffee-ground emesis. There has been no travel out of the country. - Related Data Home Medications Medication Instructions Recorded Confirmed Last Taken RisperDAL 1 mg PO QHS 03/10/17 05/12/19 05/03/19 Duloxetine HCl 60 mg PO QDAY 05/06/19 05/12/19 05/03/19 Esomeprazole Magnesium [NexIUM] 40 mg PO QDAY 05/06/19 05/12/19 05/03/19 Gabapentin 100 mg PO Q8HR 05/06/19 05/12/19 05/03/19 hydrOXYzine HCL [Atarax] 25 mg PO BID 05/06/19 05/12/19 05/03/19 Insulin NPH Hum/Reg Insulin Hm 26 unit SQ BID 05/12/19 05/12/19 Unknown [HumuLIN 70-30 Vial] traZODone [Desyrel] 150 mg PO QHS 05/12/19 05/12/19 Unknown Previous Rx's Medication Instructions Recorded Last Taken Type Indomethacin 50 mg PO TID #15 capsule 05/21/16 04/12/19 Rx FLUoxetine [PROzac] 40 mg PO QDAY #14 capsule 03/12/17 05/03/19 Rx Metoclopramide [Reglan] 10 mg PO TID PRN #10 tab 03/20/17 05/03/19 Rx Syr-Nd,Ins,0.5/Container,Empty 1 each MC PRN PRN #1 box 03/20/17 05/03/19 Rx [Ulticare Syr 0.5 ml 29GX1/2"] Dicyclomine [Bentyl] 20 mg PO QID #10 tablet 05/23/19 Unknown Rx traMADoL [Ultram] 50 mg PO Q6HR PRN #12 tablet 05/23/19 Unknown Rx Ondansetron [Zofran ODT TAB] 4 mg PO Q6HR PRN #10 tab.rapdis 05/25/19 Unknown Rx Albuterol Mdi (or & Nicu Only) 2 puff IH QID PRN #1 inhalation 08/28/19 Unknown Rx [ProAir HFA Inhaler] Benzonatate [Tessalon Perles] 100 mg PO Q8HR #10 capsule 08/28/19 Unknown Rx Fluticasone [Flonase] 1 spray NS QDAY #1 bottle 08/28/19 Unknown Rx traMADoL [Ultram 50 MG tab] 50 mg PO Q6HR PRN #12 tablet 08/28/19 Unknown Rx HYDROcodone/APAP 5-325 [[place] 1 each PO Q6HR PRN #5 tablet 03/10/20 Unknown Rx 5-325 mg TAB] Gabapentin 100 mg PO Q8HR capsule 09/05/20 Unknown Rx Insulin Detemir (Nf) [Levemir 60 unit SQ QPM #10 insuln.pen 09/05/20 Unknown Rx Flextouch (Nf)] Insulin Regular, Human [HumuLIN R] See Protocol SQ ACHS #30 day 09/05/20 Unknown Rx Pantoprazole [Protonix TAB] 40 mg PO DAILY tablet 09/05/20 Unknown Rx Potassium Chloride [K-Dur] 10 meq PO QDAY tablet 09/05/20 Unknown Rx Pravastatin [Pravachol] 20 mg PO QHS tablet 09/05/20 Unknown Rx lisinopriL [Zestril TAB] 40 mg PO QDAY tablet 09/05/20 Unknown Rx carBAMazepine [Tegretol] 200 mg PO TID PRN #30 tablet 05/16/21 Unknown Rx Allergies Allergy/AdvReac Type Severity Reaction Status Date / Time No Known Allergies Allergy Verified 05/15/21 19:53 ED Review of Systems ROS: Stated complaint: HIGH GLUCOSE/SEVERE LEG PAIN Other details as noted in HPI Comment: All other systems reviewed and negative Constitutional: denies: fever Eyes: denies: eye pain ENT: denies: ear pain Respiratory: denies: cough Cardiovascular: denies: chest pain Endocrine: increased thirst, increased urine Gastrointestinal: denies: abdominal pain Genitourinary: as per HPI Musculoskeletal: denies: back pain Skin: denies: rash Neurological: denies: headache Hematological/Lymphatic: denies: easy bruising ED Past Medical Hx - Past Medical History Previous Medical History?: Yes Hx Hypertension: Yes Hx Congestive Heart Failure: No Hx Diabetes: Yes Hx Psychiatric Treatment: Yes (depression, SI attempt) Hx Asthma: No Hx COPD: No Hx HIV: No Additional medical history: BULGING / HERNIATED DISC. hemorrhoids. OBESITY. Eczema - Surgical History Past Surgical History?: Yes Additional Surgical History: HEMORRHOIDECTOMY - Family History Family history: diabetes - Social History Smoking Status: Current Every Day Smoker - Medications Home Medications: Home Medications Medication Instructions Recorded Confirmed Last Taken Type Indomethacin 50 mg PO TID #15 capsule 05/21/16 05/12/19 04/12/19 Rx RisperDAL 1 mg PO QHS 03/10/17 05/12/19 05/03/19 History FLUoxetine [PROzac] 40 mg PO QDAY #14 capsule 03/12/17 05/12/19 05/03/19 Rx Metoclopramide [Reglan] 10 mg PO TID PRN #10 tab 03/20/17 05/12/19 05/03/19 Rx Syr-Nd,Ins,0.5/Container,Empty 1 each MC PRN PRN #1 box 03/20/17 05/12/19 05/03/19 Rx [Ulticare Syr 0.5 ml 29GX1/2"] Duloxetine HCl 60 mg PO QDAY 05/06/19 05/12/19 05/03/19 History Esomeprazole Magnesium [NexIUM] 40 mg PO QDAY 05/06/19 05/12/19 05/03/19 History Gabapentin 100 mg PO Q8HR 05/06/19 05/12/19 05/03/19 History hydrOXYzine HCL [Atarax] 25 mg PO BID 05/06/19 05/12/19 05/03/19 History Insulin NPH Hum/Reg Insulin Hm 26 unit SQ BID 05/12/19 05/12/19 Unknown History [HumuLIN 70-30 Vial] traZODone [Desyrel] 150 mg PO QHS 05/12/19 05/12/19 Unknown History Dicyclomine [Bentyl] 20 mg PO QID #10 tablet 05/23/19 Unknown Rx traMADoL [Ultram] 50 mg PO Q6HR PRN #12 tablet 05/23/19 Unknown Rx Ondansetron [Zofran ODT TAB] 4 mg PO Q6HR PRN #10 tab.rapdis 05/25/19 Unknown Rx Albuterol Mdi (or & Nicu Only) 2 puff IH QID PRN #1 inhalation 08/28/19 Unknown Rx [ProAir HFA Inhaler] Benzonatate [Tessalon Perles] 100 mg PO Q8HR #10 capsule 08/28/19 Unknown Rx Fluticasone [Flonase] 1 spray NS QDAY #1 bottle 08/28/19 Unknown Rx traMADoL [Ultram 50 MG tab] 50 mg PO Q6HR PRN #12 tablet 08/28/19 Unknown Rx HYDROcodone/APAP 5-325 [[place] 1 each PO Q6HR PRN #5 tablet 03/10/20 Unknown Rx 5-325 mg TAB] Gabapentin 100 mg PO Q8HR capsule 09/05/20 Unknown Rx Insulin Detemir (Nf) [Levemir 60 unit SQ QPM #10 insuln.pen 09/05/20 Unknown Rx Flextouch (Nf)] Insulin Regular, Human [HumuLIN R] See Protocol SQ ACHS #30 day 09/05/20 Unknown Rx Pantoprazole [Protonix TAB] 40 mg PO DAILY tablet 09/05/20 Unknown Rx Potassium Chloride [K-Dur] 10 meq PO QDAY tablet 09/05/20 Unknown Rx Pravastatin [Pravachol] 20 mg PO QHS tablet 09/05/20 Unknown Rx lisinopriL [Zestril TAB] 40 mg PO QDAY tablet 09/05/20 Unknown Rx carBAMazepine [Tegretol] 200 mg PO TID PRN #30 tablet 05/16/21 Unknown Rx ED Physical Exam - General Limitations: No Limitations, Other (Pulse ox was noted and normal) General appearance: alert, in no apparent distress - Head Head exam: Present: atraumatic, normocephalic, normal inspection - Eye Eye exam: Present: normal appearance, EOMI - ENT ENT exam: Present: mucous membranes dry, normal external ear exam - Neck Neck exam: Present: normal inspection. Absent: meningismus - Respiratory Respiratory exam: Present: normal lung sounds bilaterally. Absent: respiratory distress - Cardiovascular Cardiovascular Exam: Present: normal rhythm, tachycardia - GI/Abdominal GI/Abdominal exam: Present: soft. Absent: tenderness - Extremities Exam Extremities exam: Present: normal capillary refill. Absent: calf tenderness - Back Exam Back exam: Absent: CVA tenderness (R), CVA tenderness (L) - Neurological Exam Neurological exam: Present: alert, oriented X3, CN II-XII intact, abnormal gait (Antalgic), motor sensory deficit (Subjective numbness to both legs consistent with his prior neuropathy) - Psychiatric Psychiatric exam: Present: normal affect, normal mood - Skin Skin exam: Present: warm, dry ED Course Vital Signs 05/16/21 14:08 Temperature 98.1 F Pulse Rate 82 Respiratory 16 Rate Blood Pressure 133/90 [Left] O2 Sat by Pulse 99 Oximetry - Reevaluation(s) Reevaluation #1: 05/16/21 14:58 Labs are pending. Reevaluation #2: 05/16/21 17:26 Labs were noted. Patient has decided he no longer wants to stay. He would like to be discharged. He states his insurance will fill his insulin tomorrow. He is just requesting pain medicine for his neuropathy. Patient has been given analgesics here. He was subsequently discharged. ED Medical Decision Making - Lab Data Result diagrams: 05/16/21 14:25 05/16/21 14:25 - Medical Decision Making Patient presents with uncontrolled diabetes. He was not in DKA. He has been given fluids here. We gave him insulin here. His sugar had improved somewhat. He has not decided to wait for further treatment. He would like to leave. He is still requesting analgesics for neuropathy. He will get a prescription for Tegretol. Patient can follow-up with his regular physician for ongoing treatment and management. He states that he does have insulin starting tomorrow. He was encouraged to use that and avoid carbohydrates. Critical Care Time: No Critical care attestation.: If time is entered above; I have spent that time in minutes in the direct care of this critically ill patient, excluding procedure time. ED Disposition Clinical Impression: Hyperglycemia due to type 1 diabetes mellitus, Diabetic neuropathy Disposition: 01 HOME / SELF CARE / HOMELESS Is pt being admited?: No Condition: Stable Instructions: Diabetes Mellitus Type 2 in Adults (ED), Insulin Treatment for Diabetes Mellitus, Diabetic Nephropathy Additional Instructions: Drink plenty water. Return for problems. Take your insulin. Follow-up with your regular doctor for recheck and further management. Prescriptions: carBAMazepine [Tegretol] 200 mg PO TID PRN #30 tablet PRN Reason: neuropathy
[2021-05-16 15:04] LABS: Basophils # (Auto) 0.1 K/mm3 (0.0-0.1); Basophils % (Auto) 2.1 % (0.0-1.8); Eosinophils # (Auto) 0.1 K/mm3 (0.0-0.4); Eosinophils % (Auto) 2.3 % (0.0-4.3); Hematocrit 41.5 % (35.5-45.6); Hemoglobin 14.4 gm/dl (11.8-15.2); Lymphocytes # (Auto) 1.1 K/mm3 (1.2-5.4); Lymphocytes % (Auto) 41.4 % (13.4-35.0); Mean Corpuscular HGB Conc 35 % (32-34); Mean Corpuscular Volume 85 fl (84-94); Monocytes # (Auto) 0.2 K/mm3 (0.0-0.8); Monocytes % (Auto) 9.1 % (0.0-7.3); Platelet Count 222 K/mm3 (140-440); Red Blood Count 4.88 M/mm3 (3.65-5.03); Red Cell Distribution Width 12.9 % (13.2-15.2)
[2021-05-16] MEDS ORDERED: MORPHINE 4 MG/1 ML INJ IV ONE (15:12)
[2021-05-16 15:41] LABS: Bacteria,Urine 3+ /HPF (Negative); Bilirubin,Urine NEG (Negative); Blood,Urine SM (Negative); Color,Urine Yellow (Yellow); Protein,Urine <15 mg/dL mg/dL (Negative); Sperm,Urine FEW /HPF (NP); Urobilinogen,Urine < 2.0 mg/dL (<2.0)
[2021-05-16 15:50] LABS: WBC,Urine > 182.0 /HPF (0.0-6.0)
[2021-05-16 18:35] VITALS: BP 135/78
== END 2021-05-16 18:35 | disposition home or self-care (01) ==
LOC: ED 13:54
DX: E10.65 Type 1 diabetes mellitus with hyperglycemia (principal); E10.40 Type 1 diabetes mellitus with diabetic neuropathy, unspecified; R53.81 Other malaise; M79.606 Pain in leg, unspecified; M79.673 Pain in unspecified foot; I11.0 Hypertensive heart disease with heart failure; I50.9 Heart failure, unspecified; K64.9 Unspecified hemorrhoids; E66.9 Obesity, unspecified; Z98.890 Other specified postprocedural states; F17.200 Nicotine dependence, unspecified, uncomplicated
CPT/HCPCS: 36415; 80053; 81001; 82805; 82962; 83735; 84100; 85025; 96360; 96361; 99283; J2270; J7030; J1815

== ENCOUNTER 2021-05-23 22:00 | Emergency (ER) | payer MEDICARE ==
[2021-05-23 22:50] VITALS: BP 147/100
[2021-05-23] MEDS ORDERED: KETOROLAC 30 MG/1 ML INJ IV ONE (23:50)
[2021-05-23] MEDS ORDERED: SODIUM CHLORIDE 0.9% 1000 ML 1,000 ML IV ONE (23:50)
--- NOTE | 2021-05-23 23:54 | Emergency Department Report ---
ED General Adult HPI - General Chief complaint: Hyperglycemia Stated complaint: HIGH BLOOD SUGAR/BACK PAIN/BILATERAL LEG PAIN Time Seen by Provider: 05/23/21 23:50 Source: patient Mode of arrival: Ambulatory Limitations: No Limitations - History of Present Illness Initial comments: 30-year-old male patient with history of diabetes presents to the emergency department with complaints of hyperglycemia. Patient has been evaluated in the emergency department for hyperglycemia multiple times this month. He is reported having issues with his insurance company refusing to pay for his Humalog. He is supposed to be taking 35 units of Humalog with each meal. He is scheduled to return to his doctor's office next week. 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 He states that his "elevated blood sugar is worsening his pain." Denies fever, chills, chest pain, shortness of breath, abdominal pain, nausea, vomiting. Denies all other complaints at this time. - Related Data Home Medications Medication Instructions Recorded Confirmed Last Taken RisperDAL 1 mg PO QHS 03/10/17 05/12/19 05/03/19 Duloxetine HCl 60 mg PO QDAY 05/06/19 05/12/19 05/03/19 Esomeprazole Magnesium [NexIUM] 40 mg PO QDAY 05/06/19 05/12/19 05/03/19 Gabapentin 100 mg PO Q8HR 05/06/19 05/12/19 05/03/19 hydrOXYzine HCL [Atarax] 25 mg PO BID 05/06/19 05/12/19 05/03/19 Insulin NPH Hum/Reg Insulin Hm 26 unit SQ BID 05/12/19 05/12/19 Unknown [HumuLIN 70-30 Vial] traZODone [Desyrel] 150 mg PO QHS 05/12/19 05/12/19 Unknown Previous Rx's Medication Instructions Recorded Last Taken Type Indomethacin 50 mg PO TID #15 capsule 05/21/16 04/12/19 Rx FLUoxetine [PROzac] 40 mg PO QDAY #14 capsule 03/12/17 05/03/19 Rx Metoclopramide [Reglan] 10 mg PO TID PRN #10 tab 03/20/17 05/03/19 Rx Syr-Nd,Ins,0.5/Container,Empty 1 each MC PRN PRN #1 box 03/20/17 05/03/19 Rx [Ulticare Syr 0.5 ml 29GX1/2"] Dicyclomine [Bentyl] 20 mg PO QID #10 tablet 05/23/19 Unknown Rx traMADoL [Ultram] 50 mg PO Q6HR PRN #12 tablet 05/23/19 Unknown Rx Ondansetron [Zofran ODT TAB] 4 mg PO Q6HR PRN #10 tab.rapdis 05/25/19 Unknown Rx Albuterol Mdi (or & Nicu Only) 2 puff IH QID PRN #1 inhalation 08/28/19 Unknown Rx [ProAir HFA Inhaler] Benzonatate [Tessalon Perles] 100 mg PO Q8HR #10 capsule 08/28/19 Unknown Rx Fluticasone [Flonase] 1 spray NS QDAY #1 bottle 08/28/19 Unknown Rx traMADoL [Ultram 50 MG tab] 50 mg PO Q6HR PRN #12 tablet 08/28/19 Unknown Rx HYDROcodone/APAP 5-325 [[place] 1 each PO Q6HR PRN #5 tablet 03/10/20 Unknown Rx 5-325 mg TAB] Gabapentin 100 mg PO Q8HR capsule 09/05/20 Unknown Rx Insulin Detemir (Nf) [Levemir 60 unit SQ QPM #10 insuln.pen 09/05/20 Unknown Rx Flextouch (Nf)] Insulin Regular, Human [HumuLIN R] See Protocol SQ ACHS #30 day 09/05/20 Unknown Rx Pantoprazole [Protonix TAB] 40 mg PO DAILY tablet 09/05/20 Unknown Rx Potassium Chloride [K-Dur] 10 meq PO QDAY tablet 09/05/20 Unknown Rx Pravastatin [Pravachol] 20 mg PO QHS tablet 09/05/20 Unknown Rx lisinopriL [Zestril TAB] 40 mg PO QDAY tablet 09/05/20 Unknown Rx carBAMazepine [Tegretol] 200 mg PO TID PRN #30 tablet 05/16/21 Unknown Rx Allergies Allergy/AdvReac Type Severity Reaction Status Date / Time No Known Allergies Allergy Verified 05/15/21 19:53 ED Review of Systems ROS: Stated complaint: HIGH BLOOD SUGAR/BACK PAIN/BILATERAL LEG PAIN Other details as noted in HPI Other: GENERAL: Negative for fever. CARDIOVASCULAR: Negative for chest pain. PULMONARY: Negative for shortness of breath. GASTROINTESTINAL: Negative for abdominal pain. MUSCULOSKELETAL: Negative for back pain. NEUROLOGICAL: Negative for headache. INTEGUMENTARY: Negative for rash. ED Past Medical Hx - Past Medical History Previous Medical History?: Yes Hx Hypertension: Yes Hx Congestive Heart Failure: No Hx Diabetes: Yes Hx Psychiatric Treatment: Yes (depression, SI attempt) Hx Asthma: No Hx COPD: No Hx HIV: No Additional medical history: BULGING / HERNIATED DISC. hemorrhoids. OBESITY. Eczema - Surgical History Past Surgical History?: Yes Additional Surgical History: HEMORRHOIDECTOMY - Social History Smoking Status: Current Every Day Smoker - Medications Home Medications: Home Medications Medication Instructions Recorded Confirmed Last Taken Type Indomethacin 50 mg PO TID #15 capsule 05/21/16 05/12/19 04/12/19 Rx RisperDAL 1 mg PO QHS 03/10/17 05/12/19 05/03/19 History FLUoxetine [PROzac] 40 mg PO QDAY #14 capsule 03/12/17 05/12/19 05/03/19 Rx Metoclopramide [Reglan] 10 mg PO TID PRN #10 tab 03/20/17 05/12/19 05/03/19 Rx Syr-Nd,Ins,0.5/Container,Empty 1 each MC PRN PRN #1 box 03/20/17 05/12/19 05/03/19 Rx [Ulticare Syr 0.5 ml 29GX1/2"] Duloxetine HCl 60 mg PO QDAY 05/06/19 05/12/19 05/03/19 History Esomeprazole Magnesium [NexIUM] 40 mg PO QDAY 05/06/19 05/12/19 05/03/19 History Gabapentin 100 mg PO Q8HR 05/06/19 05/12/19 05/03/19 History hydrOXYzine HCL [Atarax] 25 mg PO BID 05/06/19 05/12/19 05/03/19 History Insulin NPH Hum/Reg Insulin Hm 26 unit SQ BID 05/12/19 05/12/19 Unknown History [HumuLIN 70-30 Vial] traZODone [Desyrel] 150 mg PO QHS 05/12/19 05/12/19 Unknown History Dicyclomine [Bentyl] 20 mg PO QID #10 tablet 10/21/19 Unknown Rx traMADoL [Ultram] 50 mg PO Q6HR PRN #12 tablet 05/23/19 Unknown Rx Ondansetron [Zofran ODT TAB] 4 mg PO Q6HR PRN #10 tab.rapdis 05/25/19 Unknown Rx Albuterol Mdi (or & Nicu Only) 2 puff IH QID PRN #1 inhalation 08/28/19 Unknown Rx [ProAir HFA Inhaler] Benzonatate [Tessalon Perles] 100 mg PO Q8HR #10 capsule 08/28/19 Unknown Rx Fluticasone [Flonase] 1 spray NS QDAY #1 bottle 08/28/19 Unknown Rx traMADoL [Ultram 50 MG tab] 50 mg PO Q6HR PRN #12 tablet 08/28/19 Unknown Rx HYDROcodone/APAP 5-325 [[place] 1 each PO Q6HR PRN #5 tablet 03/10/20 Unknown Rx 5-325 mg TAB] Gabapentin 100 mg PO Q8HR capsule 09/05/20 Unknown Rx Insulin Detemir (Nf) [Levemir 60 unit SQ QPM #10 insuln.pen 09/05/20 Unknown Rx Flextouch (Nf)] Insulin Regular, Human [HumuLIN R] See Protocol SQ ACHS #30 day 09/05/20 Unknown Rx Pantoprazole [Protonix TAB] 40 mg PO DAILY tablet 09/05/20 Unknown Rx Potassium Chloride [K-Dur] 10 meq PO QDAY tablet 09/05/20 Unknown Rx Pravastatin [Pravachol] 20 mg PO QHS tablet 09/05/20 Unknown Rx lisinopriL [Zestril TAB] 40 mg PO QDAY tablet 09/05/20 Unknown Rx carBAMazepine [Tegretol] 200 mg PO TID PRN #30 tablet 05/16/21 Unknown Rx ED Physical Exam - General Limitations: No Limitations - Other Other exam information: General: Awake and alert. No acute distress. Head: Atraumatic, normocephalic. Eyes: EOMI. Pupils are equal and round. Normal sclera and conjunctiva. ENT: Oral mucosa is moist. Normal pharyngeal exam. Neck: Supple. No lymphadenopathy. Pulmonary: No respiratory distress. Clear to auscultation bilaterally. Cardiac: Regular rate and rhythm. Pulses are palpable and equal bilaterally. No lower extremity cyanosis or edema. Skin: Warm and dry. No rashes. Abdomen: Soft, non-tender, non-protuberant. No guarding, rigidity, or rebound. Bowel sounds are normal. No organomegaly or masses noted. Back: Normal alignment. No CVA tenderness. Extremities: Symmetrical. Full range of motion intact. Neurological: Alert and oriented, appropriately interactive, no focal deficits. Psych: Cooperative. Appropriate mood and affect. Speech is evenly metered. Thoughts are logically construed. ED Course Vital Signs 05/23/21 05/24/21 22:43 00:08 Temperature 98.6 F Pulse Rate 89 Respiratory 18 18 Rate Blood Pressure 147/100 O2 Sat by Pulse 97 Oximetry ED Medical Decision Making - Medical Decision Making Differential diagnosis including but not limited to: diabetic ketoacidosis, hyperglycemic hyperosmolar state, dehydration, electrode abnormality, hypoglycemia 01:00: Labs pending. Patient was given Toradol along with his IV fluids for pain control pending diagnostic evaluation. Patient states the Toradol was not effective and asked for morphine. This is patient's third visit to the emergency department requesting treatment for chronic pain. He was already prescribed pain medication during his prior visits. 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 He already stated that he has pain medication prescriptions waiting to be filled at the pharmacy. It was explained to the patient that the emergency department does not manage chronic pain and he needs to adhere to his pain management medication regimen as prescribed by his specialist. 01:06: Patient eloped from the emergency department prior to completion of diagnostic evaluation. Case discussed with Dr. Gottlieb, attending emergency physician, who agrees with diagnostic work-up/plan of care. Critical care attestation.: If time is entered above; I have spent that time in minutes in the direct care of this critically ill patient, excluding procedure time. ED Disposition Clinical Impression: Eloped from emergency department Disposition: 07 LEFT AWOL/ELOPED Is pt being admited?: No Condition: Undetermined Time of Disposition: 01:06
[2021-05-24 01:14] LABS: Hematocrit 40.3 % (35.5-45.6); Hemoglobin 13.3 gm/dl (11.8-15.2); Mean Corpuscular HGB Conc 33 % (32-34); Mean Corpuscular Volume 85 fl (84-94); Platelet Count 146 K/mm3 (140-440); Red Blood Count 4.74 M/mm3 (3.65-5.03); Red Cell Distribution Width 13.2 % (13.2-15.2)
[2021-05-24 01:18] LABS: BUN/Creatinine Ratio 9; Blood Urea Nitrogen 11 mg/dL (9-20); Calcium 8.8 mg/dL (8.4-10.2); Hemolysis Index 7
== END 2021-05-24 01:06 | disposition left against medical advice (07) ==
LOC: ED 22:00
DX: E11.65 Type 2 diabetes mellitus with hyperglycemia (principal); F17.200 Nicotine dependence, unspecified, uncomplicated
CPT/HCPCS: 36415; 80048; 82805; 82962; 85027; 96361; 96374; 99283; J1885; J7030

== ENCOUNTER 2021-05-25 14:46 | Emergency (ER) | payer MEDICARE ==
[2021-05-25 15:51] VITALS: BP 108/75
[2021-05-25] MEDS ORDERED: SODIUM CHLORIDE 0.9% 1000 ML 2,000 ML IV ONE (16:28)
[2021-05-25] MEDS ORDERED: HYDROcodone/ACETAMINOPHEN 5-325 MG TAB PO ONE (16:28)
--- NOTE | 2021-05-25 16:28 | Emergency Department Report ---
ED General Adult HPI - General Chief complaint: Hyperglycemia Stated complaint: HIGH BLOOD SUGAR,LEG PAIN,VOMITTING Time Seen by Provider: 05/25/21 16:11 Source: patient Mode of arrival: Ambulatory Limitations: No Limitations - History of Present Illness Initial comments: 30-year-old male with a past medical history of type 2 diabetes, DKA and peripheral neuropathy who is well-known to this ED with frequent visits to the ED for elevated blood sugars presents to the ER today with complaints of elevation of his blood sugar. Patient states that his sugar has been running high for about a week. Patient states that he is on Humalog, and he supposed to take 35 units with each meal, but he has been out of his Humalog for over 1 week. He states that he has been having issues with his insurance covering the Humalog. Patient states that he has followed up with his PCP and his primary care doctor has called and alternatives to the pharmacy for him but he states that he has to wait for the insurance to approve them. Patient states that he started vomiting 2 days ago. He reports urinary frequency and increasing pain to his bilateral lower extremities secondary to his peripheral neuropathy. He denies any lower extremity swelling. He denies any chest pain, URI symptoms, fever or chills. He denies any dysuria or abdominal pain. He states that he did get his COVID-19 vaccine, last dose in October 2020. Complaint: Elevated blood sugar -: week(s) (1) Severity scale (0 -10): 6 - Related Data Home Medications Medication Instructions Recorded Confirmed Last Taken RisperDAL 1 mg PO QHS 03/10/17 05/12/19 05/03/19 Duloxetine HCl 60 mg PO QDAY 05/06/19 05/12/19 05/03/19 Esomeprazole Magnesium [NexIUM] 40 mg PO QDAY 05/06/19 05/12/19 05/03/19 Gabapentin 100 mg PO Q8HR 05/06/19 05/12/19 05/03/19 hydrOXYzine HCL [Atarax] 25 mg PO BID 05/06/19 05/12/19 05/03/19 Insulin NPH Hum/Reg Insulin Hm 26 unit SQ BID 05/12/19 05/12/19 Unknown [HumuLIN 70-30 Vial] traZODone [Desyrel] 150 mg PO QHS 05/12/19 05/12/19 Unknown Previous Rx's Medication Instructions Recorded Last Taken Type Indomethacin 50 mg PO TID #15 capsule 05/21/16 04/12/19 Rx FLUoxetine [PROzac] 40 mg PO QDAY #14 capsule 03/12/17 05/03/19 Rx Metoclopramide [Reglan] 10 mg PO TID PRN #10 tab 03/20/17 05/03/19 Rx Syr-Nd,Ins,0.5/Container,Empty 1 each MC PRN PRN #1 box 03/20/17 05/03/19 Rx [Ulticare Syr 0.5 ml 29GX1/2"] Dicyclomine [Bentyl] 20 mg PO QID #10 tablet 05/23/19 Unknown Rx traMADoL [Ultram] 50 mg PO Q6HR PRN #12 tablet 05/23/19 Unknown Rx Ondansetron [Zofran ODT TAB] 4 mg PO Q6HR PRN #10 tab.rapdis 05/25/19 Unknown Rx Albuterol Mdi (or & Nicu Only) 2 puff IH QID PRN #1 inhalation 08/28/19 Unknown Rx [ProAir HFA Inhaler] Benzonatate [Tessalon Perles] 100 mg PO Q8HR #10 capsule 08/28/19 Unknown Rx Fluticasone [Flonase] 1 spray NS QDAY #1 bottle 08/28/19 Unknown Rx traMADoL [Ultram 50 MG tab] 50 mg PO Q6HR PRN #12 tablet 08/28/19 Unknown Rx HYDROcodone/APAP 5-325 [[place] 1 each PO Q6HR PRN #5 tablet 03/10/20 Unknown Rx 5-325 mg TAB] Gabapentin 100 mg PO Q8HR capsule 09/05/20 Unknown Rx Insulin Detemir (Nf) [Levemir 60 unit SQ QPM #10 insuln.pen 09/05/20 Unknown Rx Flextouch (Nf)] Insulin Regular, Human [HumuLIN R] See Protocol SQ ACHS #30 day 09/05/20 Unknown Rx Pantoprazole [Protonix TAB] 40 mg PO DAILY tablet 09/05/20 Unknown Rx Potassium Chloride [K-Dur] 10 meq PO QDAY tablet 09/05/20 Unknown Rx Pravastatin [Pravachol] 20 mg PO QHS tablet 09/05/20 Unknown Rx lisinopriL [Zestril TAB] 40 mg PO QDAY tablet 09/05/20 Unknown Rx carBAMazepine [Tegretol] 200 mg PO TID PRN #30 tablet 05/16/21 Unknown Rx Allergies Allergy/AdvReac Type Severity Reaction Status Date / Time No Known Allergies Allergy Verified 05/15/21 19:53 ED Review of Systems ROS: Stated complaint: HIGH BLOOD SUGAR,LEG PAIN,VOMITTING Other details as noted in HPI Comment: All other systems reviewed and negative Constitutional: denies: chills, fever Eyes: denies: eye pain, eye discharge, vision change ENT: denies: ear pain, throat pain, dental pain, hearing loss, epistaxis, congestion Respiratory: denies: cough, orthopnea, shortness of breath, SOB with exertion, SOB at rest, wheezing Cardiovascular: denies: chest pain, palpitations, dyspnea on exertion, edema, syncope, paroxysmal nocturnal dyspnea Gastrointestinal: nausea, vomiting. denies: abdominal pain, diarrhea, constipation, hematemesis, melena, hematochezia Genitourinary: frequency. denies: urgency, dysuria, hematuria, discharge, testicular pain, testicular mass, other Musculoskeletal: arthralgia. denies: joint swelling Skin: denies: rash, lesions, change in color, change in hair/nails, pruritus Neurological: denies: headache, weakness, paresthesias, confusion, abnormal gait, vertigo Psychiatric: denies: anxiety, depression, auditory hallucinations, visual hallucinations, homicidal thoughts, suicidal thoughts Hematological/Lymphatic: denies: easy bleeding, easy bruising, swollen glands ED Past Medical Hx - Past Medical History Previous Medical History?: Yes Hx Hypertension: Yes Hx Congestive Heart Failure: No Hx Diabetes: Yes Hx Psychiatric Treatment: Yes (depression, SI attempt) Hx Asthma: No Hx COPD: No Hx HIV: No Additional medical history: BULGING / HERNIATED DISC. hemorrhoids. OBESITY. Eczema - Surgical History Additional Surgical History: HEMORRHOIDECTOMY - Social History Smoking Status: Current Every Day Smoker - Medications Home Medications: Home Medications Medication Instructions Recorded Confirmed Last Taken Type Indomethacin 50 mg PO TID #15 capsule 05/21/16 05/12/19 04/12/19 Rx RisperDAL 1 mg PO QHS 03/10/17 05/12/19 05/03/19 History FLUoxetine [PROzac] 40 mg PO QDAY #14 capsule 03/12/17 05/12/19 05/03/19 Rx Metoclopramide [Reglan] 10 mg PO TID PRN #10 tab 03/20/17 05/12/19 05/03/19 Rx Syr-Nd,Ins,0.5/Container,Empty 1 each MC PRN PRN #1 box 03/20/17 05/12/19 05/03/19 Rx [Ulticare Syr 0.5 ml 29GX1/2"] Duloxetine HCl 60 mg PO QDAY 05/06/19 05/12/19 05/03/19 History Esomeprazole Magnesium [NexIUM] 40 mg PO QDAY 05/06/19 05/12/19 05/03/19 History Gabapentin 100 mg PO Q8HR 05/06/19 05/12/19 05/03/19 History hydrOXYzine HCL [Atarax] 25 mg PO BID 05/06/19 05/12/19 05/03/19 History Insulin NPH Hum/Reg Insulin Hm 26 unit SQ BID 05/12/19 05/12/19 Unknown History [HumuLIN 70-30 Vial] traZODone [Desyrel] 150 mg PO QHS 05/12/19 05/12/19 Unknown History Dicyclomine [Bentyl] 20 mg PO QID #10 tablet 05/23/19 Unknown Rx traMADoL [Ultram] 50 mg PO Q6HR PRN #12 tablet 05/23/19 Unknown Rx Ondansetron [Zofran ODT TAB] 4 mg PO Q6HR PRN #10 tab.rapdis 05/25/19 Unknown Rx Albuterol Mdi (or & Nicu Only) 2 puff IH QID PRN #1 inhalation 08/28/19 Unknown Rx [ProAir HFA Inhaler] Benzonatate [Tessalon Perles] 100 mg PO Q8HR #10 capsule 08/28/19 Unknown Rx Fluticasone [Flonase] 1 spray NS QDAY #1 bottle 08/28/19 Unknown Rx traMADoL [Ultram 50 MG tab] 50 mg PO Q6HR PRN #12 tablet 08/28/19 Unknown Rx HYDROcodone/APAP 5-325 [[place] 1 each PO Q6HR PRN #5 tablet 03/10/20 Unknown Rx 5-325 mg TAB] Gabapentin 100 mg PO Q8HR capsule 09/05/20 Unknown Rx Insulin Detemir (Nf) [Levemir 60 unit SQ QPM #10 insuln.pen 09/05/20 Unknown Rx Flextouch (Nf)] Insulin Regular, Human [HumuLIN R] See Protocol SQ ACHS #30 day 09/05/20 Unknown Rx Pantoprazole [Protonix TAB] 40 mg PO DAILY tablet 09/05/20 Unknown Rx Potassium Chloride [K-Dur] 10 meq PO QDAY tablet 09/05/20 Unknown Rx Pravastatin [Pravachol] 20 mg PO QHS tablet 09/05/20 Unknown Rx lisinopriL [Zestril TAB] 40 mg PO QDAY tablet 09/05/20 Unknown Rx carBAMazepine [Tegretol] 200 mg PO TID PRN #30 tablet 05/16/21 Unknown Rx ED Physical Exam - General Limitations: No Limitations General appearance: alert, in no apparent distress - Head Head exam: Present: atraumatic, normocephalic, normal inspection - Eye Eye exam: Present: normal appearance, PERRL, EOMI Pupils: Present: normal accommodation - ENT ENT exam: Present: normal exam, mucous membranes dry - Neck Neck exam: Present: normal inspection, full ROM - Respiratory Respiratory exam: Present: normal lung sounds bilaterally. Absent: respiratory distress, wheezes, rales, rhonchi - Cardiovascular Cardiovascular Exam: Present: regular rate, normal rhythm, normal heart sounds - Neurological Exam Neurological exam: Present: alert, oriented X3, CN II-XII intact, normal gait - Psychiatric Psychiatric exam: Present: normal affect, normal mood - Skin Skin exam: Present: intact ED Course Vital Signs 05/25/21 05/25/21 15:49 18:08 Temperature 98.3 F Pulse Rate 98 H Respiratory 20 16 Rate Blood Pressure 108/75 [Right] O2 Sat by Pulse 100 Oximetry ED Medical Decision Making - Lab Data Result diagrams: 05/25/21 16:31 05/25/21 16:31 - Medical Decision Making 1833: Patient now stating that he is ready to go and does not want to wait any longer. He refused the of NPH and he does not want to continue getting IV fluids. He states that he is just tired and ready to go. Discussed risk with patient of leaving without completing care and determining whether he is in DKA. Patient expressed understanding of the risks and still opted to sign out AMA. See signed AMA form in patient's chart. [Shawn Oquendo] Has decided to leave our facility AGAINST MEDICAL ADVICE. I have assessed the patient's ability to make informed decision and it is my opinion at this time that the patient has the medical decision capacity to comprehend information regarding current medical condition and appreciates the impact of the disease or condition and the consequences of various options for treatment including foregoing treatment. The patient possesses the ability to evaluate all treatment options, compared to risk and benefits of each option, communicate choice in a consistent manner over time and is able to make rational choices. I have explained to the patient further testing, treatment and evaluation I would like to perform during the current emergency department visit as well as any possible alternatives that could be accomplished in a timely manner. I have outlined the possible risk of foregoing any or all of these interventions and the patient understands and acknowledges that the decision to leave may result in undesirable consequences such as , permanent disability and/or loss of current lifestyle. Even though leaving AMA is not ideal, I have instructed the patient to follow any discharge instructions given take any medications prescribed and resume care as soon as possible with another provider. Additionally, we clearly stated that the patient is welcome to return at any time to continue at our facility. Critical care attestation.: If time is entered above; I have spent that time in minutes in the direct care of this critically ill patient, excluding procedure time. ED Disposition Clinical Impression: Hyperglycemia due to type 1 diabetes mellitus Disposition: 07 LEFT AGAINST MEDICAL ADVICE Is pt being admited?: No Condition: Stable Instructions: Hyperglycemia, Diabetes Mellitus Type 2 in Adults (ED) Additional Instructions: Follow up with your PCP first thing thursday to see if we can help you with your insulin. Return to the ER if symptoms worsens. Referrals: BIB HERNÁNDEZ MD [Primary Care Provider] - 3-5 Days Forms: AMA Form Time of Disposition: 18:28 Print Language: PASHTO
[2021-05-25 17:05] LABS: Hemoglobin 15.2 gm/dl (11.8-15.2); Mean Corpuscular HGB Conc 33 % (32-34); Mean Corpuscular Volume 86 fl (84-94); Platelet Count 150 K/mm3 (140-440); Red Blood Count 5.36 M/mm3 (3.65-5.03); Red Cell Distribution Width 13.6 % (13.2-15.2)
[2021-05-25 17:31] LABS: Alanine Aminotransferase 17 units/L (7-56); Albumin 4.1 g/dL (3.9-5); BUN/Creatinine Ratio 7; Blood Urea Nitrogen 8 mg/dL (9-20); Calcium 9.7 mg/dL (8.4-10.2); Hemolysis Index 55
[2021-05-25 18:11] LABS: Total Cells Counted 100
[2021-05-25 18:12] LABS: RBC Morphology Normal
== END 2021-05-25 18:52 | disposition left against medical advice (07) ==
LOC: ED 14:46
DX: E10.65 Type 1 diabetes mellitus with hyperglycemia (principal); R11.10 Vomiting, unspecified; R35.0 Frequency of micturition; M79.605 Pain in left leg; M79.604 Pain in right leg; I10 Essential (primary) hypertension; K64.9 Unspecified hemorrhoids; E66.9 Obesity, unspecified; G62.9 Polyneuropathy, unspecified; Z98.890 Other specified postprocedural states; F17.200 Nicotine dependence, unspecified, uncomplicated
CPT/HCPCS: 36415; 80053; 82962; 83735; 85007; 85025; 96360; 96361; 99283; J7030

== ENCOUNTER 2021-05-28 18:19 | Emergency (ER) | payer MEDICARE ==
[2021-05-28 18:33] VITALS: BP 131/71
[2021-05-28] MEDS ORDERED: SODIUM CHLORIDE 0.9% 1000 ML 1,000 ML IV ONE (19:33)
[2021-05-28] MEDS ORDERED: ONDANSETRON 4 MG/2 ML INJ IV ONE ×2 (19:48→22:19)
--- NOTE | 2021-05-28 19:48 | Event Note ---
ED Screening Note Date of service: 05/28/21 Time: 19:46 ED Screening Note: Patient 30-year-old -Stateless male history of type 2 diabetes and bronchitis. Presents today for abdominal pain fever chills cough productive clear with nausea vomiting x3 days. Patient states elevated sugar at 363 today. Current treatment regimen is Humalog and Levemir per sliding scale and nightly. Last nausea vomiting 2 hours ago. Last p.o. intake was 2 hours ago. Denies shortness of breath or chest pain at this time however. There is no shortness of breath no wheezing no stridor. T-max noted at home no fever noted in triage today. Primary complaint is nausea vomiting and abdominal pain. Patient denies dysuria frequency urgency or hematuria. This initial assessment/diagnostic orders/clinical plan/treatment(s) is/are subject to change based on patients health status, clinical progression and re- assessment by fellow clinical providers in the ED. Further treatment and workup at subsequent clinical providers discretion. Patient/guardian urged not to elope from the ED as their condition may be serious if not clinically assessed and managed. Initial orders include: cmp, cbc, cxr, ua, venous ph, iv, NS IVFs x 1 liter,
--- NOTE | 2021-05-28 20:05 | XRay Report ---
CHEST 2 VIEWS INDICATION: cough fever. COMPARISON: 09/03/2020 FINDINGS: Support devices: None. Heart: Within normal limits. Lungs/pleura: No acute air space or interstitial disease. No pneumothorax. Additional findings: None. IMPRESSION: No acute findings. Signer Name: Marcus Raymond Jr, MD Signed: 05/28/2021 8:01 PM Workstation Name: [email or web address]
[2021-05-28] MEDS ORDERED: KETOROLAC 30 MG/1 ML INJ IV ONE (20:06)
[2021-05-28 20:22] LABS: Hematocrit 48.3 % (35.5-45.6); Hemoglobin 15.2 gm/dl (11.8-15.2); Mean Corpuscular HGB Conc 32 % (32-34); Mean Corpuscular Volume 85 fl (84-94); Platelet Count 180 K/mm3 (140-440); Red Blood Count 5.68 M/mm3 (3.65-5.03); Red Cell Distribution Width 13.5 % (13.2-15.2)
[2021-05-28 20:31] LABS: Alanine Aminotransferase 16 units/L (7-56); BUN/Creatinine Ratio 9; Blood Urea Nitrogen 11 mg/dL (9-20); Hemolysis Index 19
--- NOTE | 2021-05-28 21:14 | Emergency Department Report ---
ED General Adult HPI - General Chief complaint: Hyperglycemia Stated complaint: HIGH BLOOD SUGAR, VOMITING ,SOB Time Seen by Provider: 05/28/21 21:12 Source: patient Mode of arrival: Ambulatory Limitations: Physical Limitation - History of Present Illness Initial comments: Patient 30-year-old -German male history of type 2 diabetes and bronchitis. Presents today for abdominal pain fever chills cough productive clear with nausea vomiting x3 days. Patient states elevated sugar at 363 today. Current treatment regimen is Humalog and Levemir per sliding scale and nightly. Last nausea vomiting 2 hours ago. Last p.o. intake was 2 hours ago. Denies shortness of breath or chest pain at this time however. There is no shortness of breath no wheezing no stridor. T-max noted at home no fever noted in triage today. Primary complaint is nausea vomiting and abdominal pain. Patient denies dysuria frequency urgency or hematuria. Severity scale (0 -10): 4 - Related Data Home Medications Medication Instructions Recorded Confirmed Last Taken RisperDAL 1 mg PO QHS 03/10/17 05/12/19 05/03/19 Duloxetine HCl 60 mg PO QDAY 05/06/19 05/12/19 05/03/19 Esomeprazole Magnesium [NexIUM] 40 mg PO QDAY 05/06/19 05/12/19 05/03/19 Gabapentin 100 mg PO Q8HR 05/06/19 05/12/19 05/03/19 hydrOXYzine HCL [Atarax] 25 mg PO BID 05/06/19 05/12/19 05/03/19 Insulin NPH Hum/Reg Insulin Hm 26 unit SQ BID 05/12/19 05/12/19 Unknown [HumuLIN 70-30 Vial] traZODone [Desyrel] 150 mg PO QHS 05/12/19 05/12/19 Unknown Previous Rx's Medication Instructions Recorded Last Taken Type Indomethacin 50 mg PO TID #15 capsule 05/21/16 04/12/19 Rx FLUoxetine [PROzac] 40 mg PO QDAY #14 capsule 03/12/17 05/03/19 Rx Metoclopramide [Reglan] 10 mg PO TID PRN #10 tab 03/20/17 05/03/19 Rx Syr-Nd,Ins,0.5/Container,Empty 1 each MC PRN PRN #1 box 03/20/17 05/03/19 Rx [Ulticare Syr 0.5 ml 29GX1/2"] Dicyclomine [Bentyl] 20 mg PO QID #10 tablet 05/23/19 Unknown Rx traMADoL [Ultram] 50 mg PO Q6HR PRN #12 tablet 05/23/19 Unknown Rx Ondansetron [Zofran ODT TAB] 4 mg PO Q6HR PRN #10 tab.rapdis 05/25/19 Unknown Rx Albuterol Mdi (or & Nicu Only) 2 puff IH QID PRN #1 inhalation 08/28/19 Unknown Rx [ProAir HFA Inhaler] Benzonatate [Tessalon Perles] 100 mg PO Q8HR #10 capsule 08/28/19 Unknown Rx Fluticasone [Flonase] 1 spray NS QDAY #1 bottle 08/28/19 Unknown Rx traMADoL [Ultram 50 MG tab] 50 mg PO Q6HR PRN #12 tablet 08/28/19 Unknown Rx HYDROcodone/APAP 5-325 [[place] 1 each PO Q6HR PRN #5 tablet 03/10/20 Unknown Rx 5-325 mg TAB] Gabapentin 100 mg PO Q8HR capsule 09/05/20 Unknown Rx Insulin Detemir (Nf) [Levemir 60 unit SQ QPM #10 insuln.pen 09/05/20 Unknown Rx Flextouch (Nf)] Insulin Regular, Human [HumuLIN R] See Protocol SQ ACHS #30 day 09/05/20 Unknown Rx Pantoprazole [Protonix TAB] 40 mg PO DAILY tablet 09/05/20 Unknown Rx Potassium Chloride [K-Dur] 10 meq PO QDAY tablet 09/05/20 Unknown Rx Pravastatin [Pravachol] 20 mg PO QHS tablet 09/05/20 Unknown Rx lisinopriL [Zestril TAB] 40 mg PO QDAY tablet 09/05/20 Unknown Rx carBAMazepine [Tegretol] 200 mg PO TID PRN #30 tablet 05/16/21 Unknown Rx Ondansetron [Zofran Odt] 4 mg PO Q8HR PRN #12 tab.rapdis 05/28/21 Unknown Rx Allergies Allergy/AdvReac Type Severity Reaction Status Date / Time No Known Allergies Allergy Verified 05/28/21 18:33 ED Review of Systems ROS: Stated complaint: HIGH BLOOD SUGAR, VOMITING ,SOB Other details as noted in HPI Constitutional: denies: chills, fever Eyes: denies: eye pain, eye discharge, vision change ENT: denies: ear pain, throat pain Respiratory: cough. denies: shortness of breath, wheezing Cardiovascular: denies: chest pain, palpitations Endocrine: no symptoms reported Gastrointestinal: abdominal pain, nausea, vomiting. denies: diarrhea Genitourinary: denies: urgency, dysuria Musculoskeletal: denies: back pain, joint swelling, arthralgia Skin: denies: rash, lesions Neurological: denies: headache, weakness, paresthesias, vertigo Psychiatric: denies: anxiety, depression Hematological/Lymphatic: denies: easy bleeding, easy bruising ED Past Medical Hx - Past Medical History Hx Hypertension: Yes Hx Congestive Heart Failure: No Hx Diabetes: Yes Hx Psychiatric Treatment: Yes (depression, SI attempt) Hx Asthma: No Hx COPD: No Hx HIV: No Additional medical history: BULGING / HERNIATED DISC. hemorrhoids. OBESITY. Eczema - Surgical History Additional Surgical History: HEMORRHOIDECTOMY - Social History Smoking Status: Current Every Day Smoker - Medications Home Medications: Home Medications Medication Instructions Recorded Confirmed Last Taken Type Indomethacin 50 mg PO TID #15 capsule 05/21/16 05/12/19 04/12/19 Rx RisperDAL 1 mg PO QHS 03/10/17 05/12/19 05/03/19 History FLUoxetine [PROzac] 40 mg PO QDAY #14 capsule 03/12/17 05/12/19 05/03/19 Rx Metoclopramide [Reglan] 10 mg PO TID PRN #10 tab 03/20/17 05/12/19 05/03/19 Rx Syr-Nd,Ins,0.5/Container,Empty 1 each MC PRN PRN #1 box 03/20/17 05/12/19 05/03/19 Rx [Ulticare Syr 0.5 ml 29GX1/2"] Duloxetine HCl 60 mg PO QDAY 05/06/19 05/12/19 05/03/19 History Esomeprazole Magnesium [NexIUM] 40 mg PO QDAY 05/06/19 05/12/19 05/03/19 History Gabapentin 100 mg PO Q8HR 05/06/19 05/12/19 05/03/19 History hydrOXYzine HCL [Atarax] 25 mg PO BID 05/06/19 05/12/19 05/03/19 History Insulin NPH Hum/Reg Insulin Hm 26 unit SQ BID 05/12/19 05/12/19 Unknown History [HumuLIN 70-30 Vial] traZODone [Desyrel] 150 mg PO QHS 05/12/19 05/12/19 Unknown History Dicyclomine [Bentyl] 20 mg PO QID #10 tablet 05/23/19 Unknown Rx traMADoL [Ultram] 50 mg PO Q6HR PRN #12 tablet 05/23/19 Unknown Rx Ondansetron [Zofran ODT TAB] 4 mg PO Q6HR PRN #10 tab.rapdis 05/25/19 Unknown Rx Albuterol Mdi (or & Nicu Only) 2 puff IH QID PRN #1 inhalation 08/28/19 Unknown Rx [ProAir HFA Inhaler] Benzonatate [Tessalon Perles] 100 mg PO Q8HR #10 capsule 08/28/19 Unknown Rx Fluticasone [Flonase] 1 spray NS QDAY #1 bottle 08/28/19 Unknown Rx traMADoL [Ultram 50 MG tab] 50 mg PO Q6HR PRN #12 tablet 08/28/19 Unknown Rx HYDROcodone/APAP 5-325 [[place] 1 each PO Q6HR PRN #5 tablet 03/10/20 Unknown Rx 5-325 mg TAB] Gabapentin 100 mg PO Q8HR capsule 09/05/20 Unknown Rx Insulin Detemir (Nf) [Levemir 60 unit SQ QPM #10 insuln.pen 09/05/20 Unknown Rx Flextouch (Nf)] Insulin Regular, Human [HumuLIN R] See Protocol SQ ACHS #30 day 09/05/20 Unknown Rx Pantoprazole [Protonix TAB] 40 mg PO DAILY tablet 09/05/20 Unknown Rx Potassium Chloride [K-Dur] 10 meq PO QDAY tablet 09/05/20 Unknown Rx Pravastatin [Pravachol] 20 mg PO QHS tablet 09/05/20 Unknown Rx lisinopriL [Zestril TAB] 40 mg PO QDAY tablet 09/05/20 Unknown Rx carBAMazepine [Tegretol] 200 mg PO TID PRN #30 tablet 05/16/21 Unknown Rx Ondansetron [Zofran Odt] 4 mg PO Q8HR PRN #12 tab.rapdis 05/28/21 Unknown Rx ED Physical Exam - General Limitations: Physical Limitation General appearance: alert, in no apparent distress - Head Head exam: Present: atraumatic, normocephalic - Eye Eye exam: Present: PERRL, EOMI Pupils: Present: normal accommodation - ENT ENT exam: Present: mucous membranes moist - Neck Neck exam: Present: normal inspection, full ROM. Absent: tenderness - Respiratory Respiratory exam: Present: normal lung sounds bilaterally. Absent: respiratory distress, wheezes, stridor, chest wall tenderness - Cardiovascular Cardiovascular Exam: Present: normal rhythm, tachycardia, normal heart sounds. Absent: systolic murmur, diastolic murmur, rubs, gallop - GI/Abdominal GI/Abdominal exam: Present: soft, normal bowel sounds. Absent: distended, tenderness, guarding, rebound, rigid, bruit, hernia - Rectal Rectal exam: Present: deferred - Extremities Exam Extremities exam: Present: normal inspection, full ROM, normal capillary refill. Absent: tenderness - Back Exam Back exam: Present: normal inspection, full ROM. Absent: tenderness, CVA tenderness (R), CVA tenderness (L) - Neurological Exam Neurological exam: Present: alert, oriented X3, CN II-XII intact, normal gait - Expanded Neurological Exam Expanded Patient oriented to: Present: person, place, time Speech: Present: fluid speech Best Eye Response ([place]): (4) open spontaneously Best Motor Response ([place]): (6) obeys commands Best Verbal Response ([place]): (5) oriented [place] Total: 15 - Psychiatric Psychiatric exam: Present: normal affect, normal mood - Skin Skin exam: Present: warm, dry, intact, normal color. Absent: rash ED Course Vital Signs 05/28/21 18:31 Temperature 98.2 F Pulse Rate 112 H Respiratory 14 Rate Blood Pressure 131/71 [Left] O2 Sat by Pulse 99 Oximetry ED Medical Decision Making - Lab Data Result diagrams: 05/28/21 19:53 05/28/21 19:53 Labs 05/28/21 05/28/21 05/28/21 18:30 19:53 19:53 WBC 3.2 L RBC 5.68 H Hgb 15.2 Hct 48.3 H MCV 85 MCH 27 L MCHC 32 RDW 13.5 Plt Count 180 Centre % (Auto) Cardiovascular Operating Room Nurse Add Manual Diff Complete Total Counted 100 Seg Neuts % (Manual) 57.0 Lymphocytes % (Manual) 27.0 Monocytes % (Manual) 16.0 H Nucleated RBC % Not Reportable Seg Neutrophils # Man 1.8 Band Neutrophils # 0.0 Lymphocytes # (Manual) 0.9 L Abs React Lymphs (Man) 0.0 Monocytes # (Manual) 0.5 Eosinophils # (Manual) 0.0 Basophils # (Manual) 0.0 Metamyelocytes # 0.0 Myelocytes # 0.0 Promyelocytes # 0.0 Blast Cells # 0.0 WBC Morphology Not Reportable Hypersegmented Neuts Not Reportable Hyposegmented Neuts Not Reportable Hypogranular Neuts Not Reportable Smudge Cells Not Reportable Toxic Granulation Not Reportable Toxic Vacuolation Not Reportable Dohle Bodies Not Reportable Pelger-Huet Anomaly Not Reportable Corey Rods Not Reportable Platelet Estimate Not Reportable Clumped Platelets Not Reportable Plt Clumps, EDTA Not Reportable Large Platelets Not Reportable Giant Platelets Not Reportable Platelet Satelliting Not Reportable Plt Morphology Comment Not Reportable RBC Morphology Normal Dimorphic RBCs Not Reportable Polychromasia Not Reportable Hypochromasia Not Reportable Poikilocytosis Not Reportable Anisocytosis Not Reportable Microcytosis Not Reportable Macrocytosis Not Reportable Spherocytes Not Reportable Pappenheimer Bodies Not Reportable Sickle Cells Not Reportable Target Cells Not Reportable Tear Drop Cells Not Reportable Ovalocytes Not Reportable Helmet Cells Not Reportable [place] Bodies Not Reportable [place] Rings Not Reportable [place] Cells Not Reportable Bite Cells Not Reportable Crenated Cell Not Reportable Elliptocytes Not Reportable Acanthocytes ([place]) Not Reportable Rouleaux Not Reportable Hemoglobin C Crystals Not Reportable Schistocytes Not Reportable Malaria parasites Not Reportable [place] Bodies Not Reportable Hem Pathologist Commnt No VBG pH Sodium 135 L Potassium 4.3 Chloride 96.0 L Carbon Dioxide 23 Anion Gap 20 BUN 11 Creatinine 1.2 Estimated GFR > 60 BUN/Creatinine Ratio 9 Glucose 360 H POC Glucose 396 H Calcium 10.0 Total Bilirubin 0.40 AST 20 ALT 16 Alkaline Phosphatase 94 Total Protein 7.8 Albumin 4.0 Albumin/Globulin Ratio 1.1 Lipase 14 05/28/21 19:53 WBC RBC Hgb Hct MCV MCH MCHC RDW Plt Count [place] % (Auto) Add Manual Diff Total Counted Seg Neuts % (Manual) Lymphocytes % (Manual) Monocytes % (Manual) Nucleated RBC % Seg Neutrophils # Man Band Neutrophils # Lymphocytes # (Manual) Abs React Lymphs (Man) Monocytes # (Manual) Eosinophils # (Manual) Basophils # (Manual) Metamyelocytes # Myelocytes # Promyelocytes # Blast Cells # WBC Morphology Hypersegmented Neuts Hyposegmented Neuts Hypogranular Neuts Smudge Cells Toxic Granulation Toxic Vacuolation Dohle Bodies Pelger-Huet Anomaly Corey Rods Platelet Estimate Clumped Platelets Plt Clumps, EDTA Large Platelets Giant Platelets Platelet Satelliting Plt Morphology Comment RBC Morphology Dimorphic RBCs Polychromasia Hypochromasia Poikilocytosis Anisocytosis Microcytosis Macrocytosis Spherocytes Pappenheimer Bodies Sickle Cells Target Cells Tear Drop Cells Ovalocytes Helmet Cells [place] Bodies [place] Rings [place] Cells Bite Cells Crenated Cell Elliptocytes Acanthocytes ([place]) Rouleaux Hemoglobin C Crystals Schistocytes Malaria parasites [place] Bodies Hem Pathologist Commnt VBG pH 7.402 Sodium Potassium Chloride Carbon Dioxide Anion Gap BUN Creatinine Estimated GFR BUN/Creatinine Ratio Glucose POC Glucose Calcium Total Bilirubin AST ALT Alkaline Phosphatase Total Protein Albumin Albumin/Globulin Ratio Lipase - Radiology Data Radiology results: report reviewed, image reviewed CHEST 2 VIEWS INDICATION: cough fever. COMPARISON: 09/03/2020 FINDINGS: Support devices: None. Heart: Within normal limits. Lungs/pleura: No acute air space or interstitial disease. No pneumothorax. Additional findings: None. IMPRESSION: No acute findings. Signer Name: Marcus Raymond Jr, MD Signed: 05/28/2021 8:01 PM Workstation Name: [id number] - Medical Decision Making Labs noted patient now tolerating p.o. intake without symptoms. Declines further therapy wishes to be DC'd to home. Labs finding and physical exam this is reasonable. We will follow-up with primary care doctor tomorrow. Continue all medications as prescribed. Will return to ED should symptoms worsen. Patient DC'd home in stable condition at this time. Patient did not receive morphine. Critical care attestation.: If time is entered above; I have spent that time in minutes in the direct care of this critically ill patient, excluding procedure time. ED Disposition Clinical Impression: Hyperglycemia Disposition: 01 HOME / SELF CARE / HOMELESS Is pt being admited?: No Does the pt Need Aspirin: No Condition: Stable Instructions: Hyperglycemia Additional Instructions: Follow-up with your doctor in 2 to 3 days. Return to emergency should symptoms worsen. Take all medicines as prescribed. Prescriptions: Ondansetron [Zofran Odt] 4 mg PO Q8HR PRN #12 tab.rapdis PRN Reason: nausea vomiting Referrals: JEFF NAQVI MD [Staff Physician] - 3-5 Days Forms: Work/School Release Form(ED) Time of Disposition: 22:52
[2021-05-28 21:15] LABS: Total Cells Counted 100
[2021-05-28 21:16] LABS: RBC Morphology Normal
[2021-05-28] MEDS ORDERED: MORPHINE 4 MG/1 ML INJ IV ONE (22:19)
[2021-05-28] MEDS ORDERED: MORPHINE 2 MG/1 ML INJ ONE (22:23)
== END 2021-05-28 23:06 | disposition home or self-care (01) ==
LOC: ED 18:19
DX: E11.65 Type 2 diabetes mellitus with hyperglycemia (principal); I10 Essential (primary) hypertension; F32.9 Major depressive disorder, single episode, unspecified; F17.200 Nicotine dependence, unspecified, uncomplicated; R05.9 Cough, unspecified; R11.2 Nausea with vomiting, unspecified; R10.9 Unspecified abdominal pain; Z79.4 Long term (current) use of insulin; Z79.899 Other long term (current) drug therapy
CPT/HCPCS: 36415; 71046; 80053; 82805; 82962; 83690; 85007; 85025; 96374; 96375; 99284; J1885; J2405; J7030; J2270

== ENCOUNTER 2021-06-09 21:39 | Emergency (ER) | payer MEDICARE ==
[2021-06-09 22:14] VITALS: BP 102/75
[2021-06-09] MEDS ORDERED: methylPREDNISolone Sod Succinate 125 MG/2 ML INJ IV ONE (22:17)
[2021-06-09] MEDS ORDERED: IPRATROPIUM 0.02% NEBU 2.5 ML IH ONE (22:17)
[2021-06-09] MEDS ORDERED: ALBUTEROL 2.5 MG/3 ML NEBU IH ONE (22:17)
[2021-06-09] MEDS ORDERED: SODIUM CHLORIDE 0.9% 1000 ML 1,000 ML IV ONE ×2 (22:18→23:49)
--- NOTE | 2021-06-09 22:48 | XRay Report ---
CHEST 2 VIEWS INDICATION / CLINICAL INFORMATION: DYSPNEA. COMPARISON: 06/08/21 FINDINGS: SUPPORT DEVICES: None. HEART / MEDIASTINUM: No significant abnormality. LUNGS / PLEURA: No significant pulmonary or pleural abnormality. No pneumothorax. ADDITIONAL FINDINGS: No significant additional findings. IMPRESSION: 1. No acute findings. Signer Name: Latosha Barnes MD Signed: 06/09/2021 10:44 PM Workstation Name: [id number]
[2021-06-09 23:20] LABS: Basophils % (Auto) 0.5 % (0.0-1.8); Eosinophils % (Auto) 1.3 % (0.0-4.3); Hematocrit 41.2 % (35.5-45.6); Hemoglobin 13.8 gm/dl (11.8-15.2); Lymphocytes # (Auto) 1.3 K/mm3 (1.2-5.4); Lymphocytes % (Auto) 36.5 % (13.4-35.0); Mean Corpuscular HGB Conc 34 % (32-34); Mean Corpuscular Volume 86 fl (84-94); Monocytes # (Auto) 0.4 K/mm3 (0.0-0.8); Monocytes % (Auto) 10.4 % (0.0-7.3); Platelet Count 252 K/mm3 (140-440); Red Blood Count 4.81 M/mm3 (3.65-5.03); Red Cell Distribution Width 12.9 % (13.2-15.2)
[2021-06-09 23:38] LABS: Alanine Aminotransferase 8 units/L (7-56); Albumin 4.1 g/dL (3.9-5); BUN/Creatinine Ratio 9; Blood Urea Nitrogen 12 mg/dL (9-20); Calcium 9.3 mg/dL (8.4-10.2); Hemolysis Index 6
[2021-06-09] MEDS ORDERED: INSULIN REGULAR, HUMAN 100 UNITS/1 ML IV ONE (23:49)
--- NOTE | 2021-06-10 00:33 | Emergency Department Report ---
ED Shortness of Breath HPI - General Chief Complaint: Dyspnea/Respdistress Stated Complaint: CHEST PAIN/WHEEZING/COUGH Source: patient Mode of arrival: Ambulatory Limitations: No Limitations - History of Present Illness Initial Comments: Patient is a 30-year-old -[place]ian male with a history of asthma, [id number] diabetes, hypertension, anxiety and depression who presents to the ED with complaint of acute onset persistent shortness of breath, wheezing, persistent dry cough, and chest tightness for the last 1 week, worse in the last 2 days. Patient states that he was initially evaluated in this ED a few days ago but did not complete the treatment and eloped prior to being discharged. Patient states that in the last 2 days his symptoms have worsened and he decided come back for evaluation. Patient denies fever, chills, nausea, vomiting, diarrhea, dysuria, urinary frequency and urgency, headache, palpitations, chest pain, sore throat, nasal and sinus congestion, change in vision, dizziness or syncope. MD Complaint: shortness of breath, "asthma attack" -: Sudden, week(s) (1) Severity: moderate Quality: dull, other (chest tightness and wheezing) Consistency: intermittent Improves With: nothing Worsens With: lying flat, coughing Known History Of: asthma Context: recent URI, allergen exposure, smoke/fume exposure, anxiety Associated Symptoms: denies other symptoms, cough Treatments Prior to Arrival: none - Related Data Home Oxygen Therapy: No Home Medications Medication Instructions Recorded Confirmed Last Taken RisperDAL 1 mg PO QHS 03/10/17 05/12/19 05/03/19 Duloxetine HCl 60 mg PO QDAY 05/06/19 05/12/19 05/03/19 Esomeprazole Magnesium [NexIUM] 40 mg PO QDAY 05/06/19 05/12/19 05/03/19 Gabapentin 100 mg PO Q8HR 05/06/19 05/12/19 05/03/19 hydrOXYzine HCL [Atarax] 25 mg PO BID 05/06/19 05/12/19 05/03/19 Insulin NPH Hum/Reg Insulin Hm 26 unit SQ BID 05/12/19 05/12/19 Unknown [HumuLIN 70-30 Vial] traZODone [Desyrel] 150 mg PO QHS 05/12/19 05/12/19 Unknown Previous Rx's Medication Instructions Recorded Last Taken Type Indomethacin 50 mg PO TID #15 capsule 05/21/16 04/12/19 Rx FLUoxetine [PROzac] 40 mg PO QDAY #14 capsule 03/12/17 05/03/19 Rx Metoclopramide [Reglan] 10 mg PO TID PRN #10 tab 03/20/17 05/03/19 Rx Syr-Nd,Ins,0.5/Container,Empty 1 each MC PRN PRN #1 box 03/20/17 05/03/19 Rx [Ulticare Syr 0.5 ml 29GX1/2"] Dicyclomine [Bentyl] 20 mg PO QID #10 tablet 05/23/19 Unknown Rx traMADoL [Ultram] 50 mg PO Q6HR PRN #12 tablet 05/23/19 Unknown Rx Ondansetron [Zofran ODT TAB] 4 mg PO Q6HR PRN #10 tab.rapdis 05/25/19 Unknown Rx Albuterol Mdi (or & Nicu Only) 2 puff IH QID PRN #1 inhalation 08/28/19 Unknown Rx [ProAir HFA Inhaler] Benzonatate [Tessalon Perles] 100 mg PO Q8HR #10 capsule 08/28/19 Unknown Rx Fluticasone [Flonase] 1 spray NS QDAY #1 bottle 08/28/19 Unknown Rx traMADoL [Ultram 50 MG tab] 50 mg PO Q6HR PRN #12 tablet 08/28/19 Unknown Rx HYDROcodone/APAP 5-325 [[place] 1 each PO Q6HR PRN #5 tablet 03/10/20 Unknown Rx 5-325 mg TAB] Gabapentin 100 mg PO Q8HR capsule 09/05/20 Unknown Rx Insulin Detemir (Nf) [Levemir 60 unit SQ QPM #10 insuln.pen 09/05/20 Unknown Rx Flextouch (Nf)] Insulin Regular, Human [HumuLIN R] See Protocol SQ ACHS #30 day 09/05/20 Unknown Rx Pantoprazole [Protonix TAB] 40 mg PO DAILY tablet 09/05/20 Unknown Rx Potassium Chloride [K-Dur] 10 meq PO QDAY tablet 09/05/20 Unknown Rx Pravastatin [Pravachol] 20 mg PO QHS tablet 09/05/20 Unknown Rx lisinopriL [Zestril TAB] 40 mg PO QDAY tablet 09/05/20 Unknown Rx carBAMazepine [Tegretol] 200 mg PO TID PRN #30 tablet 05/16/21 Unknown Rx Ondansetron [Zofran Odt] 4 mg PO Q8HR PRN #12 tab.rapdis 05/28/21 Unknown Rx Allergies Allergy/AdvReac Type Severity Reaction Status Date / Time No Known Allergies Allergy Verified 05/28/21 18:33 ED Review of Systems ROS: Stated complaint: CHEST PAIN/WHEEZING/COUGH Other details as noted in HPI Constitutional: denies: chills, fever Eyes: denies: eye pain, eye discharge, vision change ENT: congestion. denies: ear pain, throat pain Respiratory: cough, shortness of breath, wheezing Cardiovascular: denies: chest pain, palpitations Endocrine: no symptoms reported Gastrointestinal: denies: abdominal pain, nausea, vomiting, diarrhea Genitourinary: denies: urgency, dysuria Musculoskeletal: denies: back pain, joint swelling, arthralgia Skin: denies: rash, lesions Neurological: denies: headache, weakness, paresthesias Psychiatric: denies: anxiety, depression Hematological/Lymphatic: denies: easy bleeding, easy bruising ED Past Medical Hx - Past Medical History Previous Medical History?: Yes Hx Hypertension: Yes Hx Congestive Heart Failure: No Hx Diabetes: Yes Hx Psychiatric Treatment: Yes (depression, SI attempt) Hx Asthma: No Hx COPD: No Hx HIV: No Additional medical history: BULGING / HERNIATED DISC. hemorrhoids. OBESITY. Eczema - Surgical History Past Surgical History?: Yes Additional Surgical History: HEMORRHOIDECTOMY - Social History Smoking Status: Current Every Day Smoker - Medications Home Medications: Home Medications Medication Instructions Recorded Confirmed Last Taken Type Indomethacin 50 mg PO TID #15 capsule 05/21/16 05/12/19 04/12/19 Rx RisperDAL 1 mg PO QHS 03/10/17 05/12/19 05/03/19 History FLUoxetine [PROzac] 40 mg PO QDAY #14 capsule 03/12/17 05/12/19 05/03/19 Rx Metoclopramide [Reglan] 10 mg PO TID PRN #10 tab 03/20/17 05/12/19 05/03/19 Rx Syr-Nd,Ins,0.5/Container,Empty 1 each MC PRN PRN #1 box 03/20/17 05/12/19 05/03/19 Rx [Ulticare Syr 0.5 ml 29GX1/2"] Duloxetine HCl 60 mg PO QDAY 05/06/19 05/12/19 05/03/19 History Esomeprazole Magnesium [NexIUM] 40 mg PO QDAY 05/06/19 05/12/19 05/03/19 History Gabapentin 100 mg PO Q8HR 05/06/19 05/12/19 05/03/19 History hydrOXYzine HCL [Atarax] 25 mg PO BID 05/06/19 05/12/19 05/03/19 History Insulin NPH Hum/Reg Insulin Hm 26 unit SQ BID 05/12/19 05/12/19 Unknown History [HumuLIN 70-30 Vial] traZODone [Desyrel] 150 mg PO QHS 05/12/19 05/12/19 Unknown History Dicyclomine [Bentyl] 20 mg PO QID #10 tablet 05/23/19 Unknown Rx traMADoL [Ultram] 50 mg PO Q6HR PRN #12 tablet 05/23/19 Unknown Rx Ondansetron [Zofran ODT TAB] 4 mg PO Q6HR PRN #10 tab.rapdis 05/25/19 Unknown Rx Albuterol Mdi (or & Nicu Only) 2 puff IH QID PRN #1 inhalation 08/28/19 Unknown Rx [ProAir HFA Inhaler] Benzonatate [Tessalon Perles] 100 mg PO Q8HR #10 capsule 08/28/19 Unknown Rx Fluticasone [Flonase] 1 spray NS QDAY #1 bottle 08/28/19 Unknown Rx traMADoL [Ultram 50 MG tab] 50 mg PO Q6HR PRN #12 tablet 08/28/19 Unknown Rx HYDROcodone/APAP 5-325 [[place] 1 each PO Q6HR PRN #5 tablet 03/10/20 Unknown Rx 5-325 mg TAB] Gabapentin 100 mg PO Q8HR capsule 09/05/20 Unknown Rx Insulin Detemir (Nf) [Levemir 60 unit SQ QPM #10 insuln.pen 09/05/20 Unknown Rx Flextouch (Nf)] Insulin Regular, Human [HumuLIN R] See Protocol SQ ACHS #30 day 09/05/20 Unknown Rx Pantoprazole [Protonix TAB] 40 mg PO DAILY tablet 09/05/20 Unknown Rx Potassium Chloride [K-Dur] 10 meq PO QDAY tablet 09/05/20 Unknown Rx Pravastatin [Pravachol] 20 mg PO QHS tablet 09/05/20 Unknown Rx lisinopriL [Zestril TAB] 40 mg PO QDAY tablet 09/05/20 Unknown Rx carBAMazepine [Tegretol] 200 mg PO TID PRN #30 tablet 05/16/21 Unknown Rx Ondansetron [Zofran Odt] 4 mg PO Q8HR PRN #12 tab.rapdis 05/28/21 Unknown Rx ED Physical Exam - General Limitations: No Limitations General appearance: alert, in no apparent distress - Head Head exam: Present: atraumatic, normocephalic, normal inspection - Eye Eye exam: Present: normal appearance, PERRL, EOMI Pupils: Present: normal accommodation - ENT ENT exam: Present: normal exam, normal orophraynx, mucous membranes moist, TM's normal bilaterally, normal external ear exam - Neck Neck exam: Present: normal inspection, full ROM - Respiratory Respiratory exam: Present: wheezes (Mildly diffuse coarse wheezes throughout). Absent: respiratory distress, chest wall tenderness, accessory muscle use, decreased breath sounds, prolonged expiratory - Cardiovascular Cardiovascular Exam: Present: regular rate, normal rhythm, normal heart sounds. Absent: systolic murmur, diastolic murmur, rubs, gallop - GI/Abdominal GI/Abdominal exam: Present: soft, normal bowel sounds. Absent: tenderness, rebound, hyperactive bowel sounds, hypoactive bowel sounds, organomegaly - Extremities Exam Extremities exam: Present: normal inspection, full ROM, normal capillary refill - Back Exam Back exam: Present: normal inspection, full ROM. Absent: tenderness, CVA tenderness (R), CVA tenderness (L), muscle spasm, paraspinal tenderness, vertebral tenderness - Neurological Exam Neurological exam: Present: alert, oriented X3, CN II-XII intact, normal gait, reflexes normal - Psychiatric Psychiatric exam: Present: normal affect, normal mood - Skin Skin exam: Present: warm, dry, intact, normal color. Absent: rash ED Course Vital Signs 06/09/21 06/09/21 22:10 22:52 Temperature 98.4 F Pulse Rate 93 H Pulse Rate [ 68 Anterior Bilateral Throughout] Respiratory 16 Rate Respiratory 20 Rate [Anterior Bilateral Throughout] Blood Pressure 102/75 [Right] O2 Sat by Pulse 99 Oximetry ED Medical Decision Making - Lab Data Result diagrams: 06/09/21 22:50 06/09/21 22:50 - Radiology Data Radiology results: report reviewed, image reviewed [facility] [address] [place] [address] XRay Report Signed Patient: ODELL HOGAN MR#: [id number] : 1990 Acct:[id number] Age/Sex: 30 / M ADM Date: 06/09/21 Loc: ED Attending Dr: Ordering Physician: CELESTINE HERNANDEZ Date of Service: 06/09/21 Procedure(s): XR chest routine 2V Accession Number(s): [id number] cc: CELESTINE HERNANDEZ Fluoro Time In Minutes: CHEST 2 VIEWS INDICATION / CLINICAL INFORMATION: DYSPNEA. COMPARISON: 06/08/21 FINDINGS: SUPPORT DEVICES: None. HEART / MEDIASTINUM: No significant abnormality. LUNGS / PLEURA: No significant pulmonary or pleural abnormality. No pneumothorax. ADDITIONAL FINDINGS: No significant additional findings. IMPRESSION: 1. No acute findings. Signer Name: Latosha Barnes MD Signed: 06/09/2021 10:44 PM Workstation Name: [id number] Transcribed By: DT Dictated By: George Barnes MD Electronically Authenticated By: George Barnes MD Signed Date/Time: 06/09/212243 DD/ 42 TD/TT: Print Cancel - Medical Decision Making This is a 30-year-old -G[place]ian male with a history of asthma, non-ins ulin-dependent diabetes, hypertension, anxiety and depression who presents to the ED with complaint of acute onset persistent shortness of breath, wheezing, persistent dry cough, and chest tightness for the last 1 week, worse in the last 2 days. Patient states that he was initially evaluated in this ED a few days ago but did not complete the treatment and eloped prior to being discharged. Patient states that in the last 2 days his symptoms have worsened and he decided come back for evaluation. In the ED, patient is alert and oriented x3 and is not in any distress, with oxygen saturation of 99% in room air. Patient received nebulizer treatments in the ED with albuterol and ipratropium, also received Solu-Medrol 125 mg IV x1, also received normal saline 1 L IV bolus x1. Lab test results were reviewed and showed acute hyponatremia of 129 mmol/L, acute hypochloremia of 90.8 mmol/L and hyperglycemia of 618 mg/dL. Chest x-ray showed no acute cardiopulmonary abnormalities. Patient received insulin 12 units in the ED in addition to the normal saline 1 L IV bolus x1. Additional normal saline IV infusions were rejected by the patient and he left the ED AGAINST MEDICAL ADVICE stating that he has insulin at home and she will be drinking water orally instead of staying in the ED. Patient therefore signed out AGAINST MEDICAL ADVICE after receiving 1 L of normal saline IV bolus and 12 units of regular insulin. - Differential Diagnosis Hyperglycemia; dehydration; asthma; bronchitis; pneumonia; COVID-19 Critical care attestation.: If time is entered above; I have spent that time in minutes in the direct care of this critically ill patient, excluding procedure time. 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 [Provider Group] - 3-5 Days Time of Disposition: 00:33 Print Language: ROMANSH
== END 2021-06-10 00:41 | disposition left against medical advice (07) ==
LOC: ED 21:39
DX: J45.901 Unspecified asthma with (acute) exacerbation (principal); J20.9 Acute bronchitis, unspecified; E87.1 Hypo-osmolality and hyponatremia; E11.65 Type 2 diabetes mellitus with hyperglycemia; I10 Essential (primary) hypertension; F17.210 Nicotine dependence, cigarettes, uncomplicated
CPT/HCPCS: 36415; 71046; 80053; 85025; 94644; 96361; 96374; 96375; 99284; J2930; J7030; J1815

== ENCOUNTER 2021-06-18 02:15 | Emergency (ER) | payer MEDICARE ==
[2021-06-18] MEDS ORDERED: ONDANSETRON 4 MG ODT TAB PO ONE (03:02)
[2021-06-18] MEDS ORDERED: ALUM-MAG HYDROXIDE-SIMETHICONE 200-200-20MG/5ML ORAL LIQD 30 ML PO ONE (03:02)
[2021-06-18] MEDS ORDERED: ACETAMINOPHEN 500 MG TAB PO ONE (03:02)
--- NOTE | 2021-06-18 03:07 | Emergency Department Report ---
ED General Adult HPI - General Chief complaint: Abdominal Pain Stated complaint: ABD PAIN Time Seen by Provider: 06/18/21 02:38 Source: patient Mode of arrival: Ambulatory Limitations: No Limitations - History of Present Illness Initial comments: CC: vomiting blood HPI: This is a 30 yo male with hx of DM, bipolar disorder, depression who presents with one episode of vomiting blood one hour prior to arrival. He ate chicken tenders and drank a red bull this evening. He denies fever, chest pain, abdominal pain. He denies bloody stools. -: Sudden, hour(s) (1 hour prior to arrival) Severity scale (0 -10): 10 Consistency: now resolved Worsens with: none Associated Symptoms: other (Vomiting blood) - Related Data Home Medications Medication Instructions Recorded Confirmed Last Taken RisperDAL 1 mg PO QHS 03/10/17 05/12/19 05/03/19 Duloxetine HCl 60 mg PO QDAY 05/06/19 05/12/19 05/03/19 Esomeprazole Magnesium [NexIUM] 40 mg PO QDAY 05/06/19 05/12/19 05/03/19 Gabapentin 100 mg PO Q8HR 05/06/19 05/12/19 05/03/19 hydrOXYzine HCL [Atarax] 25 mg PO BID 05/06/19 05/12/19 05/03/19 Insulin NPH Hum/Reg Insulin Hm 26 unit SQ BID 05/12/19 05/12/19 Unknown [HumuLIN 70-30 Vial] traZODone [Desyrel] 150 mg PO QHS 05/12/19 05/12/19 Unknown Previous Rx's Medication Instructions Recorded Last Taken Type Indomethacin 50 mg PO TID #15 capsule 05/21/16 04/12/19 Rx FLUoxetine [PROzac] 40 mg PO QDAY #14 capsule 03/12/17 05/03/19 Rx Metoclopramide [Reglan] 10 mg PO TID PRN #10 tab 03/20/17 05/03/19 Rx Syr-Nd,Ins,0.5/Container,Empty 1 each MC PRN PRN #1 box 03/20/17 05/03/19 Rx [Ulticare Syr 0.5 ml 29GX1/2"] Dicyclomine [Bentyl] 20 mg PO QID #10 tablet 05/23/19 Unknown Rx traMADoL [Ultram] 50 mg PO Q6HR PRN #12 tablet 05/23/19 Unknown Rx Ondansetron [Zofran ODT TAB] 4 mg PO Q6HR PRN #10 tab.rapdis 05/25/19 Unknown Rx Albuterol Mdi (or & Nicu Only) 2 puff IH QID PRN #1 inhalation 08/28/19 Unknown Rx [ProAir HFA Inhaler] Benzonatate [Tessalon Perles] 100 mg PO Q8HR #10 capsule 08/28/19 Unknown Rx Fluticasone [Flonase] 1 spray NS QDAY #1 bottle 08/28/19 Unknown Rx traMADoL [Ultram 50 MG tab] 50 mg PO Q6HR PRN #12 tablet 08/28/19 Unknown Rx HYDROcodone/APAP 5-325 [[place] 1 each PO Q6HR PRN #5 tablet 03/10/20 Unknown Rx 5-325 mg TAB] Gabapentin 100 mg PO Q8HR capsule 09/05/20 Unknown Rx Insulin Detemir (Nf) [Levemir 60 unit SQ QPM #10 insuln.pen 09/05/20 Unknown Rx Flextouch (Nf)] Insulin Regular, Human [HumuLIN R] See Protocol SQ ACHS #30 day 09/05/20 Unknown Rx Pantoprazole [Protonix TAB] 40 mg PO DAILY tablet 09/05/20 Unknown Rx Potassium Chloride [K-Dur] 10 meq PO QDAY tablet 09/05/20 Unknown Rx Pravastatin [Pravachol] 20 mg PO QHS tablet 09/05/20 Unknown Rx lisinopriL [Zestril TAB] 40 mg PO QDAY tablet 09/05/20 Unknown Rx carBAMazepine [Tegretol] 200 mg PO TID PRN #30 tablet 05/16/21 Unknown Rx Ondansetron [Zofran Odt] 4 mg PO Q8HR PRN #12 tab.rapdis 05/28/21 Unknown Rx Famotidine [Pepcid] 20 mg PO BID 15 Days #30 tablet 06/18/21 Unknown Rx Ondansetron [Zofran Odt] 4 mg PO Q8HR PRN #10 tab.rapdis 06/18/21 Unknown Rx Allergies Allergy/AdvReac Type Severity Reaction Status Date / Time No Known Allergies Allergy Verified 06/18/21 02:22 ED Review of Systems ROS: Stated complaint: ABD PAIN Other details as noted in HPI Comment: All other systems reviewed and negative Constitutional: denies: chills, fever, malaise Respiratory: denies: cough, shortness of breath Gastrointestinal: nausea, vomiting. denies: abdominal pain, diarrhea ED Past Medical Hx - Past Medical History Previous Medical History?: Yes Hx Hypertension: Yes Hx Congestive Heart Failure: No Hx Diabetes: Yes Hx Psychiatric Treatment: Yes (depression, SI attempt) Hx Asthma: No Hx COPD: No Hx HIV: No Additional medical history: BULGING / HERNIATED DISC. hemorrhoids. OBESITY. Eczema - Surgical History Past Surgical History?: Yes Additional Surgical History: HEMORRHOIDECTOMY - Social History Smoking Status: Current Every Day Smoker - Medications Home Medications: Home Medications Medication Instructions Recorded Confirmed Last Taken Type Indomethacin 50 mg PO TID #15 capsule 05/21/16 05/12/19 04/12/19 Rx RisperDAL 1 mg PO QHS 03/10/17 05/12/19 05/03/19 History FLUoxetine [PROzac] 40 mg PO QDAY #14 capsule 03/12/17 05/12/19 05/03/19 Rx Metoclopramide [Reglan] 10 mg PO TID PRN #10 tab 03/20/17 05/12/19 05/03/19 Rx Syr-Nd,Ins,0.5/Container,Empty 1 each MC PRN PRN #1 box 03/20/17 05/12/19 05/03/19 Rx [Ulticare Syr 0.5 ml 29GX1/2"] Duloxetine HCl 60 mg PO QDAY 05/06/19 05/12/19 05/03/19 History Esomeprazole Magnesium [NexIUM] 40 mg PO QDAY 05/06/19 05/12/19 05/03/19 History Gabapentin 100 mg PO Q8HR 05/06/19 05/12/19 05/03/19 History hydrOXYzine HCL [Atarax] 25 mg PO BID 05/06/19 05/12/19 05/03/19 History Insulin NPH Hum/Reg Insulin Hm 26 unit SQ BID 05/12/19 05/12/19 Unknown History [HumuLIN 70-30 Vial] traZODone [Desyrel] 150 mg PO QHS 05/12/19 05/12/19 Unknown History Dicyclomine [Bentyl] 20 mg PO QID #10 tablet 05/23/19 Unknown Rx traMADoL [Ultram] 50 mg PO Q6HR PRN #12 tablet 05/23/19 Unknown Rx Ondansetron [Zofran ODT TAB] 4 mg PO Q6HR PRN #10 tab.rapdis 05/25/19 Unknown Rx Albuterol Mdi (or & Nicu Only) 2 puff IH QID PRN #1 inhalation 08/28/19 Unknown Rx [ProAir HFA Inhaler] Benzonatate [Tessalon Perles] 100 mg PO Q8HR #10 capsule 08/28/19 Unknown Rx Fluticasone [Flonase] 1 spray NS QDAY #1 bottle 08/28/19 Unknown Rx traMADoL [Ultram 50 MG tab] 50 mg PO Q6HR PRN #12 tablet 08/28/19 Unknown Rx HYDROcodone/APAP 5-325 [[place] 1 each PO Q6HR PRN #5 tablet 03/10/20 Unknown Rx 5-325 mg TAB] Gabapentin 100 mg PO Q8HR capsule 09/05/20 Unknown Rx Insulin Detemir (Nf) [Levemir 60 unit SQ QPM #10 insuln.pen 09/05/20 Unknown Rx Flextouch (Nf)] Insulin Regular, Human [HumuLIN R] See Protocol SQ ACHS #30 day 09/05/20 Unknown Rx Pantoprazole [Protonix TAB] 40 mg PO DAILY tablet 09/05/20 Unknown Rx Potassium Chloride [K-Dur] 10 meq PO QDAY tablet 09/05/20 Unknown Rx Pravastatin [Pravachol] 20 mg PO QHS tablet 09/05/20 Unknown Rx lisinopriL [Zestril TAB] 40 mg PO QDAY tablet 09/05/20 Unknown Rx carBAMazepine [Tegretol] 200 mg PO TID PRN #30 tablet 05/16/21 Unknown Rx Ondansetron [Zofran Odt] 4 mg PO Q8HR PRN #12 tab.rapdis 05/28/21 Unknown Rx Famotidine [Pepcid] 20 mg PO BID 15 Days #30 tablet 06/18/21 Unknown Rx Ondansetron [Zofran Odt] 4 mg PO Q8HR PRN #10 tab.rapdis 06/18/21 Unknown Rx ED Physical Exam - General Limitations: No Limitations General appearance: alert, in no apparent distress - Head Head exam: Present: atraumatic, normocephalic - Eye Eye exam: Present: normal appearance - ENT ENT exam: Present: mucous membranes moist - Neck Neck exam: Present: normal inspection, full ROM - Respiratory Respiratory exam: Present: normal lung sounds bilaterally. Absent: respiratory distress, wheezes, rales, rhonchi - Cardiovascular Cardiovascular Exam: Present: regular rate, normal rhythm, normal heart sounds. Absent: systolic murmur, diastolic murmur, rubs, gallop - GI/Abdominal GI/Abdominal exam: Present: soft, normal bowel sounds. Absent: distended, tenderness, guarding, rebound - Rectal Rectal exam: Present: deferred - Extremities Exam Extremities exam: Present: normal inspection - Back Exam Back exam: Present: normal inspection - Neurological Exam Neurological exam: Present: alert, oriented X3 - Psychiatric Psychiatric exam: Present: normal affect, normal mood - Skin Skin exam: Present: warm, dry, intact, normal color. Absent: rash ED Course Vital Signs 06/18/21 02:16 Temperature 98.4 F Pulse Rate 91 H Respiratory 17 Rate Blood Pressure 130/83 [Right] O2 Sat by Pulse 100 Oximetry ED Medical Decision Making - Medical Decision Making Hematemesis, normal vital signs, no vomiting witnessed in emergency department. Suspect GERD. Patient given Zofran Maalox Tylenol in emergency department. Prescribed Zofran and famotidine. I do not suspect acute GI bleed from this presentation. Critical care attestation.: If time is entered above; I have spent that time in minutes in the direct care of this critically ill patient, excluding procedure time. ED Disposition Clinical Impression: GERD (gastroesophageal reflux disease) Disposition: 01 HOME / SELF CARE / HOMELESS Is pt being admited?: No Does the pt Need Aspirin: No Condition: Stable Instructions: Gastroesophageal Reflux Disease, Adult, [id number] Prescriptions: Famotidine [Pepcid] 20 mg PO BID 15 Days #30 tablet Ondansetron [Zofran Odt] 4 mg PO Q8HR PRN #10 tab.rapdis PRN Reason: Nausea Referrals: ROB JENSEN MD [Staff Physician] - 3-5 Days
[2021-06-18 03:39] VITALS: BP 125/84
== END 2021-06-18 03:37 | disposition home or self-care (01) ==
LOC: ED 02:15
DX: K21.9 Gastro-esophageal reflux disease without esophagitis (principal); I10 Essential (primary) hypertension; E11.9 Type 2 diabetes mellitus without complications; F17.200 Nicotine dependence, unspecified, uncomplicated; Z79.4 Long term (current) use of insulin; Z79.899 Other long term (current) drug therapy
CPT/HCPCS: 99282; J3490; Q0162

== ENCOUNTER 2021-07-02 06:01 | Emergency (ER) | payer MEDICARE ==
[2021-07-02 06:06] VITALS: BP 125/86
[2021-07-02] MEDS ORDERED: ONDANSETRON 4 MG ODT TAB PO ONE (06:34)
[2021-07-02] MEDS ORDERED: ONDANSETRON 4 MG/2 ML INJ IV ONE (06:35)
[2021-07-02] MEDS ORDERED: SODIUM CHLORIDE 0.9% 1000 ML 1,000 ML IV ONE (06:36)
[2021-07-02] MEDS ORDERED: PREGABALIN 50 MG CAP PO ONE (06:54)
--- NOTE | 2021-07-02 06:56 | Emergency Department Report ---
HPI - General Chief Complaint: Nausea/Vomiting/Diarrhea Time Seen by Provider: 07/02/21 06:32 - HPI HPI: 30-year-old -[place] male presents to the emergency department with a complaint of a 2-day history of nausea with vomiting, general lightheade dness/dizziness, elevated blood sugar, and neuropathy that he says is coming from his low back and going down his legs. Patient has a history of asthma, insulin-dependent diabetes, hypertension. He says that he takes Humalog 35 units with meals and Levemir 45 units at night. He follows with a Dr. Douglass for primary care and a Dr. Rocha for endocrinology. He says he has been compliant with his diabetes medications but it has been labile as he has been suffering from various viral syndromes over this past month. Patient has been seen here multiple times previously for hyperglycemia and/or uncontrolled diabetes. No recent travel or sick contacts at home. He has not taken anything for his symptoms, other than home medications, prior to presentation today. No recent travel or sick contacts at home. He denies any fever, problems with bowel or bladder, numbness or paresthesias, difficulty with ambulation, chest pain or shortness of breath. ED Past Medical Hx - Past Medical History Hx Hypertension: Yes Hx Congestive Heart Failure: No Hx Diabetes: Yes Hx Psychiatric Treatment: Yes (depression, SI attempt) Hx Asthma: No Hx COPD: No Hx HIV: No Additional medical history: BULGING / HERNIATED DISC. hemorrhoids. OBESITY. Eczema - Surgical History Additional Surgical History: HEMORRHOIDECTOMY - Social History Smoking Status: Current Every Day Smoker - Medications Home Medications: Home Medications Medication Instructions Recorded Confirmed Last Taken Type Indomethacin 50 mg PO TID #15 capsule 05/21/16 05/12/19 04/12/19 Rx RisperDAL 1 mg PO QHS 03/10/17 05/12/19 05/03/19 History FLUoxetine [PROzac] 40 mg PO QDAY #14 capsule 03/12/17 05/12/19 05/03/19 Rx Metoclopramide [Reglan] 10 mg PO TID PRN #10 tab 03/20/17 05/12/19 05/03/19 Rx Syr-Nd,Ins,0.5/Container,Empty 1 each MC PRN PRN #1 box 03/20/17 05/12/19 05/03/19 Rx [Ulticare Syr 0.5 ml 29GX1/2"] Duloxetine HCl 60 mg PO QDAY 05/06/19 05/12/19 05/03/19 History Esomeprazole Magnesium [NexIUM] 40 mg PO QDAY 05/06/19 05/12/19 05/03/19 History Gabapentin 100 mg PO Q8HR 05/06/19 05/12/19 05/03/19 History hydrOXYzine HCL [Atarax] 25 mg PO BID 05/06/19 05/12/19 05/03/19 History Insulin NPH Hum/Reg Insulin Hm 26 unit SQ BID 05/12/19 05/12/19 Unknown History [HumuLIN 70-30 Vial] traZODone [Desyrel] 150 mg PO QHS 05/12/19 05/12/19 Unknown History Dicyclomine [Bentyl] 20 mg PO QID #10 tablet 05/23/19 Unknown Rx traMADoL [Ultram] 50 mg PO Q6HR PRN #12 tablet 05/23/19 Unknown Rx Ondansetron [Zofran ODT TAB] 4 mg PO Q6HR PRN #10 tab.rapdis 05/25/19 Unknown Rx Albuterol Mdi (or & Nicu Only) 2 puff IH QID PRN #1 inhalation 08/28/19 Unknown Rx [ProAir HFA Inhaler] Benzonatate [Tessalon Perles] 100 mg PO Q8HR #10 capsule 08/28/19 Unknown Rx Fluticasone [Flonase] 1 spray NS QDAY #1 bottle 08/28/19 Unknown Rx traMADoL [Ultram 50 MG tab] 50 mg PO Q6HR PRN #12 tablet 08/28/19 Unknown Rx HYDROcodone/APAP 5-325 [[place] 1 each PO Q6HR PRN #5 tablet 03/10/20 Unknown Rx 5-325 mg TAB] Gabapentin 100 mg PO Q8HR capsule 09/05/20 Unknown Rx Insulin Detemir (Nf) [Levemir 60 unit SQ QPM #10 insuln.pen 09/05/20 Unknown Rx Flextouch (Nf)] Insulin Regular, Human [HumuLIN R] See Protocol SQ ACHS #30 day 09/05/20 Unknown Rx Pantoprazole [Protonix TAB] 40 mg PO DAILY tablet 09/05/20 Unknown Rx Potassium Chloride [K-Dur] 10 meq PO QDAY tablet 09/05/20 Unknown Rx Pravastatin [Pravachol] 20 mg PO QHS tablet 09/05/20 Unknown Rx lisinopriL [Zestril TAB] 40 mg PO QDAY tablet 09/05/20 Unknown Rx carBAMazepine [Tegretol] 200 mg PO TID PRN #30 tablet 05/16/21 Unknown Rx Ondansetron [Zofran Odt] 4 mg PO Q8HR PRN #12 tab.rapdis 05/28/21 Unknown Rx Famotidine [Pepcid] 20 mg PO BID 15 Days #30 tablet 06/18/21 Unknown Rx Ondansetron [Zofran Odt] 4 mg PO Q8HR PRN #10 tab.rapdis 06/18/21 Unknown Rx ED Review of Systems ROS: Stated complaint: NERVE PAIN, HIGH BLOOD SUGAR AND DIZZINESS Other details as noted in HPI Comment: All other systems reviewed and negative Constitutional: denies: chills, fever Eyes: denies: eye pain, vision change ENT: denies: ear pain, throat pain Respiratory: denies: cough, shortness of breath Cardiovascular: denies: chest pain, palpitations Endocrine: increased thirst, increased urine Gastrointestinal: nausea, vomiting Genitourinary: frequency. denies: dysuria, discharge Musculoskeletal: back pain, myalgia. denies: joint swelling Skin: denies: rash, lesions Neurological: denies: headache, weakness Physical Exam - Physical Exam Vital Signs: Vital Signs 07/02/21 06:03 Temperature 98.3 F Pulse Rate 96 H Respiratory 22 Rate Blood Pressure 125/86 [Right] O2 Sat by Pulse 100 Oximetry Physical Exam: GENERAL: The patient is well-developed well-nourished. HENT: Normocephalic. Atraumatic. Patient has moist mucous membranes. EYES: Extraocular motions are intact. NECK: Supple. Trachea is midline. CHEST/LUNGS: Clear to auscultation. There is no respiratory distress noted. HEART/CARDIOVASCULAR: Regular. There is no tachycardia. There is no murmur. ABDOMEN: Abdomen is soft, nontender. Patient has normal bowel sounds. SKIN: Skin is warm and dry. NEURO: The patient is awake, alert, and oriented. The patient is cooperative. Normal speech. MUSCULOSKELETAL: There is no tenderness or deformity. There is no limitation range of motion. BACK: No midline thoracic or lumbar tenderness to palpation. There is some reproducible lumbar bilateral paraspinal tenderness to palpation. ED Course Vital Signs 07/02/21 06:03 Temperature 98.3 F Pulse Rate 96 H Respiratory 22 Rate Blood Pressure 125/86 [Right] O2 Sat by Pulse 100 Oximetry ED Medical Decision Making - Lab Data Result diagrams: 07/02/21 06:59 07/02/21 06:59 Lab Results 07/02/21 07/02/21 07/02/21 Range/Units 06:05 06:59 06:59 WBC 3.1 L (4.5-11.0) K/mm3 RBC 5.48 H (3.65-5.03) M/mm3 Hgb 15.3 H (11.8-15.2) gm/dl Hct 45.9 H (35.5-45.6) % MCV 84 (84-94) fl MCH 28 (28-32) pg MCHC 33 (32-34) % RDW 13.3 (13.2-15.2) % Plt Count 291 (140-440) K/mm3 Lymph % (Auto) 35.6 H (13.4-35.0) % [place] % (Auto) 9.1 H (0.0-7.3) % Eos % (Auto) 1.5 (0.0-4.3) % Baso % (Auto) 0.7 (0.0-1.8) % Lymph # (Auto) 1.1 L (1.2-5.4) K/mm3 [place] # (Auto) 0.3 (0.0-0.8) K/mm3 Eos # (Auto) 0.0 (0.0-0.4) K/mm3 Baso # (Auto) 0.0 (0.0-0.1) K/mm3 Seg Neutrophils % 53.1 (40.0-70.0) % Seg Neutrophils # 1.7 L (1.8-7.7) K/mm3 VBG pH (7.320-7.420) Sodium 138 (137-145) mmol/L Potassium 4.0 (3.6-5.0) mmol/L Chloride 96.1 L (98-107) mmol/L Carbon Dioxide 23 (22-30) mmol/L Anion Gap 23 mmol/L BUN 8 L (9-20) mg/dL Creatinine 0.9 (0.8-1.3) mg/dL Estimated GFR > 60 ml/min BUN/Creatinine Ratio 9 % Glucose 394 H (75-100) mg/dL POC Glucose 368 H (70-105) mg/dL Calcium 10.2 (8.4-10.2) mg/dL Total Bilirubin 0.70 (0.1-1.2) mg/dL AST 13 (5-40) units/L ALT 11 (7-56) units/L Alkaline Phosphatase 83 (35-129) units/L Total Protein 7.8 (6.3-8.2) g/dL Albumin 4.5 (3.9-5) g/dL Albumin/Globulin Ratio 1.4 % 07/02/21 Range/Units 06:59 WBC (4.5-11.0) K/mm3 RBC (3.65-5.03) M/mm3 Hgb (11.8-15.2) gm/dl Hct (35.5-45.6) % MCV (84-94) fl MCH (28-32) pg MCHC (32-34) % RDW (13.2-15.2) % Plt Count (140-440) K/mm3 Lymph % (Auto) (13.4-35.0) % [place] % (Auto) (0.0-7.3) % Eos % (Auto) (0.0-4.3) % Baso % (Auto) (0.0-1.8) % Lymph # (Auto) (1.2-5.4) K/mm3 [place] # (Auto) (0.0-0.8) K/mm3 Eos # (Auto) (0.0-0.4) K/mm3 Baso # (Auto) (0.0-0.1) K/mm3 Seg Neutrophils % (40.0-70.0) % Seg Neutrophils # (1.8-7.7) K/mm3 VBG pH 7.442 H (7.320-7.420) Sodium (137-145) mmol/L Potassium (3.6-5.0) mmol/L Chloride (98-107) mmol/L Carbon Dioxide (22-30) mmol/L Anion Gap mmol/L BUN (9-20) mg/dL Creatinine (0.8-1.3) mg/dL Estimated GFR ml/min BUN/Creatinine Ratio % Glucose (75-100) mg/dL POC Glucose (70-105) mg/dL Calcium (8.4-10.2) mg/dL Total Bilirubin (0.1-1.2) mg/dL AST (5-40) units/L ALT (7-56) units/L Alkaline Phosphatase (35-129) units/L Total Protein (6.3-8.2) g/dL Albumin (3.9-5) g/dL Albumin/Globulin Ratio % - Medical Decision Making This patient presents to the emergency department with complaint of pain from the back down the legs bilaterally, nausea with vomiting, and hyperglycemia. Patient does not appear to have any focal, motor or sensory deficits and cranial nerves are intact. Heart and lungs are normal to auscultation and the patient does not appear in any respiratory or acute distress. Labs shows hyperglycemia with a blood sugar of about 400. There is a slight elevation in the anion gap but there is no venous acidosis. The patient was given a dose of Lyrica for his suspected peripheral neuropathy. He was given some IV fluid resuscitation and an antiemetic. The patient was then given a dose of IV insulin. About 30 minutes after receiving the insulin, the patient is saying that he wants to leave the emergency department. He says that he is going to check his own blood sugar but is going to leave so he can eat something. I explained to him that I need to follow his blood sugar level without any oral intake and do reevaluations. The patient is not willing to remain in the emergency department any further. I explained to him that leaving at this time could lead to continued hyperglycemia which in turn could lead to diabetic ketoacidosis causing abdominal pain, nausea vomiting, shortness of breath, coma, or even . Patient is awake, alert, oriented, and has a normal decision-making capacity. Therefore, despite understanding the risks of leaving, he has signed out AGAINST MEDICAL ADVICE. Critical Care Time: No Critical care attestation.: If time is entered above; I have spent that time in minutes in the direct care of this critically ill patient, excluding procedure time. ED Disposition Clinical Impression: Uncontrolled diabetes mellitus, Hyperglycemia, Peripheral neuropathy Disposition: 07 LEFT AGAINST MEDICAL ADVICE Is pt being admited?: No Instructions: Diabetes Mellitus Type 2 in Adults (ED) Referrals: PRIMARY CARE, [Primary Care Provider] - 3-5 Days Forms: AMA Form
[2021-07-02 07:15] LABS: Basophils % (Auto) 0.7 % (0.0-1.8); Eosinophils % (Auto) 1.5 % (0.0-4.3); Hematocrit 45.9 % (35.5-45.6); Hemoglobin 15.3 gm/dl (11.8-15.2); Lymphocytes # (Auto) 1.1 K/mm3 (1.2-5.4); Lymphocytes % (Auto) 35.6 % (13.4-35.0); Mean Corpuscular HGB Conc 33 % (32-34); Mean Corpuscular Volume 84 fl (84-94); Monocytes # (Auto) 0.3 K/mm3 (0.0-0.8); Monocytes % (Auto) 9.1 % (0.0-7.3); Platelet Count 291 K/mm3 (140-440); Red Blood Count 5.48 M/mm3 (3.65-5.03); Red Cell Distribution Width 13.3 % (13.2-15.2)
[2021-07-02 07:39] LABS: Alanine Aminotransferase 11 units/L (7-56); Albumin 4.5 g/dL (3.9-5); BUN/Creatinine Ratio 9; Blood Urea Nitrogen 8 mg/dL (9-20); Calcium 10.2 mg/dL (8.4-10.2); Hemolysis Index 13
[2021-07-02] MEDS ORDERED: INSULIN REGULAR, HUMAN 100 UNITS/1 ML IV ONE (07:57)
[2021-07-02] MEDS ORDERED: PREGABALIN 25 MG CAP PO SCH (08:00)
[2021-07-02] MEDS ORDERED: MORPHINE 4 MG/1 ML INJ IV ONE (09:14)
--- NOTE | 2021-07-02 11:21 | Electrocardiograph Report ---
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
== END 2021-07-03 05:39 | disposition left against medical advice (07) ==
LOC: ED 06:01
DX: E11.65 Type 2 diabetes mellitus with hyperglycemia (principal); G62.9 Polyneuropathy, unspecified; I10 Essential (primary) hypertension; Z98.890 Other specified postprocedural states; F17.200 Nicotine dependence, unspecified, uncomplicated
CPT/HCPCS: 36415; 80053; 82805; 82962; 85025; 93005; 96361; 96374; 96375; 99284; J2270; J2405; J7030; Q0162; Q9967; J1815

== ENCOUNTER 2021-12-30 22:51 | Emergency (ER) | payer MEDICARE ==
[2021-12-30 23:45] VITALS: BP 122/88
[2021-12-31] MEDS ORDERED: INSULIN REGULAR, HUMAN 100 UNITS/1 ML IV ONE ×2 (00:14→04:21)
[2021-12-31] MEDS ORDERED: SODIUM CHLORIDE 0.9% 1000 ML 1,000 ML IV ONE ×2 (00:14→04:20)
[2021-12-31 00:34] LABS: Basophils % (Auto) 0.4 % (0.0-1.8); Eosinophils % (Auto) 1.5 % (0.0-4.3); Hematocrit 45.1 % (35.5-45.6); Hemoglobin 15.3 gm/dl (11.8-15.2); Lymphocytes # (Auto) 1.4 K/mm3 (1.2-5.4); Lymphocytes % (Auto) 42.2 % (13.4-35.0); Mean Corpuscular HGB Conc 34 % (32-34); Mean Corpuscular Volume 84 fl (84-94); Monocytes # (Auto) 0.3 K/mm3 (0.0-0.8); Monocytes % (Auto) 9.1 % (0.0-7.3); Platelet Count 218 K/mm3 (140-440); Red Blood Count 5.35 M/mm3 (3.65-5.03); Red Cell Distribution Width 12.9 % (13.2-15.2)
[2021-12-31 00:58] LABS: Alanine Aminotransferase 14 units/L (7-56); Albumin 4.5 g/dL (3.9-5); BUN/Creatinine Ratio 11; Blood Urea Nitrogen 15 mg/dL (9-20); Hemolysis Index 6
[2021-12-31 01:31] LABS: RBC,Urine < 1.0 /HPF (0.0-6.0)
[2021-12-31 01:36] LABS: Bilirubin,Urine NEG (Negative); Blood,Urine NEG (Negative); Color,Urine Straw (Yellow); Protein,Urine <15 mg/dL mg/dL (Negative); Urobilinogen,Urine < 2.0 mg/dL (<2.0)
[2021-12-31] MEDS ORDERED: ONDANSETRON 4 MG ODT TAB PO STA (02:35)
[2021-12-31] MEDS ORDERED: KETOROLAC 30 MG/1 ML INJ IV STA (02:35)
[2021-12-31] MEDS ORDERED: MORPHINE 4 MG/1 ML INJ IV STA (04:26)
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
== END 2021-12-31 04:48 | disposition home or self-care (01) ==
LOC: ED 22:51
DX: E11.9 Type 2 diabetes mellitus without complications (principal); G62.9 Polyneuropathy, unspecified; I10 Essential (primary) hypertension; F32.A Depression, unspecified; Z79.899 Other long term (current) drug therapy
CPT/HCPCS: 36415; 80053; 81001; 82962; 85025; 96361; 96374; 96375; 99283; J1885; J7030; J3490; Q9967; J1815; Q0162

== ENCOUNTER 2021-12-31 10:09 | Emergency (ER) | payer MEDICARE ==
[2021-12-31 11:45] LABS: Basophils % (Auto) 0.4 % (0.0-1.8); Eosinophils % (Auto) 1.1 % (0.0-4.3); Hematocrit 41.7 % (35.5-45.6); Hemoglobin 14.1 gm/dl (11.8-15.2); Lymphocytes # (Auto) 1.3 K/mm3 (1.2-5.4); Lymphocytes % (Auto) 39.2 % (13.4-35.0); Mean Corpuscular HGB Conc 34 % (32-34); Mean Corpuscular Volume 84 fl (84-94); Monocytes # (Auto) 0.4 K/mm3 (0.0-0.8); Monocytes % (Auto) 10.6 % (0.0-7.3); Platelet Count 201 K/mm3 (140-440); Red Blood Count 4.95 M/mm3 (3.65-5.03); Red Cell Distribution Width 12.9 % (13.2-15.2)
[2021-12-31 12:13] LABS: Bilirubin,Urine NEG (Negative); Blood,Urine NEG (Negative); Color,Urine Yellow (Yellow); Mucus,Urine FEW /HPF; Protein,Urine <15 mg/dL mg/dL (Negative); Urobilinogen,Urine < 2.0 mg/dL (<2.0)
[2021-12-31 12:14] LABS: Alanine Aminotransferase 14 units/L (7-56); Albumin 4.1 g/dL (3.9-5); BUN/Creatinine Ratio 10; Blood Urea Nitrogen 16 mg/dL (9-20); Hemolysis Index 5
[2021-12-31] MEDS ORDERED: INSULIN REGULAR, HUMAN 100 UNITS/1 ML IV ONE (12:26)
[2021-12-31 14:49] VITALS: BP 149/67
== END 2021-12-31 14:47 | disposition home or self-care (01) ==
LOC: ED 10:09
DX: R73.9 Hyperglycemia, unspecified (principal); Z53.21 Procedure and treatment not carried out due to patient leaving prior to being seen by health care provider
CPT/HCPCS: 36415; 80053; 81001; 82010; 85025; 87086; 96374; 99284; Q9967; J1815

== ENCOUNTER 2021-12-31 15:05 | Emergency (ER) | payer MEDICARE | END 2021-12-31 15:10 | disposition left against medical advice (07) | LOC: ED 15:05 | DX: Z13.1 Encounter for screening for diabetes mellitus (principal); Z53.21 Procedure and treatment not carried out due to patient leaving prior to being seen by health care provider ==

== ENCOUNTER 2021-12-31 22:56 | Emergency (ER) | payer MEDICARE | END 2022-01-01 00:04 | disposition left against medical advice (07) | LOC: ED 22:56 | DX: R73.9 Hyperglycemia, unspecified (principal); Z53.21 Procedure and treatment not carried out due to patient leaving prior to being seen by health care provider ==

== ENCOUNTER 2022-01-13 14:03 | Emergency (ER) | payer MEDICARE ==
[2022-01-13 14:24] VITALS: BP 95/73
== END 2022-01-14 01:10 | disposition left against medical advice (07) ==
LOC: ED 14:03
DX: R42 Dizziness and giddiness (principal); Z53.21 Procedure and treatment not carried out due to patient leaving prior to being seen by health care provider
CPT/HCPCS: 82962

== ENCOUNTER 2022-01-13 16:52 | Emergency (ER) | payer MEDICARE ==
[2022-01-13 17:10] VITALS: BP 110/80
== END 2022-01-14 01:10 | disposition left against medical advice (07) ==
LOC: ED 16:52
DX: M54.9 Dorsalgia, unspecified (principal); Z53.21 Procedure and treatment not carried out due to patient leaving prior to being seen by health care provider

== ENCOUNTER 2022-01-27 22:41 | Emergency (ER) | payer MEDICARE ==
[2022-01-27 23:52] VITALS: BP 240/120
[2022-01-28] MEDS ORDERED: PANTOPRAZOLE 40 MG INJ IV ONE (00:02)
[2022-01-28] MEDS ORDERED: SODIUM CHLORIDE 0.9% 1000 ML 2,000 ML IV ONE (00:02)
[2022-01-28] MEDS ORDERED: MIDAZOLAM 2 MG/2 ML INJ IV ONE ×2 (00:02→00:04)
[2022-01-28] MEDS ORDERED: METOCLOPRAMIDE 10 MG/2 ML INJ IV ONE (00:02)
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
--- NOTE | 2022-01-28 00:26 | XRay Report ---
CHEST 1 VIEW 01/27/2022 11:20 PM INDICATION / CLINICAL INFORMATION: COUGH. COMPARISON: 06/09/2021 FINDINGS: SUPPORT DEVICES: None. HEART / MEDIASTINUM: No significant abnormality. LUNGS / PLEURA: No significant pulmonary or pleural abnormality. No pneumothorax. ADDITIONAL FINDINGS: No significant additional findings. IMPRESSION: 1. No acute findings. Signer Name: Miko Lira DO Signed: 01/28/2022 12:22 AM Workstation Name: [id number]
[2022-01-28 01:03] LABS: Basophils % (Auto) 0.4 % (0.0-1.8); Hematocrit 46.7 % (35.5-45.6); Hemoglobin 15.8 gm/dl (11.8-15.2); Lymphocytes % (Auto) 20.9 % (13.4-35.0); Mean Corpuscular HGB Conc 34 % (32-34); Mean Corpuscular Volume 84 fl (84-94); Monocytes # (Auto) 0.4 K/mm3 (0.0-0.8); Monocytes % (Auto) 9.1 % (0.0-7.3); Platelet Count 232 K/mm3 (140-440); Red Blood Count 5.59 M/mm3 (3.65-5.03); Red Cell Distribution Width 13.5 % (13.2-15.2)
[2022-01-28 01:15] LABS: INR 0.85 (0.87-1.13)
[2022-01-28 01:22] LABS: Alanine Aminotransferase 11 units/L (7-56); Albumin 4.8 g/dL (3.9-5); BUN/Creatinine Ratio 9; Bilirubin,Direct 0.2 mg/dL (0-0.2); Blood Urea Nitrogen 13 mg/dL (9-20); Calcium 10.5 mg/dL (8.4-10.2); Hemolysis Index 4
[2022-01-28 01:25] LABS: Bilirubin,Urine NEG (Negative); Blood,Urine NEG (Negative); Color,Urine Yellow (Yellow); Urobilinogen,Urine < 2.0 mg/dL (<2.0)
--- NOTE | 2022-01-28 12:19 | Electrocardiograph Report ---
[facility] Test Date: 2022-01-28 Test Time: 01:05:38 Pat Name: ODELL HOGAN Department: Room: Gender: M Pattern Developer: BONIFACIO : 1990 Requested By: LUCIANO URBAN Order Number: [id number] Reading MD: Luis Herring Measurements Intervals [place] Rate: 75 P: 55 KS: 162 QRS: -10 QRSD: 92 T: 30 QT: 396 QTc: 443 Interpretive Statements Sinus rhythm Compared to ECG 07/02/2021 06:07:15 No significant changes Electronically Signed On 01-28-2022 12:19:05 EDT by Luis Herring
== END 2022-01-28 02:00 | disposition left against medical advice (07) ==
LOC: ED 22:41
DX: E11.65 Type 2 diabetes mellitus with hyperglycemia (principal); E78.00 Pure hypercholesterolemia, unspecified; R05.9 Cough, unspecified; R11.2 Nausea with vomiting, unspecified; I10 Essential (primary) hypertension; F32.9 Major depressive disorder, single episode, unspecified; Z98.890 Other specified postprocedural states; F17.290 Nicotine dependence, other tobacco product, uncomplicated
CPT/HCPCS: 36415; 71045; 80048; 80076; 81001; 82805; 83690; 85025; 85610; 93005; 96374; 96375; 99284; C9113; J2765; J7030; 80320; G0480; J2250

== ENCOUNTER 2022-02-10 13:18 | Emergency (ER) | payer MEDICARE ==
[2022-02-10] MEDS ORDERED: SODIUM CHLORIDE 0.9% 1000 ML 1,000 ML IV ONE (20:19)
== END 2022-02-11 01:47 | disposition left against medical advice (07) ==
LOC: ED 13:18
DX: R73.9 Hyperglycemia, unspecified (principal); Z53.21 Procedure and treatment not carried out due to patient leaving prior to being seen by health care provider
CPT/HCPCS: 82962